=== PATIENT | female | born 1985 | race Caucasian/White ===

== ENCOUNTER 2021-03-29 14:46 | Outpatient (CLI) | payer OTHER, SELFPAY ==
--- NOTE | ~2021-03-29 | XR_ITS ---
XR lumbar spine 2-3V DATE: 03/29/2021 15:55 INDICATION: Back pain for 3 years TECHNIQUE: AP, lateral, coned lateral lumbosacral views COMPARISON: 07/16/2019 lumbar spine FINDINGS: Normal alignment of the lumbar spine. No fracture or bone destruction or spondylolisthesis. Lumbar and lumbosacral interspaces are relatively preserved. Is minimal degenerative spurring. The s acroiliac joints are intact. IMPRESSION: Minimal degenerative change Reviewed, dictated and finalized at location B. IMPRESSION: Minimal degenerative change
--- NOTE | ~2021-03-29 | XR_ITS ---
XR thoracic spine 2V DATE: 03/29/2021 15:54 INDICATION: Back pain for 3 years TECHNIQUE: AP, lateral, swimmer views COMPARISON: None FINDINGS: There is spurring of the thoracic spine, greater in the mid and lower thoracic region. The thoracic pedicles are intact. No fracture or dislocation or bone destruction or paraspinal soft tissu e thickening. IMPRESSION: Degenerative spurring Reviewed, dictated and finalized at location B. IMPRESSION: Degenerative spurring
--- NOTE | 2021-03-29 15:12 | ECG_ITS ---
Measurements Intervals [place] Rate: 68 P: 48 MN: 141 QRS: 39 QRSD: 111 T: 17 QT: 416 QTc: 444 Interpretive Statements SINUS RHYTHM WITH SINUS ARRHYTHMIA INTRAVENTRICULAR CONDUCTION DELAY BORDERLINE ECG Electronically Signed On 03-29-2021 15:31:15 CDT by Eben Lewis D.O.
[2021-03-29 15:20] LABS: Hematocrit 34.8 % (37.0-47.0); Hemoglobin 10.8 g/dL (12.0-15.0); Mean Corpuscular Hemoglobin 24.3 pg (26-34); Mean Corpuscular Volume 78.4 fl (80-100); Mean Platelet Volume 11.7 fl (7.4-10.4); Platelet Count Result 316 k/mm3 (150-375); Red Blood Count 4.44 M/mm3 (4.2-5.4); White Blood Count 9.3 K/mm3 (4.5-10.0)
[2021-03-29 17:15] LABS: Alanine Aminotransferase 17 U/L (4-35); Albumin Level 4.5 g/dL (3.5-5.1); Alkaline Phosphatase 52 U/L (38-126); Anion Gap 8 mmol/L (8-16); Aspartate Amino Transferase 20 U/L (14-36); Bilirubin,Total 0.6 mg/dL (0.2-1.3); Blood Urea Nitrogen 8 mg/dL (7-17); Calcium 9.6 mg/dL (8.4-10.2); Carbon Dioxide 25 mmol/L (22-30); Chloride 106 mmol/L (98-107); Cholesterol 220 mg/dL (0-200); Estimated Glomerular Filt Rate > 60; Glucose 85 mg/dL (65-110); HDL Direct 50 mg/dL; Potassium 4.2 mmol/L (3.4-5.0); Sodium 139 mmol/L (137-145); Triglycerides 160 mg/dL (<150)
[2021-03-29 17:39] LABS: LDL Cholesterol Direct 118 mg/dL
[2021-03-29 19:01] LABS: Vitamin D 25 Hydroxy 31.1 ng/mL
== END 2021-03-29 14:47 | disposition home or self-care (01) ==
PROVIDERS: PCP Family Medicine; Visit Provider Nurse Practitioner Family
DX: E55.9 Vitamin D deficiency, unspecified (principal); E53.8 Deficiency of other specified B group vitamins; Z13.29 Encounter for screening for other suspected endocrine disorder; Z13.220 Encounter for screening for lipoid disorders; Z13.1 Encounter for screening for diabetes mellitus; I10 Essential (primary) hypertension; M54.5 Low back pain; G89.29 Other chronic pain; R07.9 Chest pain, unspecified; I45.9 Conduction disorder, unspecified
CPT/HCPCS: 36415; 72070; 72100; 80053; 80061; 82306; 82607; 84443; 85027; 93005

== ENCOUNTER 2021-04-23 11:12 | Outpatient (CLI) | payer OTHER, SELFPAY ==
[2021-04-23 12:05] LABS: Basophils Absolute Auto 0.1 K/mm3 (0.0-0.1); Basophils Percent Auto 0.7 % (0.2-1.2); Eosinophils Absolute Auto 0.1 K/mm3 (0-0.3); Eosinophils Percent Auto 1.6 % (0-4.4); Hematocrit 35.2 % (37.0-47.0); Hemoglobin 10.5 g/dL (12.0-15.0); Immature Granulocyte Absolute 0.02 K/mm3 (0.00-0.031); Immature Granulocyte Percent A 0.3 % (0-0.5); Lymphocytes Absolute Auto 1.72 K/mm3 (0.9-3.2); Lymphocytes Percent Auto 22.4 % (18.3-44.2); Mean Corpuscular HGB Conc 29.8 g/dl (32-36); Mean Corpuscular Volume 80.4 fl (80-100); Mean Platelet Volume 12.1 fl (7.4-10.4); Monocytes Absolute Auto 0.6 K/mm3 (0.1-0.6); Monocytes Percent Auto 7.9 % (2.6-8.5); Neutrophils Absolute Auto 5.2 K/mm3 (1.3-6.7); Neutrophils Percent Auto 67.1 % (45.5-73.1); Platelet Count Result 255 k/mm3 (150-375); Red Blood Count 4.38 M/mm3 (4.2-5.4); Red Cell Distribution Width 14.9 % (11.5-14.5); White Blood Count 7.7 K/mm3 (4.5-10.0)
[2021-04-23 12:29] LABS: CRP < 0.5 mg/dL (<1.0)
[2021-04-23 12:58] LABS: Erythrocyte Sedimentation Rate 16 mm/hr (0-20)
[2021-04-23 13:11] LABS: Ovalocytes 1+ (NORMAL); Platelet Estimate Adequate (Adequate)
== END 2021-04-23 11:13 | disposition home or self-care (01) ==
PROVIDERS: PCP Family Medicine; Visit Provider Nurse Practitioner Family
DX: M25.50 Pain in unspecified joint (principal); D64.9 Anemia, unspecified
CPT/HCPCS: 36415; 85025; 85652; 86038; 86140

== ENCOUNTER 2021-04-27 09:52 | Outpatient (CLI) | payer OTHER, SELFPAY ==
--- NOTE | 2021-04-27 09:56 | EST_ITS ---
Patient Info Name: Rama Nair Age: 35 years : 1985 Gender: Female Ht: 61 in Wt: 213 lbs BSA: 2.09 m2 Exam Date: 04/27/2021 10:11 AM Exam Location: [facility] Patient Status: Outpatient Admit Date: 04/27/2021 Staff Ordering Physician: Eliezer Pantoja NP Attending Provider: Eliezer Pantoja NP Exercise Technologist: Gayatri Jamil RDCS Exercise Physician: Eben Lewis DO Exam Type: CA stress test treadmill Study Info Indications R07.9 - Chest pain, unspecified A treadmill exercise stress test was performed. Summary 1. 1. Negative Tobi exercise stress test for ischemic ST changes by ECG criteria. 2. 2. Good functional capacity, achieving 10 METs of workload. 3. 3. Hypertensive response to exercise. 4. 4. Appropriate HR response to exercise. 5. 5. Appropriate HR recovery at 1 minute post exercise. 6. 6. No imaging with stress testing. 7. 7. Patient informed of the above results. Protocol: Tobi Stress ECG Details Stage: REST Duration (min): 5 min : 25 sec Speed (mph): 0.0 Grade (%): 0 HR (bpm): 70 SBP (mmHg): 139 DBP (mmHg): 94 METS: --- Stage: REST Duration (min): 10 min : 21 sec Speed (mph): 0.0 Grade (%): 0 HR (bpm): 86 SBP (mmHg): 139 DBP (mmHg): 94 METS: --- Stage: STAGE 1 Duration (min): 1 min : 0 sec Speed (mph): 1.7 Grade (%): 10 HR (bpm): 109 SBP (mmHg): 139 DBP (mmHg): 94 METS: --- Stage: STAGE 1 Duration (min): 2 min : 0 sec Speed (mph): 1.7 Grade (%): 10 HR (bpm): 129 SBP (mmHg): 139 DBP (mmHg): 94 METS: --- Stage: STAGE 1 Duration (min): 3 min : 0 sec Speed (mph): 1.7 Grade (%): 10 HR (bpm): 132 SBP (mmHg): 189 DBP (mmHg): 90 METS: --- Stage: STAGE 2 Duration (min): 1 min : 0 sec Speed (mph): 2.5 Grade (%): 12 HR (bpm): 136 SBP (mmHg): 189 DBP (mmHg): 90 METS: --- Stage: STAGE 2 Duration (min): 2 min : 0 sec Speed (mph): 2.5 Grade (%): 12 HR (bpm): 144 SBP (mmHg): 202 DBP (mmHg): 91 METS: --- Stage: STAGE 2 Duration (min): 3 min : 0 sec Speed (mph): 2.5 Grade (%): 12 HR (bpm): 147 SBP (mmHg): 202 DBP (mmHg): 91 METS: --- Stage: STAGE 3 Duration (min): 1 min : 0 sec Speed (mph): 3.4 Grade (%): 14 HR (bpm): 157 SBP (mmHg): 213 DBP (mmHg): 108 METS: --- Stage: STAGE 3 Duration (min): 2 min : 0 sec Speed (mph): 3.4 Grade (%): 14 HR (bpm): 162 SBP (mmHg): 213 DBP (mmHg): 108 METS: --- Stage: STAGE 3 Duration (min): 2 min : 0 sec Speed (mph): 3.4 Grade (%): 14 HR (bpm): 162 SBP (mmHg): 213 DBP (mmHg): 108 METS: --- Stage: RECOVERY Duration (min): 0 min : 59 sec Speed (mph): 0.0 Grade (%): 0 HR (bpm): 134 SBP (mmHg): 215 DBP (mmHg): 102 METS: --- Stage: RECOVE
== END 2021-04-27 09:53 | disposition home or self-care (01) ==
PROVIDERS: PCP Family Medicine; Visit Provider Nurse Practitioner Family
DX: R07.9 Chest pain, unspecified (principal); I10 Essential (primary) hypertension
CPT/HCPCS: 93017

== ENCOUNTER 2021-09-04 16:40 | Outpatient (CLI) | payer BC, SELFPAY ==
--- NOTE | ~2021-09-04 | MR_ITS ---
EXAMINATION: MR lumbar spine wo/w con DATE: 09/04/2021 17:55 INDICATION: Low back pain. TECHNIQUE: Magnetic resonance imaging (MRI) of the lumbar spine was performed without and with 20 mL MultiHance intravenous contrast. Sequences included sagittal T2-weighted FSE, sagittal T2-weighted FS FSE, and sagittal and axial T1-weighted FSE. Postcontrast sequences included axial T2-weighted FSE a nd axial and sagittal T1-weighted FS FSE. COMPARISON: Lumbar spine radiograph 03/29/2021 FINDINGS: Bone alignment is normal. There is mild chronic anterior wedging of T12 vertebral body. Int ervertebral disc heights are normal. The distal spinal cord signal intensity is normal. The conus med ullaris is at L1-L2. There is an 8 mm cyst in right kidney. The following disc levels are specificall y discussed: L1-L2: The disc does not extend beyond the endplate margin. There is mild bilateral facet joint osteo arthritis. There is no neural foraminal stenosis. There is no central canal stenosis. L2-L3: The disc does not extend beyond the endplate margin. There is mild bilateral facet joint osteo arthritis. There is no neural foraminal stenosis. There is no central canal stenosis. L3-L4: The disc does not extend beyond the endplate margin. There is mild bilateral facet joint osteo arthritis. There is no neural foraminal stenosis. There is no central canal stenosis. L4-L5: The disc does not extend beyond the endplate margin. There is moderate bilateral facet joint o steoarthritis. There is no neural foraminal stenosis. There is no central canal stenosis. L5-S1: There is a central protrusion with annular fissure. There is moderate bilateral facet joint os teoarthritis. There is no neural foraminal stenosis. There is mild central canal stenosis. IMPRESSION: 1. Mild lumbar spondylosis. Reviewed, dictated and finalized at location B. 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 Mild lumbar spondylosis.
[2021-09-04 17:18] LABS: Estimated Glomerular Filt Rate > 60
== END 2021-09-04 16:41 | disposition home or self-care (01) ==
PROVIDERS: PCP Family Medicine; Visit Provider Psychiatry & Neurology Neurology
DX: M51.16 Intervertebral disc disorders with radiculopathy, lumbar region (principal); M47.896 Other spondylosis, lumbar region
CPT/HCPCS: 72158; A9577

== ENCOUNTER 2021-11-22 08:07 | Outpatient (CLI) | payer BC, SELFPAY ==
--- NOTE | ~2021-11-22 | MR_ITS ---
EXAMINATION: MR brain/brain stem wo/w con EXAM DATE: 11/22/2021 09:33 INDICATION: G43.909 - Migraine, unspecified, not intractable, without... TECHNIQUE: Magnetic resonance imaging (MRI) of the brain/brain stem obtained without contrast. Sagit adrián T1, axial diffusion, gradient echo (T2*), T1, T2, FLAIR sequences obtained. Patient was then inj ected with 20 cc intravenous Multihance contrast. Axial and coronal postcontrast T1 weighted sequence s obtained. There is no prior study for comparison. FINDINGS: There are no areas of restricted diffusion to suggest acute infarction. There is no acute hemorrhage seen on the T2*, a hemosiderin sensitive sequence. No intraparenchymal brain mass. The ve ntricles are normal in size. There are no extra-axial collections. Flow voids are seen in the cereb ral arteries on the T2-weighted sequences consistent with their expected patency. The orbits are unr emarkable. Soft tissue is unremarkable. There are no areas of abnormal enhancement on the postcont rast images. IMPRESSION: Unremarkable brain MRI examination. Reviewed, dictated and finalized at location B.
[2021-11-22 08:48] LABS: Estimated Glomerular Filt Rate > 60
== END 2021-11-22 08:08 | disposition home or self-care (01) ==
LOC: ANHIMG 08:12
PROVIDERS: PCP Family Medicine; Visit Provider Psychiatry & Neurology Neurology
DX: G43.909 Migraine, unspecified, not intractable, without status migrainosus (principal); R20.2 Paresthesia of skin
CPT/HCPCS: 70553; A9577

== ENCOUNTER 2022-05-31 10:54 | Outpatient (CLI) | payer BC, SELFPAY ==
[2022-05-31 11:17] LABS: Basophils Absolute Auto 0.1 K/mm3 (0.0-0.1); Eosinophils Absolute Auto 0.1 K/mm3 (0-0.3); Eosinophils Percent Auto 1.9 % (0-4.4); Hematocrit 34.1 % (37.0-47.0); Hemoglobin 10.4 g/dL (12.0-15.0); Immature Granulocyte Absolute 0.03 K/mm3 (0.00-0.031); Immature Granulocyte Percent A 0.4 % (0-0.5); Lymphocytes Absolute Auto 2.25 K/mm3 (0.9-3.2); Lymphocytes Percent Auto 31.1 % (18.3-44.2); Mean Corpuscular HGB Conc 30.5 g/dl (32-36); Mean Corpuscular Hemoglobin 22.8 pg (26-34); Mean Corpuscular Volume 74.6 fl (80-100); Mean Platelet Volume 10.7 fl (7.4-10.4); Monocytes Absolute Auto 0.6 K/mm3 (0.1-0.6); Neutrophils Absolute Auto 4.2 K/mm3 (1.3-6.7); Neutrophils Percent Auto 57.6 % (45.5-73.1); Platelet Count Result 278 k/mm3 (150-375); Red Blood Count 4.57 M/mm3 (4.2-5.4); Red Cell Distribution Width 14.9 % (11.5-14.5); White Blood Count 7.2 K/mm3 (4.5-10.0)
[2022-05-31 11:28] LABS: Alanine Aminotransferase 22 U/L (6-35); Albumin Level 4.7 g/dL (3.5-5.1); Alkaline Phosphatase 63 U/L (38-126); Anion Gap 10 mmol/L (8-16); Aspartate Amino Transferase 23 U/L (14-36); Bilirubin,Total 0.5 mg/dL (0.2-1.3); Blood Urea Nitrogen 8 mg/dL (7-17); Calcium 8.8 mg/dL (8.4-10.2); Carbon Dioxide 26 mmol/L (22-30); Chloride 103 mmol/L (98-107); Cholesterol 250 mg/dL (0-200); Estimated Glomerular Filt Rate > 60; Glucose 89 mg/dL (65-110); HDL Direct 49 mg/dL; Potassium 4.1 mmol/L (3.4-5.0); Sodium 139 mmol/L (137-145); Triglycerides 169 mg/dL (<150)
[2022-05-31 11:39] LABS: LDL Cholesterol Direct 155 mg/dL
[2022-05-31 12:07] LABS: Anisocytosis 1+ (NORMAL); Microcytosis 2+ (NORMAL); Platelet Estimate Adequate (Adequate); Schistocytes None Seen (NORMAL)
[2022-05-31 12:20] LABS: Vitamin D 25 Hydroxy 24.3 ng/mL
== END 2022-05-31 10:55 | disposition home or self-care (01) ==
LOC: ANHLAB 10:56
PROVIDERS: PCP Family Medicine; Visit Provider Nurse Practitioner Family
DX: O24.419 Gestational diabetes mellitus in pregnancy, unspecified control (principal); I10 Essential (primary) hypertension; D64.9 Anemia, unspecified; Z13.29 Encounter for screening for other suspected endocrine disorder; E55.9 Vitamin D deficiency, unspecified; E53.8 Deficiency of other specified B group vitamins; Z13.220 Encounter for screening for lipoid disorders
CPT/HCPCS: 36415; 80053; 80061; 82306; 82607; 84443; 85025

== ENCOUNTER 2022-09-10 19:47 | Emergency (ER) | payer BC, SELFPAY ==
--- NOTE | 2022-09-10 19:48 | ED.URI ---
HPI - URI/Sore Throat General Chief Complaint: Upper Respiratory Infection Stated Complaint: sorethroat Time Seen by Provider: 09/10/22 19:48 Source: patient Mode of arrival: ambulatory Limitations: no limitations History of Present Illness HPI Narrative: Armida is a 36-year-old female patient presenting to the clinic today with complaints of a sore throat x6 days. She reports she is having more pain with swallowing and ear pain today. She denies any known fever or chills. Does report some nasal drainage going in the back of her throat and she is coughing up some clear phlegm. History of tonsillectomy MD elicited complaint: cough, sore throat and nasal congestion Related Data Allergies Allergy/AdvReac Type Severity Reaction Status Date / Time No Known Allergies Allergy Unknown Verified 09/10/22 19:49 Review of Systems Review of Systems: Pertinent positives per HPI. Patient denies any fever, chills, rash, headache, visual changes, dizziness, shortness of breath, chest pain, palpitations, nausea, vomiting, diarrhea, constipation, abdominal pain, or any urinary issues. [facility] Past Medical History Medical History BMI 40.0-44.9, adult COVID-19 Paresthesia Family History Family History Father Hypertension Mother No problems noted. 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 Gender identity (if verbalized by the patient): Female Comments At the time of my signature, I reviewed and agree with the nursing past medical, surgical, social, and family history. There is no relevant family history pertinent to the patient complaint. Exam Narrative: General: Well-developed, morbidly obese, in no apparent distress Head: Normocephalic, atraumatic Eyes: Pupils equally round and reactive to light bilaterally, EOM intact, sclera and conjunctive clear, no discharge, lids normal Ears: TMs intact, congested, mild bulging, ear canals clear, no drainage, grossly hearing normal. Nose: Nares patent, clear nasal discharge, moderate inflammation, no sinus tenderness. Mouth: Oral pharynx without lesions or masses, good dentition, MMM. Postnasal drip, oropharynx red Neck: Supple, trachea midline, no enlargement of anterior or posterior cervical nodes, no thyroid masses or goiter palpable. Cardio: Regular rate and rhythm, s1 and s2 normal, no murmur appreciated. Resp: Clear to auscultation bilaterally, no rhonchi, rales, wheezing or rubs Course Course Emergency Course: Portions of this record may have been created with voice recognition software. Level of Care: Express Care Visit Vital Signs Vital signs: Vital signs reviewed MDM - URI/Sore Throat MDM Narrative Medical decision making narrative: At the time of visit patient is resting comfortably on exam table. Strep screen was obtained was negative in the clinic today. I suspect patient has URI/pharyngitis/eustachian tube dysfunction. Prescription for prednisone was sent to the pharmacy. Supportive measures were discussed with the patient she voiced understanding discharge instructions and agrees to treatment plan. Will send strep for culture and if this comes back positive we will place her on antibiotics at that time. Differential Diagnosis Differential diagnosis: Likely upper respiratory infection, otitis media, sinusitis, viral infection, bronchitis, influenza, pharyngitis and other (COVID) Discharge
[2022-09-10 19:57] VITALS: BP 148/87; PULSE 92; RESP 16; TEMP 36.2; O2SAT 100
== END 2022-09-10 20:07 | disposition home or self-care (01) ==
PROVIDERS: Emergency Provider Nurse Practitioner Family; PCP Family Medicine
DX: J02.9 Acute pharyngitis, unspecified (principal); J06.9 Acute upper respiratory infection, unspecified; H69.93 Unspecified Eustachian tube disorder, bilateral; Z87.891 Personal history of nicotine dependence; Z86.16 Personal history of COVID-19
CPT/HCPCS: 87081; 87880; 99213; G0463

== ENCOUNTER 2022-11-15 09:52 | Outpatient (CLI) | payer OTHER, SELFPAY ==
--- NOTE | ~2022-11-15 | US_ITS ---
EXAMINATION: US pelvic complete DATE: 11/15/2022 10:16 INDICATION: Abnormal uterine bleeding, pelvic pain TECHNIQUE: Multiple transabdominal and endovaginal sonographic images of the pelvis were obtained. COMPARISON: 11/15/2009 FINDINGS: The uterus measures 12.1 x 4.7 x 7.3 cm. There is a 2.4 x 1.3 x 2.0 cm hyperechoic area of the myometrium abutting the endometrial complex, likely an intramural fibroid. The endometrial comple x measures 10 mm. The right ovary measures 3.9 x 2.8 x 3.6 cm. The left ovary measures 2.8 x 1.7 x 2. 6 cm. There is normal vascular flow in the ovaries. There is no free fluid in the pelvis. IMPRESSION: 1. No definite sonographic correlate for the patient's symptoms. There is a probable uterine fibroid abutting the endometrium. If further evaluation is desired, MRI of the pelvis without and with contra st would be recommended Reviewed, dictated and finalized at location B. IMPRESSION: 1. No definite sonographic correlate for the patient's symptoms. There is a pro bable uterine fibroid abutting the endometrium. If further evaluation is desire d, MRI of the pelvis without and with contrast would be recommended
== END 2022-11-15 09:53 ==
LOC: MICIMG 09:53
PROVIDERS: PCP Family Medicine; Visit Provider Advanced Practice Midwife
DX: N93.8 Other specified abnormal uterine and vaginal bleeding (principal); R10.2 Pelvic and perineal pain
CPT/HCPCS: 76856

== ENCOUNTER 2023-01-06 01:18 | Day surgery (SDC) | payer OTHER, SELFPAY ==
[2022-12-30 08:43] VITALS: BMI 41.6
--- NOTE | 2022-12-30 08:50 | PC.NURSE ---
Report to the Outpatient Waiting Room, entrance under the green pavilion located off [facility], at time 0630 on date 01/06/23. Planned Procedure Time: 0830. Time changes happen often and if your time is changed the preop area will call you the afternoon before. - You and your visitor will be asked to self-screen and do not enter if you have any COVID symptoms. - A mask is optional within the hospital at this time. Patients may have clear liquids (water, carbonated beverages, clear teas, apple juice) until 3 hours prior to surgery with a maximum of 20 ounces. - No food from midnight until time of surgery Take the following medications with a SIP of water the morning of surgery: LABETALOL DO NOT STOP ANY OF YOUR OTHER PRESCRIPTION MEDICATIONS PRIOR TO SURGERY EXCEPT THE FOLLOWING Medications to discontinue per physician: VITAMINS/SUPPLEMENTS Date to take last dose: 01/02/23 Please no make-up, nail niuean, hairspray, perfume, deodorant, or body powder the day of surgery. No jewelry (including any body piercings) or valuables the day of surgery, leave them at home. Please take a shower or bath the night before, or the morning of, surgery with an antibacterial soap. Wear comfortable, loose fitting clothing. - Jewelry must be removed prior to entering the operating room. Rings and piercings that are not removed may be cut off. - The hospital will not accept responsibility for valuables. - Please leave all valuables, including medications, at home the day of surgery. If you are going home after surgery, a licensed medical driver must drive you home. - NO public transportation without another adult if you receive anesthesia. - We recommend that an adult stay with you for 24 hours following discharge. - We also recommend that you do not drive, make important decision, drink alcoholic beverages, or take any drugs that were not prescribed by your health care provider for at least 24 hours after your discharge time. Follow any additional instructions given to you from your surgeon. If you or anyone in your household have experienced Covid symptoms in the past week, please notify your surgeon or the nurse liaison at the phone number below for possible testing. Telephone instructions given to PT - ESME HUYNH and asked if any additional questions and then verbalized understanding. Patient advised to call surgeon office or pre surgery nurse liaison [phone] if any additional questions.
[2023-01-06] VITALS (9 sets, daily range): BP systolic 133–152; BP diastolic 77–96; PULSE 59–82; RESP 14–20; TEMP 36.7; O2SAT 97–99
[2023-01-06] MEDS: LACTATED RINGERS 1,000 ML 30 ML IV CONT ×2 (07:00→09:48)
[2023-01-06] MEDS: ACETAMINOPHEN 500 MG TABLET 1000 MG PO (07:01)
--- NOTE | 2023-01-06 07:02 | P.PNAN_ITS ---
Anes - Initial Pre Proc Eval Procedure: Operation Date: 01/06/23 08:30 Proposed Procedures p Hysteroscopy Dilation and Curettage With Endocervical Curettage - Kait Oneal MD Date/Time: 01/06/23 07:02 Surgeon: Kait Oneal MD Pre Op Diagnosis: Menorrhagia with Anemia Patient Data Age: 37 Gender: F Height: 1.55 m Weight: 100 kg Allergies Allergy/AdvReac Type Severity Reaction Status Date / Time No Known Allergies Allergy Unknown Verified 01/06/23 06:55 Home Medications Medication Instructions Recorded Confirmed Type labetalol 200 mg tablet 200 mg PO Q12H #60 tabs 10/18/22 01/06/23 Rx ferrous sulfate 325 mg (65 mg 325 mg PO BID 12/30/22 01/06/23 History iron) tablet (Iron (ferrous sulfate)) B12 1 tablet PO DAILY 01/06/23 01/06/23 History Patient hx anesthesia problems: post op nausea/vomiting Family hx anesthesia problems: none Results Review: All pre-operative results and documents have been reviewed as part of the pre- operative evaluation. [facility] Past Medical History Medical History BMI 40.0-44.9, adult COVID-19 Paresthesia Family History Family History Father Hypertension Mother No problems noted. 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 Gender identity (if verbalized by the patient): Female Spiritual care concerns: No Anes - Eval Final PreProcedure Day of Procedure 01/06/23 07:02 Patient weight: morbidly obese Heart: regular rate and rhythm Lungs: clear to auscultation Airway: Mallampati scale class II Neurological: alert and oriented Last oral intake: >/= 8 hours ASA classification: III Emergent: no Anesthetic plan: proceed Anesthesia type and monitoring: general GIVS and standard monitoring Results Review: All pre-operative results and documents have been reviewed as part of the pre- operative evaluation. Informed Consent: The patient's anesthetic plan and its attendant risks and benefits were discussed with the patient/family/POA. Questions were solicited and answers provided to the satisfaction of the patient/family/POA.
[2023-01-06 07:22] LABS: Hemoglobin 9.1 g/dL (12.0-15.0)
--- NOTE | 2023-01-06 07:28 | WPDHPUPDATE1 ---
History and Physical Update Update Date/Time: 01/06/23 07:28 History and Physical has been reviewed, including an updated exam of the patient. There are NO changes in the patient's condition. Risks, benefits, and alternatives have been discussed and questions answered. Patient agrees to proceed with procedure.
--- NOTE | 2023-01-06 07:28 | PM.IMHP ---
H&P: HPI History of Present Illness Date/Time: 01/06/23 07:28 Chief Complaint: menorrhagia and anemia Narrative: The patient is a 36-year-old 5 para 4 aborta 1 here for menorrhagia with anemia. The patient presents for hysteroscopy with D& C. The patient ultrasound shows an intramural fibroid and possibly a submucosal fibroid. Risks of the procedure including infection, bleeding, perforation, and fluid imbalance were reviewed. Possible pathology was discussed. Patient voices understanding and agrees to proceed. Review of Systems Review of Systems: not repeated day of surgery; patient states no changes in status [facility] Past Medical History Medical History (Updated 01/06/23 @ 07:35 by Kait Oneal MD) Anxiety BMI 40.0-44.9, adult Fibromyalgia Hypothyroid Interstitial cystitis Paresthesia depression Surgical History Surgical History (Updated 01/06/23 @ 07:33 by Kait Oneal MD) History of bilateral tubal ligation 2018 with last section History of x4 History of surgery on wrist bilateral History of tonsillectomy Family History Family History Father Hypertension Mother No problems noted. 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 Gender identity (if verbalized by the patient): Female Spiritual care concerns: No Meds Home Medications and Allergies Home Medications Medication Instructions Recorded Confirmed Type labetalol 200 mg tablet 200 mg PO Q12H #60 tabs 10/18/22 01/06/23 Rx ferrous sulfate 325 mg (65 mg 325 mg PO BID 12/30/22 01/06/23 History iron) tablet (Iron (ferrous sulfate)) B12 1 tablet PO DAILY 01/06/23 01/06/23 History Allergies Allergy/AdvReac Type Severity Reaction Status Date / Time No Known Allergies Allergy Unknown Verified 01/06/23 06:55 Vital Signs Vital Signs - 24 hr 01/06/23 07:19 Temperature 98.1 F Pulse Rate 72 Respiratory Rate 16 Blood Pressure 149/89 H Pulse Oximetry 99 Oxygen Delivery Room Air Exam Const: General: healthy appearing, alert and obese ( BMI of 43) Orientation/consciousness: patient oriented x3 Resp: Effort & Inspection: normal respiratory effort Auscultation: clear to auscultation bilaterally Cardio: Rate: regular rate Rhythm: regular rhythm GI: GI Palp: Yes Soft to palpation, No Tenderness to palpation present (GI) and No Palpable mass present : External Female Exam: normal external appearance Speculum Exam - Vagina: normal appearance of the vagina and normal vaginal discharge Speculum Exam - Cervix: normal appearance of the cervix ( very posterior stenotic) Bimanual exam- vagina & uterus: consistency normal and enlarged ( 12 week size) Bimanual Exam- Adnexa, other: normal adnexae and No adnexal tenderness Neuro: General: patient oriented x3 H&P: Results Labs Labs: Short CBC 01/06/23 Range/Units 07:06 Hgb 9.1 L (12.0-15.0) g/dL Hct 31.0 L (37.0-47.0) % Assessment and Plan Assessment and plan (1) Menorrhagia: Code(s): N92.0 - Excessive and frequent menstruation with regular cycle Status: Acute Assessment and Plan: plan to proceed with D&C hysteroscopy (2) Anemia: Code(s): D64.9 - Anemia, unspecified Status: Acute Assessment and Plan: continue iron
[2023-01-06] MEDS: LIDOCAINE HCL 1% LOCAL INJ 20 ML VIAL 10 ML INFILTRATE (08:56)
[2023-01-06] MEDS: KETOROLAC 15 MG/ML VIAL (*BKC) IV PUSH (09:03)
--- NOTE | 2023-01-06 09:07 | P.OP_ITS ---
Procedure Note - Detailed Date of Procedure 01/06/23 Pre-op Diagnosis Menorrhagia with Anemia Post-op Diagnosis Same Procedure Performed D&C hysteroscopy with resection of endometrial polyps Surgeon Kait Oneal MD Anesthesia MAC and Local Findings uterus sounds to 11cm; large polyp noted at the 3 o'clock position and the 7 o'clock position; endometrium otherwise appears normal Description of Procedure The patient is taken to the operating room and placed under anesthesia in the dorsal lithotomy position. She was prepped and draped in the usual sterile fashion. [place] speculum was placed in the vagina and cervix was grasped on the anterior lip with a tenaculum. The cervix is injected in each quadrant with 1% lidocaine. Endocervical curettings are taken. Uterus is sounded to 11cm. The large Aveeta hysteroscope was placed with the above-stated findings. The resection device is placed through the hysteroscope and under direct visualization the polyps are removed. The hysteroscope was then removed and the sharp curette used to curette the endometrium until a good uterine cry was noted in all areas. All instruments were then removed. Sponge, needle, and instrument counts are correct per the OR staff. Estimated Blood Loss 5 Drains No Packing No Pathology Yes ( Endometrial curettings and shavings; endocervical curettings) Complications No immediate complications Condition Stable Disposition PACU
[2023-01-06] MEDS: oxyCODONE HCL (*CRX) 5 MG TAB IR PO (09:27)
[2023-01-06] MEDS: ONDANSETRON INJ 4 MG/2 ML VIAL IV PUSH (09:44)
[2023-01-06] MEDS: fentaNYL CITRATE INJ (*CRX) 100 MCG/2 ML VIAL 25 MCG IV PUSH ×3 (09:45→10:13)
[2023-01-06] MEDS: diphenhydrAMINE HCl INJ 50 MG/ML VIAL 12.5 MG IV PUSH (10:45)
== END 2023-01-06 12:33 | disposition home or self-care (01) ==
PROVIDERS: Anesthesiology; PCP Family Medicine; Visit Provider Obstetrics & Gynecology Gynecology
PROC: 0U5B8ZZ Destruction of Endometrium, Via Natural or Artificial Opening Endoscopic (ICD-10-PCS; CPT 58563; principal; 2023-01-06 08:30)
DX: N92.0 Excessive and frequent menstruation with regular cycle (principal); D64.9 Anemia, unspecified; N84.0 Polyp of corpus uteri; E66.01 Morbid (severe) obesity due to excess calories; Z68.41 Body mass index [BMI] 40.0-44.9, adult
CPT/HCPCS: 58558; 36415; 85014; 85018; 88305; A9270; J1200; J1885; J2250; J2405; J2704; J3010; J7120

== ENCOUNTER 2023-04-07 19:57 | Emergency (ER) | payer OTHER, SELFPAY ==
--- NOTE | ~2023-04-07 | XR_ITS ---
EXAM: XR forearm LT 2V DATE: 04/07/2023 20:11 HISTORY: hit arm on furniture while falling, pain on distal forearm . COMPARISON: None available. FINDINGS: Normal mineralization. No fracture or dislocation. No lytic or blastic lesion. Joint space s are maintained. No erosion or periosteal change. Soft tissues within normal limits. IMPRESSION: No acute osseous finding in the left forearm. If clinical symptoms or mechanism of injury suggest wrist or elbow injury, consider dedicated radiographs of those specific joints. Reviewed, dictated and finalized at location K. IMPRESSION: No acute osseous finding in the left forearm. If clinical symptoms or mechanism of injury suggest wrist or elbow injury, consider dedicated radiog raphs of those specific joints.
--- NOTE | 2023-04-07 20:01 | ED.UPPEXIN ---
HPI - Extremity Injury (Upper) General Chief Complaint: Extremity Injury, Upper Stated Complaint: lt arm injury Time Seen by Provider: 04/07/23 20:09 Source: patient and RN notes reviewed Mode of arrival: ambulatory Limitations: no limitations History of Present Illness HPI narrative: 37-year-old female presents concern for left forearm pain, bruising. Reports 1 week ago she slammed her forearm on a railing. She reports she had a large swollen bruised area. Reports she used ice, has been taking ibuprofen. She reports the forearm continues to be tender and she is now experiencing tingling in the 1st 2nd 3rd digits. complaint: injury to: left and forearm Related Data Allergies Allergy/AdvReac Type Severity Reaction Status Date / Time No Known Allergies Allergy Unknown Verified 04/07/23 20:08 Review of Systems Review of Systems: CONSTITUTIONAL: Denies malaise, chills, sweats, or fever. SKIN: Denies rash or itching, open skin, laceration, abrasion, redness, warmth MUSCULOSKELETAL: Reports left arm pain, bruising, tingling in the 1st 3 digits of her left NEUROLOGIC: Denies numbness, weakness All systems reviewed & are unremarkable except as noted in HPI and below PMFSH Past Medical History Medical History (Updated 04/07/23 @ 20:27 by Roslyn Gallardo NP) Anxiety BMI 40.0-44.9, adult Fibromyalgia Hypothyroid Interstitial cystitis Paresthesia depression Surgical History Surgical History (Updated 01/06/23 @ 07:33 by Kait Oneal MD) History of bilateral tubal ligation 2018 with last section History of x4 History of surgery on wrist bilateral History of tonsillectomy Family History Family History Father Hypertension Mother No problems noted. 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 Gender identity (if verbalized by the patient): Female Spiritual care concerns: No Comments At time of signature, agree with nursing past medical, surgical, social and family history. There is no relevant family history pertinent to the presenting complaint Exam Narrative: GENERAL: Well-appearing, well-nourished, and in no acute distress. HEAD: Normocephalic, atraumatic. EYES: PERRLA, conjunctivae clear NECK: Supple. CHEST: Speaks in full sentences. No respiratory distress. HEART: Regular rate and rhythm. Normal and equal peripheral pulses. EXTREMITIES: left forearm, wrist, hand, digits have grossly normal strength, normal range of motion. No edema. Healing ecchymosis noted to the dorsal aspect of the forearm. Normal sensation with sensitivity to light touch and pain. Bilateral lower forearm tenderness. No open wounds, no skin tenting, no devitalized tissue or atrophy, no trophic changes, no obvious deformity, alignment normal, nearby joints and structures intact. Distal pulses palpable and equal bilaterally, skin warm, dry, pink. Capillary refill less than 3 seconds. SKIN: Warm, dry, no rash. NEURO: Alert and oriented x3. PSYCH: Normal mood and affect Course Course Emergency Course: Patient is aware of diagnosis, understands and agrees to treatment plan. Anticipatory guidance given. Patient agrees to follow-up as directed and is aware of reasons to seek care at the emergency department. Portions of this record may have been created with voice recog
[2023-04-07 20:05] VITALS: BP 152/91; PULSE 77; RESP 18; TEMP 36.7; O2SAT 100
== END 2023-04-07 20:32 | disposition home or self-care (01) ==
PROVIDERS: Emergency Provider Nurse Practitioner; PCP Family Medicine
DX: S59.912A Unspecified injury of left forearm, initial encounter (principal); W22.8XXA Striking against or struck by other objects, initial encounter; M79.7 Fibromyalgia; E03.9 Hypothyroidism, unspecified
CPT/HCPCS: 73090; 99213; G0463

== ENCOUNTER 2024-01-09 10:28 | Outpatient (CLI) | payer OTHER, SELFPAY ==
--- NOTE | ~2024-01-09 | XR_ITS ---
Clinical Indication: Cough PA and lateral views of the chest: Comparison: 11/12/2023 Findings: The lungs are clear, without evidence of focal consolidation or pleural effusion. Cardiome diastinal silhouette is within normal limits. Bones and soft tissues are unremarkable. Impression: Normal chest. Reviewed, dictated and finalized at location . Impression: Normal chest.
== END 2024-01-09 10:29 | disposition home or self-care (01) ==
PROVIDERS: PCP Family Medicine; Visit Provider Physician Assistant
DX: R05.9 Cough, unspecified (principal)
CPT/HCPCS: 71046

== ENCOUNTER 2024-01-27 15:31 | Outpatient (CLI) | payer OTHER, SELFPAY ==
--- NOTE | ~2024-01-27 | MR_ITS ---
MRI of the lumbar spine Clinical History: Chronic pain Technique: Axial T2-weighted images, and sagittal T1-weighted, T2-weighted, and and T2 fat-sat images were acquired. COMPARISON: 09/04/2021 Findings: There is no fracture or subluxation of the lumbar spine. Vertebral bodies maintain normal h eight and alignment. No bone marrow signal reality seen. At L1-L2, L2-L3, L3-L4, L4-L5, there is no disc bulge or herniation. There are moderate facet joint d egenerative changes at these levels. No spinal canal stenosis or neural foraminal narrowing at these levels. At L5-S1, there is mild disc desiccation with minimal disc bulge. There is moderate facet arthropathy . No central canal stenosis or neural foraminal narrowing. Paravertebral soft tissues are unremarkable. Impression: Degenerative spondylosis overall, as detailed above. Reviewed, dictated and finalized at [facility]. Impression: Degenerative spondylosis overall, as detailed above.
== END 2024-01-27 15:32 ==
PROVIDERS: PCP Physician Assistant; Visit Provider Physician Assistant
DX: M47.896 Other spondylosis, lumbar region (principal); R93.7 Abnormal findings on diagnostic imaging of other parts of musculoskeletal system; G89.29 Other chronic pain
CPT/HCPCS: 72148

== ENCOUNTER 2024-03-04 08:02 | Outpatient (CLI) | payer OTHER, SELFPAY ==
--- NOTE | ~2024-03-04 | US_ITS ---
EXAMINATION: US thyroid DATE: 03/04/2024 08:45 INDICATION: Enlarged thyroid TECHNIQUE: Multiple ultrasound images of the thyroid were obtained. COMPARISON: 11/28/2017 and 05/06/2014 FINDINGS: The right thyroid lobe measures 6.7 x 3.2 x 3.2 cm. The left thyroid lobe measures 4.9 x 1.9 x 2.1 c m. No significant interval change in a solid 3.8 cm isoechoic mass in the right thyroid lobe which i s wider than tall with smooth margins and without echogenic foci (TI-RADS 3, mildly suspicious , FNA if >=2.5 cm, annual followup is >=1.5 cm). Also in the right thyroid lobe is an 8 mm peripherally ech ogenic and shadowing nodule (TI-RADS 4, moderately suspicious , FNA if >=1.5 cm, annual followup is > =1 cm). There is also a 1.3 cm solid hypoechoic TI RADS 4 nodule at the junction of the right thyroid lobe and isthmus which is wider than tall with smooth to ill-defined margins and without echogenic f oci. 4 mm wider than tall solid hyperechoic TI RADS 3 nodule with ill-defined margins in the left thy roid lobe. IMPRESSION: 1. Multinodular goiter with no significant change since 2013 in a 3.8 cm TI RADS 3 right thyroid mass which given the interval stability is likely benign. Per prior report this nodule may have previousl y been biopsied and would correlate with pathology from the reported biopsy. Would also recommend raul ual follow-up for both this and the smaller 1.3 cm TI RADS 4 nodule. Reviewed, dictated and finalized at location A. IMPRESSION: 1. Multinodular goiter with no significant change since 2013 in a 3.8 cm TI RAD S 3 right thyroid mass which given the interval stability is likely benign. Per prior report this nodule may have previously been biopsied and would correlate with pathology from the reported biopsy. Would also recommend annual follow-up for both this and the smaller 1.3 cm TI RADS 4 nodule.
== END 2024-03-04 08:03 ==
LOC: MICIMG 08:02
PROVIDERS: PCP Family Medicine; Visit Provider Advanced Practice Midwife
DX: E07.9 Disorder of thyroid, unspecified (principal); E04.2 Nontoxic multinodular goiter
CPT/HCPCS: 76536

== ENCOUNTER 2024-03-12 11:55 | Outpatient (CLI) | payer OTHER, SELFPAY ==
--- NOTE | ~2024-03-12 | MMUS_ITS ---
EXAMINATION: MM diagnostic reggie BI w neetu, US breast BI complete HISTORY: Breast pain and palpable lumps TECHNIQUE: Additional 3-D tomosynthesis images of the breasts were performed and synthetic 2-D images were generated. CAD analysis was submitted and interpreted. High resolution bilateral complete breas t ultrasound was performed. COMPARISON: No prior studies for comparison. BREAST PARENCHYMAL COMPOSITION: Not dense: There are scattered areas of fibroglandular density. FINDINGS: MAMMOGRAPHIC FINDINGS: There are no suspicious masses, calcifications or architectural distortion in either breast to sugges t malignancy. ULTRASOUND: Complete bilateral US of all 4 quadrants of the breasts and retroareolar region was reviewed. Right breast: At 12:00, 6 cm from the nipple, there is a slightly irregular hypoechoic 11 mm mass wit h parallel orientation, no significant posterior features and no internal vascularity. There is heter ogeneous internal echotexture. Left breast: Normal heterogeneous echotexture without focal solid or cystic mass. IMPRESSION: 1. Slightly irregular shaped 11 mm right breast mass at 12:00, 6 cm from the nipple. No evidence for malignancy in the left breast. 2. Ultrasound-guided right breast biopsy recommended. BI-RADS category 4, suspicious findings. Reviewed, dictated and finalized at location B. IMPRESSION: 1. Slightly irregular shaped 11 mm right breast mass at 12:00, 6 cm from the ni pple. No evidence for malignancy in the left breast. 2. Ultrasound-guided right breast biopsy recommended. BI-RADS category 4, suspicious findings.
== END 2024-03-12 11:56 ==
PROVIDERS: PCP Family Medicine; Visit Provider Advanced Practice Midwife
DX: N64.4 Mastodynia (principal); R92.8 Other abnormal and inconclusive findings on diagnostic imaging of breast
CPT/HCPCS: 76641; 77062; 77066; G0279

== ENCOUNTER 2024-03-17 13:33 | Outpatient (CLI) | payer OTHER, SELFPAY ==
--- NOTE | ~2024-03-17 | US_ITS ---
EXAMINATION: US FNA w image guidance DATE: 03/17/2024 13:19 INDICATION: Thyroid disorder with 3.8 cm TI RADS 3 right thyroid nodule TECHNIQUE: A time-out was performed to verify the patient's name, date of , and procedure to be performed . The procedure and its benefits and risks were discussed with the patient. Risks specifically discus sed included bleeding and infection. The patient understood the risks and agreed to proceed. The neck was prepped and draped in the usual sterile manner. 3 mL 1% lidocaine was used for local anesthesia . 6 passes were made with a 25G needle into the lesion. Appropriate needle location was documented with continuous sonographic guidance. A sterile bandage was applied. There were no immediate compli cations. FINDINGS: Grayscale ultrasound images demonstrate biopsy needles advanced into the previously noted 3.8 cm BI-R ADS 3 nodule in the right thyroid lobe. IMPRESSION: 1. Successful ultrasound-guided fine needle aspiration of the 3.8 cm TI RADS 3 right thyroid nodule. Reviewed, dictated and finalized at location A.
[2024-03-17 13:55] LABS: Hematocrit 37.1 % (37.0-47.0); Mean Corpuscular HGB Conc 29.6 g/dl (32-36); Mean Corpuscular Hemoglobin 22.6 pg (26-34); Mean Corpuscular Volume 76.3 fl (80-100); Mean Platelet Volume 12.4 fl (7.4-10.4); Platelet Count Result 275 k/mm3 (150-375); Red Blood Count 4.86 M/mm3 (4.2-5.4); Red Cell Distribution Width 16.3 % (11.5-14.5); White Blood Count 8.4 K/mm3 (4.5-10.0)
[2024-03-17 14:17] LABS: Rheumatoid Factor < 12.0 IU/ML (<12)
[2024-03-17 14:52] LABS: Vitamin D 25 Hydroxy 28.8 ng/mL
[2024-03-18 13:23] LABS: ANA Cascade Screen NEGATIVE (NEGATIVE)
== END 2024-03-17 13:34 | disposition home or self-care (01) ==
PROVIDERS: Obstetrics & Gynecology Gynecology; PCP Family Medicine; Referring Provider Advanced Practice Midwife; Visit Provider Nurse Practitioner Adult Health
DX: E07.9 Disorder of thyroid, unspecified (principal); M25.50 Pain in unspecified joint; N92.0 Excessive and frequent menstruation with regular cycle; E55.9 Vitamin D deficiency, unspecified
CPT/HCPCS: 10005; 36415; 82306; 84443; 85027; 86038; 86225; 86235; 86364; 86430; 88172; 88173; 88305

== ENCOUNTER 2024-04-15 08:24 | Outpatient (CLI) | payer OTHER, SELFPAY ==
--- NOTE | ~2024-04-15 | MR_ITS ---
MR breast BI wo/w con 04/15/2024 11:22 CDT INDICATION: Right breast mass seen on prior examination. Nipple discharge. TECHNIQUE: MRI of the breasts perform using standard protocol pre-and post IV contrast with the follo wing sequences: Axial T2 STIR, axial T1, axial vibrant T1 with fat suppression precontrast and multip hasic postcontrast. 19 cc MultiHance administered intravenously. COMPARISON: Diagnostic mammogram and bilateral breast ultrasound dated 03/12/2020 FINDINGS: Precontrast sequences and demonstrates a mass measuring up to 9 mm in the upper central asp ect of the right breast, middle third which is characterized as hypointense on T1, hyperintense on T2 without abnormal enhancement. This corresponds to the mass identified on recent ultrasound examinati on and is likely benign given the lack of enhancement. There is moderate background parenchymal enhan cement. No enhancing lesions following contrast administration. No areas of enhancement meeting thr eshold criteria on CAD analysis. No evidence of signal abnormalities in the axillary or internal reggie nury node distributions. LEFT BREAST: No signal abnormalities on precontrast sequences. There is moderate background parenchy mal enhancement. No enhancing lesions following contrast administration. No areas of enhancement m eeting threshold criteria on CAD analysis. No evidence of signal abnormalities in the axillary or i nternal mammary node distributions.] IMPRESSION: 1: Right breast: Probable benign 9 mm right breast mass in the upper central aspect of the right andrea ast without appreciable enhancement. This likely corresponds to the sonographic abnormality on prior ultrasound. Six-month follow-up diagnostic right mammogram and ultrasound recommended. BI-RADS Catego ry 3.. 2: Left breast: Negative. No evidence of malignancy. BI-RADS category 1. Recommend annual mammogr aphy follow-up. Reviewed, dictated and finalized at location B. IMPRESSION: 1: Right breast: Probable benign 9 mm right breast mass in the upper central a spect of the right breast without appreciable enhancement. This likely correspo nds to the sonographic abnormality on prior ultrasound. Six-month follow-up adelfo gnostic right mammogram and ultrasound recommended. BI-RADS Category 3.. 2: Left breast: Negative. No evidence of malignancy. BI-RADS category 1. Re commend annual mammography follow-up.
== END 2024-04-15 08:25 | disposition home or self-care (01) ==
PROVIDERS: PCP Family Medicine; Visit Provider Surgery
DX: N64.52 Nipple discharge (principal); N63.10 Unspecified lump in the right breast, unspecified quadrant
CPT/HCPCS: 77049; A9577; C8908

== ENCOUNTER 2024-08-02 10:18 | Outpatient (CLI) | payer OTHER, SELFPAY ==
--- NOTE | ~2024-08-02 | MMUS_ITS ---
EXAMINATION: MM diagnostic reggie RT w neetu, US breast RT limited HISTORY: Follow-up right breast mass seen on prior examinations. TECHNIQUE: Additional 3-D tomosynthesis images of the right breast were performed and synthetic 2-D i mages were generated. CAD analysis was submitted and interpreted. High resolution Limited right breas t ultrasound was performed. COMPARISON: Comparison to multiple prior studies sequentially, with oldest reviewed study dated 03/12. BREAST PARENCHYMAL COMPOSITION: Not dense: There are scattered areas of fibroglandular density. FINDINGS: MAMMOGRAPHIC FINDINGS: There is a stable focal asymmetry in the upper central aspect of the right breast, middle third. Ther e are no suspicious calcifications. ULTRASOUND: Limited right breast ultrasound: There is a stable oval circumscribed parallel oriented hypoechoic 1 cm mass at 12:00, 8 cm from the nipple, without significant change compared with 03/12/2024. No human resources intern al vascularity. There is mixed posterior attenuation. IMPRESSION: 1. Stable likely benign 1 cm right breast mass at 12:00, 8 cm from the nipple. 2. Recommend 6 month follow-up diagnostic bilateral mammogram and Limited right breast ultrasound BI-RADS category 3, probably benign findings. Reviewed, dictated and finalized at location B. CUTTER IMPRESSION: 1. Stable likely benign 1 cm right breast mass at 12:00, 8 cm from the nipple. 2. Recommend 6 month follow-up diagnostic bilateral mammogram and Limited right breast ultrasound BI-RADS category 3, probably benign findings.
== END 2024-08-02 10:19 | disposition home or self-care (01) ==
LOC: MICIMG 10:19
PROVIDERS: PCP Family Medicine; Visit Provider Surgery
DX: N63.10 Unspecified lump in the right breast, unspecified quadrant (principal); N63.11 Unspecified lump in the right breast, upper outer quadrant
CPT/HCPCS: 76642; 77061; 77065; G0279

== ENCOUNTER 2024-08-02 13:08 | Outpatient (CLI) | payer OTHER, SELFPAY ==
--- NOTE | ~2024-08-02 | US_ITS ---
EXAMINATION: US carotid duplex BI DATE: 08/02/2024 13:41 INDICATION: Syncope. Subjective visual disturbance, vertigo and disturbance of skin sensation. TECHNIQUE: Grayscale, color Doppler, and pulsed Doppler images of the cervical carotid arteries were obtained. The degree of vessel stenosis is placed in one of the following categories: normal, <50%, 5 0-69%, >=70% but less than near-occlusion, near-occlusion, or total occlusion. Note that percent sten osis relative to normal distal artery lumen diameter is indirectly measured from velocity measurement s as described by Leonard, et al. Radiology 2003; 229:340-346. COMPARISON: None. FINDINGS: RIGHT: The right common carotid artery (CCA) peak systolic velocity (PSV) is 86 cm/s. The right internal car otid artery (ICA) PSV is 66 cm/s. The right ICA end-diastolic velocity (EDV) is 23 cm/s. The right IC A/CCA PSV ratio is 0.8. Grayscale and color Doppler images yield an estimate of <50% diameter reducti on from plaque in the ICA. The external carotid artery (ECA) PSV is 84 cm/s. There is antegrade flow in the right vertebral artery. LEFT: The left CCA PSV is 77 cm/s. The left ICA PSV is 69 cm/s. The left ICA EDV is 28 cm/s. The left ICA/C CA PSV ratio is 0.9. Grayscale and color Doppler images yield an estimate of <50% diameter reduction from plaque in the ICA. The ECA PSV is 88 cm/s. There is antegrade flow in the left vertebral artery. IMPRESSION: 1. <50% stenosis in the right internal carotid artery. 2. <50% stenosis in the left internal carotid artery. Reviewed, dictated and finalized at location A. PAINTER
== END 2024-08-02 13:09 | disposition home or self-care (01) ==
PROVIDERS: PCP Family Medicine; Visit Provider Internal Medicine Cardiovascular Disease
DX: I65.23 Occlusion and stenosis of bilateral carotid arteries (principal); E66.9 Obesity, unspecified; E04.1 Nontoxic single thyroid nodule; G62.9 Polyneuropathy, unspecified; Z82.49 Family history of ischemic heart disease and other diseases of the circulatory system
CPT/HCPCS: 93880

== ENCOUNTER 2024-08-03 10:28 | Outpatient (CLI) | payer OTHER, SELFPAY ==
--- NOTE | ~2024-08-03 | US_ITS ---
EXAMINATION: US retroperitoneal duplex ltd DATE: 08/03/2024 14:57 PROFESSOR OF ARCHITECTURE INDICATION: Neuropathy. Hypertension. TECHNIQUE: Sonographic imaging of the kidneys was performed with a 3.5 MHz transducer. Retroperitone al duplex sonogram of the renal arteries also obtained. FINDINGS: No focal flow abnormalities are seen in the renal arteries on color Doppler. The peak syst olic velocities at the origin of the right and left renal arteries and aorta are 119 cm per second, 9 7 cm per second, and 88 cm per second, respectively. The velocities and renal to aortic ratios are wi thin normal limits. IMPRESSION: 1. No Doppler evidence of renal artery stenosis. Reviewed, dictated and finalized at location B. ESSOR OF ARCHITECTURE
== END 2024-08-03 10:29 | disposition home or self-care (01) ==
PROVIDERS: PCP Family Medicine; Visit Provider Internal Medicine Cardiovascular Disease
DX: G62.9 Polyneuropathy, unspecified (principal); E66.9 Obesity, unspecified; R06.02 Shortness of breath; E04.1 Nontoxic single thyroid nodule; Z82.49 Family history of ischemic heart disease and other diseases of the circulatory system; M54.9 Dorsalgia, unspecified; R55 Syncope and collapse; O24.419 Gestational diabetes mellitus in pregnancy, unspecified control; Z3A.00 Weeks of gestation of pregnancy not specified
CPT/HCPCS: 93976

== ENCOUNTER 2024-08-04 14:02 | Outpatient (CLI) | payer OTHER, SELFPAY ==
--- NOTE | 2024-08-04 | ECHO_ITS ---
Patient Info Name: Rama Nair Age: 38 years : 1985 Gender: Female Ht: 64 in Wt: 204 lbs BSA: 2.08 m2 HR: 88 bpm BP: 154 / 95 mmHg Technical Quality: Good Exam Date: 08/04/2024 2:23 PM Exam Location: Echo Lab Patient Status: Outpatient Admit Date: 08/04/2024 Staff Ordering Physician: Christianne Verma MD Household Appliance Repairer: Mariusz De Jesus RDCS Attending Provider: Christianne Verma MD Referring Physician: Bayron HARRISON; Exam Type: CA echo doppler color flow Study Info Indications - sob - neuropathy Complete two-dimensional, color flow and Doppler transthoracic echocardiogram is performed. Summary 1. Complete two-dimensional, color flow and Doppler transthoracic echocardiogram is performed. 2. Left ventricular chamber dimension is normal. 3. Left ventricular wall thickness is mildly increased. 4. Left ventricular systolic function is normal with an ejection fraction by Biplane Method of Discs of 62 %. 5. The left ventricular diastolic function is normal. 6. Dilated inferior vena cava with <50% collapse upon inspiration consistent with elevated right atrial pressure, 10 mmHg. 7. There is no mitral valve regurgitation. 8. PASP cannot be calculated because of insufficient TR jet 9. . Left Ventricle Left ventricular chamber dimension is normal. Left ventricular wall thickness is mildly increased. Left ventricular systolic function is normal with an ejection fraction by Biplane Method of Discs of 62 %. The left ventricular diastolic function is normal. Right Ventricle Right ventricular chamber dimension is normal. Right ventricular systolic function is normal. Left Atria Left atrial chamber dimension is normal. Right Atria Right atrial chamber dimension is normal. Aortic Valve The aortic valve is trileaflet. There is no aortic valve stenosis with a peak velocity of 248 cm/s, mean gradient of 12 mmHg, and aortic valve area of 1.5 cm2. There is no aortic valve regurgitation. Mitral Valve Mitral valve is structurally and functionally normal to two-dimensional, color flow Doppler and Doppler interrogation. There is no mitral valve regurgitation. Tricuspid Valve There is no tricuspid valve regurgitation. PASP cannot be calculated because of insufficient TR jet . Pericardium/Pleural The pericardium appears normal. Inferior Vena Cava Dilated inferior vena cava with <50% collapse upon inspiration consistent with elevated right atrial pressure, 10 mmHg. Aorta The prox ascending aorta size is normal. The ascending aorta arch size is normal. Left Ventricular Outflow Tract Name Value Normal LVOT 2D LVOT Diameter 1.9 cm LVOT Doppler LVOT Peak Gradient 6 mmHg LVOT Mean Gradient 4 mmHg LVOT VTI 27 cm LVOT VTI/AV VTI Ratio 0.5 LVOT Stroke Volume 78 ml LVOT CO 6.0 l/min LVOT CI 2.9 l/min/m2 Pulmonic Valve Name Value Normal RVOT Doppler RVOT Peak Gradient 3 mmHg PV Doppler PV Peak Gradient 5 mmHg Mitral Valve Name Value Normal MV Doppler MV Decel Dauphin 808 cm/s2 MV PHT 41 ms MV Area (PHT) 5.4 cm2 4.0-5.0 MV Diastolic Function MV E Peak Velocity 114 cm/s MV A Peak Velocity 87 cm/s MV E/A 1.3 MV Decel Time 141 ms MV Annular TDI MV E/e' (Septal) 10.7 <=8.0 MV E/e' (Lateral) 9.5 <=8.0 MV E/e' (Average) 10.1 Tricuspid Valve Name Value Normal Estimated PAP/RSVP RA Pressure 10 mmHg <=5 Aorta Name Value Normal Ascending Aorta Ao Root Diameter (MM) 2.7 cm Ao Root Diam Index (MM) 1.3 cm/m2 Aortic Valve Name Value Normal AV Doppler AV Peak Velocity 248 cm/s AV Peak Gradient 19 mmHg AV Mean Gradient 12 mmHg AV VTI 51 cm AV Area (Cont Eq VTI) 1.5 cm2 >=3.0 AV Area (Cont Eq Joe) 1.5 cm2 AV Regurgitation 2D LVOT Area 2.9 cm2 Ventricles Name Value Normal LV Dimensions 2D/MM IVS Diastolic Thickness (2D) 1.1 cm 0.6-1.0 LVID Diastole (2D) 5.0 cm 3.8-5.2 LVIW Diastolic Thickness (2D) 1.3 cm 0.6-0.9 LVID Systole (2D) 3.1 cm 2.2-3.5 LVOT Diameter 1.9 cm LV Mass (2D Cubed) 235.57 g 67.00-162.00 LV Mass Index (2D Cubed) 113 g/m2 43-95 Relative Wall Thickness (2D) 0.50 LV Fractional Shortening/Ejection Fraction 2D/MM LV Fractional Shortening (2D) 39 % 27-45 LV EF (2D Teicholz) 69 % 54-74 LV Diastolic Volume (4C MOD) 117 ml LV EF (4C MOD) 53 % LV Diastolic Volume (2C MOD) 72 ml LV EF (2C MOD) 68 % LV Diastolic Volume (BP MOD) 97 ml 46-106 LV Diastolic Volume Index (BP MOD) 46 ml/m2 29-61 LV Systolic Volume (BP MOD) 36 ml 14-42 LV Systolic Volume Index (BP MOD) 17 ml/m2 8-24 LV EF (BP MOD) 62 % 54-74 LV Diastolic Length (4C) 8.2 cm LV Systolic Length (4C) 6.6 cm LV Stroke Volume (4C MOD) 62 ml Atria Name Value Normal LA Dimensions LA Dimension (MM) 4.0 cm 2.7-3.8 LA Volume (4C A-L) 74 ml LA Volume (BP A-L) 67 ml RA Dimensions RA Area (4C) 13.8 cm2 <=18.0 Report Signatures
== END 2024-08-04 14:03 | disposition home or self-care (01) ==
LOC: ANHCARD 14:03
PROVIDERS: PCP Family Medicine; Visit Provider Internal Medicine Cardiovascular Disease
DX: G62.9 Polyneuropathy, unspecified (principal); E66.9 Obesity, unspecified; R06.02 Shortness of breath; E04.1 Nontoxic single thyroid nodule; Z82.49 Family history of ischemic heart disease and other diseases of the circulatory system; M54.9 Dorsalgia, unspecified; R55 Syncope and collapse
CPT/HCPCS: 93306

== ENCOUNTER 2024-09-06 13:19 | Outpatient (CLI) | payer OTHER, SELFPAY ==
--- NOTE | ~2024-09-06 | US_ITS ---
EXAMINATION: US thyroid DATE: 09/06/2024 13:48 INDICATION: Nontoxic multinodular goiter. TECHNIQUE: Multiple ultrasound images of the thyroid were obtained. COMPARISON: Ultrasound 03/04/2024 FINDINGS: The right thyroid lobe is absent. The left thyroid lobe measures 4.4 x 1.6 x 1.8 cm. Left thyroid lo be demonstrates diffusely heterogeneous echogenicity. Vascularity is increased. No discrete nodule. IMPRESSION: 1. Heterogeneous, hypervascular left thyroid lobe, consistent with chronic lymphocytic (Jacinto) th yroiditis. 2. Right hemithyroidectomy. Reviewed, dictated and finalized at location A. SHAKER IMPRESSION: 1. Heterogeneous, hypervascular left thyroid lobe, consistent with chronic lymp hocytic (Jacinto) thyroiditis. 2. Right hemithyroidectomy.
[2024-09-06 15:29] LABS: Alanine Aminotransferase 12 U/L (6-35); Albumin Level 4.3 g/dL (3.5-5.1); Alkaline Phosphatase 53 U/L (38-126); Anion Gap 9 mmol/L (4-12); Aspartate Amino Transferase 16 U/L (14-36); Bilirubin,Total 0.5 mg/dL (0.2-1.3); Blood Urea Nitrogen 11 mg/dL (7-17); Calcium 8.8 mg/dL (8.4-10.2); Carbon Dioxide 25 mmol/L (22-30); Chloride 105 mmol/L (98-107); Estimated Glomerular Filt Rate > 60; Glucose 88 mg/dL (65-110); Potassium 4.2 mmol/L (3.4-5.0); Sodium 139 mmol/L (137-145)
[2024-09-06 15:40] LABS: Parathyroid Intact 31.7 pg/mL (14.5-75.2)
[2024-09-06 15:54] LABS: Free T4 Free Thyroxine 0.78 ng/dL (0.78-2.19)
[2024-09-07 11:24] LABS: Triiodothyronine T3 Free 2.6 pg/mL (2.3-4.2)
== END 2024-09-06 13:20 | disposition home or self-care (01) ==
LOC: ANHIMG 13:25
PROVIDERS: PCP Family Medicine; Visit Provider Internal Medicine Endocrinology, Diabetes & Metabolism
DX: E03.9 Hypothyroidism, unspecified (principal); E04.2 Nontoxic multinodular goiter; E34.9 Endocrine disorder, unspecified
CPT/HCPCS: 36415; 76536; 80053; 83970; 84439; 84443; 84481

== ENCOUNTER 2024-09-29 01:41 | Day surgery (SDC) | payer OTHER, SELFPAY ==
--- NOTE | 2024-09-17 17:02 | PC.NURSE ---
Report to the Outpatient Waiting Room, entrance under the green pavilion located off [facility], at time 0830 on date 09/29/24. Planned Procedure Time: 1030.? Time changes happen often and if your time is changed the preop area will call you the afternoon before. - You and your visitor will be asked to self-screen and do not enter if you have any COVID symptoms. Please call surgeon if you need to reschedule. - A mask is optional within the hospital at this time. Patients may have clear liquids (water, carbonated beverages, clear teas, apple juice) until 3 hours prior to surgery with a maximum of 20 ounces. 0730 - No food from midnight until time of surgery and no smoking. This includes no chewing gum, candy or mints. - Infants may have breast milk until 4 hours before surgery, formula 6 hours prior to surgery. - Children will be allowed to drink immediately following surgery.? If applicable, please bring a bottle or sippy cup to assist with drinking. Juice, water, soda, and popsicles are readily available.? For infants on formula, please bring formula the day of surgery.? Pacifiers are allowed. Take only the following medications with a SIP of water on the morning of surgery: unithroid DO NOT STOP ANY OF YOUR OTHER PRESCRIPTION MEDICATIONS PRIOR TO SURGERY EXCEPT THE FOLLOWING Medications to discontinue per physician omeprazole, lisinopril, cyclobenzaprine Patient to ask Dr. Khan's office regarding when to stop meloxicam and prednisone prior to procedure. Patient to stop Zepbound 10 days prior to procedure, Patient to stop all vitamins and supplements (Vitamin b12, iron supplement) on 09/26/24 Please no make-up, nail luxembourgish, hairspray, perfume, deodorant, or body powder the day of surgery.? No jewelry (including any body piercings) or valuables the day of surgery, leave them at home.? Please take a shower or bath the night before, or the morning of, surgery with an antibacterial soap.? Wear comfortable, loose fitting clothing.? Children are encouraged to wear pajamas. - Jewelry must be removed prior to entering the operating room.? Rings and piercings that are not removed may be cut off. - The hospital will not accept responsibility for valuables.? - Please leave all valuables, including medications, at home the day of surgery. If you are going home after surgery, a licensed road oiling truck driver must drive you home.? - NO public transportation without another adult if you receive anesthesia. - We recommend that an adult stay with you for 24 hours following discharge. - We also recommend that you do not drive, make important decision, drink alcoholic beverages, or take any drugs that were not prescribed by your health care provider for at least 24 hours after your discharge time. For Pediatric surgeries, we recommend two adults accompany the child home. Follow any additional instructions given to you from your surgeon. Telephone instructions given to Patient- Rama Nair and asked if any additional questions and then verbalized understanding. Patient advised to call surgeon office or pre surgery nurse liaison [phone] if any additional questions.
[2024-09-17 17:12] VITALS: BMI 38.2
[2024-09-29] VITALS (10 sets, daily range): BP systolic 109–135; BP diastolic 56–93; PULSE 76–102; RESP 14–20; TEMP 36.4; O2SAT 92–100; BMI 38.6
--- OUTSIDE RECORDS SUMMARY | 2024-09-29 01:46 | XMS_ITS | Clinical Summary ---
Author Organization [facility] Address [address] [place] [address] Care Team Providers Care Barrel Header Name Role Phone Delio Joy MD Primary Care Provider [phone] Source Comments [facility] Affiliates and Associated Physician Practices is amultiple site organization consisting of ambulatory clinics and hospital sitesin [place] and [place]. This disclosure is being madepursuant to the Care Everywhere program and may not contain all information available regarding this patient. Last updated 18.[facility] Social History Tobacco Use Types Packs/Day Years Used Date Smoking Tobacco: Never Assessed Sex and Gender Information Value Date Recorded Sex Assigned at Not on file Gender Identity Not on file Sexual Orientation Not on file Plan of Treatment Health Maintenance Due Date Last Done Comments PAP SMEAR 1985 HIV SCREENING 12/28/2002 HEPATITIS C SCREENING 12/24/2005 DTAP/TDAP/TD VACCINES (1 - Tdap) 12/28/2006 HEPATITIS B VACCINE (1 of 3 - 19+ 3-dose series) 12/28/2006 COVID-19 VACCINE ( - 2023-2 5 season) 2024 INFLUENZA VACCINE (#1) 2024 DEPRESSION SCREENING 08/25/2024 ZOSTER VACCINE (1 of 2) 12/28/2037 HIB VACCINE Aged Out No longer eligi ble based on patient's age to complete this topic HPV VACCINE Aged Out No longer eligi ble based on patient's age to complete this topic MENINGOCOCCAL (Group B) VACCINE Aged Out No longer eligible based on patient's age to complete this topic MENINGOCOCCAL VACCINE Aged Out No elieser nando eligible based on patient's age to complete this topic PNEUMOCOCCAL VACCINE Aged Out No long er eligible based on patient's age to complete this topic Care Teams Barrel Header Relationship Specialty Start Date End Date Delio Joy MD [address] [place] [address] PCP - General 06/02/18
--- OUTSIDE RECORDS SUMMARY | 2024-09-29 01:46 | XMS_ITS | Clinical Summary ---
Author Organization [facility] Address [address] [place] [address] Care Team Providers Care Silver Solderer Name Role Phone Delio Joy MD Unavailable [phone] Delio Joy MD Primary Care Provider [phone] Allergies Active Allergy Reactions Criticality Noted Date Comments Ondansetron Anxiety Low 07/30/2024 IV only Medications cannabidiol, CBD, (EPIDIOLEX) 100 mg/mL solutionIndicat ions:pain Take 5 mg/kg by mouth as needed Only when in a lot of pain Active cyanocobalamin (Vitamin B-12) 1,000 mcg/mL injectionIndica tions:Preventio n of Vitamin B12 Deficiency Inject 1 mL (1,000 mcg total) under the skin every 30 (thirty) days Active labetaloL (NORMODYNE,HERNANDEZ DATE) 200 mg tablet Take 0.5 tablets (100 mg total) by mouth as needed (for elevatedBP/HR) Active cholecalciferol , vitamin D3, (VITAMIN D3 ORAL)Indication s:supplement Take 1 tablet by mouth livestock auctioneer before breakfast OTC Active cyclobenzaprine (FLEXERIL) 5 mg tablet Take 1 tablet (5 mg total) by mouth 2 (two) times a day as needed for muscle spasms 4 Active ferrous sulfate 325 mg (65 mg of elemental iron) tabletIndicatio ns:Iron Deficiency Anemia Take 1 tablet (325 mg total) by mouth 2 (two) times a day Active lisinopriL (PRINIVIL,ZESTR IL) 20 mg tabletIndicatio ns:hypertension Take 1 tablet (20 mg total) by mouth livestock auctioneer before breakfast 4 Active meloxicam (MOBIC) 7.5 mg tabletIndicatio ns:Osteoarthrit is Take 1 tablet (7.5 mg total) by mouth livestock auctioneer before breakfast 4 Active omeprazole (PriLOSEC) 40 mg capsuleIndicati ons:Treatment of Non-Bleeding Gastric Disorder Take 1 capsule (40 mg total) by mouth livestock auctioneer before breakfast 4 Active predniSONE (DELTASONE) 5 mg tabletIndicatio ns:autoimmune disease Take 1 tablet (5 mg) by mouth livestock auctioneer before breakfast 4 Active Zepbound 2.5 mg/0.5 mL pen injectorIndicat ions:Weight Loss Management for Obese Patient (BMI >= 30) Inject 0.5 mL (2.5 mg total) as directed once a week Friday 4 Active tranexamic acid (LYSTEDA) 650 mg tabletIndicatio ns:Heavy menstrual bleeding Take 1 tablet (650 mg total) by mouth daily as needed 4 Active Active Problems Problem Noted Date Diagnosed Date Thyroid nodule 07/29/2024 Overview (08/23/2024): Right hemithyroidectomy. SOB (shortness of breath) 04/27/2021 Paroxysmal supraventricular tachycardia 04/27/20 21 Assessment & Plan (04/27/2021 3:44 PM CDT): The patient has documented pulses up to 180 by pulse oximeter. She has a child who has WPW. Though I do not see WPW on her resting EKG the possibility of a concealed bypass tract must be entertained. We will obtain echocardiogram to assess the structural integrity of her heart. We will place a Zio XT continuous ECG monitor on today. Encounters Date Type Department Care Team Description 08/26/2024 9:00 AM METAL STAMPER Office Visit [facility] Department of Otolaryngology Head-Neck Division [facility] [address] [place] [address] Josh Montes De Oca MD Thyroid nodule (Primary Dx) 08/10/2024 1:45 PM METAL STAMPER - 08/10/2024 4:05 PM METAL STAMPER Surgery [facility] Operating [facility]) [address] [place] [id number] Josh Montes De Oca MD RIGHT HEMITHYROIDECTOMY 08/10/2024 12:08 PM METAL STAMPER Anesthesia Event [facility] ([facility]) [address] [place] [address] Sarita Oliveira MD Smith, Christine A., NP 08/10/2024 10:26 AM METAL STAMPER - 08/10/2024 4:54 PM METAL STAMPER Hospital Encounter [facility] ([facility]) [address] [place] [id number] Josh Montes De Oca MD Thyroid nodule Discharge Disposition: Discharge to home or self care 07/29/2024 3:00 PM METAL STAMPER Office Visit [facility] Department of Otolaryngology Head-Neck Division [address] [place] [address] [address] [place] [id number] Josh Montes De Oca MD Thyroid nodule (Primary Dx) 07/29/2024 2:00 PM METAL STAMPER - 07/29/2024 11:59 PM METAL STAMPER Hospital Encounter [facility] [place] [address] [facility] [address] [place] [address] Thyroid nodule Discharge Disposition: Discharge to home or self care 07/09/2024 6:22 PM METAL STAMPER - 07/09/2024 11:59 PM METAL STAMPER Hospital Encounter [facility] Radiology [facility] ([facility]) [address] [place] [phone] Discharge Disposition: Discharge to home or self care 07/09/2024 6:19 PM METAL STAMPER - 07/09/2024 11:59 PM METAL STAMPER Hospital Encounter [facility] ([facility]) [address] [place] [address] Discharge Disposition: Discharge to home or self care 07/09/2024 Orders Only [facility] Department of Otolaryngology Head-Neck Division [address] [place] [address] Floor [address] [place] [address] Josh Montes De Oca MD Thyroid nodule (Primary Dx) 07/09/2024 Telephone [facility] Department of Otolaryngology Head-Neck Division [address] [facility] Floor [address] [place] [address] Enedina Golden RN 07/08/2024 Telephone [facility] - [facility] ENT [address] [facility] 11th [place] [address] [place] [address] Graciela Gonzalez MS from Last 3 Months Surgical History Surgery Date Site/Laterality Comments TONSILLECTOMY 08/25/2008 - 08/24/2009 Tonsillectomy SECTION 4 WRIST SURGERY 08/25/2011 - 08/24/2012 Bilateral Tendonitis CYST REMOVAL 08/25/2008 - 08/24/2009 Right foot-big toe OTHER SURGICAL HISTORY 08/25/2023 - 08/24/2024 AIR PUMPER-fibroid scope Medical History Medical History Date Comments Hx Other Medical chronic interst itial cystitis Depression Depression Hx Other Medical gestational adelfo betes Heart murmur Chest pain Hypertension Pre-Eclampsia du ring all 4 pregnancies and after last BP did not come down has stayed elevated Diabetes mellitus (HCC) Gestatio nal Shortness of breath Paroxysmal supraventricular tachycardia (HCC) 04/27/2021 Thyroid nodule 07/29/2024 PONV (postoperative nausea a nd vomiting) Reports IV zofran in past ca uses panic attacks, did well with other IV anti-emetic, able to tolerate PO Zofran Family History Medical History Relation Name Comments No Known Problems Brother Supraventricular tachycardia Daughter No Known Problems Father No Known Problems Father's Brother No Known Problems Father's Sister Electrical Mother No Known Problems Mother's Brother No Known Problems Mother's Sister Marley Parkinson White syndrome Other Daughter Heart murmur Sister Anesthesia problems Neg Hx Relation Name Status Comments Brother Daughter Alive Father Father's Brother Father's Sister Mother Mother's Brother Mother's Sister Other Daughter Alive Sister Social History Tobacco Use Types Packs/Day Years Used Date Smoking Tobacco: Never Smokeless Tobacco: Never AUDIT-C Answer Date Recorded Q1: How often do you have a drink containing alcohol? Never 08/10/2024 Q2: How many drinks containi ng alcohol do you have on a typical day when you are drinking? Patient does not drink Q3: How often do you have si x or more drinks on one occasion? Never 08/10/2024 Personal Safety Answer Date Recorded Have you ever been in or are you currently in a harmful physical or emotional relationship or is someone making you feel afraid or unsafe? Denies 08/10/2024 Comments No Sex and Gender Information Value Date Recorded Sex Assigned at Not on file Legal Sex Female 3:27 AM METAL STAMPER Gender Identity Not on file Sexual Orientation Not on file Obstetrics History Last Filed Vital Signs Vital Sign Reading Time Taken Comments Blood Pressure 146/91 08/10/2024 4:30 PM METAL STAMPER Pulse 72 08/10/2024 4:30 PM METAL STAMPER Temperature 36.2 ??C (97.2 ??F) 08/10/2024 11:[address] Respiratory Rate 18 08/10/2024 4:30 PM METAL STAMPER Oxygen Saturation 99% 08/10/2024 4:30 PM METAL STAMPER Inhaled Oxygen Concentration - - Weight 92.7 kg (204 lb 6.4 oz) 08/26/2024 9:03 A M METAL STAMPER Height 154.9 cm (5' 1 ) 08/10/2024 11:48 AM METAL STAMPER Body Mass Index 38.62 08/10/2024 11:48 AM METAL STAMPER Plan of Treatment Health Maintenance Due Date Last Done Comments Cervical Cancer Screening 1985 Hepatitis C Screening 1985 DTaP/Tdap/Td Vaccine (1 - Tdap) 12/28/1998 Varicella Vaccines (1 of 2 - 13+ 2-dose series) 12/28/2000 Hepatitis B Screening 12/28/2005 Regular Well Visit/Exam 18-64 12/28/2005 Depression Screening 01/01/2020 12/31/2018 Covid-19 Vaccine (2 - 2023-2 5 season) 2024 05/28/2021 Influenza Vaccine (#1) 2024 HPV Vaccines Aged Out No longer eligi ble based on patient's age to complete this topic Pneumococcal vaccine <65 Aged Out No longer eligible based on patient's age to complete this topic Procedures Procedure Name Priority Date/Time Associated Diagnosis Comments SURGICAL PATHOLOGY Routine 08/10/2024 1: 06 PM METAL STAMPER Thyroid nodule WV AN PROCEDURE PLACEHOLDER Routine 08/10/2024 12:33 PM METAL STAMPER WV AN ELECTIVE ENDOTRACHEAL AIRWAY Routine 08/10/2024 12:33 PM METAL STAMPER LOBECTOMY - THYROID 08/10/2024 1 2:12 PM METAL STAMPER Thyroid nodule Special Needs NIMS POCT HCG, URINE Routine 08/10/2024 11:[address] SOFT TISSUE NECK W CONTRAST Schedule Routine, Read Routine (OP Routine) 07/29/2024 2:27 PM METAL STAMPER Thyroid nodule POCT CREATININE - DEVICE Routine 07/29/2024 2:10 PM METAL STAMPER US OUTSIDE CONSULT Routine 07/09/2024 6: 22 PM METAL STAMPER US OUTSIDE CONSULT Routine 07/09/2024 6: 20 PM METAL STAMPER from Last 3 Months Results * Surgical pathology (08/10/2024 1:06 PM METAL STAMPER) Tissue (Parathyroid Gland) 08/10/2024 1:06 PM METAL STAMPER Tissue (Thyroid) 08/10/2024 1:19 PM METAL STAMPER Narrative [facility]OLOGY [facility] - 08/16/2024 10:46 AM METAL STAMPER EPIC results best viewed via link to PDF [facility] [place] [address] Note to Patients: This report may contain a detailed description of human tissue sent by a health care provider to the laboratory for pathologic evaluation. The content of this report is essential for diagnosis and may provide important critical findings. This information may be unfamiliar to patients to review without a medical professional present. It is advised that the patient review this report in the presence of a health care provider who can answer questions and explain the details. SURGICAL PATHOLOGY REPORT FINAL Patient Name: ?? HUYNHESME Cowart Gender: ??F : ??1985 (Age: 38) Address: ??[address] [place] [address] ??[id number] [facility] #: ??[id number] Taken:08/10/2024 Received:08/10/2024 Reported: 08/16/2024 Patient Type: [facility] SDS ?? Service: Surgery Location: Physician(s): ??Josh Montes De Oca M.D. Delio Charlene Stevens M.D. Diagnosis: A. Parathyroid, candidate , excision (AFR1): ? - Thyroid tissue with diffuse chronic inflammation ? - No parathyroid tissue identified ?? B. Thyroid, right, hemithyroidectomy: ? - Jacinto's thyroiditis ? - Macro- and microfollicular colloid nodules with degenerative changes consistent with multinodular goiter ? - Incidental papillary thyroid microcarcinoma, 8 mm, no extrathyroidal extension and no lymphovascular invasion ? [facility]/08/15/2024 14:26 By this signature, I attest that the above diagnosis is based upon my personal examination of the slides(and/or other material indicated in the diagnosis). Naya White MD Report Electronically Reviewed and Signed Out By ??Naya White MD 08/16/2024 10:46:23 Intraoperative Consultation: Frozen Section Diagnosis AFR1: Parathyroid candidate - Thyroid tissue - Parathyroid not identified By Luis Carlos Serrano M.D., Dameon Serrano M.D., Chilango Morales MS, PA ([facility])CM Gross Consultation Received fresh is a piece of tissue weighing 0.02 g and measuring 0.6 x 0.5 x 0.4 cm. Entirely frozen as AFR1. I personally examined the relevant preparation(s) or a microscopic image of the relevant preparation(s) for the specimen(s) while the surgical procedure was still underway and rendered or confirmed the diagnosis(es) Report Electronically reviewed and Signed out by Luis Carlos Serrano M.D. (A) Microscopic Description and Comment: Microscopic examination substantiates the above cited diagnosis. El Harith Elsiddig, M.D. History: 38-year-old female with right thyroid nodule on imaging. ??No previous biopsy. ??Operative procedure: ??Diagnostic hemithyroidectomy Specimen(s) Received: A: Parathyroid candidate B: Right thyroid, stitch kellogg superior pole Gross Description: Received in two formalin jars labeled with the patient's identifiers. A. ??Labeled parathyroid candidate is a specimen received with a cassette labeled AFR1 for frozen section. ??The specimen is submitted entirely as received. ??Jar 0. B. ??Labeled right thyroid, stitch kellogg superior is a 26.9 g, ??5.1 x 4.1 x 2.8 cm right hemithyroidectomy specimen with a stitch designating the superior pole. ??The central aspect of the posterior thyroid is notable for a slightly protruding 2.8 x 2.1 cm nodule. ??There are no surface disruptions on the external surface. ??Specimen is entirely inked blue. ??Sectioning of the thyroid from superior to inferior reveals a 4.1 x 2.8 x 1.4 cm encapsulated, well-circumscribed nodule. The nodule also is notable for a pale white, stellate like area of interest that measures approximately 0.9 x 0.5 x 0.4 cm located in the mid lobe portion of the nodule (B5, B6, B9). ??Additionally the superior and mid lobe is notable for a a chalky white well-circumscribed area of interest that is just adjacent to the aforementioned nodule and measures approximately 0.9 x 0.6 x 0.3 cm (B7, B8). The specimen is entirely submitted. B1 Superior tip, radial sections B2 Inferior tip, radial sections B3-B7 Thyroid, superior ??(B4-B5 bisected; B6-B7 bisected) B8-B11 Thyroid, mid ??(B8-B9 bisected; B10-B11 bisected) B12-B19 (Thyroid, inferior (B12-B13 bisected; B14-B15 bisected; B16-B17 bisected) Jar 0. ?? [facility]/08/11/2024 17:39 Gross Resident:Armani Jones M.D. By this signature, I attest that the above diagnosis is based upon my personal examination of the slides(and/or other material). Addenda/Procedures The performance characteristics of some immunohistochemical stains, fluorescence in-situ hybridization tests and immunophenotyping by flow cytometry cited in this report (if any) were determined by the Surgical Pathology and Flow Cytometry Departments at [facility] as part of an ongoing quality control systems manager program and in compliance with federally mandated regulations drawn from the Clinical Laboratory Improvement Act of 1988 (CLIA '88). ??Some of these tests rely on the use of analyte specific reagents and are subject to specific labeling requirements by the US Food and Drug Administration. ??Such diagnostic tests may only be performed in a facility that is certified by the Department of Health and Human Services as a high complexity laboratory under CLIA '88. ??The FDA has determined that such clearance or approval is not necessary. ??This test is used for clinical purposes. ??It should not be regarded as investigational or for research. ??Nevertheless, federal rules concerning the medical use of analyte specific reagents require that the following disclaimer be attached to the report: This test was developed and its performance characteristics determined by the Surgical Pathology and Flow Cytometry Departments of [facility]. ??It has not been cleared or approved by the U. S. Food and Drug Administration. IMAGES AND SCANNED DOCUMENTS, IF INCLUDED, ONLY VIEWABLE IN PDF VERSION OF REPORT Josh Montes De Oca MD LAB PATHOLOGY ORDERABLES Final Result PATHOLOGY [facility] 3rd Floor [place], [place] [phone] * WV AN ELECTIVE ENDOTRACHEAL AIRWAY, W[place] AN PROCEDURE PLACEHOLDER (08/10/2024 12:33 PM METAL STAMPER) Narrative Lee Ann Wong CRNA - 08/10/2024 12:33 PM METAL STAMPER Lee Ann Wong CRNA ? 08/10/2024 12:33 PM Airway Patient location: OR Urgency: elective Indications for airway management: anesthesia Difficult airway: no Staff: Placed by: Other staff: Blanca Walter Emergent airway documentation: Risks and benefits discussed: yes Consent obtained: yes Consent given by: patient Airway prep: Preoxygenated: yes Patient position: sniffing Mask difficulty assessment: 1 - vent by mask Spontaneous ventilation during airway: absent Sedation level during airway: GA Final airway details: Final airway type: endotracheal airway Tube type: NIM tube ETT size: 7.0 mm Technique used for successful ETT placement: video laryngoscopy Insertion site: oral Blade type: Jhon Video blade type: Mohan Blade size: 3 Cormack-Lehane (video): grade I - full view of glottis ETT to lips: 23 cm Placement verified by: auscultation and CO2 detection Airway secured with: silk tape Number of attempts: 1 us Sarita Oliveira MD ANESTHESIA ORDERABLES Fin al Result * POCT hCG, urine (08/10/2024 11:42 AM METAL STAMPER) HCG, ur, POC Negative Negative Lot Number [id number] QC Backgroud Clear Acceptable QC Control Line Acceptable Urine 08/10/2024 11:4 2 AM METAL STAMPER us Yue Stanley NP POINT OF CARE TEST ORDERAB LES Final Result * CT Neck Soft Tissue W Contrast (07/29/2024 2:27 PM METAL STAMPER) Anatomical Region Laterality Modality Head and Neck N/A Computed Tomogra phy 07/29/2024 2:38 PM METAL STAMPER Impressions 07/29/2024 4:17 PM METAL STAMPER Large heterogeneous right thyroid lobe with a heterogeneously hypoechoic nodule measuring up to 2.2 cm in maximum diameter which was reportedly previously biopsied. ??No lymphadenopathy. Dictated by: Jd Oneal D.O. The radiology attending physician has personally reviewed this study, and had reviewed and/or edited this written report and agrees with it. Electronically signed by: Christiano Del Real M.D. Narrative 07/29/2024 4:17 PM METAL STAMPER EXAMINATION: CT of the neck with contrast HISTORY: 38 years-old Female with Thyroid nodule thyroid nodule. TECHNIQUE: CT of the neck was performed according to the standard protocol with intravenous contrast. Contrast information: 92 mL Optiray-350 COMPARISON: Outside thyroid ultrasound 03/17/2024. FINDINGS: A large heterogeneous right thyroid lobe with a heterogeneously hypoechoic nodule measuring up to 2.2 cm in maximum diameter. Additional hypodense nodules scattered throughout the right thyroid lobe. Scattered subcentimeter lymph nodes are seen in the neck. None are pathologically enlarged or abnormally enhancing. The muscles of the neck are normal. Vessels of the neck demonstrate normal course and caliber. Fascial planes are preserved and the deep spaces of the neck are normal. The visualized airway is widely patent. The base of the skull and the temporal bones are normal. Limited views of the brain including the cerebellum and brainstem are normal. The limited view of the [place] of [place] is unremarkable. The visualized portions of the orbits are normal. The spinal canal is normal in caliber. Intervertebral disk heights are normal. Neural foramina are normal. Limited examination of the superior thorax shows no pulmonary infiltrate, suspicious nodules, or pleural effusions. Procedure Note Christiano Del Real MD PhD - 07/29/2024 EXAMINATION: CT of the neck with contrast HISTORY: 38 years-old Female with Thyroid nodule thyroid nodule. TECHNIQUE: CT of the neck was performed according to the standard protocol with intravenous contrast. Contrast information: 92 mL Optiray-350 COMPARISON: Outside thyroid ultrasound 03/17/2024. FINDINGS: A large heterogeneous right thyroid lobe with a heterogeneously hypoechoic nodule measuring up to 2.2 cm in maximum diameter. Additional hypodense nodules scattered throughout the right thyroid lobe. Scattered subcentimeter lymph nodes are seen in the neck. None are pathologically enlarged or abnormally enhancing. The muscles of the neck are normal. Vessels of the neck demonstrate normal course and caliber. Fascial planes are preserved and the deep spaces of the neck are normal. The visualized airway is widely patent. The base of the skull and the temporal bones are normal. Limited views of the brain including the cerebellum and brainstem are normal. The limited view of the [place] of [place] is unremarkable. The visualized portions of the orbits are normal. The spinal canal is normal in caliber. Intervertebral disk heights are normal. Neural foramina are normal. Limited examination of the superior thorax shows no pulmonary infiltrate, suspicious nodules, or pleural effusions. IMPRESSION: Large heterogeneous right thyroid lobe with a heterogeneously hypoechoic nodule measuring up to 2.2 cm in maximum diameter which was reportedly previously biopsied. No lymphadenopathy. Dictated by: Jd Oneal D.O. The radiology attending physician has personally reviewed this study, and had reviewed and/or edited this written report and agrees with it. Electronically signed by: Christiano Del Real M.D. us Josh Montes De Oca MD IMG CT PROCEDURES Final Result * POCT creatinine (07/29/2024 2:10 PM METAL STAMPER) Creatinine POC 0.7 0.6 - 1.1 mg/dL Blood 07/29/2024 2:10 PM METAL STAMPER 07/29/2024 2:10 PM METAL STAMPER us Josh Montes De Oca MD LAB POCT ORDERABLES - DEVICE F inal Result [facility] [place] [address] * US Outside Consult (07/09/2024 6:22 PM METAL STAMPER) Anatomical Region Laterality Modality Ultrasound 07/10/2024 9:21 AM METAL STAMPER Impressions 07/10/2024 9:28 AM METAL STAMPER This ultrasound study was initially nominated as a consult on outside images via Image Sharing Service. However, a consult was not performed because the images provided are intraprocedural of a thyroid nodule fine-needle aspiration. Accordingly, there will be no separate report of this study generated by a [facility] Radiologist. Dictated by: Jimmy Montenegro MD The radiology attending physician has personally reviewed this study, and had reviewed and/or edited this written report and agrees with it. Electronically signed by: Hair Gorman M.D. Narrative 07/10/2024 9:28 AM METAL STAMPER EXAMINATION: ??CHANGE CONSULT ON OUTSIDE IMAGES TO REFERENCE IMAGES Procedure Note Hair Gorman MD - 07/10/2024 EXAMINATION: CHANGE CONSULT ON OUTSIDE IMAGES TO REFERENCE IMAGES IMPRESSION: This ultrasound study was initially nominated as a consult on outside images via Image Sharing Service. However, a consult was not performed because the images provided are intraprocedural of a thyroid nodule fine-needle aspiration. Accordingly, there will be no separate report of this study generated by a [facility] Radiologist. Dictated by: Jimmy Montenegro MD The radiology attending physician has personally reviewed this study, and had reviewed and/or edited this written report and agrees with it. Electronically signed by: Hair Gorman M.D. us Josh Montes De Oca MD [facility] US PROCEDURES Final Result * US Outside Consult (07/09/2024 6:20 PM METAL STAMPER) Anatomical Region Laterality Modality Ultrasound 07/10/2024 9:21 AM METAL STAMPER Impressions 07/10/2024 9:29 AM METAL STAMPER This thyroid ultrasound study was initially nominated as a consult on outside images via Image Sharing Service. A consult was not performed because the right thyroid nodule has already been biopsied. ??Accordingly, there will be no separate report of this study generated by a [facility] Radiologist. Dictated by: Jimmy Montenegro MD The radiology attending physician has personally reviewed this study, and had reviewed and/or edited this written report and agrees with it. Electronically signed by: Hair Gorman M.D. Narrative 07/10/2024 9:29 AM METAL STAMPER EXAMINATION: ??CHANGE CONSULT ON OUTSIDE IMAGES TO REFERENCE IMAGES Procedure Note Hair Gorman MD - 07/10/2024 EXAMINATION: CHANGE CONSULT ON OUTSIDE IMAGES TO REFERENCE IMAGES IMPRESSION: This thyroid ultrasound study was initially nominated as a consult on outside images via Image Sharing Service. A consult was not performed because the right thyroid nodule has already been biopsied. Accordingly, there will be no separate report of this study generated by a [facility] Radiologist. Dictated by: Jimmy Montenegro MD The radiology attending physician has personally reviewed this study, and had reviewed and/or edited this written report and agrees with it. Electronically signed by: Hair Gorman M.D. us Josh Montes De Oca MD [facility] US PROCEDURES Final Result from Last 3 Months Insurance [facility] [place] [address] [facility] Care Teams Silver Solderer Relationship Specialty Start Date End Date Delio Joy MD PCP - General Family Medicine 04/27/21 Delio Joy MD 06/06/17
--- OUTSIDE RECORDS SUMMARY | 2024-09-29 01:46 | XMS_ITS | Referral Summary ---
Author Organization [facility] Address [address] [place] [address] Care Team Providers Care Sales Development Representative Name Role Phone Delio Joy MD Primary Care Provider [phone] Source Comments [facility],non-audrain medical center Affiliates and Associated Physician Practices is amultiple site organization consisting of ambulatory clinics and hospital sitesin [place], [place], [place] and [place]. This disclosure is being madepursuant to the Care Everywhere program and may not contain all information available regarding this patient. Last updated 18.[facility] Social History Tobacco Use Types Packs/Day Years Used Date Smoking Tobacco: Never Assessed Sex and Gender Information Value Date Recorded Sex Assigned at Not on file Gender Identity Not on file Sexual Orientation Not on file Plan of Treatment Not on file Care Teams Sales Development Representative Relationship Specialty Start Date End Date Delio Joy MD [address] [place] [address] PCP - General 06/02/18
--- OUTSIDE RECORDS SUMMARY | 2024-09-29 01:46 | XMS_ITS | Referral Summary ---
Author Organization [facility] Address [address] [place] [phone] Care Team Providers Care Mounted Police Officer Name Role Phone Delio Joy MD Unavailable [phone] Delio Joy MD Primary Care Provider [phone] Encounters Date Type Department Care Team Description 08/26/2024 9:00 AM TRAVELING PHLEBOTOMIST Office Visit [facility] Department of Otolaryngology Head-Neck Division [address] Floor [address] [place] [address] Josh Montes De Oca MD Thyroid nodule (Primary Dx) 08/10/2024 1:45 PM TRAVELING PHLEBOTOMIST - 08/10/2024 4:05 PM TRAVELING PHLEBOTOMIST Surgery [facility] Operating Room [facility] [address] [place] [address] Josh Montes De Oca MD RIGHT HEMITHYROIDECTOMY 08/10/2024 12:08 PM TRAVELING PHLEBOTOMIST Anesthesia Event [facility] Operating Room [facility] [address] [place] [address] Sarita Oliveira MD Smith, Christine A., NP 08/10/2024 10:26 AM TRAVELING PHLEBOTOMIST - 08/10/2024 4:54 PM TRAVELING PHLEBOTOMIST Hospital Encounter [facility] Operating Room [facility] [address] [place] [address] Josh Montes De Oca MD Thyroid nodule Discharge Disposition: Discharge to home or self care 07/29/2024 3:00 PM TRAVELING PHLEBOTOMIST Office Visit [facility] Department of Otolaryngology Head-Neck Division [address] [place] [address] Josh Montes De Oca MD Thyroid nodule (Primary Dx) 07/29/2024 2:00 PM TRAVELING PHLEBOTOMIST - 07/29/2024 11:59 PM TRAVELING PHLEBOTOMIST Hospital Encounter [facility] [place] [address] [place] [address] Thyroid nodule Discharge Disposition: Discharge to home or self care 07/09/2024 6:22 PM TRAVELING PHLEBOTOMIST - 07/09/2024 11:59 PM TRAVELING PHLEBOTOMIST Hospital Encounter [facility] Radiology [facility] ([facility]) [address] [place] [address] Discharge Disposition: Discharge to home or self care 07/09/2024 6:19 PM TRAVELING PHLEBOTOMIST - 07/09/2024 11:59 PM TRAVELING PHLEBOTOMIST Hospital Encounter [facility] Rad[facility] ([facility]) [address] [place] [address] Discharge Disposition: Discharge to home or self care 07/09/2024 Orders Only [facility] Department of Otolaryngology Head-Neck Division [address] [place] [phone] Josh Montes De Oca MD Thyroid nodule (Primary Dx) 07/09/2024 Telephone [facility] Department of Otolaryngology Head-Neck Division [address] [place] [phone] Enedina Golden RN 07/08/2024 Telephone [facility] Advanced [facility] ([facility]) - [facility] ENT [address] [place] [address] Advanced Medicine 11th [place] [address] [place] [address] Graciela Gonzalez MS from Last 3 Months Allergies Active Allergy Reactions Criticality Noted Date [...] ORAL)Indication s:supplement Take 1 tablet by mouth ict support engineer before breakfast OTC Active cyclobenzaprine (FLEXERIL) 5 [...] 1 tablet (20 mg total) by mouth ict support engineer before breakfast 4 Active meloxicam (MOBIC) 7.5 mg tabletIndicatio ns:Osteoarthrit is Take 1 tablet (7.5 mg total) by mouth ict support engineer before breakfast 4 Active omeprazole (PriLOSEC) 40 mg capsuleIndicati ons:Treatment of Non-Bleeding Gastric Disorder Take 1 capsule (40 mg total) by mouth ict support engineer before breakfast 4 Active predniSONE (DELTASONE) 5 mg tabletIndicatio ns:autoimmune disease Take 1 tablet (5 mg) by mouth ict support engineer before breakfast 4 Active Zepbound 2.5 mg/0.5 [...] Zio XT continuous ECG monitor on today. Social History Tobacco Use Types Packs/Day Years [...] on file Legal Sex Female 3:27 AM TRAVELING PHLEBOTOMIST Gender Identity Not on file Sexual Orientation Not on file Last Filed Vital Signs Vital Sign Reading Time Taken Comments Blood Pressure 146/91 08/10/2024 4:30 PM TRAVELING PHLEBOTOMIST Pulse 72 08/10/2024 4:30 PM TRAVELING PHLEBOTOMIST Temperature 36.2 ??C (97.2 ??F) 08/10/2024 11:[address] Respiratory Rate 18 08/10/2024 4:30 PM TRAVELING PHLEBOTOMIST Oxygen Saturation 99% 08/10/2024 4:30 PM TRAVELING PHLEBOTOMIST Inhaled Oxygen Concentration - - Weight 92.7 kg (204 lb 6.4 oz) 08/26/2024 9:03 A M TRAVELING PHLEBOTOMIST Height 154.9 cm (5' 1 ) 08/10/2024 11:48 AM TRAVELING PHLEBOTOMIST Body Mass Index 38.62 08/10/2024 11:48 AM TRAVELING PHLEBOTOMIST Plan of Treatment Not on file Procedures Procedure Name Priority Date/Time Associated Diagnosis Comments SURGICAL PATHOLOGY Routine 08/10/2024 1: 06 PM TRAVELING PHLEBOTOMIST Thyroid nodule NM AN PROCEDURE PLACEHOLDER Routine 08/10/2024 12:33 PM TRAVELING PHLEBOTOMIST NM AN ELECTIVE ENDOTRACHEAL AIRWAY Routine 08/10/2024 12:33 PM TRAVELING PHLEBOTOMIST LOBECTOMY - THYROID 08/10/2024 1 2:12 PM TRAVELING PHLEBOTOMIST Thyroid nodule Special Needs NIMS POCT HCG, URINE Routine 08/10/2024 11:[address] SOFT TISSUE NECK W CONTRAST Schedule Routine, Read Routine (OP Routine) 07/29/2024 2:27 PM TRAVELING PHLEBOTOMIST Thyroid nodule POCT CREATININE - DEVICE Routine 07/29/2024 2:10 PM TRAVELING PHLEBOTOMIST US OUTSIDE CONSULT Routine 07/09/2024 6: 22 PM TRAVELING PHLEBOTOMIST US OUTSIDE CONSULT Routine 07/09/2024 6: 20 PM TRAVELING PHLEBOTOMIST from Last 3 Months Results * Surgical pathology (08/10/2024 1:06 PM TRAVELING PHLEBOTOMIST) Tissue (Parathyroid Gland) 08/10/2024 1:06 PM TRAVELING PHLEBOTOMIST Tissue (Thyroid) 08/10/2024 1:19 PM TRAVELING PHLEBOTOMIST Narrative PATHOLOGY [facility] - 08/16/2024 10:46 AM TRAVELING PHLEBOTOMIST [facility] results best viewed via link to PDF [facility] [place] [address] Note to Patients: This report may contain [...] SURGICAL PATHOLOGY REPORT FINAL Patient Name: ?? ESME HUYNH Gender: ??F : ??1985 (Age: 38) Address: ??[address] [place] [id number] Hospital #: ??[id number] Taken:08/10/2024 Received:08/10/2024 Reported: 08/16/2024 Patient Type: [facility] [...] extrathyroidal extension and no lymphovascular invasion ? [facility]/08/15/2024 14:26 By this signature, I attest that [...] Carlos Serrano M.D., Dameon Serrano M.D., Chilango Morales, MS, PA ([facility]) Gross Consultation Received fresh is a piece [...] Microscopic examination substantiates the above cited diagnosis. Armani Jones M.D. History: 38-year-old female with right thyroid [...] B14-B15 bisected; B16-B17 bisected) Jar 0. ?? [facility]/08/11/2024 17:39 Gross Resident:Armani Jones M.D. By this signature, I attest that the above diagnosis is based upon my personal examination of the slides(and/or other material). Addenda/Procedures The performance characteristics of some immunohistochemical stains, fluorescence in-situ hybridization tests and immunophenotyping by flow cytometry cited in this report (if any) were determined by the Surgical Pathology and Flow Cytometry Departments at [facility] as part of an ongoing ethanol quality leader program and in compliance with federally mandated [...] Surgical Pathology and Flow Cytometry Departments of [facility]. ??It has not been cleared or approved by the U. S. Food and Drug Administration. IMAGES AND SCANNED DOCUMENTS, IF INCLUDED, ONLY VIEWABLE IN PDF VERSION OF REPORT Josh Montes De Oca MD LAB PATHOLOGY ORDERABLES Final Result PATHOLOGY [facility] 3rd Floor [place], [place] [phone] * NM AN ELECTIVE ENDOTRACHEAL AIRWAY, NM AN PROCEDURE PLACEHOLDER (08/10/2024 12:33 PM TRAVELING PHLEBOTOMIST) Narrative Lee Ann Wong CRNA - 08/10/2024 12:33 PM TRAVELING PHLEBOTOMIST Lee Ann Wong CRNA ? 08/10/2024 12:33 [...] * POCT hCG, urine (08/10/2024 11:42 AM TRAVELING PHLEBOTOMIST) HCG, ur, POC Negative Negative Lot Number [id number] QC Backgroud Clear Acceptable QC Control Line Acceptable Urine 08/10/2024 11:4 2 AM TRAVELING PHLEBOTOMIST us Yue Stanley NP POINT OF CARE TEST ORDERAB LES Final Result * CT Neck Soft Tissue W Contrast (07/29/2024 2:27 PM TRAVELING PHLEBOTOMIST) Anatomical Region Laterality Modality Head and Neck N/A Computed Tomogra phy 07/29/2024 2:38 PM TRAVELING PHLEBOTOMIST Impressions 07/29/2024 4:17 PM TRAVELING PHLEBOTOMIST Large heterogeneous right thyroid lobe with a heterogeneously hypoechoic nodule measuring up to 2.2 cm in maximum diameter which was reportedly previously biopsied. ??No lymphadenopathy. Dictated by: Jd Oneal D.O. The radiology attending physician has personally reviewed this study, and had reviewed and/or edited this written report and agrees with it. Electronically signed by: Christiano Del Real M.D. Narrative 07/29/2024 4:17 PM TRAVELING PHLEBOTOMIST EXAMINATION: CT of the neck with contrast [...] are normal. The limited view of the [place] is unremarkable. The visualized portions [...] are normal. The limited view of the [place] is unremarkable. The visualized portions [...] Result * POCT creatinine (07/29/2024 2:10 PM TRAVELING PHLEBOTOMIST) Creatinine POC 0.7 0.6 - 1.1 mg/dL Blood 07/29/2024 2:10 PM TRAVELING PHLEBOTOMIST 07/29/2024 2:10 PM TRAVELING PHLEBOTOMIST us Josh Montes De Oca MD LAB POCT ORDERABLES - DEVICE F inal Result [facility] [address] [place] [address] * US Outside Consult (07/09/2024 6:22 PM TRAVELING PHLEBOTOMIST) Anatomical Region Laterality Modality Ultrasound 07/10/2024 9:21 AM TRAVELING PHLEBOTOMIST Impressions 07/10/2024 9:28 AM TRAVELING PHLEBOTOMIST This ultrasound study was initially nominated as a consult on outside images via Image Sharing Service. However, a consult was not performed because the images provided are intraprocedural of a thyroid nodule fine-needle aspiration. Accordingly, there will be no separate report of this study generated by a [facility] Radiologist. Dictated by: Jimmy Montenegro MD The radiology attending physician has personally reviewed this study, and had reviewed and/or edited this written report and agrees with it. Electronically signed by: Hair Gorman M.D. Narrative 07/10/2024 9:28 AM TRAVELING PHLEBOTOMIST EXAMINATION: ??CHANGE CONSULT ON OUTSIDE IMAGES TO [...] report of this study generated by a [facility] Radiologist. Dictated by: Jimmy Montenegro MD The radiology attending physician has personally reviewed this study, and had reviewed and/or edited this written report and agrees with it. Electronically signed by: Hair Gorman M.D. us Josh Montes De Oca MD IMG US PROCEDURES Final Result * US Outside Consult (07/09/2024 6:20 PM TRAVELING PHLEBOTOMIST) Anatomical Region Laterality Modality Ultrasound 07/10/2024 9:21 AM TRAVELING PHLEBOTOMIST Impressions 07/10/2024 9:29 AM TRAVELING PHLEBOTOMIST This thyroid ultrasound study was initially nominated as a consult on outside images via Image Sharing Service. A consult was not performed because the right thyroid nodule has already been biopsied. ??Accordingly, there will be no separate report of this study generated by a [facility] Radiologist. Dictated by: Jimmy Montenegro MD The radiology attending physician has personally reviewed this study, and had reviewed and/or edited this written report and agrees with it. Electronically signed by: Hair Gorman M.D. Narrative 07/10/2024 9:29 AM TRAVELING PHLEBOTOMIST EXAMINATION: ??CHANGE CONSULT ON OUTSIDE IMAGES TO [...] report of this study generated by a [facility] Radiologist. Dictated by: Jimmy Montenegro MD The radiology attending physician has personally reviewed this study, and had reviewed and/or edited this written report and agrees with it. Electronically signed by: Hair Gorman M.D. us Josh Montes De Oca MD IM US PROCEDURES Final Result from Last 3 Months Insurance [facility] [employer] OPEN ACCESS [facility] Care Teams Mounted Police Officer Relationship Specialty Start Date End Date Delio Joy MD PCP - General Family Medicine 04/27/21 Delio Joy MD 06/06/17
--- OUTSIDE RECORDS SUMMARY | 2024-09-29 01:46 | XMS_ITS | Continuity of Care Document ---
Author Organization [facility] Address [address] [place] [address] Phone Care Team Providers Care Stockroom Clerk Name Role Phone Unavailable Unavailable Unavailable Advance Directives Directive Yes / No Effective Date File Name No Information Encounters Encounter Description Practice Location Reason(s) For Visit Diagnoses Date Provider Providers Copied on Encounter [facility], [address], [place], [place], [id number], [place] tel:[phone] [facility] No Information 201 6 No Information Referring Provider: BEVERLY Bowie, [address], [place], [address]. tel:[phone] Family History Family Member Type Diagnosis Age At Onset No Information Payers Payer name Insurance type Covered republican ID Authoriza tion(s) No Information Social History Type Description Quantity Date Captured Comments Sex Female Smoking Status No Information Chief Complaint And Reason For Visit No Information History Of Present Illness Encounter Date Complaint History Of Prese nt Illness No Information Instructions Date Instruction Additional Infor mation No Information Assessments Type Assessment Date No Information
--- OUTSIDE RECORDS SUMMARY | 2024-09-29 01:46 | XMS_ITS | Patient Health Summary ---
Author Organization [facility] Address [address] [place] [address] Care Team Providers Care Gathering Machine Setter Name Role Phone Delio Joy MD Primary Care Provider Note from [facility],non-owned Affiliates and Associated Physician Practices is amultiple site organization consisting of ambulatory clinics and hospital sitesin [place], [place], [place] and [place]. This disclosure is being madepursuant to the Care Everywhere program and may not contain all information available regarding this patient. Last updated 18.[facility] Strobe Social History Tobacco Use Types Packs/Day Years Used Date Smoking Tobacco: Never Assessed Sex and Gender Information Value Date Recorded Sex Assigned at Not on file Gender Identity Not on file Sexual Orientation Not on file Procedures * LAB RESULTS ORDER(Performed 06/21/2011) * IMAGING/RADIOLOGY/XRAY RESULTS ORDER(Performed 06/21/2011) * ECHO CONSULT - (Performed 06/18/2011) Performed for Other known or suspected abnormality, not elsewhere classified, affecting management of mother, antepartum condition or complication (HCC) Results * LAB RESULTS ORDER (06/21/2011 4:44 PM CDT) Narrative Transcriptions Document, Scanned - 06/21/2011 4:44 PM CDT Scanned Document LAB - THERAPEUTIC DR GILES MONITORING ORDERABLES * IMAGING/RADIOLOGY/XRAY RESULTS ORDER (06/21/2011 4:44 PM CDT) Anatomical Region Laterality Modality Other Narrative Transcriptions Document, Scanned - 06/21/2011 4:44 PM CDT Scanned Document IMAGING * ECHO CONSULT - (06/18/2011 9:14 AM CDT) 06/18/2011 9:14 AM CDT Narrative [facility] - 06/18/2011 12:11 PM CDT , Echocardiogram 2D, Doppler, and Color Doppler Name: ESME FREEMAN MR #: [id number] Study date: 06/18/2011 Age: 25 years : 1985 Gender: Female Ht: / Wt: / BSA: HR: BP: / age: 23 weeks DAK[place]: 10/11/2011 Maternal age: 23 years REFERRING PHYSICIAN: ??KAIT ONEAL MD WALLET ASSEMBLER: ??Radha Curiel MD PEDIATRIC ECHO GROUNDS FOREMAN: ??Wilfredo Hernandez RDCS Procedure: The procedure was performed in the echo lab. type: single fetus. rhythm: The rhythm was 1:1 AV conduction 0 msec. morphology: There was normal heart anatomy and hemodynamics. There was normal heart size and situs. There was normal flow velocity across the outflow tract. Anatomic relationships: There was a normal atrio-ventricular connection. There was a normal ventriculo-arterial connection. Normally related great vessels. Systemic veins: There was normal systemic venous return. IVC: The inferior vena cava was normal in size and course. IVC Doppler: The flow pattern was normal. Ductus venosus: Flow in the ductus venosus was normal. Pulmonary veins: There was normal pulmonary venous return. Right atrium: Size was normal. Left atrium: Size was normal. Atrial septum: The foramen ovale was non-restrictive and flow direction was right to left. Tricuspid valve: The valve structure was normal. Doppler: The transtricuspid velocity was within the normal range. There was no evidence for tricuspid stenosis. There was no regurgitation. Mitral valve: Valve structure was normal. Doppler: The transmitral velocity was within the normal range. There was no evidence for stenosis. There was no regurgitation. Right ventricle: The cavity size was normal. Wall thickness was normal. Systolic function was normal. Left ventricle: Wall thickness was normal. Ventricular septum: Thickness was normal. Septal contour was normal. The septum was intact. Pulmonic valve: Leaflets exhibited normal thickness and normal cuspal separation. Doppler: The transpulmonic velocity was within the normal range. There was no regurgitation. Aortic valve: Leaflets exhibited normal thickness and normal cuspal separation. Doppler: Transaortic velocity was within the normal range. There was no stenosis. There was no regurgitation. Aorta: A normal aortic arch was appreciated. Systemic arteries: The umbilical artery flow pattern was normal. Extracardiac shunting: Ductus arteriosus: A normal ductus arteriosus was appreciated. Impressions: - ??Diagnoses: Technically difficult study due to limited acoustic properties. The echocardiogram is within normal limits, however small atrial and ventricular septal defects, and persistent ductus arteriosus cannot be excluded as findings. Prepared and signed by Radha Curiel MD Signed 06/18/2011 12:12:38 DOPPLER MEASUREMENTS General ?? (Reference) Umbilical art pulsatility index ?? 0 Umbilical artery pulsatility index sys Systemic veins ?? (Reference) Ductus venosus pulsatility index Tricuspid valve ?? (Reference) Valve peak velocity E-wave m/sec ?m/sec Valve peak velocity A-wave m/sec ?m/sec Mitral valve ?? (Reference) Valve peak velocity E-wave m/sec ?m/sec Valve peak velocity A-wave m/sec ?m/sec Pulmonic valve ?? (Reference) Valve peak velocity m/sec ?m/sec Aortic valve ?? (Reference) Valve peak velocity m/sec ?m/sec Pulmonary artery ?? (Reference) RPA pulsatility index room air LPA pulsatility index room air Aorta ?? (Reference) Isthmus pulsatility index Ductus arteriosus ?? (Reference) Pulsatility index ?? 0 Legend: Predicted normals (shown in italics) are given as mean ?? 2 SD Asterisk (*) kellogg values outside the specified normal range. System measurement tables PW Fetus=A AV Vmax: 80 cm/s AV maxP.6 mmHg MV A Joe: 63.6 cm/s MV E Joe: 40.4 cm/s MV E/A Ratio: 0.6 TV A Joe: 51.2 cm/s TV E Joe: 27.9 cm/s TV E/A Ratio: 0.5 HR: 156.8 BPM Procedure Note 06/18/2011 , Echocardiogram 2D, Doppler, and Color Doppler Name: ESME FREEMAN MR #: [id number] Study date: 06/18/2011 Age: 25 years : 1985 Gender: Female Ht: / Wt: / BSA: HR: BP: / age: 23 weeks D[place]: 10/11/2011 Maternal age: 25 years REFERRING PHYSICIAN: KAIT ONEAL MD WALLET ASSEMBLER: Radha Curiel MD PEDIATRIC ECHO GROUNDS FOREMAN: Wilfredo Hernandez RDCS Procedure: The procedure was performed in the echo lab. type: single fetus. rhythm: The rhythm was 1:1 AV conduction 0 msec. morphology: There was normal heart anatomy and hemodynamics. There was normal heart size and situs. There was normal flow velocity across the outflow tract. Anatomic relationships: There was a normal atrio-ventricular connection. There was a normal ventriculo-arterial connection. Normally related great vessels. Systemic veins: There was normal systemic venous return. IVC: The inferior vena cava was normal in size and course. IVC Doppler: The flow pattern was normal. Ductus venosus: Flow in the ductus venosus was normal. Pulmonary veins: There was normal pulmonary venous return. Right atrium: Size was normal. Left atrium: Size was normal. Atrial septum: The foramen ovale was non-restrictive and flow direction was right to left. Tricuspid valve: The valve structure was normal. Doppler: The transtricuspid velocity was within the normal range. There was no evidence for tricuspid stenosis. There was no regurgitation. Mitral valve: Valve structure was normal. Doppler: The transmitral velocity was within the normal range. There was no evidence for stenosis. There was no regurgitation. Right ventricle: The cavity size was normal. Wall thickness was normal. Systolic function was normal. Left ventricle: Wall thickness was normal. Ventricular septum: Thickness was normal. Septal contour was normal. The septum was intact. Pulmonic valve: Leaflets exhibited normal thickness and normal cuspal separation. Doppler: The transpulmonic velocity was within the normal range. There was no regurgitation. Aortic valve: Leaflets exhibited normal thickness and normal cuspal separation. Doppler: Transaortic velocity was within the normal range. There was no stenosis. There was no regurgitation. Aorta: A normal aortic arch was appreciated. Systemic arteries: The umbilical artery flow pattern was normal. Extracardiac shunting: Ductus arteriosus: A normal ductus arteriosus was appreciated. Impressions: - Diagnoses: Technically difficult study due to limited acoustic properties. The echocardiogram is within normal limits, however small atrial and ventricular septal defects, and persistent ductus arteriosus cannot be excluded as findings. Prepared and signed by Radha Curiel MD Signed 06/18/2011 12:12:38 DOPPLER MEASUREMENTS General (Reference) Umbilical art pulsatility index 0 Umbilical artery pulsatility index sys Systemic veins (Reference) Ductus venosus pulsatility index Tricuspid valve (Reference) Valve peak velocity E-wave m/sec m/sec Valve peak velocity A-wave m/sec m/sec Mitral valve (Reference) Valve peak velocity E-wave m/sec m/sec Valve peak velocity A-wave m/sec m/sec Pulmonic valve (Reference) Valve peak velocity m/sec m/sec Aortic valve (Reference) Valve peak velocity m/sec m/sec Pulmonary artery (Reference) RPA pulsatility index room air LPA pulsatility index room air Aorta (Reference) Isthmus pulsatility index Ductus arteriosus (Reference) Pulsatility index 0 Legend: Predicted normals (shown in italics) are given as mean ?? 2 SD Asterisk (*) kellogg values outside the specified normal range. System measurement tables PW Fetus=A AV Vmax: 80 cm/s AV maxP.6 mmHg MV A Joe: 63.6 cm/s MV E Joe: 40.4 cm/s MV E/A Ratio: 0.6 TV A Joe: 51.2 cm/s TV E Joe: 27.9 cm/s TV E/A Ratio: 0.5 HR: 156.8 BPM Kait Oneal MD ECHO ORDERABLES [facility] [address] [place] [address] Care Teams Gathering Machine Setter Relationship Specialty Start Date End Date Delio Joy MD [address] [place] [address] [facility] - General 06/02/18
--- OUTSIDE RECORDS SUMMARY | 2024-09-29 01:46 | XMS_ITS | Clinical Summary ---
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 Name Role Phone Unavailable Primary Care Provider Unavailabl e Social History Tobacco Use Types Packs/Day Years Used Date Smoking Tobacco: Never Assessed Comments Unknown Sex and Gender Information Value Date Recorded Sex Assigned at Not on file Legal Sex Female 4:28 PM CDT Gender Identity Not on file Sexual Orientation Not on file Plan of Treatment Health Maintenance Due Date Last Done Comments Cervical Cancer Screening Pa p Smear (Age 30 to 64) Every 3 Years 1985 Annual Physical 12/28/1990 Hepatitis C 12/28/2005 DTaP, Tdap and Td Vaccines ( 1 - Tdap) 12/28/2006 Hepatitis B Vaccines (1 of 3 - 19+ 3-dose series) 12/28/2006 Cervical Cancer Screening Pa p with HPV Testing (Age 30 to 64) Every 5 Years 12/28/2017 Cervical Cancer Screening with HPV 12/28/2017 COVID-19 Vaccine (2023-2 5 season) 2024 Influenza Adult (#1) 2024 HPV Vaccines Aged Out No longer eligi ble based on patient's age to complete this topic Meningococcal B Vaccine Aged Out No l onger eligible based on patient's age to complete this topic Meningococcal Vaccine Aged Out No elieser nando eligible based on patient's age to complete this topic Pneumococcal Vaccine: Pediat rics (0 to 5 Years) and At-Risk Patients (6 to 64 Years) Aged Out No longer eligible b ased on patient's age to complete this topic RSV Immunizations Under 20 Months Aged Out No longer eligible based on patient's age to complete this topic
[2024-09-29] MEDS: ACETAMINOPHEN 500 MG TABLET 1000 MG PO (09:15)
[2024-09-29 09:36] LABS: BEDSIDEPREGUCG Negative (Negative)
--- NOTE | 2024-09-29 10:28 | WPDHPUPDATE1 ---
History and Physical Update Update Date/Time: 09/29/24 10:28 - Ultrasound-guided excisional biopsy of right breast mass, possible adjacent tissue transfer History and Physical has been reviewed, including an updated exam of the patient. There are NO changes in the patient's condition. Risks, benefits, and alternatives have been discussed and questions answered. Patient agrees to proceed with procedure.
--- NOTE | 2024-09-29 10:32 | P.PNAN_ITS ---
Anes - Initial Pre Proc Eval Procedure: Operation Date: 09/29/24 10:30 Proposed Procedures p Ultrasound Guided Excisional Biopsy Right Breast, Possible Adjacent Tissue Transfer - Lyla Khan MD Date/Time: 09/29/24 10:32 Surgeon: Lyla Khan MD Pre Op Diagnosis: unspecified lump right breast Patient Data Age: 38 Gender: F Height: 1.55 m Weight: 92.7 kg Last Vital Signs Temp 36.4 C L 09/29/24 08:35 Pulse 89 09/29/24 08:35 Resp 14 09/29/24 08:35 BP 135/93 H 09/29/24 08:35 Pulse Ox 100 09/29/24 08:35 O2 Del Method Room Air 09/29/24 08:35 Allergies Allergy/AdvReac Type Severity Reaction Status Date / Time ondansetron (From Zofran) AdvReac Intermediate Panic Verified 09/29/24 09:34 attack Home Medications ?Medication ?Instructions ?Recorded ?Confirmed ?Type tranexamic acid 650 mg tablet 650 mg PO DAILY PRN Menstrul cycle 03/10/24 09/29/24 History omeprazole 40 mg capsule,delayed 40 mg PO DAILY laryngopharyngeal 05/03/24 09/29/24 Rx release reflux #30 caps lisinopril 20 mg tablet 20 mg PO DAILY #30 tabs 08/23/24 09/29/24 Rx cyclobenzaprine 5 mg tablet 5 mg PO TID PRN muscle spasm 09/07/24 09/29/24 History prednisolone 5 mg tablet 5 mg PO DAILY 09/07/24 09/29/24 History cyanocobalamin (vitamin B-12) 1,000 mcg IM WEEKLY 09/17/24 09/29/24 History 1,000 mcg/mL injection solution ferrous sulfate 325 mg (65 mg 325 mg PO DAILY 09/17/24 09/29/24 History iron) tablet (iron) levothyroxine 50 mcg tablet 50 mcg PO DAILY 09/17/24 09/29/24 History (Unithroid) meloxicam 7.5 mg tablet 7.5 mg PO DAILY PRN joint pain 09/17/24 09/29/24 History metoprolol succinate 25 mg 25 mg PO HS 09/17/24 09/29/24 History tablet,extended release 24 hr Laboratory Tests 09/29/24 08:50 POC Urine HCG, Qual Negative (Negative) HCG: negative Patient hx anesthesia problems: post op nausea/vomiting Family hx anesthesia problems: none Results Review: All pre-operative results and documents have been reviewed as part of the pre- operative evaluation. [facility] Past Medical History Medical History Thyroid nodule Breast mass in female Tachycardia Weight loss Thyroid mass depression Fibromyalgia Interstitial cystitis Anxiety Hypothyroid Paresthesia Surgical History Surgical History History of surgery on wrist bilateral History of tonsillectomy History of bilateral tubal ligation 2018 with last section History of x4 Family History Family History Father Hypertension Alcoholism Asthma Mother Hypertension Sibling Thyroid activity decreased Asthma Grandparent Cancer Heart disease Grandparent Diabetes mellitus Cancer Other Family history of coronary artery disease Social History Social History Years smoked: 6 Smoking status: Former smoker Tobacco type: cigarettes Second hand tobacco smoke exposure: No Alcohol intake: current Alcohol use details: VERY RARE Substance use: never Substance use type: does not use Other substance usage details: CBD oil for joint pain Do You Feel Safe in your Home?: Yes Lack of Transportation: No Lack of Food: Never True Current Housing: I Have Housing Concerned About Future Housing: No Difficulty Paying Gas/Electric Bills: No Difficulty Paying for Meds: No Currently Unemployed: No Education: Trade/Vocational Certificate Difficulty w/ Childcare or Family Care: No Living arrangements: with family Occupation/Education: occupation 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 Gender identity (if verbalized by the patient): Female Spiritual care concerns: No Anes - Eval Final PreProcedure Day of Procedure 09/29/24 10:32 Patient weight: obese Heart: regular rate and rhythm Lungs: normal air movement Airway: Mallampati scale class II Neurological: alert and oriented Last oral intake: >/= 8 hours ASA classification: III Emergent: no Anesthetic plan: proceed Anesthesia type and monitoring: general and standard monitoring Results Review: All pre-operative results and documents have been reviewed as part of the pre- operative evaluation. Informed Consent: The patient's anesthetic plan and its attendant risks and benefits were discussed with the patient/family/POA. Questions were solicited and answers provided to the satisfaction of the patient/family/POA.
[2024-09-29] MEDS: SCOPOLAMINE 1 MG PATCH 1 PATCH TRANSDERM (10:38)
[2024-09-29] MEDS: ceFAZolin 2 GM/D5W 50 ML 2 GM/50 ML BAG IVPB (10:53)
[2024-09-29] MEDS: BUPIVACAINE/EPINEPHRINE 0.5% 30 ML VIAL 20 ML INFILTRATE (11:18)
[2024-09-29] MEDS: LIDOCAINE 1% LOCAL INJ 20 ML VIAL INFILTRATE (11:19)
--- NOTE | 2024-09-29 11:34 | SUR.OPER ---
Right Breast Biopsy sent with JULIET Yi and received in pathology by Nidia
--- NOTE | 2024-09-29 11:38 | W.PM.PROC2 ---
Procedure Note - Detailed Date of Procedure 09/29/24 Pre-op Diagnosis Right breast mass at 12 o'clock position 8cm from nipple Post-op Diagnosis Same Procedure Performed Ultrasound-guided excisional biopsy of right breast mass Surgeon Lyla Khan MD Anesthesia General Description of Procedure patient was identified in the preoperative holding area brought to the OR operating room suite. She was laid supine in the OR table sequential compression devices were applied. Anesthesia was induced without difficulty. The right breast was prepped and draped in a sterile fashion. The ultrasound was used to identify the mass at 12 o'clock position 8 cm from the nipple and a small curvilinear incision was made overlying this mass. Dissection was carried down through the subcutaneous tissue into the breast tissue using cautery and the mass was identified with palpation. This was completely excised and sent to pathology as a fresh specimen. The cavity was irrigated with saline hemostasis was assured. The deep dermal layer was closed with 3-0 Vicryl followed by 4-0 Monocryl in a subcuticular fashion for the skin. Monocryl was applied followed by sterile dressing and a surgical bra. Patient was awoken from anesthesia taken to the recovery area in a stable condition. All needles, instruments, sponge counts were correct as reported by the operating room staff. Patient tolerated procedure well with no immediate complications. Estimated Blood Loss 5 Pathology Yes Complications No immediate complications Condition Stable Disposition PACU [facility] Billing Surgery - Charge Forward: Surgery Billing (CPT 53259)
[2024-09-29] MEDS: LACTATED RINGERS 1,000 ML 30 ML IV CONT (11:48)
[2024-09-29] MEDS: fentaNYL CITRATE INJ (*CRX) 100 MCG/2 ML VIAL 25 MCG IV PUSH ×3 (12:33→13:25)
[2024-09-29] MEDS: oxyCODONE HCL (*CRX) 5 MG TAB IR PO (13:56)
== END 2024-09-29 14:37 | disposition home or self-care (01) ==
PROVIDERS: PCP Family Medicine; Visit Provider Surgery
PROC: (CPT 19120; principal; 2024-09-29 10:30)
DX: D24.1 Benign neoplasm of right breast (principal); Z87.891 Personal history of nicotine dependence; E66.9 Obesity, unspecified; Z68.38 Body mass index [BMI] 38.0-38.9, adult
CPT/HCPCS: 19120; 88307; A9270; J0690; J1100; J2003; J2250; J2405; J2704; J3010; J7120; Q9968

== ENCOUNTER 2024-10-21 08:25 | Outpatient (CLI) | payer OTHER, SELFPAY | END 2024-10-21 08:26 | disposition home or self-care (01) | PROVIDERS: PCP Family Medicine | DX: M19.042 Primary osteoarthritis, left hand (principal); M19.041 Primary osteoarthritis, right hand | CPT/HCPCS: 73130 ==

== ENCOUNTER 2024-12-13 15:49 | Outpatient (CLI) | payer OTHER, SELFPAY ==
[2024-12-13 16:16] LABS: Basophils Absolute Auto 0.1 K/mm3 (0.0-0.1); Basophils Percent Auto 0.8 % (0.2-1.2); Eosinophils Absolute Auto 0.3 K/mm3 (0-0.3); Eosinophils Percent Auto 2.2 % (0-4.4); Hematocrit 34.9 % (37.0-47.0); Hemoglobin 10.2 g/dL (12.0-15.0); Immature Granulocyte Absolute 0.06 K/mm3 (0.00-0.031); Immature Granulocyte Percent A 0.5 % (0-0.5); Lymphocytes Absolute Auto 3.98 K/mm3 (0.9-3.2); Lymphocytes Percent Auto 31.7 % (18.3-44.2); Mean Corpuscular HGB Conc 29.2 g/dl (32-36); Mean Corpuscular Hemoglobin 22.9 pg (26-34); Mean Corpuscular Volume 78.4 fl (80-100); Mean Platelet Volume 11.2 fl (7.4-10.4); Neutrophils Absolute Auto 7.1 K/mm3 (1.3-6.7); Neutrophils Percent Auto 56.8 % (45.5-73.1); Platelet Count Result 396 k/mm3 (150-375); Red Blood Count 4.45 M/mm3 (4.2-5.4); Red Cell Distribution Width 15.4 % (11.5-14.5); White Blood Count 12.5 K/mm3 (4.5-10.0)
[2024-12-13 16:27] LABS: Alanine Aminotransferase 16 U/L (6-35); Albumin Level 4.5 g/dL (3.5-5.1); Alkaline Phosphatase 44 U/L (38-126); Anion Gap 10 mmol/L (4-12); Aspartate Amino Transferase 17 U/L (14-36); Bilirubin,Total 0.2 mg/dL (0.2-1.3); Blood Urea Nitrogen 13 mg/dL (7-17); Calcium 8.8 mg/dL (8.4-10.2); Carbon Dioxide 27 mmol/L (22-30); Chloride 104 mmol/L (98-107); Estimated Glomerular Filt Rate > 60; Glucose 87 mg/dL (65-110); Potassium 3.9 mmol/L (3.4-5.0); Sodium 141 mmol/L (137-145)
[2024-12-13 16:42] LABS: Anisocytosis 1+; Hypochromasia 2+; Ovalocytes 1+; Platelet Estimate Adequate (Adequate); Schistocytes None Seen
[2024-12-13 16:44] LABS: Iron 27 ug/dL (37-170)
[2024-12-13 16:53] LABS: Percent Iron Saturation 6 % (20-50)
[2024-12-13 17:19] LABS: Ferritin 4.48 ng/mL (6.24-137)
--- OUTSIDE RECORDS SUMMARY | 2024-12-13 17:38 | XMS_ITS | Clinical Summary ---
Author Organization [facility] Address Pending sale to [facility] [place] [address] Care Team Providers Care Job Press Feeder Name Role Phone Unavailable Primary Care Provider [...] 12/28/2017 COVID-19 Vaccine (2023-2 5 season) 2024 HPV Vaccines Aged Out No longer eligi ble based on patient's age to complete this topic Meningococcal B Vaccine Aged Out No l onger eligible based on patient's age to complete this topic Meningococcal Vaccine Aged Out No elieser nando eligible based on patient's age to complete this topic Pneumococcal Vaccine: Pediat rics (0 to 5 Years) and At-Risk Patients (6 to 49 Years) Aged Out No longer eligible b ased on patient's age to complete this topic RSV Immunizations Under 20 Months Aged Out No longer eligible based on patient's age to complete this topic
--- OUTSIDE RECORDS SUMMARY | 2024-12-13 17:38 | XMS_ITS | Referral Summary ---
Author Organization [facility] Address [address] [place] [address] Care Team Providers Care Geometrician Name Role Phone Delio Joy MD Unavailable [phone] Delio Joy MD Primary Care Provider [phone] Allergies Active Allergy Reactions Criticality Noted Date [...] ORAL)Indication s:supplement Take 1 tablet by mouth assistant professor in family studies before breakfast OTC Active cyclobenzaprine (FLEXERIL) 5 [...] 1 tablet (20 mg total) by mouth assistant professor in family studies before breakfast 4 Active meloxicam (MOBIC) 7.5 mg tabletIndicatio ns:Osteoarthrit is Take 1 tablet (7.5 mg total) by mouth assistant professor in family studies before breakfast 4 Active omeprazole (PriLOSEC) 40 mg capsuleIndicati ons:Treatment of Non-Bleeding Gastric Disorder Take 1 capsule (40 mg total) by mouth assistant professor in family studies before breakfast 4 Active predniSONE (DELTASONE) 5 mg tabletIndicatio ns:autoimmune disease Take 1 tablet (5 mg) by mouth assistant professor in family studies before breakfast 4 Active Zepbound 2.5 mg/0.5 [...] of her heart. We will place a Amminexo XT continuous ECG monitor on today. Social History Tobacco Use Types Packs/Day Years Used Date Smoking Tobacco: Never Smokeless Tobacco: Never AUDIT-C Answer Date Recorded Q1: How often do you have a drink containing alcohol? Never 08/10/2024 Q2: How many drinks containi ng alcohol do you have on a typical day when you are drinking? 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 Gender Identity Not on file Sexual Orientation Not on file Last Filed Vital Signs Vital Sign Reading Time Taken Comments Blood Pressure 146/91 08/10/2024 4:30 PM PIANO PROFESSOR Pulse 72 08/10/2024 4:30 PM PIANO PROFESSOR Temperature 36.2 C (97.2 F) 08/10/2024 11:40 AM PIANO PROFESSOR Respiratory Rate 18 08/10/2024 4:30 PM PIANO PROFESSOR Oxygen Saturation 99% 08/10/2024 4:30 PM PIANO PROFESSOR Inhaled Oxygen Concentration - - Weight 92.7 kg (204 lb 6.4 oz) 08/26/2024 9:03 A M PIANO PROFESSOR Height 154.9 cm (5' 1 ) 08/10/2024 11:48 AM PIANO PROFESSOR Body Mass Index 38.62 08/10/2024 11:48 AM PIANO PROFESSOR Plan of Treatment Not on [place] [address] [facility] Care Teams Geometrician Relationship Specialty Start Date End Date Delio Joy MD PCP - General Family Medicine 04/27/21 Delio Joy MD 06/06/17
--- OUTSIDE RECORDS SUMMARY | 2024-12-13 17:38 | XMS_ITS | Patient Health Record ---
Author Organization [facility] Address [address] [address] Care Team Providers Care Softball Winder Name Role Phone Maki Enriquez Primary Care Provider Migration, Provider Unavailable Unavailable Allergies No Known Allergies Results Component Value Reference Range Notes COMPREHENSIVE METABOLIC PANE L Reviewed date:07/11/2024 03:15:19 PM Interpretation: Performing Lab:[facility], [address] [place], [address] Gen Huff MD Notes/Report: FASTING:YES FASTING: YES VITAMIN D, 25-HYDROXY, LC/MS /MS Reviewed date:07/11/2024 03:31:23 PM Interpretation: Performing Lab:[facility], [address] [place], [address] Gen Huff MD Notes/Report: FASTING:YES FASTING: YES ACTH, PLASMA Reviewed date:07/14/2024 08:55:50 PM Interpretation: Performing Lab:[facility]José Miguel [facility], [address] [facility] , [place], [address] Rodney Flores M.D.,PhD Notes/Report: FASTING:YES FASTING: YES T3, FREE Reviewed date:07/11/2024 03:12:52 PM Interpretation: Performing Lab:[facility], [address], [place], [address] Gen Huff MD Notes/Report: FASTING:YES FASTING: YES DHEA SULFATE Reviewed date:07/11/2024 03:15:26 PM Interpretation: Performing Lab:[facility], [address], [place], [address] Gen Huff MD Notes/Report: FASTING:YES FASTING: YES ESTRADIOL Reviewed date:07/11/2024 03:20:18 PM Interpretation: Performing Lab:[facility], [address], [place], [address] Gen Huff MD Notes/Report: FASTING:YES FASTING: YES FSH Reviewed date:07/11/2024 03:13:26 PM Interpretation: Performing Lab:[facility], [address], [place], [address] Gen Huff MD Notes/Report: FASTING:YES FASTING: YES HEMOGLOBIN A1c Reviewed date:07/11/2024 03:31:16 PM Interpretation: Performing Lab[facility], [address], [place], [address] Gen Huff Notes/Report: FASTING:YES FASTING: YES INSULIN Reviewed date:07/11/2024 03:19:59 PM Interpretation: Performing Lab:[facility], [address], [place], [address] Gen Huff MD Notes/Report: FASTING:YES FASTING: YES LH Reviewed date:07/11/2024 03:15:05 PM Interpretation: Performing Lab:[facility], [address], [place], [address] Gen Huff MD Notes/Report: FASTING:YES FASTING: YES MAGNESIUM Reviewed date:07/11/2024 03:13:12 PM Interpretation: Performing Lab:[facility], [address], [place], [address] Gen Huff MD Notes/Report: FASTING:YES FASTING: YES CBC (INCLUDES DIFF/PLT) Reviewed date:07/13/2024 06:24:54 AM Interpretation: Performing Lab:[facility], [address], [place], [address] Gen Huff MD Notes/Report: FASTING:YES FASTING: YES VITAMIN B12/FOLATE, SERUM PA BRADLEY Reviewed date:07/11/2024 03:20:25 PM Interpretation: Performing Lab:[facility], [address], [place], [address] Gen Huff MD Notes/Report: FASTING:YES FASTING: YES PROGESTERONE Reviewed date:07/11/2024 03:20:05 PM Interpretation: Performing Lab:[facility], [address], [place], [address] Gen Huff MD Notes/Report: FASTING:YES FASTING: YES IRON AND TOTAL IRON BINDING CAPACITY Reviewed date:07/11/2024 03:13:54 PM Interpretation: Performing Lab:[facility], [address], [place], [address] Gen Huff MD Notes/Report: FASTING:YES FASTING: YES T4, FREE Reviewed date:07/11/2024 03:13:19 PM Interpretation: Performing Lab:[facility], [address], [place], [address] Gen Huff MD Notes/Report: FASTING:YES FASTING: YES TSH Reviewed date:07/11/2024 03:20:11 PM Interpretation: Performing Lab:[facility], [address], [place], [address] Gen Huff MD Notes/Report: FASTING:YES FASTING: YES TESTOSTERONE, FREE (DIALYSIS ) AND TOTAL,MS Reviewed date:07/15/2024 09:23:56 PM Interpretation: Performing Lab:[facility], [address] [address], [address], [place], [address] Chandler Plaza MD,PhD Notes/Report: FASTING:YES FASTING: YES TESTOSTERONE, TOTAL, MS 12 2-45 ng/dL For additional information, please refer to https://education.[employer].com/faq/VUO964 (This link is being provided for informational/educational purposes only.) (Note) This test was developed and its analytical performance characteristics have been determined by [facility]. It has not been cleared or approved by the FDA. This assay has been validated pursuant to the CLIA regulations and is used for clinical purposes. TESTOSTERONE, FREE 0.9 0.1-6.4 pg/mL (Note) This test was developed and its analytical performance characteristics have been determined by [facility]. It has not been cleared or approved by the FDA. This assay has been validated pursuant to the CLIA regulations and is used for clinical purposes. [facility] [address] [address],[address] [facility] [id number] Chandler Plaza MD, PhD Reason For Referral Reason 4 cm right dominant thyroid nodule/ biopsy this summer benign- however patient with compressive symptoms, short of breath if laying on right side Referral Organization [email or web address] Referring Provider First Name Maki Referring Provider Last Name [place] Referring Provider Speciality Internal edicine Referred Provider Specialty Surgical Onc ology Referral Priority Urgent Reason holosystolic murmur, new in onset, lower ext edema, increased shortness of breath, ACUTE referral thank you Referral Organization [email or web address] Referring Provider First Name Maki Referring Provider Last Name [place] Referring Provider Speciality Internal edicine Referred Provider Specialty Cardiovascul ar Disease Referral Priority Urgent Medications Medication SIG (Take, Route, Frequency, Duration) Notes Start Date End Date Status Unithroid 50 MCG 1 tablet in the morn ing on an empty stomach Orally Once a day for 30 days 09/10/2024 Active Meloxicam 7.5 MG 1 tab(s) orally once a day Active Lisinopril 20 MG 1 tab(s) orally once a day Active Tranexamic Acid 650 MG 2 tab(s) orally 3 times a day Active Omeprazole 40 MG 1 cap(s) orally once a day Active Cyanocobalamin 1000 MCG/ML 1 mL Injection weekly for 90 days please insulin syringes forsubcutaneouslyinjecti on, will need 13 thank you 09/03/2024 Active Zepbound 2.5 MG/0.5ML as directed subcutaneously once a week Not-Taking Ergocalciferol 1.25 MG (30814 UT) 1 capsule Orally weekly for 84 days 09/03/2024 Active Problems Problem Type SNOMED Code ICD Code Onset Dates Problem Status W/U Status Risk Notes Problem Vitamin D deficiency (55452916) Vitamin D deficiency, unspecified (E55.9) Active confirmed Problem Hypothyroidism (33004469) Hypothyroidism, unspecified (E03.9) Active confirmed Problem Non-toxic single thyroid nodule (002920282) Nontoxic single thyroid nodule (E04.1) Active confirmed Problem Non-toxic multinodular goiter (05892315) Nontoxic multinodular goiter (E04.2) Active confirmed Problem Autoimmune thyroiditis (50453431) Autoimmune thyroiditis (E06.3) Active confirmed Problem Irregular menstruation (43531037) Irregular menstruation, unspecified (N92.6) Active confirmed Vital Signs Heart Rate 72 /min 09/03/2024 Blood pressure diastolic 82 mm Hg 09/03/2024 Height 61 in 09/03/2024 Blood pressure systolic 132 mm Hg 09/03/2024 Weight 202 lbs 09/03/2024 BMI 38.16 kg/m2 09/03/2024 Encounters Encounter Location Date Provider Diagnosis [address] [address] 07/10/2024 Provider Migration [facility] [address] [place] [address] 07/08/2024 Maki Enriquez Nontoxic single thyroid nodule E04.1 ; Other fatigue R53.83 ; Vitamin D deficiency, unspecified E55.9 ; Irregular menstruation, unspecified N92.6 ; Vitamin B12 deficiency anemia, unspecified D51.9 and Cardiac murmur, unspecified R01.1 [facility] [address] [place] [address] 07/07/2024 Maki Enriquez [facility] [address] [place] [address] 07/14/2024 Maki Enriquez [facility] [address] [place] [address] 09/03/2024 Maki Enriquez [facility] [address] [place] [address] 09/10/2024 Maki Enriquez Hypothyroidism, unspecified E03.9 [facility], [facility] - [facility] [address] [place] [address] 09/03/2024 Maki Enriquez Vitamin D deficiency , unspecified E55.9 ; Vitamin B12 deficiency anemia, unspecified D51.9 ; Autoimmune thyroiditis E06.3 and Nontoxic multinodular goiter E04.2 Assessments Encounter Date Diagnosis (ICD Code) Assessment Notes Treatment Notes Treatment Clinical Notes Section Notes 07/08/2024 Other fatigue (ICD-10 - R53.83) 07/08/2024 Nontoxic single thyroid nodule (ICD-10 - E04.1) 09/10/2024 Hypothyroidism, unspecified (ICD-10 - E03.9) 09/03/2024 Vitamin D deficiency, unspecified (ICD-10 - E55.9) 09/03/2024 Vitamin B12 deficiency anemia, unspecified (ICD-10 - D51.9) 07/08/2024 Vitamin D deficiency, unspecified (ICD-10 - E55.9) 09/03/2024 Autoimmune thyroiditis (ICD-10 - E06.3) 07/08/2024 Irregular menstruation, unspecified (ICD-10 - N92.6) 09/03/2024 Nontoxic multinodular goiter (ICD-10 - E04.2) 07/08/2024 Vitamin B12 deficiency anemia, unspecified (ICD-10 - D51.9) 07/08/2024 Cardiac murmur, unspecified (ICD-10 - R01.1) 07/08/2024 Other Assessment and Plan: 1. 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 Anemia and vitamin D deficiency- Patient reports fatigue and brain fog- History of heavy menstrual bleeding and fibroidsPlan: - Check complete blood count, iron studies, and vitamin D levels - Consider iron supplementation and vitamin D supplementation based on lab results 3. Hormonal imbalance- Patient has a history of gestational diabetes and heavy menstrual bleeding- Tubes are tied, not currently on estrogenPlan: - Check hormone levels, including progesterone - Consider progesterone therapy based on lab results 4. Sleep disturbances- Patient reports difficulty falling asleep and frequent awakenings- Possible relation to thyroid nodule and hormonal imbalancesPlan: - Address thyroid nodule and hormonal imbalances as part of the overall treatment plan - Consider referral to a sleep specialist if sleep issues persist after addressing other concerns 5. Cardiac concerns- Patient reports shortness of breath and history of blood pressure issues- Previous evaluation by a wardrobe stylist with no significant findingsPlan: - Refer to Dr. Verma for a cardiology evaluation and management of blood pressure issues 6. Follow-up- Schedule follow-up appointment in 2 to 4 weeks to review lab results and discuss the overall treatment plan- Ensure patient provides documentation and ultrasound imaging for surgical oncology referral Spent 45 minutes preparing to see the patient (ex review of tests/chart), obtaining and / or reviewing separately obtained history, performing a medically appropriate examination and/or evaluation, counseling and educating the patient/family/caregiver, ordering medications, tests, or procedures, referring and communicating with other health critical care unit manager, documenting clinical information in the electronic or other health record, independently interpreting results and communicating results to the patient/family/caregiver and care coordinating patient plan. Patient alert and oriented x 4 and aware of discussion noted above and in agreeance to plan in management of thyroid nodule, fatigue, irregular cycles, weight gain and cardiac murmur. 09/03/2024 Other Assessment and Plan: Papillary Microcarcinoma (Right Thyroid Lobe) Schedule thyroid ultrasound in the spring to compare with the left lobe Reevaluate the need for ablation based on ultrasound findings or any evidence of change Nodules on the Left Thyroid Lobe Obtain thyroid ultrasound next week to assess the left lobe Discuss further management based on ultrasound results Vitamin D Deficiency Continue current daily vitamin D supplementation and introduce a once-weekly dose Recheck vitamin D levels in a few months Vitamin B12 Deficiency Prescribe weekly vitamin B12 injections Recommend the use of methylated B12 if available Monitor for improvements in energy levels and neuropathy symptoms Iron Deficiency Continue current iron supplementation regimen Monitor iron levels and consult with cylinder filler regarding heavy menstrual bleeding and potential hysterectomy Heavy Menstrual Bleeding and Tranexamic Acid Use Continue tranexamic acid as prescribed during menstrual periods Follow up with cylinder filler about the possibility of a hysterectomy for heavy bleeding management Thyroid Function Post-Surgery Order comprehensive thyroid labs including TSH, free T4, free T3, CMP, and PTH intact Monitor thyroid function and adjust medication as necessary Medullary Thyroid Cancer Risk Order serum calcitonin test to assess for medullary thyroid cancer risk Discuss further management based on test results Weight Management Encourage adherence to a healthy diet and regular exercise for weight maintenance or loss Advise against the use of Zepbound due to thyroid concerns and potential medullary thyroid cancer risk Follow-up:Schedule follow-up appointments as needed to review test results and assess the response to interventionsEncourage patient to report any new or worsening symptoms promptly Spent 25 minutes preparing to see the patient (ex review of tests/chart), obtaining and / or reviewing separately obtained history, performing a medically appropriate examination and/or evaluation, counseling and educating the patient/family/caregiver, ordering medications, tests, or procedures, referring and communicating with other health critical care unit manager, documenting clinical information in the electronic or other health record, independently interpreting results and communicating results to the patient/family/caregiver and care coordinating patient plan. Patient alert and oriented x 4 and aware of discussion noted above and in agreeance to plan in management of papillary thyroid microcarcinoma/ has left thyroid nodules, vitamin D/B12 def and fatigue along with COLEMAN. Due to the nature of telemedicine, the ability to do physical assessment was limited to what can be accomplished by patient directed telehealth visit based on instruction. Those limits are understood by the patient and myself. Impression is based on history, available information, and physical findings accomplished with telehealth visit. Chronic disease/problem list/ medication list reviewed and updated where indicated. Discussed diagnosis, plan including risks, benefits, and options of treatment. Advised to call for new, worsening, or persistent symptoms. Level of patient risk was of moderate complexity due to the documented nature of presentation, the information assessment required and the nature of the development of an evaluation and treatment plan as documented. PMH, FHx, SHx, Surgical Hx, Quality management review carried out and addressed as documented today as part of this visit. Medication list was reviewed and adjusted as indicated. Medication requiring a refill was addressed. Risk and benefits of any new medications were discussed and all questions were answered. Plan Of Treatment Pending Test Test Name Order Date Ultrasound thyroid 09/03/2024 Insurance Providers Payer Name Payer Address Payer Phone Subscriber Number Group Number Insured Name Patient Relationship to Insured Coverage Start Date Coverage End Date [facility] [address] [place] [phone] [id number] Rama Nair Self - patient is the insured Medical (General) History Medical History History ICD Code hypertension nodules Surgical History Surgery Date(Month/Year) tonsils removed 2007 cyst removal on foot 2013 two wrist surgeries 2007 2011 2015 2017
--- OUTSIDE RECORDS SUMMARY | 2024-12-13 17:38 | XMS_ITS | Clinical Summary ---
Author Organization [facility] Address [address] [place] [address] Care Team Providers Care Dog Daycare Provider Name Role Phone Delio Joy MD Unavailable [phone] Delio Joy MD Primary Care Provider [phone] Allergies Active Allergy Reactions Criticality Noted Date [...] ORAL)Indication s:supplement Take 1 tablet by mouth early childhood coordinator before breakfast OTC Active cyclobenzaprine (FLEXERIL) 5 [...] 1 tablet (20 mg total) by mouth early childhood coordinator before breakfast 4 Active meloxicam (MOBIC) 7.5 mg tabletIndicatio ns:Osteoarthrit is Take 1 tablet (7.5 mg total) by mouth early childhood coordinator before breakfast 4 Active omeprazole (PriLOSEC) 40 mg capsuleIndicati ons:Treatment of Non-Bleeding Gastric Disorder Take 1 capsule (40 mg total) by mouth early childhood coordinator before breakfast 4 Active predniSONE (DELTASONE) 5 mg tabletIndicatio ns:autoimmune disease Take 1 tablet (5 mg) by mouth early childhood coordinator before breakfast 4 Active Zepbound 2.5 mg/0.5 [...] of her heart. We will place a [facility] continuous ECG monitor on today. Surgical History Surgery Date Site/Laterality Comments TONSILLECTOMY 08/25/2008 - 08/24/2009 Tonsillectomy SECTION 4 WRIST SURGERY 08/25/2011 - 08/24/2012 Bilateral Tendonitis CYST REMOVAL 08/25/2008 - 08/24/2009 Right foot-big toe OTHER SURGICAL HISTORY 08/25/2023 - 08/24/2024 RN TRAUMA-fibroid scope Medical History Medical History Date Comments Hx Other Medical chronic interst itial cystitis Depression Depression Hx Other Medical gestational adelfo betes Heart murmur Chest pain Hypertension Pre-Eclampsia du ring all 4 pregnancies and after last BP did not come down has stayed elevated Diabetes mellitus (HCC) Gestatio nal Shortness of breath Paroxysmal supraventricular tachycardia 04/27/20 21 Thyroid nodule 07/29/2024 PONV (postoperative nausea a [...] on file Legal Sex 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 Gender Identity Not on file Sexual Orientation Not on file Obstetrics History Last Filed Vital Signs Vital Sign Reading Time Taken Comments Blood Pressure 146/91 08/10/2024 4:30 PM CRYSTAL FINISHER Pulse 72 08/10/2024 4:30 PM CRYSTAL FINISHER Temperature 36.2 C (97.2 F) 08/10/2024 11:40 AM CRYSTAL FINISHER Respiratory Rate 18 08/10/2024 4:30 PM CRYSTAL FINISHER Oxygen Saturation 99% 08/10/2024 4:30 PM CRYSTAL FINISHER Inhaled Oxygen Concentration - - Weight 92.7 kg (204 lb 6.4 oz) 08/26/2024 9:03 A M CRYSTAL FINISHER Height 154.9 cm (5' 1 ) 08/10/2024 11:48 AM CRYSTAL FINISHER Body Mass Index 38.62 08/10/2024 11:48 AM CRYSTAL FINISHER Plan of Treatment Health Maintenance Due Date Last Done Comments Cervical Cancer Screening 1987 Hepatitis C Screening 1987 DTaP/Tdap/Td Vaccine (1 - Tdap) 12/28/1998 Varicella Vaccines (1 of 2 - 13+ 2-dose series) 12/28/2000 Hepatitis B Screening 12/28/2005 Regular Well Visit/Exam 18-64 12/28/2005 Depression Screening 01/01/2020 12/31/2018 Covid-19 Vaccine (2 - 2023-2 5 season) 2024 05/28/2021 Influenza Vaccine (Season Ended) 2025 HPV Vaccines Aged Out No longer eligi ble based on patient's age to complete this topic Pneumococcal vaccine <65 Aged Out No longer eligible based on patient's age to complete this topic Insurance [facility] ACCESS [facility] Address: [facility] [address] [place] [address] [facility] Care Teams Dog Daycare Provider Relationship Specialty Start Date End Date Delio Joy MD PCP - General Family Medicine 04/27/21 Delio Joy MD 06/06/17
--- OUTSIDE RECORDS SUMMARY | 2024-12-13 17:39 | XMS_ITS | Clinical Summary ---
Author Organization [employer] [address] Address [address] [place] [address] Phone Care Team Providers Care Bacon Skinner Name Role Phone Delio Joy MD Primary Care Provider Allergies No known active allergies Medications labetalol (NORMODYNE) 200 mg Oral tablet Take 1 Tab by mouth 2 times daily. Active metoclopramide (REGLAN) 10 mg Oral tablet Take 1 Tab by mouth 1 time daily as needed. As needed for nausea. Active ACETAMINOPHEN WITH CODEINE (TYLENOL-CODEINE #3 ORAL) Take 2 Tabs by mouth every 4 hours as needed. As needed for headaches. Active Levothyroxine 75 mcg Oral Cap Take 1 Cap by mouth daily. Active VIT/FE FUMARATE/FA (LETHA ORAL) Take 1 Tab by mouth daily. Active ferrous sulfate (FEOSOL) 325 mg (65 mg iron) Oral tablet Take 1 Tab by mouth 2 times daily. Active ergocalciferol (VITAMIN D) 50,000 unit Oral capsule Take 1 Cap by mouth twice weekly. Active labetalol (NORMODYNE) 300 mg Oral tablet Take 1 Tab by mouth daily at bedtime. Active Family History Medical History Relation Name Comments Healthy Brother Healthy Father Heart Disease Maternal Grandfather Heart Disease Maternal Grandmother Preeclampsia Mother Diabetes Paternal Grandfather Heart Disease Paternal Grandmother Thyroid Disease Sister Other Son asthma Relation Name Status Comments Brother Father Maternal Grandfather Maternal Grandmother Mother Paternal Grandfather Paternal Grandmother Sister Son Social History Tobacco Use Types Packs/Day Years Used Date Smoking Tobacco: Never Smokeless Tobacco: Never Alcohol Use Standard Drinks/Week Comments No 0 (1 standard drink = 0.6 oz pur e alcohol) Comments Yes Sex and Gender Information Value Date Recorded Sex Assigned at Not on file Legal Sex 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:47 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 Gender Identity Not on file Sexual Orientation Not on file Occupation Industry Job Start Date Job End Date Not on file Not on file Not on file Not on file Plan of Treatment Upcoming Encounters Date Type Department Care Team (Late st Contact Info) Description 01/18/2025 3:00 PM CDT Office Visit [facility] - [place] [address] [facility] [address] [place] [address] Jimmie Mooney MD [address] [facility] [address] [place] [address] Health Maintenance Due Date Last Done Comments DTAP/TDAP/TD VACCINES (1 - Tdap) 12/28/2006 HEPATITIS B VACCINES (1 of 3 - 19+ 3-dose series) 12/28/2006 HPV/Cotest (21-29) 12/28/2008 CERVICAL CANCER SCREENING 12/28/2017 HPV/Cotest (30-65) 12/28/2017 PAP SMEAR 12/28/2017 INFLUENZA VACCINE (#1) 2024 RSV VACCINE (60+ or ) (1 - 1-dose 75+ series) 12/28/2062 HPV VACCINES Aged Out No longer eligi ble based on patient's age to complete this topic Insurance [facility] OPEN ACCESS HMO Care Teams Bacon Skinner Relationship Specialty Start Date End Date Delio Joy MD [address] [place] [address] PCP - General Family Practice 03/28/11
--- OUTSIDE RECORDS SUMMARY | 2024-12-13 17:39 | XMS_ITS | Clinical Summary ---
Author Organization [facility] Address [address] [place] [address] Care Team Providers Care Circus Train Supervisor Name Role Phone Delio Joy MD Primary Care Provider [phone] Source Comments [facility],non-owned Affiliates and Associated Physician Practices is amultiple site organization consisting of ambulatory clinics and hospital sitesin [place], [place], [place] and [place]. This disclosure is being madepursuant to the Care Everywhere program and may not contain all information available regarding this patient. 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 Gender Identity Not on file Sexual Orientation Not on file Plan of Treatment Health Maintenance Due Date Last Done Comments PAP SMEAR 1985 HIV SCREENING 12/28/2002 HEPATITIS C SCREENING 12/24/2005 DTAP/TDAP/TD VACCINES (1 - Tdap) 12/28/2006 HEPATITIS B VACCINE (1 of 3 - 19+ 3-dose series) 12/28/2006 COVID-19 VACCINE ( - 2023-2 5 season) 2024 DEPRESSION SCREENING 08/25/2024 INFLUENZA VACCINE (Season Ended) 2025 ZOSTER VACCINE (1 of 2) 12/28/2037 HIB VACCINE Aged Out No longer eligi ble based on patient's age to complete this topic HPV VACCINE Aged Out No longer eligi ble based on patient's age to complete this topic MENINGOCOCCAL (Group B) VACC INE SHARED DECISION-MAKING Aged Out No longer eligibl e based on patient's age to complete this topic MENINGOCOCCAL GROUPS A/C/Y/W VACCINE Aged Out No longer eligible b ased on patient's age to complete this topic PNEUMOCOCCAL VACCINE Aged Out No long er eligible based on patient's age to complete this topic Insurance [facility] SELF PAY NO INSURANCE Member Subscriber Plan / Payer (Ef fective for All Dates) Name:Esme Huynh Member ID:Not on file Relation to Subscriber:Not on file Name:ESME HUYNH Subscriber ID:Not on file (Home) Address: [address] [place] [address] Payer ID:Not on file Group ID:Not on file Type:Self Pay Address: [place], [place] [facility] * Guarantor: Esme Huynh Account Type Relation to Patient Date of Phone Billing Address Personal/Family Spouse Care Teams Circus Train Supervisor Relationship Specialty Start Date End Date Delio Joy MD [address] [place] [address] PCP - General 06/02/18
--- OUTSIDE RECORDS SUMMARY | 2024-12-13 17:39 | XMS_ITS ---
Author Organization [facility] Address [address] [place] [address] Care Team Providers Care Transit Planner Name Role Phone Maki Enriquez Primary Care Provider [phone] Encounters Encounter Location Date Provider Diagnosis [facility] [address] [place] [address] 09/03/2024 Maki Enriquez Plan Of Treatment No Information Progress Notes * Gretchen HUYNHB:1985 (38 yo F)Acc No.[id number]:09/03/2024 Patient: Rama CHRISTINE :1985 A ge:38 Y S ex:Female [address] [place] , [address] * true * Date: Generated for Beckie peng/Lorie/eTransmitting on: 0 12/13/2024 05:39 PM CDT
--- OUTSIDE RECORDS SUMMARY | 2024-12-13 17:39 | XMS_ITS ---
Author Organization [facility] Address [address] [place] [address] Care Team Providers Care Lining Scrubber Name Role Phone Maki Enriquez Primary Care Provider Medications Medication SIG (Take, Route, Fr equency, Duration) Notes Start Date End Date Status Unithroid 50 MCG 1 tablet in the morn ing on an empty stomach Orally Once a day for 30 days 09/10/2024 Active Problems Problem Type SNOMED Code ICD Code Onset Dates Problem Status W/U Status Risk Notes Problem Hypothyroidism (57986722) Hypothyroidism, unspecified (E03.9) Active confirmed Encounters Encounter Location Date Provider Diagnosis [facility] [address] [place] [address] 09/10/2024 Maki Enriquez Hypothyroidism, unspecified E03.9 Assessments Encounter Date Diagnosis (ICD Code) Assessment Notes Treatment Notes Treatment Clinical Notes Section Notes 09/10/2024 Hypothyroidism, unspecified (ICD-10 - E03.9) Plan Of Treatment Medication Medication Name Sig Start Date Stop Date Notes Unithroid 50 MCG 1 tablet in the morn ing on an empty stomach Orally Once a day for 30 days 09/10/2024 Progress Notes * Gretchen HUYNHB:1985 (38 yo F)Acc No.[id number]:09/10/2024 Patient: Rama CHRISTINE :1985 A ge:38 Y S ex:Female [address] [place] , [address] * Refills Start Unithroid Tablet, 50 MCG, Orally, 30 Tablet, 1 tablet in the morning on an empty stomach, Once a day, 30 days, Refills=3 Subjective: * Chief Complaints: * * Medical History: * Surgical History: * Hospitalization/Major Diagno stic Procedure: * Medications: Objective: * Vitals: * Physical Examination: Assessment: * Assessment: 1. H ypothyroidism, unspecified - E03.9 (Primary) Plan: * Treatment: * Procedure Codes: * true * Date: Generated for Beckie peng/Lorie/Nishi on: 0 12/13/2024 05:38 PM CDT
--- OUTSIDE RECORDS SUMMARY | 2024-12-13 17:39 | XMS_ITS ---
Author Organization [facility] Address [address] [address] Care Team Providers Care Barrel Cleaner Name Role Phone Maki Enriquez Primary Care Provider REASON FOR VISIT follow up TEXT SENT text please Medications Medication SIG (Take, Route, Frequency, Duration) Notes Start Date End Date Status Meloxicam 7.5 MG 1 tab(s) orally once a day Active Lisinopril 20 MG 1 tab(s) orally once a day Active Tranexamic Acid 650 MG 2 tab(s) orally 3 times a day Active Omeprazole 40 MG 1 cap(s) orally once a day Active Zepbound 2.5 MG/0.5ML as directed subcutaneously once a week Not-Taking Cyanocobalamin 1000 MCG/ML 1 mL Injection weekly for 90 days please insulin syringes forsubcutaneouslyinjecti on, will need 13 thank you 09/03/2024 Active Ergocalciferol 1.25 MG (78478 UT) 1 capsule Orally weekly for 84 days 09/03/2024 Active Problems Problem Type SNOMED Code ICD Code Onset Dates Problem Status W/U Status Risk Notes Problem Autoimmune thyroiditis (53900507) Autoimmune thyroiditis (E06.3) Active confirmed Problem Non-toxic multinodular goiter (59362154) Nontoxic multinodular goiter (E04.2) Active confirmed Vital Signs Blood pressure systolic 132 mm Hg 09/03/19 25 Blood pressure diastolic 82 mm Hg 025 Heart Rate 72 /min 09/03/2024 Height 61 in 09/03/2024 Weight 202 lbs 09/03/2024 BMI 38.16 kg/m2 09/03/2024 Encounters Encounter Location Date Provider Diagnosis [facility] - Maki Enriquez [address] [place] [address] 09/03/2024 Maki Enriquez Vitamin D deficiency , unspecified E55.9 ; Vitamin B12 deficiency anemia, unspecified D51.9 ; Autoimmune thyroiditis E06.3 and Nontoxic multinodular goiter E04.2 Assessments Encounter Date Diagnosis (ICD Code) Assessment Notes Treatment Notes Treatment Clinical Notes Section Notes 09/03/2024 Vitamin D deficiency, unspecified (ICD-10 - E55.9) 09/03/2024 Vitamin B12 deficiency anemia, unspecified (ICD-10 - D51.9) 09/03/2024 Autoimmune thyroiditis (ICD-10 - E06.3) 09/03/2024 Nontoxic multinodular goiter (ICD-10 - E04.2) 09/03/2024 Other Assessment and Plan: Papillary Microcarcinoma [...] regimen Monitor iron levels and consult with curriculum supervisor regarding heavy menstrual bleeding and potential hysterectomy Heavy Menstrual Bleeding and Tranexamic Acid Use Continue tranexamic acid as prescribed during menstrual periods Follow up with curriculum supervisor about the possibility of a hysterectomy for [...] procedures, referring and communicating with other health healthcare management, documenting clinical information in the electronic or [...] all questions were answered. Plan Of Treatment Medication Medication Name Sig Start Date Stop Date Notes Cyanocobalamin 1000 MCG/ML 1 mL Injectio n weekly for 90 days 09/03/2024 Ergocalciferol 1.25 MG (5000 0 UT) 1 capsule Orally weekly for 84 days 09/03/2024 Treatment Notes Assessment Notes Other Assessment and Plan: Papillary Microcarcinoma (Right [...] regimen Monitor iron levels and consult with curriculum supervisor regarding heavy menstrual bleeding and potential hysterectomy Heavy Menstrual Bleeding and Tranexamic Acid Use Continue tranexamic acid as prescribed during menstrual periods Follow up with curriculum supervisor about the possibility of a hysterectomy for [...] procedures, referring and communicating with other health healthcare management, documenting clinical information in the electronic or [...] were discussed and all questions were answered. Pending Test Test Name Order Date Ultrasound thyroid 09/03/2024 Next Appt Details Follow Up: 2 Months, Reason: labwork/u/sfollowup Progress Notes * Gretchen HUYNHB:1985 (38 yo F)Acc No.[id number]:09/03/2024 Progress Notes Patient: Rama CHRISTINE Provider: Bjorn Enriquez MD :1985 A ge:38 Y S ex:Female Date:09/03/2024 Address:[address] [place] [address] [id number] Subjective: * Chief Complaints: * 1 . follow up TEXT SENT text please. * HPI: I nterval Hx: 38 yo female calls in to initiate telehealth visit to discuss progress and management of multinodular goiter. Found to have vitamin D def / COLEMAN and B12 def.? Verbal consent provided by patient to proceed with this visit. This visit was performed in office via provider and patient located in primary care office with real time audio with video. Visit was switched to telehealth due to treacherous roads and icy conditions and allowing patient to get care in setting of poor weather conditions. Patient consulted with Dr. 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 Rama, who underwent a right hemithyroidectomy on August 10 for a thyroid nodule, was found to have papillary microcarcinoma. She reports severe postoperative nausea, prolonged recovery, and persistent fatigue. She also experiences heavy menstrual bleeding, neuropathy, and poor iron absorption despite supplementation. Current management includes monitoring thyroid nodules, addressing vitamin D and B12 deficiencies, and managing iron deficiency and heavy menstrual bleeding. Follow- up plans include thyroid ultrasound, lab tests, and potential gynecological consultation. Patient underwent right hemithyroidectomy on August 10 for a thyroid nodule. Pathology revealed papillary microcarcinoma. Patient reports severe postoperative nausea and prolonged recovery, sleeping for five days post-surgery. She has remaining nodules on the left thyroid lobe, which were not biopsied. Patient experiences fatigue and neuropathy, describing pins and needles sensation in her lower extremities. Patient reports heavy menstrual bleeding, sometimes leading to syncope. She passes an ultra tampon and overnight pad in 30 minutes during menses. She is currently taking tranexamic acid three times daily during her period to manage the bleeding. Patient notes poor iron absorption despite supplementation. She follows a vegetarian diet. Recent weight is 202 lbs, with some weight gain attributed to poor diet and inactivity following surgery. Medical History - Partial thyroidectomy (right lobe removed on August 10) - Papillary microcarcinoma - Vitamin D deficiency - Vitamin B12 deficiency - Iron deficiency anemia - Menorrhagia - Peripheral neuropathy Current and Past Medications and Supplements - Vitamin D (unspecified dose) - B12 (unspecified dose) - Iron supplement (unspecified dose) - Tranexamic acid (taken three times a day during menstrual period) Social History - Diet: Does not eat meat - Family structure: Has children - Substance use: No tobacco, alcohol, or recreational drug use mentioned Review of Systems - General: Fatigue (implied by energy levels affected by B12) - Gastrointestinal: Gets very sick from anesthesia - Neurological: Lower half feels like pins and needles (neuropathy) - Hematologic: Heavy menstrual bleeding, sometimes passing out during periods - Endocrine: Feels difference in energy with B12 supplementation. * ROS: D ERMATOLOGY: no r vj. n o c hange in color of moles. n o?lumps. n o d ry or sensitive skin. n o h sonja. n o o sabina skin. n o?acne. n o m oles-irregular. n o m oles-change/new. n o b oils. n o dandruff. n o e xcessive body odor. n o p soriasis. n o f ungal infections. n o n ail problems. n o r edness/inflammation. n o a thlete's foot. n o s kin cancer. n o e czema. E NDOCRINOLOGY: fatigue y es. n o e xcessive sweating. n o e xcessive thirst. n o e xcessive urination. n o w eight loss. n o s leep disturbance. n o c old intolerance. n o h eat intolerence. n o t hyroid disease. i ncreased loss of hair y es. n o h x of borderline diabetes. n o d iabetes. n o a bdormal body hair. n o r heumatism. n o c hanges in skin texture.? N EUROLOGY: headache y es, f requent/chronic. n o t ingling numbness. n o s eizures. n o i nsomnia. m lawrence loss y es. d izziness?yes. n o g ait abnormality. n o c hange in sensation anywhere on body. n o localized weakness or numbness. n o b lackouts or near blackouts. n o m igraine.?no t remors. f ainting spells y es. n o h ead injury. n o s troke.? O PTHALMOLOGY: no d iminished vision. n o e ye irritation. n o?drainage from eyes. n o b lurring of vision. n o s easonal eye sx. n o?dander related eye sx. n o l oss of vision. n o c ataracts. n o g lasses/contacts. n o g laucoma. n o d etached retina. n o m acular degeneration.?no e ye redness. R ESPIRATORY: shortness of breath y es. n o c hest pain. n o?wheezing. n o a sthma. n o b reathlessness when lying flat. n o p rolonged cough. n o f requent infections (bronchitis). n o e mphysema. n o c hest congestion. n o s leep apnea. A LLERGY: no r unny nose. s cratchy throat y es. n o i tchy eyes. n o e ar fullness. n o s inus congestion. s tuffy nose y es.?no w atery eyes. s easonal allergies y es, t akes antihistamines to relieve symtoms. n o h ay fever. n o a llergy. n o p olyps. s neezing y es. ? H EMATOLOGY/LYMPH: no s wollen glands. n o f atigue. n o l oss of appetite. e asy bruising yes. e asy bleeding y es. n o a nemia. ? U ROLOGY: no d ifficulty urinating. n o b lood in urine. n o u rinary urgency. n o f requent urination. n o u rinary incontinence. n o v oiding dysfunction. n o v ulvodynia. n o d ysparaunia. n o r ecurrent UTI. n o w eak flow. n o d ribbling after urination. n o f requent bladder infections. n o k idney stone. n o k idney disease. n o u rine hesitancy.?no p ainful urination. N UTRITION: greater than body requirmemts y es. L ess than body requirements y es. a ppropriate / adequate y es, y es. C ONSTITUTIONAL: no w eight gain. n o l oss of appetite. n o?fever. w eakness y es. n o w eight loss. n ight sweats y es. n ausea?yes. n o v isual changes. n o c hange in sleep patterns. h +p reviewed y es, R OS form reviewed with patient see scan for detail. n o c hange in activity capacity. E NT: no c old. n o c ough. n o c oughing blood.?no n ose bleed. n o h earing loss. n o c hange in voice. n o s ore throat. n o r inging in ears. n o s noring. n o e ar pain. n o r unny nose. n o w atery eyes. n o s inus infection. n o e ar infection. n o facial pain. n o h oarseness. n o g oiter. n o g um problems. n o?postnasal drip. n o f requent nosebleeds. C ARDIOLOGY: no c hest pain. n o p alpitations. n o l eg swelling. n o d izziness. n o s hortness of breath. n o v aricose veins.?no l eg cramps. n o c old hands or feet. n o h igh blood pressure. n o ankle swelling. n o c ardiac catheterization. n o h eart attacks. n o a ngina. n o m urmurs. n o l ow blood pressure. n o l eg pain that resolves w/rest. n o p urple fingers or lips. n o i rregular heart rate. n o c ongenital heart defects. n o d izziness when standing up quickly. n o a wakening at night short of breath. G ASTROENTEROLOGY: nausea y es. h eartburn y es. n o s tool incontinence. n o r eflux. a bdominal pain y es. n o i ndigestion. n o?hemorrhoids. n o h iatal hernia. n o u lcers. n o a nal fissures. n o hepatitis. n o g allstones. n o r ed blood after bowel movements. v omiting?yes. n o b loating/belching. d ifficulty swallowing y es. n o d iarrhea. n o c onstipation. n o c hange in bowel habits. n o b lood in stool. M USCULOSKELETAL: joint swelling y es. j oint pain y es. n o l eg cramps. n o j oint stiffness. n o a rthritis. b ack pain y es. n o?muscle aches. n o m orning stiffness. n o t endinitis. n samantha pain y es. no b ursitis. n o b one marrow biopsy. n o g out. a ctivity intolerance w eakness. n o f racture. P SYCHOLOGY: no h igh stress level. n o d epression. s leep disturbances y es. n o r jennifer sx worse with stress. n o s uicidal ideation. n o e ating disorder. n o m ental or physical abuse. n o a nxiety. n o h eadaches. d isease state y es. F EMALE REPRODUCTIVE: no h eavy periods. n o d ysparaunia. n o s exually active. n o p remenstrual syndrome. n o d ysmenorrhea. n o i nfertility. n o f requent yeast infections. n o v aginal itching. n o i ntermenstrual bleeding. n o p ost coital bleeding. n o p ostmenopausal bleeding. n o p elvic pain. n o m enstral cycle. n o v aginal discharge. n o v aginal dryness. n o o varian cysts. n o f ibroids. n o d ischarge from breast. n o abn. bleeding between cycles. n o p ostmenopausal symptoms. n o l oss of sexual interest. n o p ainful sexual intercourse. n o e ndometriosis. n o v aginal warts. n o a bnormal pap. n o i rregular periods. n o a bnormal vaginal discharge. n o h ot flashes. r ecent weight changes, falls, difficulty/pain with walking. * Medical History: * Medications: T aking Tranexamic Acid 650 MG Tablet 2 tab(s) orally 3 times a day , Taking Omeprazole 40 MG Capsule Delayed Release 1 cap(s) orally once a day , Taking Meloxicam 7.5 MG Tablet 1 tab(s) orally once a day , Taking Lisinopril 20 MG Tablet 1 tab(s) orally once a day , Not-Taking/PRN Zepbound(Tirzepatide-Weight Management) 2.5 MG/0.5ML Solution as directed subcutaneously once a week Objective: * Vitals: H R:72, BP:132/82, Ht: 61, Wt:202, BMI: 38.16. * P ast Orders: L ab:VITAMIN B12/FOLATE, SERUM PANEL (Order Date - 07/09/2024) (Collection Date & Time - 07/09/2024 08:14 AM) Value Reference Range FOLATE, SERUM 6.1 - ng/mL VITAMIN B12 [phone] - pg/mL L ab:TESTOSTERONE, FREE (DIALYSIS) AND TOTAL,MS (Order Date - 07/09/2024) (Collection Date & Time - 07/09/2024 08:14 AM) Value Reference Range TESTOSTERONE, TOTAL, MS 12 2-45 - ng/dL TESTOSTERONE, FREE 0.9 0.1-6.4 - pg/mL L ab:LH (Order Date - 07/09/2024) (Collection Date & Time - 07/09/2024 08:14 AM) Value Reference Range LH 4.5 - mIU/mL L ab:VITAMIN D, 25-HYDROXY, LC/MS/MS (Order Date - 07/09/2024) (Collection Date & Time - 07/09/2024 08:14 AM) Value Reference Range VITAMIN D, 25-OH, TOTAL 18 L 30-100 - ng/mL L ab:HEMOGLOBIN A1c (Order Date - 07/09/2024) (Collection Date & Time - 07/09/2024 08:14 AM) Value Reference Range HEMOGLOBIN A1c 5.5 <5.7 - % of total Hg b L ab:T4, FREE (Order - 07/09/2024) (Collection Date & Time - 07/09/2024 08:14 AM) Value Reference Range T4, FREE 0.9 0.8-1.8 - ng/dL L ab:ESTRADIOL (Order - 07/09/2024) (Collection Date & Time - 07/09/2024 08:14 AM) Value Reference Range ESTRADIOL 77 - pg/mL L ab:IRON AND TOTAL IRON BINDING CAPACITY (Order 07/09/2024) (Collection Date & Time - 07/09/2024 08:14 AM) Value Reference Range IRON, TOTAL 12 L 40-190 - mcg/dL IRON BINDING CAPACITY 424 250-450 - mcg/dL ( calc) % SATURATION 3 L 16-45 - % (calc) L ab:T3, FREE (Order 07/09/2024) (Collection Date & Time - 07/09/2024 08:14 AM) Value Reference Range T3, FREE 2.8 2.3-4.2 - pg/mL L ab:DHEA SULFATE (Order 07/09/2024) (Collection Date & Time - 07/09/2024 08:14 AM) Value Reference Range DHEA SULFATE 94 19-237 - mcg/dL L ab:INSULIN (Order 07/09/2024) (Collection Date & Time - 07/09/2024 08:14 AM) Value Reference Range INSULIN 14.1 - uIU/mL L ab:PROGESTERONE (Order 07/09/2024) (Collection Date & Time - 07/09/2024 08:14 AM) Value Reference Range PROGESTERONE 8.3 - ng/mL L ab:ACTH, PLASMA (Order Date 07/09/2024) (Collection Date & Time - 07/09/2024 08:14 AM) Value Reference Range ACTH, PLASMA 16 6-50 - pg/mL L ab:COMPREHENSIVE METABOLIC PANEL (Order Date 07/09/2024) (Collection Date & Time [...] > OR = 60 - mL/min/1 .73m2 L ab:FSH (Order Date - 07/09/2024) (Collection Date & Time - 07/09/2024 08:14 AM) Value Reference Range FSH 4.2 - mIU/mL L ab:TSH (Order Date - 07/09/2024) (Collection Date & Time - 07/09/2024 08:14 AM) Value Reference Range TSH 1.78 - mIU/L L ab:CBC (INCLUDES DIFF/PLT) (Order Date - 07/09/2024) (Collection Date & [...] NEUTROPHILS 67.3 - % ABSOLUTE NEUTROPHILS [phone] - cells/u L LYMPHOCYTES 22.2 - % ABSOLUTE LYMPHOCYTES [phone] - cells/uL MONOCYTES 8.1 - % ABSOLUTE MONOCYTES 640 200-950 - cells/uL EOSINOPHILS 1.5 - % ABSOLUTE EOSINOPHILS 119 15-500 - cells/uL BASOPHILS 0.9 - % ABSOLUTE BASOPHILS 71 0-200 - cells/uL MPV 12.6 H 7.5-12.5 - fL L ab:MAGNESIUM (Order Date - 07/09/2024) (Collection Date & Time - 07/09/2024 08:14 AM) Value Reference Range MAGNESIUM 2.1 1.5-2.5 - mg/dL * Examination: G eneral Examination: General n ormal, NAD, well nourished and hydrated, pleasant overweight female. Neck, thyroid : s upple. Assessment: * Assessment: 1. V itamin D deficiency, unspecified - E55.9 (Primary) 2 . V itamin B12 deficiency anemia, unspecified - D51.9 3 . A utoimmune thyroiditis - E06.3 ? 4 . N ontoxic multinodular goiter - E04.2 Plan: * Treatment: 2. V itamin B12 deficiency anemia, unspecified Start Cyanocobalamin Solution, 1000 MCG/ML, 1 mL, Injection, weekly please insulin syringes forsubcutaneouslyinjection, will need 13 thank you, 90 days, 13 Milliliter, Refills 1. 3. N ontoxic multinodular goiter I maging: Ultrasound thyroid 4. O thers Notes: Assessment and Plan: Papillary Microcarcinoma (Right Thyroid [...] regimen Monitor iron levels and consult with curriculum supervisor regarding heavy menstrual bleeding and potential hysterectomy Heavy Menstrual Bleeding and Tranexamic Acid Use Continue tranexamic acid as prescribed during menstrual periods Follow up with curriculum supervisor about the possibility of a hysterectomy for [...] procedures, referring and communicating with other health healthcare management, documenting clinical information in the electronic or [...] were discussed and all questions were answered. ? * Follow Up: 2 Months (Reason: labwork/u/sfollowup) * Billing Information: * Visit Code: 01817 Office Visit, Est Pt., Level 4. Modifiers: 95 * Procedure Codes: * L INSTALLER Sign off status: Completed true * Provider: Bjorn Enriquez MD Date: 0 09/03/2024 Generated for Jamesi danish/Lorie/eTransmitting on: 0 12/13/2024 05:39 PM CDT History and Physical Notes * HPI (History of Present Illness) Category Sub-Category Detail Notes Category Not es Interval Hx 38 yo female calls in to initiate telehealth visit to discuss progress and management of multinodular goiter. Found to have vitamin D def / COLEMAN and B12 def. Verbal consent provided by patient to proceed with this visit. This visit was performed in office via provider and patient located in primary care office with real time audio with video. Visit was switched to telehealth due to treacherous roads and icy conditions and allowing patient to get care in setting of poor weather conditions. Patient consulted with Dr. 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 Rama, who underwent a right hemithyroidectomy on August 10 for a thyroid nodule, was found to have papillary microcarcinoma. She reports severe postoperative nausea, prolonged recovery, and persistent fatigue. She also experiences heavy menstrual bleeding, neuropathy, and poor iron absorption despite supplementation. Current management includes monitoring thyroid nodules, addressing vitamin D and B12 deficiencies, and managing iron deficiency and heavy menstrual bleeding. Follow-up plans include thyroid ultrasound, lab tests, and potential gynecological consultation. Patient underwent right hemithyroidectomy on August 10 for a thyroid nodule. Pathology revealed papillary microcarcinoma. Patient reports severe postoperative nausea and prolonged recovery, sleeping for five days post-surgery. She has remaining nodules on the left thyroid lobe, which were not biopsied. Patient experiences fatigue and neuropathy, describing pins and needles sensation in her lower extremities. Patient reports heavy menstrual bleeding, sometimes leading to syncope. She passes an ultra tampon and overnight pad in 30 minutes during menses. She is currently taking tranexamic acid three times daily during her period to manage the bleeding. Patient notes poor iron absorption despite supplementation. She follows a vegetarian diet. Recent weight is 202 lbs, with some weight gain attributed to poor diet and inactivity following surgery. Medical History - Partial thyroidectomy (right lobe removed on August 10) - Papillary microcarcinoma - Vitamin D deficiency - Vitamin B12 deficiency - Iron deficiency anemia - Menorrhagia - Peripheral neuropathy Current and Past Medications and Supplements - Vitamin D (unspecified dose) - B12 (unspecified dose) - Iron supplement (unspecified dose) - Tranexamic acid (taken three times a day during menstrual period) Social History - Diet: Does not eat meat - Family structure: Has children - Substance use: No tobacco, alcohol, or recreational drug use mentioned Review of Systems - General: Fatigue (implied by energy levels affected by B12) - Gastrointestinal: Gets very sick from anesthesia - Neurological: Lower half feels like pins and needles (neuropathy) - Hematologic: Heavy menstrual bleeding, sometimes passing out during periods - Endocrine: Feels difference in energy with B12 supplementation Examination Category Sub-Category Detail Notes Category Not es General Examination Neck, thyroid : supple General normal, NAD, well no urished and hydrated, pleasant overweight female
== END 2024-12-13 15:50 | disposition home or self-care (01) ==
LOC: ANHLAB 15:52
PROVIDERS: PCP Family Medicine; Visit Provider Physician Assistant Medical
DX: D64.9 Anemia, unspecified (principal); E53.8 Deficiency of other specified B group vitamins; M25.50 Pain in unspecified joint
CPT/HCPCS: 36415; 80053; 82607; 82728; 83540; 83550; 85025

== ENCOUNTER 2024-12-22 15:21 | Outpatient (CLI) | payer OTHER, SELFPAY ==
--- NOTE | ~2024-12-22 | MR_ITS ---
MRI of the cervical spine Clinical History: Cervicalgia Technique: Axial T2-weighted and gradient images, and sagittal T1-weighted, T2-weighted, and STIR jeanna ges were acquired. Findings: There is straightening of the normal cervical lordosis. There is 2.5 mm retrolisthesis of C 5 over C6. No suspicious bone marrow signal abnormality seen. No fracture seen. At C2-C3 and C3-C4, there is no disc bulge or herniation. No spinal canal stenosis, cord compression, or neural foraminal narrowing at these levels. At C4-C5, there is minimal disc bulge. No spinal canal stenosis, cord compression, or neural foramina l narrowing. At C5-C6, there is disc osteophyte complex with superimposed disc extrusion extending inferiorly behi nd the C6 vertebral body, resulting in moderate canal stenosis and mild to moderate ventral cord comp ression. There is right neural foraminal narrowing. Probable minimal left neural foraminal narrowing. At C6-C7, there is minimal disc bulge. There is mild canal stenosis without carola cord compression. N eural foramina are preserved. No abnormal signal seen in the spinal cord. Paravertebral soft tissues are unremarkable. 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 Reviewed, dictated and finalized at [facility]. 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
== END 2024-12-22 15:22 | disposition home or self-care (01) ==
LOC: GOSHIMG 15:22
PROVIDERS: PCP Nurse Practitioner Family; Visit Provider Neurological Surgery
DX: R25.1 Tremor, unspecified (principal); M50.20 Other cervical disc displacement, unspecified cervical region
CPT/HCPCS: 72141

== ENCOUNTER 2025-01-20 13:13 | Outpatient (CLI) | payer OTHER, SELFPAY ==
--- OUTSIDE RECORDS SUMMARY | 2025-01-20 13:26 | XMS_ITS ---
Author Organization [facility] Address [address] [place] [address] Care Team Providers Care Machinist General Name Role Phone Maki Enriquez Primary Care Provider Encounters Encounter Location Date Provider Diagnosis [facility] [address] [facility] [place] [address] 09/03/2024 Maki Enriquez Plan Of Treatment No Information Progress Notes * Gretchen HUYNHB:1985 (38 yo F)Acc No.[id number]:09/03/2024 Patient: Rama CHRISTINE :1985 A ge:38 Y S ex:Female [address] , [address] * true * Date: Generated for Beckie peng/Lorie/eTransmitting on: 0 01/20/2025 01:26 PM CDT
--- OUTSIDE RECORDS SUMMARY | 2025-01-20 13:26 | XMS_ITS | Clinical Summary ---
Author Organization [employer] [address] [place] [address] Phone Care Team Providers Care Supervisor Printing Shop Name Role Phone Delio Joy MD Primary Care Provider [phone] Allergies Active Allergy Reactions Criticality Noted Date Comments Ondansetron Anxiety Low 07/30/2024 IV only Medications Levothyroxine 75 mcg Oral Cap Take 1 Cap by mouth daily. Active ferrous sulfate (FEOSOL) 325 mg (65 mg iron) Oral tablet Take 1 Tab by mouth 2 times daily. Active cyanocobalamin (VITAMIN B-12) 1,000 mcg/mL Solution Inject 1,000 mcg by subcutaneous injection. Active cyclobenzaprin e (FLEXERIL) 5 mg Tablet Take 5 mg by mouth. 4 Active hydroxychloroq uine (PLAQUENIL) 200 mg tablet Take 1 Tablet by mouth 2 times daily. 5 Active lisinopriL (PRINIVIL) 20 mg tablet Take 20 mg by mouth daily. 4 Active metoprolol succinate (TOPROL XL) 25 mg Extended Release 24 hour tablet Take 1 Tablet by mouth daily. 5 Active predniSONE (DELTASONE) 5 mg tablet Take 5 mg by mouth. 4 Active Zepbound 5 mg/0.5 mL Pen Injector INJECT 5 MG (0.5 ML) SUBCUTANEOUSLY WEEKLY FOR 4 WEEKS. 5 Active tranexamic acid (LYSTEDA) 650 mg Tablet tablet TAKE TWO TABLETS BY MOUTH THREE TIMES DAILY FOR 5 DAYS WITH CYCLE Active folic acid (FOLVITE) 1 mg tablet Take 1 mg by mouth daily. Active Active Problems No known active problems Encounters Date Type Department Care Team Description 01/18/2025 External Device Data [facility]CTION Provider, Abstract 01/12/2025 External Device Data [facility] ABSTRACTION Provider, Abstract 01/12/2025 External Device Data [facility]CTION Provider, Abstract 12/28/2024 External Device Data [facility]CTION Provider, Abstract 12/28/2024 External Device Data [facility]STRACTION Provider, Abstract 12/28/2024 External Device Data [facility] ABSTRACTION Provider, Abstract 12/23/2024 3:00 PM CDT Office Visit [facility] Oncology and Hematology - [place] [address] [address] Jimmie Mooney MD Acute blood loss anemia (Primary Dx) from Last 3 Months Family History Medical History Relation Name Comments No Known Problems Brother No Known Problems Child 1 No Known Problems Child 2 Heart Disease Child 3 No Known Problems Child 4 No Known Problems Father No Known Problems Mother No Known Problems Sister Relation Name Status Comments Brother Alive Child 1 Alive Child 2 Alive Child 3 Alive Child 4 Alive Father Alive Mother Alive Sister Alive Social History Tobacco Use Types Packs/Day Years Used Date Smoking Tobacco: Never Smokeless Tobacco: Never Alcohol Use Standard Drinks/Week Comments Yes 0 (1 standard drink = 0.6 oz pur e alcohol) Socially Comments No Sex and Gender Information Value Date Recorded Sex Assigned at Not on file 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 Gender Identity Not on file Sexual Orientation Not on file Occupation Industry Job Start Date Job End Date Not on file Not on file Not on file Not on file Last Filed Vital Signs Vital Sign Reading Time Taken Comments Blood Pressure 123/87 12/23/2024 3:01 PM CDT Pulse 74 12/23/2024 3:01 PM CDT Temperature 36.8 C (98.2 F) 12/23/2024 3:01 PM CDT Respiratory Rate 16 12/23/2024 3:01 PM CDT Oxygen Saturation 98% 12/23/2024 3:01 PM CDT Inhaled Oxygen Concentration - - Weight 96.5 kg (212 lb 12.8 oz) 12/23/2024 3:01 PM CDT Height 152.4 cm (5') 12/23/2024 3:01 PM CDT Body Mass Index 41.56 12/23/2024 3:01 PM CDT Plan of Treatment Upcoming Encounters Date Type Department Care Team (Late st Contact Info) Description 05/10/2025 3:45 PM CDT Office Visit [facility] Oncology and Hematology - [place] [address] [facility] [address] [place] [address] Jimmie Mooney MD [address] [facility] [address] [place] [address] Health Maintenance Due Date Last Done Comments Pre-Diabetes and Diabetes Screening 1985 DTAP/TDAP/TD VACCINES (1 - Tdap) 12/28/2006 HEPATITIS B VACCINES (1 of 3 - 19+ 3-dose series) 12/28/2006 HPV/Cotest (21-29) 12/28/2008 CERVICAL CANCER SCREENING 12/28/2017 HPV/Cotest (30-65) 12/28/2017 PAP SMEAR 12/28/2017 INFLUENZA VACCINE (#1) 2024 HPV VACCINES Aged Out No longer eligi ble based on patient's age to complete [place] [address] [facility] CHOICE [id number] [place] [address] Care Teams Supervisor Printing Shop Relationship Specialty Start Date End Date Delio Joy MD [address] [place] [address] PCP - General Family Practice 03/28/11
--- OUTSIDE RECORDS SUMMARY | 2025-01-20 13:26 | XMS_ITS | Encounter Summary ---
Author Organization [facility] Address [address] [place] [address] Care Team Providers Care Milk Tester Name Role Phone Delio Joy MD Primary Care Provider [phone] Encounter Details Date Type Department Care Team (Late Contact Info) Description 01/18/2025 External Device Data [facility] Provider, Abstract NO ADDRESS ON FILE Social History Tobacco Use Types Packs/Day Years Used Date Smoking Tobacco: Never Smokeless Tobacco: Never Alcohol Use Standard Drinks/Week Comments Yes 0 (1 standard drink = 0.6 oz pur e alcohol) Socially Comments No Sex and Gender Information Value Date Recorded Sex Assigned at Not on file 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 Gender Identity Not on file Sexual Orientation Not on file Occupation Industry Job Start Date Job End Date Not on file Not on file Not on file Not on file documented as of this encounter Plan of Treatment Upcoming Encounters Date Type Department Care Team (Late Contact Info) Description 05/10/2025 3:45 PM CDT Office Visit [facility] Oncology and Hematology - [place] [address] [facility] [address] [place] [address] Jimmie Mooney MD [address] [facility] [address] [place] [address] documented as of this encounter Visit Diagnoses Not on filedocumented in this encounter Care Teams Milk Tester Relationship Specialty Start Date End Date Delio Joy MD [address] [place] [phone] PCP - General Family Practice 03/28/11 documented as of this encounter
--- OUTSIDE RECORDS SUMMARY | 2025-01-20 13:26 | XMS_ITS | Patient Health Record ---
Author Organization [facility] Address [address] [address] Care Team Providers Care Creche Attendant Name Role Phone Maki Enriquez Primary Care Provider [phone] Migration, Provider Unavailable Unavailable Allergies No Known Allergies Results Component Value Reference Range Notes COMPREHENSIVE METABOLIC PANE L Reviewed date:07/11/2024 03:15:19 PM Interpretation: Performing Lab:[facility], [address] [place], [address] Gen Huff MD Notes/Report: FASTING:YES FASTING: YES VITAMIN D, 25-HYDROXY, LC/MS /MS Reviewed date:07/11/2024 03:31:23 PM Interpretation: Performing Lab:[facility], [address] [place], [address] Gen Huff MD Notes/Report: FASTING:YES FASTING: YES ACTH, PLASMA Reviewed date:07/14/2024 08:55:50 PM Interpretation: Performing Lab:[facility]José Miguel [facility], [address] [facility] , [place], [address] Rodney Flores M.D.,PhD Notes/Report: FASTING:YES FASTING: YES T3, FREE Reviewed date:07/11/2024 03:12:52 PM Interpretation: Performing Lab:[facility], [address], [place], [address] Gen Huff MD Notes/Report: FASTING:YES FASTING: YES DHEA SULFATE Reviewed date:07/11/2024 03:15:26 PM Interpretation: Performing Lab:[facility], [address], [place], [address] Gen Huff MD Notes/Report: FASTING:YES FASTING: YES ESTRADIOL Reviewed date:07/11/2024 03:20:18 PM Interpretation: Performing Lab:[facility], [address], [place], [address] Gen Huff MD Notes/Report: FASTING:YES FASTING: YES FSH Reviewed date:07/11/2024 03:13:26 PM Interpretation: Performing Lab:[facility], [address], [place], [address] Gen Huff MD Notes/Report: FASTING:YES FASTING: YES HEMOGLOBIN A1c Reviewed date:07/11/2024 03:31:16 PM Interpretation: Performing Lab:[facility], [address], [place], [address] Gen Huff Notes/Report: FASTING:YES FASTING: YES INSULIN Reviewed date:07/11/2024 03:19:59 PM Interpretation: Performing Lab:[facility], [address], [place], [address] Gen Huff MD Notes/Report: FASTING:YES FASTING: YES LH Reviewed date:07/11/2024 03:15:05 PM Interpretation: Performing Lab:[facility], [address], [place], [address] Gen Huff MD Notes/Report: FASTING:YES FASTING: YES MAGNESIUM Reviewed date:07/11/2024 03:13:12 PM Interpretation: Performing Lab:[facility], [address], [place], [address] Gen Huff MD Notes/Report: FASTING:YES FASTING: YES CBC (INCLUDES DIFF/PLT) Reviewed date:07/13/2024 06:24:54 AM Interpretation: Performing Lab:[facility], [address], [place], [address] Gen Huff MD Notes/Report: FASTING:YES FASTING: YES VITAMIN B12/FOLATE, SERUM PA BRADLEY Reviewed date:07/11/2024 03:20:25 PM Interpretation: Performing Lab:[facility], [address], [place], [address] Gen Huff MD Notes/Report: FASTING:YES FASTING: YES PROGESTERONE Reviewed date:07/11/2024 03:20:05 PM Interpretation: Performing Lab:[facility], [address], [place], [address] Gen Huff MD Notes/Report: FASTING:YES FASTING: YES IRON AND TOTAL IRON BINDING CAPACITY Reviewed date:07/11/2024 03:13:54 PM Interpretation: Performing Lab:[facility], [address], [place], [address] Gen Huff MD Notes/Report: FASTING:YES FASTING: YES T4, FREE Reviewed date:07/11/2024 03:13:19 PM Interpretation: Performing Lab:[facility], [address], [place], [address] Gen Huff MD Notes/Report: FASTING:YES FASTING: YES TSH Reviewed date:07/11/2024 03:20:11 PM Interpretation: Performing Lab:[facility], [address], [place], [address] Gen Huff MD Notes/Report: FASTING:YES FASTING: YES TESTOSTERONE, FREE (DIALYSIS ) AND TOTAL,MS Reviewed date:07/15/2024 09:23:56 PM Interpretation: Performing Lab:[facility], [address] [address], [address], [place], [address] Chandler Plaza MD,PhD Notes/Report: FASTING:YES FASTING: YES TESTOSTERONE, TOTAL, MS 12 2-45 ng/dL For additional information, please refer to https://education.[employer].com/faq/CLL749 (This link is being provided for informational/educational purposes only.) (Note) This test was developed and its analytical performance characteristics have been determined by [facility]. It has not been cleared or approved by the FDA. This assay has been validated pursuant to the CLIA regulations and is used for clinical purposes. TESTOSTERONE, FREE 0.9 0.1-6.4 pg/mL (Note) This test was developed and its analytical performance characteristics have been determined by [facility]. It has not been cleared or approved by the FDA. This assay has been validated pursuant to the CLIA regulations and is used for clinical purposes. [facility] [address] [address],[address] [facility] [id number] Chandler Plaza MD, PhD Reason For Referral Reason 4 cm right dominant thyroid nodule/ biopsy this summer benign- however patient with compressive symptoms, short of breath if laying on right side Referral Organization [employer] Referring Provider First Name Maki Referring Provider Last Name [place] Referring Provider Speciality Internal edicine Referred Provider Specialty Surgical Onc ology Referral Priority Urgent Reason holosystolic murmur, new in onset, lower ext edema, increased shortness of breath, ACUTE referral thank you Referral Organization [employer] [facility] Referring Provider First Name Maki Referring Provider Last Name [place] Referring Provider Speciality Internal edicine Referred Provider [...] once a week Not-Taking Ergocalciferol 1.25 MG (73541 UT) 1 capsule Orally weekly for 84 days 09/03/2024 Active Problems Problem Type SNOMED Code ICD Code Onset Dates Problem Status W/U Status Risk Notes Problem Vitamin D deficiency (27658411) Vitamin D deficiency, unspecified (E55.9) Active confirmed Problem Hypothyroidism (37382513) Hypothyroidism, unspecified (E03.9) Active confirmed Problem Nontoxic single thyroid nodule (E04.1) Active confirmed Problem Non-toxic multinodular goiter (46870643) Nontoxic multinodular goiter (E04.2) Active confirmed Problem Autoimmune thyroiditis (73734031) Autoimmune thyroiditis (E06.3) Active confirmed Problem Irregular menstruation (96727457) Irregular menstruation, unspecified (N92.6) Active confirmed Vital Signs Heart Rate 72 /min 09/03/2024 Blood pressure diastolic 82 mm Hg 09/03/2024 Height 61 in 09/03/2024 Blood pressure systolic 132 mm Hg 09/03/2024 Weight 202 lbs 09/03/2024 BMI 38.16 kg/m2 09/03/2024 Encounters Encounter Location Date Provider Diagnosis [address] [address] 07/10/2024 Provider Migration [employer] [facility] - [facility] [address] [place] [address] 07/08/2024 Maki Enriquez Nontoxic single thyroid nodule E04.1 ; Other fatigue R53.83 ; Vitamin D deficiency, unspecified E55.9 ; Irregular menstruation, unspecified N92.6 ; Vitamin B12 deficiency anemia, unspecified D51.9 and Cardiac murmur, unspecified R01.1 [facility], [facility] - M[facility] [address] [place] [address] 07/07/2024 Maki Enriquez [facility], [facility] - [facility] [address] [place] [address] 07/14/2024 Maki Enriquez [facility] [facility] [address] [place] [address] 09/03/2024 Maki Enriquez [facility] [address] [place] [address] 09/10/2024 Maki Enriquez Hypothyroidism, unspecified E03.9 [facility], [facility] - Maki Enriquez [address] [place] [address] 09/03/2024 Maki Enriquez Vitamin D deficiency , [...] blood pressure issues- Previous evaluation by a itinerant teacher assistant with no significant findingsPlan: - Refer to [...] procedures, referring and communicating with other health adult caregiver, documenting clinical information in the electronic or [...] regimen Monitor iron levels and consult with general duty nurse regarding heavy menstrual bleeding and potential hysterectomy Heavy Menstrual Bleeding and Tranexamic Acid Use Continue tranexamic acid as prescribed during menstrual periods Follow up with general duty nurse about the possibility of a hysterectomy for [...] procedures, referring and communicating with other health adult caregiver, documenting clinical information in the electronic or [...] Insured Coverage Start Date Coverage End Date [facility] [address] [place] [address] [id number] Rama Nair Self - patient is the insured Medical (General) History Medical History History ICD Code hypertension nodules Surgical History Surgery Date(Month/Year) tonsils removed 2007 cyst removal on foot 2013 two wrist surgeries 2007 2011 2015 2017
--- OUTSIDE RECORDS SUMMARY | 2025-01-20 13:26 | XMS_ITS | Clinical Summary ---
Author Organization [facility] Address [address] [facility] [place] [address] Care Team Providers Care Tc Operator Name Role Phone Delio Joy MD Primary Care Provider [phone] Source Comments [facility],non-owned Affiliates and Associated Physician Practices is amultiple site organization consisting of ambulatory clinics and hospital sitesin [place], [place], [place] and [place]. This disclosure is being madepursuant to the Care Everywhere program and may not contain all information available regarding this patient. 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 Gender Identity Not on file Sexual Orientation [...] patient's age to complete this topic Insurance [facility] SELF PAY NO INSURANCE Member Subscriber Plan / Payer (Ef fective for All Dates) Name:Esme Huynh Member ID:Not on file Relation to Subscriber:Not on file Name:ESME HUYNH Subscriber ID:Not on file (Home) Address: [address] [place] [address] Payer ID:Not on file Group ID:Not on file Type:Self Pay Address: [place], [place] [facility] * Guarantor: Esme Huynh Account Type Relation to Patient Date of Phone Billing Address Personal/Family Spouse Care Teams Tc Operator Relationship Specialty Start Date End Date Delio Joy MD [address] [place] [address] PCP - General 06/02/18
--- OUTSIDE RECORDS SUMMARY | 2025-01-20 13:26 | XMS_ITS ---
Author Organization [employer] [facility] Address [address] [address] Care Team Providers Care Administrative Services Assistant Name Role Phone Maki Enriquez Primary Care [...] thank you 09/03/2024 Active Ergocalciferol 1.25 MG (86910 UT) 1 capsule Orally weekly for 84 days 09/03/2024 Active Problems Problem Type SNOMED Code ICD Code Onset Dates Problem Status W/U Status Risk Notes Problem Autoimmune thyroiditis (41059389) Autoimmune thyroiditis (E06.3) Active confirmed Problem Non-toxic multinodular goiter (16916853) Nontoxic multinodular goiter (E04.2) Active confirmed Vital Signs Blood pressure systolic 132 mm Hg 09/03/19 25 Blood pressure diastolic 82 mm Hg 025 Heart Rate 72 /min 09/03/2024 Height 61 in 09/03/2024 Weight 202 lbs 09/03/2024 BMI 38.16 kg/m2 09/03/2024 Encounters Encounter Location Date Provider Diagnosis [facility], [facility] - Maki Enriquez [address] [place] [address] 09/03/2024 Maki Enriquez Vitamin D deficiency , [...] regimen Monitor iron levels and consult with manager of broadcast content regarding heavy menstrual bleeding and potential hysterectomy Heavy Menstrual Bleeding and Tranexamic Acid Use Continue tranexamic acid as prescribed during menstrual periods Follow up with manager of broadcast content about the possibility of a hysterectomy for [...] procedures, referring and communicating with other health vocational childcare teacher, documenting clinical information in the electronic or [...] regimen Monitor iron levels and consult with manager of broadcast content regarding heavy menstrual bleeding and potential hysterectomy Heavy Menstrual Bleeding and Tranexamic Acid Use Continue tranexamic acid as prescribed during menstrual periods Follow up with manager of broadcast content about the possibility of a hysterectomy for [...] procedures, referring and communicating with other health vocational childcare teacher, documenting clinical information in the electronic or [...] Notes * Gretchen HUYNHB:1985 (38 yo F)Acc No.[id number]:09/03/2024 Progress Notes Patient: Rama CHRISTINE Provider: Bjorn Enriquez MD :1985 A ge:38 Y S ex:Female Date:09/03/2024 Address:[address] [place] [address] [facility] Subjective: * Chief Complaints: * 1 . [...] FOLATE, SERUM 6.1 - ng/mL VITAMIN B12 900 204-3276 - pg/mL L ab:TESTOSTERONE, FREE (DIALYSIS) AND [...] NEUTROPHILS 67.3 - % ABSOLUTE NEUTROPHILS [phone] - cells/u L LYMPHOCYTES 22.2 - % ABSOLUTE LYMPHOCYTES [phone] - cells/uL MONOCYTES 8.1 - % ABSOLUTE [...] regimen Monitor iron levels and consult with manager of broadcast content regarding heavy menstrual bleeding and potential hysterectomy Heavy Menstrual Bleeding and Tranexamic Acid Use Continue tranexamic acid as prescribed during menstrual periods Follow up with manager of broadcast content about the possibility of a hysterectomy for [...] procedures, referring and communicating with other health vocational childcare teacher, documenting clinical information in the electronic or [...] labwork/u/sfollowup) * Billing Information: * Visit Code: 13177 Office Visit, Est Pt., Level 4. Modifiers: 95 * Procedure Codes: * KMASON SUPERVISOR Sign off status: Completed true * Provider: Bjorn Enriquez MD Date: 0 09/03/2024 Generated for Jamesi danish/Lorie/eTransmitting on: 0 01/20/2025 01:26 PM CDT History and Physical Notes * [...]
--- OUTSIDE RECORDS SUMMARY | 2025-01-20 13:26 | XMS_ITS ---
Author Organization [facility] Address [address] [place] [address] Care Team Providers Care Helper Teacher Name Role Phone Maki Enriquez Primary Care Provider Medications Medication SIG (Take, Route, Fr equency, Duration) Notes Start Date End Date Status Unithroid 50 MCG 1 tablet in the morn ing on an empty stomach Orally Once a day for 30 days 09/10/2024 Active Problems Problem Type SNOMED Code ICD Code Onset Dates Problem Status W/U Status Risk Notes Problem Hypothyroidism (27586054) Hypothyroidism, unspecified (E03.9) Active confirmed Encounters Encounter Location Date Provider Diagnosis [facility] [address] [place] [address] 09/10/2024 Maki Enriquez Hypothyroidism, unspecified E03.9 Assessments [...] Notes * Gretchen HUYNHB:1985 (38 yo F)Acc No.[id number]:09/10/2024 Patient: Rama CHRISTINE :1985 A ge:38 Y S ex:Female [address] [place] , [address] * Refills Start Unithroid Tablet, 50 MCG, [...] Codes: * true * Date: Generated for Bekcie peng/Lorie/Nishi on: 0 01/20/2025 01:26 PM CDT
[2025-01-20 16:41] LABS: Add Urine Microscopic? YES; Appearance Urine Clear (Clear); Bacteria Urine Rare /hpf; Bilirubin Urine Negative (Negative); Blood Urine Negative (Negative); Color Urine Dark Yellow (Yellow); Glucose Urine UA Negative (Negative); Ketones Urine Negative (Negative); Leukocyte Esterase Ur Trace LEU/UL (Negative); Nitrate Urine Negative (Negative); Non Pathogenic Casts 0-2; Protein Urine Negative (Negative); RBC Urine 0-2 /hpf (0-2); Specific Grav Ur 1.023 (1.001-1.035); Squamous Epithelial Cell Urine None Seen /hpf (Few); WBC Urine 0-5 /hpf (0-3)
[2025-01-20 16:48] LABS: Partial Thromboplastin Time 31.4 Seconds (22.3-36.8); Prothrombin Time 13.4 Seconds (11.1-14.7)
== END 2025-01-20 13:14 | disposition home or self-care (01) ==
LOC: ANHLAB 13:24
PROVIDERS: PCP Family Medicine; Visit Provider Neurological Surgery
DX: M54.2 Cervicalgia (principal)
CPT/HCPCS: 36415; 81001; 85610; 85730; 86850; 86900; 86901

== ENCOUNTER 2025-01-25 01:44 | Day surgery (SDC) | payer OTHER, SELFPAY ==
[2025-01-19 10:54] VITALS: BMI 38.6
--- NOTE | 2025-01-19 10:56 | PC.NURSE ---
Report to the Outpatient Waiting Room, entrance under the green pavilion located off [facility], at time _1000_ on date _[id number]_. Planned Procedure Time: _1200_.? Time changes happen often and if your time is changed the preop area will call you the afternoon before. - You and your visitor will be asked to self-screen and do not enter if you have any COVID symptoms. Please call surgeon if you need to reschedule. - A mask is optional within the hospital at this time. Patients may have clear liquids (water, carbonated beverages, clear teas, apple juice) until 3 hours prior to surgery with a maximum of 20 ounces. - No food from midnight until time of surgery and no smoking, or chewing tobacco (or any form of nicotine). No chewing gum, candy or mints. Take only the following medications with a SIP of water on the morning of surgery: __Prednisone, Levothyroxine___ DO NOT STOP ANY OF YOUR OTHER PRESCRIPTION MEDICATIONS PRIOR TO SURGERY EXCEPT THE FOLLOWING Hold all vitamins and supplements for 3 days per anesthesiologist. Medications to discontinue per physician ___Hold this friday's dose of Zepbound.___ Date to take last dose Please no make-up, nail english, hairspray, perfume, deodorant, or body powder the day of surgery.? No jewelry (including any body piercings) or valuables the day of surgery, leave them at home.? Please take a shower or bath the night before, or the morning of, surgery with an antibacterial soap.? Wear comfortable, loose fitting clothing. - Jewelry must be removed prior to entering the operating room.? Rings and piercings that are not removed may be cut off. - The hospital will not accept responsibility for valuables.? - Please leave all valuables, including medications, at home the day of surgery. If you are going home after surgery, a licensed dairy truck driver must drive you home.? - NO public transportation without another adult if you receive anesthesia. - We recommend that an adult stay with you for 24 hours following discharge. - We also recommend that you do not drive, make important decision, drink alcoholic beverages, or take any drugs that were not prescribed by your health care provider for at least 24 hours after your discharge time. Follow any additional instructions given to you from your surgeon. Telephone instructions given to __Alissa___and asked if any additional questions and then verbalized understanding. Patient advised to call surgeon office or pre surgery nurse liaison [phone] if any additional questions.
[2025-01-25] VITALS (15 sets, daily range): BP systolic 124–151; BP diastolic 71–99; PULSE 68–84; RESP 12–20; TEMP 35.9–37.1; O2SAT 95–100; BMI 39.9
--- NOTE | ~2025-01-25 | XR_ITS ---
XR fluoroscopy no charge Indication: C5-6 and C6-7 cervical discectomy and fusion TECHNIQUE: Fluoroscopy used during C5-6 and C6-7 cervical discectomy and fusion performed by [Osmin Christiansen MD] on 01/25/2025. Fluoroscopy time is 8 seconds with 3 fluoroscopic images captured . FINDINGS: Correlate with procedure note. IMPRESSION: Fluoroscopy used during C5-6 and C6-7 cervical discectomy and fusion. Reviewed, dictated and finalized at location A. IMPRESSION: Fluoroscopy used during C5-6 and C6-7 cervical discectomy and fusio n.
--- OUTSIDE RECORDS SUMMARY | 2025-01-25 01:47 | XMS_ITS | Continuity of Care Document ---
Author Organization [facility] Address [address] [place] [address] Phone Care Team Providers Care Maintenance Trainer Name Role Phone Unavailable Unavailable Unavailable Advance Directives Directive Yes / No Effective Date File Name No Information Encounters Encounter Description Practice Location Reason(s) For Visit Diagnoses Date Provider Providers Copied on Encounter [facility], [address] [facility], [place], [place], [id number], [place] tel:[phone] [facility] No Information 201 6 No Information Referring Provider: BEVERLY Bowie, [address], [place], [address]. tel:[phone] Family History Family Member Type Diagnosis Age At Onset No Information Payers Payer name Insurance type Covered alliance party ID Authoriza tion(s) No Information Social History Type Description Quantity Date Captured Comments Sex Female Smoking Status No Information Chief Complaint And Reason For Visit No Information History Of Present Illness Encounter Date Complaint History Of Prese nt Illness No Information Instructions Date Instruction Additional Infor mation No Information Assessments Type Assessment Date No Information
--- OUTSIDE RECORDS SUMMARY | 2025-01-25 01:47 | XMS_ITS ---
Author Organization [employer] [facility] Address [address] [address] Care Team Providers Care Architectural Renderer Name Role Phone Maki Enriquez Primary Care [...] thank you 09/03/2024 Active Ergocalciferol 1.25 MG (55450 UT) 1 capsule Orally weekly for 84 days 09/03/2024 Active Problems Problem Type SNOMED Code ICD Code Onset Dates Problem Status W/U Status Risk Notes Problem Autoimmune thyroiditis (52325113) Autoimmune thyroiditis (E06.3) Active confirmed Problem Non-toxic multinodular goiter (43331480) Nontoxic multinodular goiter (E04.2) Active confirmed Vital Signs Blood pressure systolic 132 mm Hg 09/03/19 25 Blood pressure diastolic 82 mm Hg 025 Heart Rate 72 /min 09/03/2024 Height 61 in 09/03/2024 Weight 202 lbs 09/03/2024 BMI 38.16 kg/m2 09/03/2024 Encounters Encounter Location Date Provider Diagnosis [facility] - Maki Enriquez [address] [place] [address] 09/03/2024 Maki Enriquez Vitamin D deficiency , [...] regimen Monitor iron levels and consult with water pollution scientist regarding heavy menstrual bleeding and potential hysterectomy Heavy Menstrual Bleeding and Tranexamic Acid Use Continue tranexamic acid as prescribed during menstrual periods Follow up with water pollution scientist about the possibility of a hysterectomy for [...] procedures, referring and communicating with other health career information specialist, documenting clinical information in the electronic or [...] regimen Monitor iron levels and consult with water pollution scientist regarding heavy menstrual bleeding and potential hysterectomy Heavy Menstrual Bleeding and Tranexamic Acid Use Continue tranexamic acid as prescribed during menstrual periods Follow up with water pollution scientist about the possibility of a hysterectomy for [...] procedures, referring and communicating with other health career information specialist, documenting clinical information in the electronic or [...] Notes * Gretchen HUYNHB:1985 (38 yo F)Acc No.[id number]:09/03/2024 Progress Notes Patient: Rama CHRISTINE Provider: Bjorn Enriquez MD :1985 A ge:38 Y S ex:Female Date:09/03/2024 Address:[address] [place] [address] [facility] Subjective: * Chief Complaints: * 1 . [...] FOLATE, SERUM 6.1 - ng/mL VITAMIN B12 180 611-6394 - pg/mL L ab:TESTOSTERONE, FREE (DIALYSIS) AND [...] NEUTROPHILS 67.3 - % ABSOLUTE NEUTROPHILS 5317 3595-3615 - cells/u L LYMPHOCYTES 22.2 - % ABSOLUTE LYMPHOCYTES 6817 157-9914 - cells/uL MONOCYTES 8.1 - % ABSOLUTE [...] regimen Monitor iron levels and consult with water pollution scientist regarding heavy menstrual bleeding and potential hysterectomy Heavy Menstrual Bleeding and Tranexamic Acid Use Continue tranexamic acid as prescribed during menstrual periods Follow up with water pollution scientist about the possibility of a hysterectomy for [...] procedures, referring and communicating with other health career information specialist, documenting clinical information in the electronic or [...] labwork/u/sfollowup) * Billing Information: * Visit Code: 35274 Office Visit, Est Pt., Level 4. Modifiers: 95 * Procedure Codes: * WALL INSTALLER Sign off status: Completed true * Provider: Bjorn Enriquez MD Date: 0 09/03/2024 Generated for Jamesi danish/Lorie/eTransmitting on: 0 01/25/2025 01:47 AM CDT History and Physical Notes * [...]
--- OUTSIDE RECORDS SUMMARY | 2025-01-25 01:47 | XMS_ITS | Clinical Summary ---
Author Organization [employer] [address] [facility] [address] Address [address] [place] [address] Phone Care Team Providers Care Corrugator Name Role Phone Delio Joy MD Primary Care Provider [phone] Allergies Active Allergy Reactions Criticality Noted Date [...] Abstract 12/23/2024 3:00 PM CDT Office Visit [facility] [place] [address] [address] Jimmie Mooney MD Acute blood [...] on file Legal Sex Female 3:47 AM CIVIL DEFENSE DIRECTOR Gender Identity Not on file Sexual Orientation [...] Description 05/10/2025 3:45 PM CDT Office Visit [facility] [place] [address] [facility] [address] [place] [address] Jimmie Mooney MD [address] [facility] [address] [place] [address] Health Maintenance Due Date Last [...] age to complete this [place] [address] [facility] CHOICE [id number] Care Teams Corrugator Relationship Specialty Start Date End Date Delio Joy MD [address] [place] [address] PCP - General Family Practice 03/28/11
--- OUTSIDE RECORDS SUMMARY | 2025-01-25 01:47 | XMS_ITS ---
Author Organization [facility] Address [address] [place] [address] Care Team Providers Care Glove Machine Operator Name Role Phone Maki Enriquez Primary Care Provider Medications Medication SIG (Take, Route, Fr equency, Duration) Notes Start Date End Date Status Unithroid 50 MCG 1 tablet in the morn ing on an empty stomach Orally Once a day for 30 days 09/10/2024 Active Problems Problem Type SNOMED Code ICD Code Onset Dates Problem Status W/U Status Risk Notes Problem Hypothyroidism (76443083) Hypothyroidism, unspecified (E03.9) Active confirmed Encounters Encounter Location Date Provider Diagnosis [facility] [address] [place] [address] 09/10/2024 Maki Enriquez Hypothyroidism, unspecified E03.9 Assessments [...] Notes * Gretchen HUYNHB:1985 (38 yo F)Acc No.[id number]:09/10/2024 Patient: Rama CHRISTINE :1985 A ge:38 Y S ex:Female Address:[address] [place] , [address] * Refills Start Unithroid Tablet, 50 MCG, [...] * Date: Generated for Beckie peng/Lorie/Nishi on: 01/25/2025 01:47 AM CDT
--- OUTSIDE RECORDS SUMMARY | 2025-01-25 01:47 | XMS_ITS | Patient Health Record ---
Author Organization [facility] Address [address] [address] Care Team Providers Care Dialer Name Role Phone Maki Enriquez Primary Care Provider [phone] Migration, Provider Unavailable Unavailable Allergies No Known Allergies Results Component Value Reference Range Notes COMPREHENSIVE METABOLIC PANE L Reviewed date:07/11/2024 03:15:19 PM Interpretation: Performing Lab:[facility], [address] [place], [address] Gen Huff MD Notes/Report: FASTING:YES FASTING: YES VITAMIN D, 25-HYDROXY, LC/MS /MS Reviewed date:07/11/2024 03:31:23 PM Interpretation: Performing Lab:[facility], [address] [place], [address] Gen Huff MD Notes/Report: FASTING:YES FASTING: YES ACTH, PLASMA Reviewed date:07/14/2024 08:55:50 PM Interpretation: Performing Lab:[facility], [address] [facility] , [place], [address] Rodney Flores M.D.,PhD Notes/Report: FASTING:YES FASTING: YES T3, FREE Reviewed date:07/11/2024 03:12:52 PM Interpretation: Performing Lab:[facility], [address], [place], [address] Gen Huff MD Notes/Report: FASTING:YES FASTING: YES DHEA SULFATE Reviewed date:07/11/2024 03:15:26 PM Interpretation: Performing Lab:[facility], [address], [place], [address] Gen Huff MD Notes/Report: FASTING:YES FASTING: YES ESTRADIOL Reviewed date:07/11/2024 03:20:18 PM Interpretation: Performing Lab:[facility], [address], [place], [address] Gen Huff MD Notes/Report: FASTING:YES FASTING: YES FSH Reviewed date:07/11/2024 03:13:26 PM Interpretation: Performing Lab:[facility], [address], [place], [address] Gen Huff MD Notes/Report: FASTING:YES FASTING: YES HEMOGLOBIN A1c Reviewed date:07/11/2024 03:31:16 PM Interpretation: Performing Lab:[facility] [place], [address], [place], [address] Gen Huff Notes/Report: FASTING:YES FASTING: YES INSULIN Reviewed date:07/11/2024 03:19:59 PM Interpretation: Performing Lab:[facility], [address], [place], [address] Gen Huff MD Notes/Report: FASTING:YES FASTING: YES LH Reviewed date:07/11/2024 03:15:05 PM Interpretation: Performing Lab:[facility], [address], [place], [address] Gen Huff MD Notes/Report: FASTING:YES FASTING: YES MAGNESIUM Reviewed date:07/11/2024 03:13:12 PM Interpretation: Performing Lab:[facility], [address], [place], [address] Gen Huff MD Notes/Report: FASTING:YES FASTING: YES CBC (INCLUDES DIFF/PLT) Reviewed date:07/13/2024 06:24:54 AM Interpretation: Performing Lab:[facility], [address], [place], [address] Gen Huff MD Notes/Report: FASTING:YES FASTING: YES VITAMIN B12/FOLATE, SERUM PA BRADLEY Reviewed date:07/11/2024 03:20:25 PM Interpretation: Performing Lab:[facility], [address], [place], [address] Gen Huff MD Notes/Report: FASTING:YES FASTING: YES PROGESTERONE Reviewed date:07/11/2024 03:20:05 PM Interpretation: Performing Lab:[facility], [address], [place], [address] Gen Huff MD Notes/Report: FASTING:YES FASTING: YES IRON AND TOTAL IRON BINDING CAPACITY Reviewed date:07/11/2024 03:13:54 PM Interpretation: Performing Lab:[facility], [address], [place], [address] Gen Huff MD Notes/Report: FASTING:YES FASTING: YES T4, FREE Reviewed date:07/11/2024 03:13:19 PM Interpretation: Performing Lab:[facility], [address], [place], [address] Gen Huff MD Notes/Report: FASTING:YES FASTING: YES TSH Reviewed date:07/11/2024 03:20:11 PM Interpretation: Performing Lab:[facility], [address], [place], [address] Gen Huff MD Notes/Report: FASTING:YES FASTING: YES TESTOSTERONE, FREE (DIALYSIS ) AND TOTAL,MS Reviewed date:07/15/2024 09:23:56 PM Interpretation: Performing Lab:[facility], [address] [address], [address], [place], [address] Chandler Plaza MD,PhD Notes/Report: FASTING:YES FASTING: YES TESTOSTERONE, TOTAL, MS 12 2-45 ng/dL For additional information, please refer to https://education.[employer].com/faq/WWR350 (This link is being provided for informational/educational purposes only.) (Note) This test was developed and its analytical performance characteristics have been determined by [employer]. It has not been cleared or approved by the FDA. This assay has been validated pursuant to the CLIA regulations and is used for clinical purposes. TESTOSTERONE, FREE 0.9 0.1-6.4 pg/mL (Note) This test was developed and its analytical performance characteristics have been determined by [employer]. It has not been cleared or approved by the FDA. This assay has been validated pursuant to the CLIA regulations and is used for clinical purposes. [facility] [address] [address],[address] [facility] [id number] Chandler Plaza MD, PhD Reason For Referral Reason 4 cm right dominant thyroid nodule/ biopsy this summer benign- however patient with compressive symptoms, short of breath if laying on right side Referral Organization [facility] Maki Aura X[facility] Referring Provider First Name Maki Referring Provider Last Name Bagdad Referring Provider Speciality Internal edicine Referred Provider Specialty Surgical Onc ology Referral Priority Urgent Reason holosystolic murmur, new in onset, lower ext edema, increased shortness of breath, ACUTE referral thank you Referral Organization [facility] [facility] Referring Provider First Name Maki Referring Provider Last Name Bagdad Referring Provider Speciality Internal edicine Referred Provider [...] once a week Not-Taking Ergocalciferol 1.25 MG (78088 UT) 1 capsule Orally weekly for 84 days 09/03/2024 Active Problems Problem Type SNOMED Code ICD Code Onset Dates Problem Status W/U Status Risk Notes Problem Vitamin D deficiency (74100537) Vitamin D deficiency, unspecified (E55.9) Active confirmed Problem Hypothyroidism (03739454) Hypothyroidism, unspecified (E03.9) Active confirmed Problem Non-toxic single thyroid nodule (051687038) Nontoxic single thyroid nodule (E04.1) Active confirmed Problem Non-toxic multinodular goiter (88215713) Nontoxic multinodular goiter (E04.2) Active confirmed Problem Autoimmune thyroiditis (35268934) Autoimmune thyroiditis (E06.3) Active confirmed Problem Irregular menstruation (18061129) Irregular menstruation, unspecified (N92.6) Active confirmed Vital Signs Heart Rate 72 /min 09/03/2024 Blood pressure diastolic 82 mm Hg 09/03/2024 Height 61 in 09/03/2024 Blood pressure systolic 132 mm Hg 09/03/2024 Weight 202 lbs 09/03/2024 BMI 38.16 kg/m2 09/03/2024 Encounters Encounter Location Date Provider Diagnosis [address] [address] 07/10/2024 Provider Migration [facility] - Maki Aura XM [address] [place] [address] 07/08/2024 Maki Enriquez Nontoxic single thyroid nodule E04.1 ; Other fatigue R53.83 ; Vitamin D deficiency, unspecified E55.9 ; Irregular menstruation, unspecified N92.6 ; Vitamin B12 deficiency anemia, unspecified D51.9 and Cardiac murmur, unspecified R01.1 [facility] - [place]aki [place] [address] [place] [address] 07/07/2024 Maki Enriquez [facility] - Maki Aura X[place] [address] [place] [address] 07/14/2024 Maki Enriquez [facility] [address] [place] [address] 09/03/2024 Maki Enriquez [facility] [address] [place] [address] 09/10/2024 Maki Enriquez Hypothyroidism, unspecified E03.9 [facility] - Maki Enriquez [address] [place] [address] 09/03/2024 Maki Enriquez Vitamin D deficiency , [...] blood pressure issues- Previous evaluation by a semiconductor bonder with no significant findingsPlan: - Refer to [...] procedures, referring and communicating with other health laboratory animal caretaker, documenting clinical information in the electronic or [...] regimen Monitor iron levels and consult with fish tender regarding heavy menstrual bleeding and potential hysterectomy Heavy Menstrual Bleeding and Tranexamic Acid Use Continue tranexamic acid as prescribed during menstrual periods Follow up with fish tender about the possibility of a hysterectomy for [...] procedures, referring and communicating with other health laboratory animal caretaker, documenting clinical information in the electronic or [...] Insured Coverage Start Date Coverage End Date [facility] [address] [place] [phone] [id number] Rama Nair Self - patient is the insured Medical (General) History Medical History History ICD Code hypertension nodules Surgical History Surgery Date(Month/Year) tonsils removed 2007 cyst removal on foot 2013 two wrist surgeries 2007 2011 2015 2017
--- OUTSIDE RECORDS SUMMARY | 2025-01-25 01:47 | XMS_ITS | Clinical Summary ---
Author Organization [facility] Address [address] [facility] [place] [address] Care Team Providers Care Commissary Manager Name Role Phone Delio Joy MD Primary Care Provider [phone] Source Comments [facility],non-owned Affiliates and Associated Physician Practices is amultiple site organization consisting of ambulatory clinics and hospital sitesin [place], [place], [place] and [place]. This disclosure is being madepursuant to the Care Everywhere program and may not contain all information available regarding this patient. Last updated 18.[facility] Social History Tobacco Use Types Packs/Day Years Used Date Smoking Tobacco: Never Assessed Comments Unknown Sex and Gender Information Value Date Recorded Sex Assigned at Not on file Legal Sex Female 12:06 PM DIRECTOR GLOBAL INTELLIGENCE Gender Identity Not on file Sexual Orientation [...] patient's age to complete this topic Insurance SELF PAY NO INSURANCE Member Subscriber Plan / Payer (Ef fective for All Dates) Name:Esme Huynh Member ID:Not on file Relation to Subscriber:Not on file Name:ESME HUYNH Subscriber ID:Not on file (Home) Address: [address] [place] [address] Payer ID:Not on file Group ID:Not on file Type:Self Pay Address: [facility] * Guarantor: Esme Huynh Account Type Relation to Patient Date of Phone Billing Address Personal/Family Spouse Care Teams Commissary Manager Relationship Specialty Start Date End Date Delio Joy MD [address] [place] [address] PCP - General 06/02/18
--- OUTSIDE RECORDS SUMMARY | 2025-01-25 01:47 | XMS_ITS | Referral Summary ---
Author Organization [facility] Address [address] [place] [address] Care Team Providers Care Vocational Technical Education Teacher Name Role Phone Delio Joy MD Unavailable [phone] Delio Joy MD Primary Care Provider [phone] Allergies Active Allergy Reactions Criticality Noted Date [...] ORAL)Indication s:supplement Take 1 tablet by mouth labor economics professor before breakfast OTC Active cyclobenzaprine (FLEXERIL) 5 [...] 1 tablet (20 mg total) by mouth labor economics professor before breakfast 4 Active meloxicam (MOBIC) 7.5 mg tabletIndicatio ns:Osteoarthrit is Take 1 tablet (7.5 mg total) by mouth labor economics professor before breakfast 4 Active omeprazole (PriLOSEC) 40 mg capsuleIndicati ons:Treatment of Non-Bleeding Gastric Disorder Take 1 capsule (40 mg total) by mouth labor economics professor before breakfast 4 Active predniSONE (DELTASONE) 5 mg tabletIndicatio ns:autoimmune disease Take 1 tablet (5 mg) by mouth labor economics professor before breakfast 4 Active Zepbound 2.5 mg/0.5 [...] of her heart. We will place a Preventlyo XT continuous ECG monitor on today. Social [...] on file Legal Sex Female 3:27 AM CLEANER HOUSEKEEPING Gender Identity Not on file Sexual Orientation Not on file Last Filed Vital Signs Vital Sign Reading Time Taken Comments Blood Pressure 146/91 08/10/2024 4:30 PM CLEANER HOUSEKEEPING Pulse 72 08/10/2024 4:30 PM CLEANER HOUSEKEEPING Temperature 36.2 C (97.2 F) 08/10/2024 11:40 AM CLEANER HOUSEKEEPING Respiratory Rate 18 08/10/2024 4:30 PM CLEANER HOUSEKEEPING Oxygen Saturation 99% 08/10/2024 4:30 PM CLEANER HOUSEKEEPING Inhaled Oxygen Concentration - - Weight 92.7 kg (204 lb 6.4 oz) 08/26/2024 9:03 A M CLEANER HOUSEKEEPING Height 154.9 cm (5' 1) 08/10/2024 11:48 AM CLEANER HOUSEKEEPING Body Mass Index 38.62 08/10/2024 11:48 AM CLEANER HOUSEKEEPING Plan of Treatment [place] [address] [facility] H[facility]/PPO Address: [facility] [address] [place] [address] [facility] HMO/PPO Address: [address] [address] [place] [address] Care Teams Vocational Technical Education Teacher Relationship Specialty Start Date End Date Delio Joy MD PCP - General Family Medicine 04/27/21 Delio Joy MD 06/06/17
--- OUTSIDE RECORDS SUMMARY | 2025-01-25 01:47 | XMS_ITS | Clinical Summary ---
Author Organization [facility] Address [address] [place] [address] Care Team Providers Care Accounting Representative Name Role Phone Delio Joy MD Unavailable [phone] Delio Joy MD Primary Care Provider [phone] Allergies Active Allergy Reactions Criticality Noted Date [...] ORAL)Indication s:supplement Take 1 tablet by mouth chiropractic doctor before breakfast OTC Active cyclobenzaprine (FLEXERIL) 5 [...] 1 tablet (20 mg total) by mouth chiropractic doctor before breakfast 4 Active meloxicam (MOBIC) 7.5 mg tabletIndicatio ns:Osteoarthrit is Take 1 tablet (7.5 mg total) by mouth chiropractic doctor before breakfast 4 Active omeprazole (PriLOSEC) 40 mg capsuleIndicati ons:Treatment of Non-Bleeding Gastric Disorder Take 1 capsule (40 mg total) by mouth chiropractic doctor before breakfast 4 Active predniSONE (DELTASONE) 5 mg tabletIndicatio ns:autoimmune disease Take 1 tablet (5 mg) by mouth chiropractic doctor before breakfast 4 Active Zepbound 2.5 mg/0.5 [...] of her heart. We will place a [employer] continuous ECG monitor on today. Surgical History Surgery Date Site/Laterality Comments TONSILLECTOMY 08/25/2008 - 08/24/2009 Tonsillectomy SECTION 4 WRIST SURGERY 08/25/2011 - 08/24/2012 Bilateral Tendonitis CYST REMOVAL 08/25/2008 - 08/24/2009 Right foot-big toe OTHER SURGICAL HISTORY 08/25/2023 - 08/24/2024 ROLLER GOLD LEAF-fibroid scope Medical History Medical History Date Comments [...] on file Legal Sex Female 3:27 AM MAITRE D' Gender Identity Not on file Sexual Orientation Not on file Obstetrics History Last Filed Vital Signs Vital Sign Reading Time Taken Comments Blood Pressure 146/91 08/10/2024 4:30 PM MAITRE D' Pulse 72 08/10/2024 4:30 PM MAITRE D' Temperature 36.2 C (97.2 F) 08/10/2024 11:40 AM MAITRE D' Respiratory Rate 18 08/10/2024 4:30 PM MAITRE D' Oxygen Saturation 99% 08/10/2024 4:30 PM MAITRE D' Inhaled Oxygen Concentration - - Weight 92.7 kg (204 lb 6.4 oz) 08/26/2024 9:03 A M MAITRE D' Height 154.9 cm (5' 1) 08/10/2024 11:48 AM MAITRE D' Body Mass Index 38.62 08/10/2024 11:48 AM MAITRE D' Plan of Treatment Health Maintenance Due Date [...] patient's age to complete this topic Insurance [facility] OPEN ACCESS [facility] Care Teams Accounting Representative Relationship Specialty Start Date End Date Delio Joy MD PCP - General Family Medicine 04/27/21 Delio Joy MD 06/06/17
--- OUTSIDE RECORDS SUMMARY | 2025-01-25 01:48 | XMS_ITS ---
Author Organization [facility] Address [address] [place] [address] Care Team Providers Care Motor Winder Name Role Phone Maki Enriquez Primary Care Provider Encounters Encounter Location Date Provider Diagnosis [facility] [address] [facility] [place] [address] 09/03/2024 Maki Enriquez Plan Of Treatment No Information Progress Notes * Gretchen HUYNHB:1985 (38 yo F)Acc No.[id number]:09/03/2024 Patient: Rama CHRISTINE :1985 A ge:38 Y S ex:Female [address] [place] , [address] * true * Date: Generated for Beckie peng/Lorie/eTransmitting on: 0 01/25/2025 01:47 AM CDT
[2025-01-25 10:58] LABS: BEDSIDEPREGUCG Negative (Negative)
--- NOTE | 2025-01-25 11:34 | PM.IMHP ---
H&P: HPI History of Present Illness Date/Time: 01/25/25 11:34 Chief Complaint: Neck and arm pain Narrative: Ms. Nair is a 39-year-old female with neck and arm pain related to pathology at C5-6 and C6-7 presents for anterior cervical diskectomy and fusion at those levels. She has not changed appreciably since we last saw her. She does not have specific muscle group weakness or dermatomal numbness. She is not having bowel or bladder difficulty. She has balance issues and shooting pain in her arms. There is generalized dysfunction in the upper extremities especially in the hands. Review of Systems Review of Systems: Patient denies shortness of breath, cough, fever, chills, nausea, vomiting, weight loss, weight gain, chest pain, dysuria. She has neck issues and imbalance as detailed above. Review of systems otherwise negative on 12 systems except as noted elsewhere. [facility] Past Medical History Medical History Thyroid nodule Breast mass in female Tachycardia Weight loss Thyroid mass depression Fibromyalgia Interstitial cystitis Anxiety Hypothyroid Paresthesia Surgical History Surgical History History of surgery on wrist bilateral History of tonsillectomy History of bilateral tubal ligation 2018 with last section History of x4 Family History Family History Father Hypertension Alcoholism Asthma Mother Hypertension Sibling Thyroid activity decreased Asthma Grandparent Cancer Heart disease Grandparent Diabetes mellitus Cancer Other Family history of coronary artery disease Social History Social History Years smoked: 4 Smoking status: Never smoker Tobacco type: cigarettes Second hand tobacco smoke exposure: No Smoking end date: 01/20/08 Alcohol intake: current Alcohol use details: VERY RARE Substance use: never Substance use type: does not use Other substance usage details: CBD oil for joint pain Do You Feel Safe in your Home?: Yes Lack of Transportation: No Lack of Food: Never True Current Housing: I Have Housing Concerned About Future Housing: No Difficulty Paying Gas/Electric Bills: No Difficulty Paying for Meds: No Currently Unemployed: No Education: Trade/Vocational Certificate Difficulty w/ Childcare or Family Care: No Living arrangements: with family Occupation/Education: occupation 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 Gender identity (if verbalized by the patient): Female Spiritual care concerns: No Meds Home Medications and Allergies Home Medications ?Medication ?Instructions ?Recorded ?Confirmed ?Type tranexamic acid 650 mg tablet 650 mg PO DAILY PRN Menstrul cycle 03/10/24 01/19/25 History omeprazole 40 mg capsule,delayed 40 mg PO DAILY laryngopharyngeal 05/03/24 01/25/25 Rx release reflux #30 caps cyclobenzaprine 5 mg tablet 5 mg PO TID PRN muscle spasm 09/07/24 01/25/25 History prednisolone 5 mg tablet 5 mg PO DAILY 09/07/24 01/25/25 History cyanocobalamin (vitamin B-12) 1,000 mcg IM WEEKLY 09/17/24 01/25/25 History 1,000 mcg/mL injection solution ferrous sulfate 325 mg (65 mg 325 mg PO DAILY 09/17/24 01/25/25 History iron) tablet (iron) levothyroxine 50 mcg tablet 50 mcg PO DAILY 09/17/24 01/25/25 History (Unithroid) metoprolol succinate 25 mg 25 mg PO HS 09/17/24 01/25/25 History tablet,extended release 24 hr hydroxychloroquine 200 mg tablet 200 mg PO BID 10/28/24 01/25/25 History (Plaquenil) tirzepatide (weight loss) 7.5 7.5 mg (0.5 mL) subcut WEEKLY #2 mL 12/06/24 01/19/25 Rx mg/0.5 mL subcutaneous pen injector (Zepbound) lisinopril 20 mg tablet 20 mg PO DAILY #30 tabs 12/20/24 01/25/25 Rx etanercept 25 mg/0.5 mL 25 mg subcut WEEKLY 01/19/25 01/25/25 History subcutaneous solution (Enbrel) Allergies Allergy/AdvReac Type Severity Reaction Status Date / Time ondansetron (From Zofran) AdvReac Intermediate Panic Verified 01/25/25 10:49 attack Vital Signs Vital Signs - 24 hr 01/25/25 10:20 Temperature 98.5 F Pulse Rate 81 Respiratory Rate 18 Blood Pressure 136/92 H Pulse Oximetry 100 Oxygen Delivery Room Air Exam Narrative: Strength is normal the bilateral upper extremities with some weakness in the metal bed assembler bilaterally. Sensation is intact to light touch in the upper extremities. Breathing is nonlabored Regular rate and rhythm Assessment and Plan Assessment and plan (1) Cervical stenosis of spinal canal: Code(s): M48.02 - Spinal stenosis, cervical region Status: Acute Plan Ms. Nair is a 39-year-old female who presents for C5-6 and C6-7 anterior cervical diskectomy and fusion for stenosis. I described to her again that operation, its risks, potential benefits, the operative and postoperative course in detail answered all her questions personally. She indicates understanding and elects to proceed with that operation. We discussed risks including but not limited to permanent neurological functional deficit related injury of the trachea, esophagus, carotid artery, jugular vein, recurrent laryngeal nerve causing hoarseness or aspiration, spinal cord or nerve roots causing permanent neurologic deficit, need for reoperation secondary to infection, bleeding, CSF leak, adjacent level disease, recurrent residual pathology or instability, failure of the procedure to relieve her pain or symptoms, persistent pain, medical complications related anesthesia or surgery, etc..
--- NOTE | 2025-01-25 11:36 | WPDANESEPPF ---
Anes - Initial Pre Proc Eval Procedure: Operation Date: 01/25/25 12:00 Proposed Procedures p C5-6, C6-7 Anterior Cervical Discectomy and Fusion - José Miguel Christiansen MD Date/Time: 01/25/25 11:36 Surgeon: José Miguel Christiansen MD Pre Op Diagnosis: cervicalgia Patient Data Age: 39 Gender: F Height: 1.55 m Weight: 96 kg Last Vital Signs Temp 36.9 C 01/25/25 10:20 Pulse 81 01/25/25 10:20 Resp 18 01/25/25 10:20 BP 136/92 H 01/25/25 10:20 Pulse Ox 100 01/25/25 10:20 O2 Del Method Room Air 01/25/25 10:20 Allergies Allergy/AdvReac Type Severity Reaction Status Date / Time ondansetron (From Zofran) AdvReac Intermediate Panic Verified 01/25/25 10:49 attack Home Medications ?Medication ?Instructions ?Recorded ?Confirmed ?Type tranexamic acid 650 mg tablet 650 mg PO DAILY PRN Menstrul cycle 03/10/24 01/19/25 History omeprazole 40 mg capsule,delayed 40 mg PO DAILY laryngopharyngeal 05/03/24 01/25/25 Rx release reflux #30 caps cyclobenzaprine 5 mg tablet 5 mg PO TID PRN muscle spasm 09/07/24 01/25/25 History prednisolone 5 mg tablet 5 mg PO DAILY 09/07/24 01/25/25 History cyanocobalamin (vitamin B-12) 1,000 mcg IM WEEKLY 09/17/24 01/25/25 History 1,000 mcg/mL injection solution ferrous sulfate 325 mg (65 mg 325 mg PO DAILY 09/17/24 01/25/25 History iron) tablet (iron) levothyroxine 50 mcg tablet 50 mcg PO DAILY 09/17/24 01/25/25 History (Unithroid) metoprolol succinate 25 mg 25 mg PO HS 09/17/24 01/25/25 History tablet,extended release 24 hr hydroxychloroquine 200 mg tablet 200 mg PO BID 10/28/24 01/25/25 History (Plaquenil) tirzepatide (weight loss) 7.5 7.5 mg (0.5 mL) subcut WEEKLY #2 mL 12/06/24 01/19/25 Rx mg/0.5 mL subcutaneous pen injector (Zepbound) lisinopril 20 mg tablet 20 mg PO DAILY #30 tabs 12/20/24 01/25/25 Rx etanercept 25 mg/0.5 mL 25 mg subcut WEEKLY 01/19/25 01/25/25 History subcutaneous solution (Enbrel) Laboratory Tests 01/25/25 10:29 POC Urine HCG, Qual Negative (Negative) Patient hx anesthesia problems: post op nausea/vomiting Family hx anesthesia problems: none Results Review: All pre-operative results and documents have been reviewed as part of the pre-operative evaluation. [facility] Past Medical History Medical History Thyroid nodule Breast mass in female Tachycardia Weight loss Thyroid mass depression Fibromyalgia Interstitial cystitis Anxiety Hypothyroid Paresthesia Surgical History Surgical History History of surgery on wrist bilateral History of tonsillectomy History of bilateral tubal ligation 2018 with last section History of x4 Family History Family History Father Hypertension Alcoholism Asthma Mother Hypertension Sibling Thyroid activity decreased Asthma Grandparent Cancer Heart disease Grandparent Diabetes mellitus Cancer Other Family history of coronary artery disease Social History Social History Years smoked: 4 Smoking status: Never smoker Tobacco type: cigarettes Second hand tobacco smoke exposure: No Smoking end date: 01/20/08 Alcohol intake: current Alcohol use details: VERY RARE Substance use: never Substance use type: does not use Other substance usage details: CBD oil for joint pain Do You Feel Safe in your Home?: Yes Lack of Transportation: No Lack of Food: Never True Current Housing: I Have Housing Concerned About Future Housing: No Difficulty Paying Gas/Electric Bills: No Difficulty Paying for Meds: No Currently Unemployed: No Education: Trade/Vocational Certificate Difficulty w/ Childcare or Family Care: No Living arrangements: with family Occupation/Education: occupation 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 Gender identity (if verbalized by the patient): Female Spiritual care concerns: No Anes - Eval Final PreProcedure Day of Procedure 01/25/25 11:36 Patient weight: morbidly obese Heart: regular rate and rhythm Lungs: clear to auscultation Airway: Mallampati scale class II Neurological: alert and oriented Last oral intake: >/= 8 hours ASA classification: III Emergent: no Anesthetic plan: proceed Anesthesia type and monitoring: general ETT and standard monitoring Results Review: All pre-operative results and documents have been reviewed as part of the pre-operative evaluation. Informed Consent: The patient's anesthetic plan and its attendant risks and benefits were discussed with the patient/family/POA. Questions were solicited and answers provided to the satisfaction of the patient/family/POA.
--- NOTE | 2025-01-25 11:40 | WPDHPUPDATE1 ---
History and Physical Update Update Date/Time: 01/25/25 11:40 History and Physical has been reviewed, including an updated exam of the patient. There are NO changes in the patient's condition. Risks, benefits, and alternatives have been discussed and questions answered. Patient agrees to proceed with procedure.
[2025-01-25] MEDS: LACTATED RINGERS 1,000 ML 30 ML IV CONT ×2 (11:42→14:51)
[2025-01-25] MEDS: SCOPOLAMINE 1 MG PATCH 1 PATCH TRANSDERM (11:57)
[2025-01-25] MEDS: ceFAZolin 2 GM/D5W 50 ML 2 GM/50 ML BAG IVPB (12:44)
[2025-01-25] MEDS: LIDO 1%/EPINEPHRINE 1:100,000 20 ML VIAL 10 ML INFILTRATE (13:27)
--- NOTE | 2025-01-25 14:46 | W.PM.PROC2 ---
Procedure Note - Detailed Date of Procedure 01/25/25 Pre-op Diagnosis cervicalgia Post-op Diagnosis Same Procedure Performed C5-6 and C6-7 complete diskectomy and bilateral neural foraminotomy, C5-6 and C6-7 interbody arthrodesis utilizing peek interbody devices, local autograft and magnetos, C5-7 anterior cervical plating Surgeon José Miguel Christiansen MD Anesthesia General Description of Procedure The patient was brought to the operating room in the supine position, was sedated, intubated placed under general anesthesia in routine fashion. There of operation on the right side of the neck was examined, marked for incision, prepped and draped in routine sterile fashion. Incision was marked from the midline to the medial aspect of sternocleidomastoid muscle and curvilinear transverse fashion 2 fingerbreadths above the sternal notch. This area was injected with 0.5% lidocaine with [id number] epinephrine. Intravenous antibiotics given prior to incision. Incision was made with a 10 blade scalpel down to the platysma muscle. The skin was undermined the platysma muscle was divided longitudinally with its fibers using Metzenbaum scissors. A plane was then dissected medial to the sternocleidomastoid muscle down to the anterior aspect of spine using the finger Metzenbaum scissors. A verifying x-rays obtained to verify the level of operation. At C5-6 and C6-7 the longus colli muscle was dissected free of the anterior aspect of the spine using Bovie cautery. Shadow Line retractor system was placed. Millwood pins were placed in the C5 and C7 and distraction placed over both disc spaces simultaneously. Diskectomy and arthrodesis procedures were performed identically at each level. This was performed by cutting into the disc space using a 15 blade scalpel along the margin of the bone above and below. Curved curette and pituitary rongeur were used to remove as much cartilaginous endplate and disc material as possible down to the annulus and ligament posteriorly. Midas-Brent drill was used to bur down the endplates to bleeding cortical flat surfaces as well as to begin a bony foraminotomy bilaterally. Under microscopy a 4-0 curved curette was used to come through the annulus and ligament. 2. Kerrison punch was then used to remove annulus, ligament, posterior osteophyte and to complete a bony foraminotomy bilaterally. Significant disc herniation was removed, more at C5-6 and C6-7 bilaterally. The disc space was then sized appropriately sized interbody devices were chosen and filled with local autograft bone. A 7 mm device was chosen for C6-7 and a 6 mm device for C5-6. These were filled with localo autograft bone and magnetos. These were then tamped into the interspace to 1-2 mm countersink. Midas-Brent drill was used to bur down the osteophyte anteriorly at each level. A 30 mm anterior plate was chosen placed in position and secured using 614 x 4 mm anterior screws advanced into the locking mechanism the plate to hand tightness. Locking mechanism was engaged at each screw. A verifying x-rays obtained to verify good position of the instrumentation which was confirmed. The wound was then copiously irrigated with bacitracin irrigation all bleeding stopped with bipolar Bovie cautery and Gelfoam thrombin powder. The wound was then closed in layered fashion with 3-0 Vicryl interrupted sutures in the lumbodorsal fascia and Dee's layer. 3-0 Vicryl buried interrupted sutures were placed in the dermis and skin was closed with a running 4-0 Monocryl subcuticular stitch and dressed with Dermabond. The patient was allowed to wake up in the operating room and was taken to the recovery room in stable condition. There were no immediate complications of this operation. All counts reported correct at the end the case. Blood loss was 25 cc. The patient was neurologically at her baseline postoperatively. CPT codes: 71933, 90503, 94570, 07998 x 2, 45191 x 2 Estimated Blood Loss 25 Complications None Condition Stable Disposition PACU [facility] Billing Surgery - Charge Forward: Surgery Billing
[2025-01-25] MEDS: fentaNYL CITRATE INJ (*CRX) 100 MCG/2 ML VIAL 25 MCG IV PUSH ×4 (15:11→18:00)
[2025-01-25] MEDS: ONDANSETRON INJ 4 MG/2 ML VIAL IV PUSH ×2 (15:56→18:33)
[2025-01-25] MEDS: diphenhydrAMINE HCl INJ 50 MG/ML VIAL 25 MG IV PUSH (16:18)
--- NOTE | 2025-01-25 16:53 | SUR.PHASEI ---
1630: Patient meets PACU discharge criteria, unit bed unavailable at this time. Patient placed in extended recovery status.
[2025-01-25] MEDS: MORPHINE SULFATE (*CRX) 2 MG/ML INJ IV PUSH ×3 (18:32→23:00)
[2025-01-25] MEDS: KCL 20 MEQ/D5/0.45% SOD CHL 1,000 ML 100 ML IV CONT (20:28)
[2025-01-26 00:05] VITALS: BP 119/75; PULSE 103; RESP 20; TEMP 36; O2SAT 96
[2025-01-26] MEDS: MORPHINE SULFATE (*CRX) 2 MG/ML INJ IV PUSH ×3 (01:24→08:04)
[2025-01-26 04:35] VITALS: BP 139/87; PULSE 82; RESP 20; TEMP 36.3; O2SAT 98
[2025-01-26] MEDS: LEVOTHYROXINE SODIUM 50 MCG TABLET PO (06:15)
[2025-01-26] MEDS: KCL 20 MEQ/D5/0.45% SOD CHL 1,000 ML 100 ML IV CONT (06:17)
[2025-01-26] MEDS: HYDROcodone/acetaminophen (*CRX) 10-325 MG TABLET 1 TAB PO ×3 (06:23→16:23)
[2025-01-26] MEDS: CYCLOBENZAPRINE HCL 10 MG TABLET PO (06:25)
[2025-01-26 08:00] VITALS: O2SAT 98
[2025-01-26] MEDS: lisinopriL 20 MG TABLET PO (08:42)
[2025-01-26] MEDS: HYDROXYCHLOROQUINE SULFATE 200 MG TABLET PO ×2 (08:42→16:22)
[2025-01-26] MEDS: DOCUSATE SODIUM 100 MG CAPSULE PO (08:42)
[2025-01-26] MEDS: PANTOPRAZOLE 40 MG TABLET PO (08:42)
[2025-01-26 09:09] VITALS: BP 136/86; PULSE 73; RESP 18; TEMP 36.4; O2SAT 97
[2025-01-26] MEDS: FERROUS SULFATE 325 MG TABLET DR BY MOUTH (12:07)
[2025-01-26 13:09] VITALS: BP 114/75; PULSE 72; RESP 18; TEMP 36.1; O2SAT 98
[2025-01-26 14:00] VITALS: BP 114/75; PULSE 72; RESP 18; TEMP 36.1; O2SAT 98
--- NOTE | 2025-01-26 15:23 | WPDNEUROSGPN ---
Progress Note: A&P Assessment and Plan (1) Status post cervical arthrodesis: Code(s): Z98.1 - Arthrodesis status Status: Acute Plan -Discharge home today -Activity and wound care instructions reviewed at bedside -Follow up with Dr. Christiansen in clinic in about 6 weeks Subjective Date/time seen: 01/26/25 15:23 Interval history: Doing well with adequate pain control. The paresthesias in her hands have improved compared to before surgery. She notes some dysphagia which she states was also present before surgery. She would like to go home Review of Systems Review of Systems: All systems reviewed & are unremarkable except as noted in HPI and below Exam Narrative: AOx4 Incision c/d/i Moving all extremities with good strength Objective Data Vital Signs Vital Signs: Vital Signs - 24 hr 01/25/25 15:35 01/25/25 15:50 01/25/25 16:05 Temperature Pulse Rate 82 76 74 Respiratory Rate 12 16 12 Blood Pressure 137/82 138/77 132/71 Pulse Oximetry 96 95 95 Oxygen Delivery Room Air Room Air Room Air 01/25/25 16:20 01/25/25 16:50 01/25/25 17:30 Temperature Pulse Rate 74 68 75 Respiratory Rate 12 12 12 Blood Pressure 137/81 143/83 H 137/83 Pulse Oximetry 100 100 97 Oxygen Delivery Room Air Room Air Room Air 01/25/25 17:58 01/25/25 18:55 01/25/25 19:20 Temperature 97.0 F L 98.7 F Pulse Rate 81 78 78 Respiratory Rate 14 16 20 Blood Pressure 135/84 139/82 140/81 Pulse Oximetry 98 97 97 Oxygen Delivery Room Air 01/25/25 19:50 01/25/25 20:00 01/25/25 20:50 Temperature 97.8 F 96.7 F L Pulse Rate 78 70 Respiratory Rate 18 18 Blood Pressure 151/97 H 148/99 H Pulse Oximetry 97 97 Oxygen Delivery Room Air 01/26/25 00:05 01/26/25 04:35 01/26/25 08:00 Temperature 96.8 F L 97.3 F L Pulse Rate 103 H 82 Respiratory Rate 20 20 Blood Pressure 119/75 139/87 Pulse Oximetry 96 98 98 Oxygen Delivery Room Air 01/26/25 08:33 01/26/25 09:09 01/26/25 11:11 Temperature 97.6 F Pulse Rate 73 Respiratory Rate 18 Blood Pressure 136/86 Pulse Oximetry 97 Oxygen Delivery Room Air Room Air 01/26/25 13:09 01/26/25 14:00 Temperature 97.0 F L 97.0 F L Pulse Rate 72 72 Respiratory Rate 18 18 Blood Pressure 114/75 114/75 Pulse Oximetry 98 98 Oxygen Delivery Intake/Output Intake/Output: Intake & Output 01/23/25 01/24/25 01/25/25 01/26/25 23:59 23:59 23:59 23:59 Intake Total 800 1797.7 Balance 800 1797.7 Meds/Results Medications: Active Medications Generic Name Dose Route Start Last Admin Trade Name Freq PRN Reason Stop Dose Admin Hydrocodone Bitart/Acetaminophen 1 tab 01/25/25 18:09 Hydrocodone/Acetaminophen (*Crx) 5-325 Mg Tablet PO Q4H PRN Mild Pain (1-3) Hydrocodone Bitart/Acetaminophen 1 tab 01/25/25 18:09 01/26/25 12:07 Hydrocodone/Acetaminophen (*Crx) 10-325 Mg Tablet PO 1 tab Q4H PRN Administration Moderate Pain (4-6) Al Hydrox/Mg Hydrox/Simethicone 20 ml 01/25/25 18:09 Mag Hydrox/Al Hydrox/Simeth 30 Ml Udc PO Q4H PRN Indigestion/Heartburn Bisacodyl 10 mg 01/25/25 18:09 Bisacodyl 10 Mg Suppository RECTAL DAILY PRN Constipation Cyanocobalamin 1,000 mcg 02/01/25 09:00 Cyanocobalamin Inj 1,000 Mcg/Ml Vial IM WEEKLY [facility] Cyclobenzaprine HCl 10 mg 01/25/25 18:09 01/26/25 06:25 Cyclobenzaprine Hcl 10 Mg Tablet PO 10 mg TID PRN Administration Muscle Spasms Docusate Sodium 100 mg 01/25/25 21:00 01/26/25 08:42 Docusate Sodium 100 Mg Capsule PO 100 mg Q12HR [facility] Administration Ferrous Sulfate 325 mg 01/26/25 12:00 01/26/25 12:07 Ferrous Sulfate [address] BY MOUTH 325 mg DAILY@1200 [facility] Administration Hydroxychloroquine Sulfate 200 mg 01/25/25 18:09 01/26/25 08:42 Hydroxychloroquine Sulfate 200 Mg Tablet PO 200 mg BID RENETTA Administration Potassium Chloride/Dextrose/Sod Cl 1,000 mls @ 100 mls/hr 01/25/25 18:09 01/26/25 06:17 Kcl 20 Meq/D5/0.45% Sod Chl IV CONT 100 mls/hr .Q10H RENETTA Administration Levothyroxine Sodium 50 mcg 01/26/25 06:30 01/26/25 06:15 Levothyroxine Sodium 50 Mcg Tablet PO 50 mcg DAILY@0630 RENETTA Administration Lisinopril 20 mg 01/26/25 09:00 01/26/25 08:42 Lisinopril 20 Mg Tablet PO 20 mg DAILY RENETTA Administration Metoprolol Succinate 25 mg 01/25/25 21:00 01/25/25 21:50 Metoprolol Succinate Ext Rel 25 Mg Tabcr PO Not Given HS RENETTA Miscellaneous Information 0 each 01/25/25 00:01 Yanocobalamin Weekly What Day Given? XX 02/24/25 00:00 CLARIFY RENETTA Miscellaneous Information 0 each 01/25/25 00:01 Yanocobalamin Weekly What Day Given? XX 02/24/25 00:00 CLARIFY [place] Miscellaneous Information 0 each 01/25/25 00:01 Enbrel Nonform Can Pt Bring In Or Hold While Here? XX 02/24/25 00:00 CLARIFY [facility] Miscellaneous Information 0 each 01/25/25 00:01 Tranexamic Acid Tablets Nonform Can Pt Bring In Or Hold While Here? XX 02/24/25 00:00 CLARIFY [facility] Morphine Sulfate 2 mg 01/25/25 18:09 01/26/25 08:04 Morphine Sulfate (*Crx) 2 Mg/Ml Inj IV PUSH 2 mg Q2H PRN Administration Pain Rated 7-10 Non-Formulary Medication 25 mg 02/01/25 09:00 Etanercept [Enbrel] SUB-Q 03/03/25 08:59 WEEKLY [facility] Non-Formulary Medication 7.5 mg 02/01/25 09:00 Tirzepatide (Weight Loss) [Zepbound] SUB-Q 03/03/25 08:59 WEEKLY [facility] Non-Formulary Medication 650 mg 01/25/25 18:09 Tranexamic Acid PO DAILY PRN Menstrul cycle Ondansetron HCl 4 mg 01/25/25 18:09 Ondansetron Inj 4 Mg/2 Ml Vial IV PUSH Q8H PRN Nausea And Vomiting Pantoprazole Sodium 40 mg 01/25/25 21:00 01/26/25 08:42 Pantoprazole 40 Mg Tablet PO 40 mg Q12HR RENETTA Administration Senna/Docusate Sodium 1 tab 01/25/25 18:09 Senna/Docusate Sodium Tablet PO HS PRN Constipation Radiology Results: ITS Impressions Fluoroscopy 01/26/25 08:46 IMPRESSION: Fluoroscopy used during C5-6 and C6-7 cervical discectomy and fusion.
--- NOTE | 2025-01-26 18:19 | PC.NURSE ---
On 01/26/25, the LEAD FURNACE OPERATOR, Heydi Pickard], provided care and completed [employer] documentation on this patient. I have reviewed the LEAD FURNACE OPERATOR's documentation and agree with the findings.
== END 2025-01-26 16:45 | disposition home or self-care (01) ==
LOC: ANHSURGERY 17:59 → ANH3MEDSUR 01-26 09:11
PROVIDERS: PCP Family Medicine; Visit Provider Neurological Surgery
PROC: (CPT 63030; principal; 2025-01-25 12:00)
DX: M48.02 Spinal stenosis, cervical region (principal); E03.9 Hypothyroidism, unspecified; F41.9 Anxiety disorder, unspecified; M79.7 Fibromyalgia; R00.0 Tachycardia, unspecified; F12.90 Cannabis use, unspecified, uncomplicated; Z79.52 Long term (current) use of systemic steroids; Z79.85 Long-term (current) use of injectable non-insulin antidiabetic drugs; E66.01 Morbid (severe) obesity due to excess calories; Z68.41 Body mass index [BMI] 40.0-44.9, adult; Z98.890 Other specified postprocedural states; Z98.51 Tubal ligation status; Z80.9 Family history of malignant neoplasm, unspecified; Z82.49 Family history of ischemic heart disease and other diseases of the circulatory system
CPT/HCPCS: 22551; 22552; 22853 ×2; 20936; 97161; 97166; 99199; A9270; C1713; J0690; J1100; J1171; J1200; J2003; J2004; J2250; J2270; J2405; J2704; J3010; J3480; J7120

== ENCOUNTER 2025-03-08 08:27 | Outpatient (CLI) | payer OTHER, SELFPAY ==
--- NOTE | ~2025-03-08 | XR_ITS ---
XR_CERV2-3V_CR Ordering provider: José Miguel Christiansen MD History: . Cervicalgia; POST OP CERVICAL SPINE SURGERY xJUNE 6TH . Comparison: January 29, 2012 FINDINGS: VERTEBRAL BODIES: Normal height and alignment. No visible fracture or subluxation. The dens is intact . Postoperative changes at the level of C4, C5 and C6. DISK SPACES: Disc spacers are seen at the levels of C5-C6 and C6-C7 Well maintained. PARASPINOUS SOFT TISSUES: No prevertebral soft tissue swelling. IMPRESSION: No acute osseous abnormality cervical spine. Postoperative changes in the lower cervical area. Reviewed, dictated and finalized at location A.
--- OUTSIDE RECORDS SUMMARY | 2025-03-08 08:39 | XMS_ITS | Referral Summary ---
Author Organization [facility] Address [address] [place] [address] Care Team Providers Care Roofer Applicator Name Role Phone Delio Joy MD Unavailable [phone] Delio Joy MD Primary Care Provider [phone] Allergies Active Allergy Reactions Criticality Noted Date [...] ORAL)Indication s:supplement Take 1 tablet by mouth medical asst before breakfast OTC Active cyclobenzaprine (FLEXERIL) 5 [...] 1 tablet (20 mg total) by mouth medical asst before breakfast 4 Active meloxicam (MOBIC) 7.5 mg tabletIndicatio ns:Osteoarthrit is Take 1 tablet (7.5 mg total) by mouth medical asst before breakfast 4 Active omeprazole (PriLOSEC) 40 mg capsuleIndicati ons:Treatment of Non-Bleeding Gastric Disorder Take 1 capsule (40 mg total) by mouth medical asst before breakfast 4 Active predniSONE (DELTASONE) 5 mg tabletIndicatio ns:autoimmune disease Take 1 tablet (5 mg) by mouth medical asst before breakfast 4 Active Zepbound 2.5 mg/0.5 [...] of her heart. We will place a [employer] XT continuous ECG monitor on today. 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 Gender Identity Not on file Sexual Orientation Not on file Last Filed Vital Signs Vital Sign Reading Time Taken Comments Blood Pressure 146/91 08/10/2024 4:30 PM GLASS BEVELER Pulse 72 08/10/2024 4:30 PM GLASS BEVELER Temperature 36.2 C (97.2 F) 08/10/2024 11:40 AM GLASS BEVELER Respiratory Rate 18 08/10/2024 4:30 PM GLASS BEVELER Oxygen Saturation 99% 08/10/2024 4:30 PM GLASS BEVELER Inhaled Oxygen Concentration - - Weight 92.7 kg (204 lb 6.4 oz) 08/26/2024 9:03 A M GLASS BEVELER Height 154.9 cm (5' 1) 08/10/2024 11:48 AM GLASS BEVELER Body Mass Index 38.62 08/10/2024 11:48 AM GLASS BEVELER Plan of Treatment Not on [place] [address] [facility]PPO Address: [facility] [id number] [place] [phone] [facility] H[facility]/PP[facility] Address: [address] [address] [place] [address] Care Teams Roofer Applicator Relationship Specialty Start Date End Date Delio Joy MD PCP - General Family Medicine 04/27/21 Delio Joy MD 06/06/17
--- OUTSIDE RECORDS SUMMARY | 2025-03-08 08:39 | XMS_ITS | Clinical Summary ---
Author Organization [facility] Address [address] [place] [address] Care Team Providers Care Yard Manager Name Role Phone Delio Joy MD Unavailable [phone] Delio Joy MD Primary Care Provider [phone] Allergies Active Allergy Reactions Criticality Noted Date [...] ORAL)Indication s:supplement Take 1 tablet by mouth supervising law enforcement analyst before breakfast OTC Active cyclobenzaprine (FLEXERIL) 5 [...] 1 tablet (20 mg total) by mouth supervising law enforcement analyst before breakfast 4 Active meloxicam (MOBIC) 7.5 mg tabletIndicatio ns:Osteoarthrit is Take 1 tablet (7.5 mg total) by mouth supervising law enforcement analyst before breakfast 4 Active omeprazole (PriLOSEC) 40 mg capsuleIndicati ons:Treatment of Non-Bleeding Gastric Disorder Take 1 capsule (40 mg total) by mouth supervising law enforcement analyst before breakfast 4 Active predniSONE (DELTASONE) 5 mg tabletIndicatio ns:autoimmune disease Take 1 tablet (5 mg) by mouth supervising law enforcement analyst before breakfast 4 Active Zepbound 2.5 mg/0.5 [...] of her heart. We will place a [employer] continuous ECG monitor on today. Surgical History Surgery Date Site/Laterality Comments TONSILLECTOMY 08/25/2008 - 08/24/2009 Tonsillectomy SECTION 4 WRIST SURGERY 08/25/2011 - 08/24/2012 Bilateral Tendonitis CYST REMOVAL 08/25/2008 - 08/24/2009 Right foot-big toe OTHER SURGICAL HISTORY 08/25/2023 - 08/24/2024 ARMHOLE RAISER LOCKSTITCH-fibroid scope Medical History Medical History Date Comments [...] on file Legal Sex Female 3:27 AM BOX NAILER Gender Identity Not on file Sexual Orientation Not on file Obstetrics History Last Filed Vital Signs Vital Sign Reading Time Taken Comments Blood Pressure 146/91 08/10/2024 4:30 PM BOX NAILER Pulse 72 08/10/2024 4:30 PM BOX NAILER Temperature 36.2 C (97.2 F) 08/10/2024 11:40 AM BOX NAILER Respiratory Rate 18 08/10/2024 4:30 PM BOX NAILER Oxygen Saturation 99% 08/10/2024 4:30 PM BOX NAILER Inhaled Oxygen Concentration - - Weight 92.7 kg (204 lb 6.4 oz) 08/26/2024 9:03 A M BOX NAILER Height 154.9 cm (5' 1) 08/10/2024 11:48 AM BOX NAILER Body Mass Index 38.62 08/10/2024 11:48 AM BOX NAILER Plan of Treatment Health Maintenance Due Date Last Done Comments Cervical Cancer Screening 1987 Hepatitis C Screening 1987 DTaP/Tdap/Td Vaccine (1 - Tdap) 12/28/1998 Varicella Vaccines (1 of 2 - 13+ 2-dose series) 12/28/2000 Hepatitis B Screening 12/28/2005 Regular Well Visit/Exam 18-64 12/28/2005 Depression Screening 01/01/2020 12/31/2018 Covid-19 Vaccine (2 - 2023-2 5 season) 2024 05/28/2021 Influenza Vaccine (#1) 2025 HPV Vaccines Aged Out No longer eligi ble based on patient's age to complete this topic Pneumococcal vaccine <65 Aged Out No longer eligible based on patient's age to complete this topic Insurance [facility]/PPO Address: [facility] [address] [place] [address] [facility] OPEN ACCESS [facility] H[facility]/PPO Address: [address] [address] [place] [address] Care Teams Yard Manager Relationship Specialty Start Date End Date Delio Joy MD PCP - General Family Medicine 04/27/21 Delio Joy MD 06/06/17
--- OUTSIDE RECORDS SUMMARY | 2025-03-08 08:39 | XMS_ITS | Clinical Summary ---
Author Organization [facility] Address [address] [place] [address] Care Team Providers Care Entry Level Electrical Engineer Name Role Phone Delio Joy MD Primary Care Provider Source Comments [facility],non-owned Affiliates and Associated Physician Practices is amultiple site organization consisting of ambulatory clinics and hospital sitesin [place], [place], [place] and [place]. This disclosure is being madepursuant to the Care Everywhere program and may not contain all information available regarding this patient. 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 Gender Identity Not on file Sexual Orientation Not on file Plan of Treatment Health Maintenance Due Date Last Done Comments HIV SCREENING 12/28/2002 HEPATITIS C SCREENING 12/24/2005 DTAP/TDAP/TD VACCINES (1 - Tdap) 12/28/2006 HEPATITIS B VACCINE (1 of 3 - 19+ 3-dose series) 12/28/2006 PAP SMEAR 12/28/2008 HPV VACCINE (1 - 3-dose SCDM series) 12/28/2014 COVID-19 VACCINE ( - 2023-2 5 season) 2024 DEPRESSION SCREENING 08/25/2024 INFLUENZA VACCINE (#1) 2025 ZOSTER VACCINE (1 of 2) 12/28/2037 [...] Subscriber ID:Not on file (Home) Address: [address] [place] [address] Payer ID:Not on file Group ID:Not on file Type:Self Pay Address: [facility] * Guarantor: Esme Huynh Account Type Relation to Patient Date of Phone Billing Address Personal/Family Spouse Care Teams Entry Level Electrical Engineer Relationship Specialty Start Date End Date Delio Joy MD [address] [place] [address] PCP - General 06/02/18
--- OUTSIDE RECORDS SUMMARY | 2025-03-08 08:39 | XMS_ITS | Patient Health Record ---
Author Organization [facility] Address [address] [address] Care Team Providers Care Flex O Writer Operator Name Role Phone Maki Enriquez Primary Care Provider [phone] Migration, Provider Unavailable Unavailable Allergies No Known Allergies Results Component Value Reference Range Notes COMPREHENSIVE METABOLIC PANE L Reviewed date:07/11/2024 03:15:19 PM Interpretation: Performing Lab:[facility], [address] [place], [address] Gen Huff MD Notes/Report: FASTING:YES FASTING: YES VITAMIN D, 25-HYDROXY, LC/MS /MS Reviewed date:07/11/2024 03:31:23 PM Interpretation: Performing Lab:[facility], [address] [place], [address] Gen Huff MD Notes/Report: FASTING:YES FASTING: YES ACTH, PLASMA Reviewed date:07/14/2024 08:55:50 PM Interpretation: Performing Lab:[facility]José Miguel [facility], [address] [facility] , [place], [address] Rodney Flores M.D.,PhD Notes/Report: FASTING:YES FASTING: YES T3, FREE Reviewed date:07/11/2024 03:12:52 PM Interpretation: Performing Lab:[facility], [address], [place], [address] Gen Huff MD Notes/Report: FASTING:YES FASTING: YES DHEA SULFATE Reviewed date:07/11/2024 03:15:26 PM Interpretation: Performing Lab:[facility], [address], [place], [address] Gen Huff MD Notes/Report: FASTING:YES FASTING: YES ESTRADIOL Reviewed date:07/11/2024 03:20:18 PM Interpretation: Performing Lab:[facility], [address], [place], [address] Gen Huff MD Notes/Report: FASTING:YES FASTING: YES FSH Reviewed date:07/11/2024 03:13:26 PM Interpretation: Performing Lab:[facility], [address], [place], [address] Gen Huff MD Notes/Report: FASTING:YES FASTING: YES HEMOGLOBIN A1c Reviewed date:07/11/2024 03:31:16 PM Interpretation: Performing Lab[facility], [address], [place], [address] Gen Huff Notes/Report: FASTING:YES FASTING: YES INSULIN Reviewed date:07/11/2024 03:19:59 PM Interpretation: Performing Lab:[facility], [address], [place], [address] Gen Huff MD Notes/Report: FASTING:YES FASTING: YES LH Reviewed date:07/11/2024 03:15:05 PM Interpretation: Performing Lab:[facility], [address], [place], [address] Gen Huff MD Notes/Report: FASTING:YES FASTING: YES MAGNESIUM Reviewed date:07/11/2024 03:13:12 PM Interpretation: Performing Lab:[facility], [address], [place], [address] Gen Huff MD Notes/Report: FASTING:YES FASTING: YES CBC (INCLUDES DIFF/PLT) Reviewed date:07/13/2024 06:24:54 AM Interpretation: Performing Lab:[facility], [address], [place], [address] Gen Huff MD Notes/Report: FASTING:YES FASTING: YES VITAMIN B12/FOLATE, SERUM PA BRADLEY Reviewed date:07/11/2024 03:20:25 PM Interpretation: Performing Lab:[facility], [address], [place], [address] Gen Huff MD Notes/Report: FASTING:YES FASTING: YES PROGESTERONE Reviewed date:07/11/2024 03:20:05 PM Interpretation: Performing Lab:[facility], [address], [place], [address] Gen Huff MD Notes/Report: FASTING:YES FASTING: YES IRON AND TOTAL IRON BINDING CAPACITY Reviewed date:07/11/2024 03:13:54 PM Interpretation: Performing Lab:[facility], [address], [place], [address] Gen Huff MD Notes/Report: FASTING:YES FASTING: YES T4, FREE Reviewed date:07/11/2024 03:13:19 PM Interpretation: Performing Lab:[facility], [address], [place], [address] Gen Huff MD Notes/Report: FASTING:YES FASTING: YES TSH Reviewed date:07/11/2024 03:20:11 PM Interpretation: Performing Lab:[facility], [address], [place], [address] Gen Huff MD Notes/Report: FASTING:YES FASTING: YES TESTOSTERONE, FREE (DIALYSIS ) AND TOTAL,MS Reviewed date:07/15/2024 09:23:56 PM Interpretation: Performing Lab:[facility], [address] [address], [address], [place], [address] Chandler Plaza MD,PhD Notes/Report: FASTING:YES FASTING: YES TESTOSTERONE, TOTAL, MS 12 2-45 ng/dL For additional information, please refer to https://education.[employer].com/faq/FBQ522 (This link is being provided for informational/educational purposes only.) (Note) This test was developed and its analytical performance characteristics have been determined by [employer]. It has not been cleared or approved by the FDA. This assay has been validated pursuant to the CLIA regulations and is used for clinical purposes. TESTOSTERONE, FREE 0.9 0.1-6.4 pg/mL (Note) This test was developed and its analytical performance characteristics have been determined by [employer]. It has not been cleared or approved by the FDA. This assay has been validated pursuant to the CLIA regulations and is used for clinical purposes. [facility] [address] [address],[address] [facility] [id number] Chandler Plaza MD, PhD Reason For Referral Reason 4 cm right dominant thyroid nodule/ biopsy this summer benign- however patient with compressive symptoms, short of breath if laying on right side Referral Organization [employer] [facility] [employer] Referring Provider First Name Maki Referring Provider Last Name [place] Referring Provider Speciality Internal edicine Referred Provider Specialty Surgical Onc ology Referral Priority Urgent Reason holosystolic murmur, new in onset, lower ext edema, increased shortness of breath, ACUTE referral thank you Referral Organization [employer] [employer] Referring Provider First Name Maki Referring Provider Last Name [place] Referring Provider Speciality Internal edicine Referred Provider [...] once a week Not-Taking Ergocalciferol 1.25 MG (52251 UT) 1 capsule Orally weekly for 84 days 09/03/2024 Active Problems Problem Type SNOMED Code ICD Code Onset Dates Problem Status W/U Status Risk Notes Problem Vitamin D deficiency (99131021) Vitamin D deficiency, unspecified (E55.9) Active confirmed Problem Hypothyroidism (84073024) Hypothyroidism, unspecified (E03.9) Active confirmed Problem Non-toxic single thyroid nodule (893165769) Nontoxic single thyroid nodule (E04.1) Active confirmed Problem Non-toxic multinodular goiter (54099428) Nontoxic multinodular goiter (E04.2) Active confirmed Problem Autoimmune thyroiditis (40059454) Autoimmune thyroiditis (E06.3) Active confirmed Problem Irregular menstruation, unspecified (N92.6) Active confirmed Vital Signs Heart Rate 72 /min 09/03/2024 Blood pressure diastolic 82 mm Hg 09/03/2024 Height 61 in 09/03/2024 Blood pressure systolic 132 mm Hg 09/03/2024 Weight 202 lbs 09/03/2024 BMI 38.16 kg/m2 09/03/2024 Encounters Encounter Location Date Provider Diagnosis [address] [address] 07/10/2024 Provider Migration [facility], [facility] - [facility] [address] [place] [address] 07/08/2024 Maki Enriquez Nontoxic single thyroid nodule E04.1 ; Other fatigue R53.83 ; Vitamin D deficiency, unspecified E55.9 ; Irregular menstruation, unspecified N92.6 ; Vitamin B12 deficiency anemia, unspecified D51.9 and Cardiac murmur, unspecified R01.1 [employer] [facility], [facility] - [facility] [address] [place] [address] 07/07/2024 Maki Enriquez [facility], [facility] - [facility] [address] [place] [address] 07/14/2024 Maki Enriquez [facility] [address] [place] [address] 09/03/2024 Maki Enriquez [facility] [address] [place] [address] 09/10/2024 Maki Enriquez Hypothyroidism, unspecified E03.9 [employer] [facility], [facility] - [facility] [address] [place] [address] 09/03/2024 Maki Enriquez Vitamin D deficiency , [...] blood pressure issues- Previous evaluation by a therapist rrt with no significant findingsPlan: - Refer to [...] procedures, referring and communicating with other health direct care staffer, documenting clinical information in the electronic or [...] regimen Monitor iron levels and consult with geothermal plant manager regarding heavy menstrual bleeding and potential hysterectomy Heavy Menstrual Bleeding and Tranexamic Acid Use Continue tranexamic acid as prescribed during menstrual periods Follow up with geothermal plant manager about the possibility of a hysterectomy for [...] procedures, referring and communicating with other health direct care staffer, documenting clinical information in the electronic or [...] Insured Coverage Start Date Coverage End Date [facility] [address] [place] [address] [phone] [id number] Rama Nair Self - patient is the insured Medical (General) History Medical History History ICD Code hypertension nodules Surgical History Surgery Date(Month/Year) tonsils removed 2007 cyst removal on foot 2013 two wrist surgeries 2007 2011 2015 2017
--- OUTSIDE RECORDS SUMMARY | 2025-03-08 08:39 | XMS_ITS ---
Author Organization [facility] Address [address] [place] [address] Care Team Providers Care Lead Handler Name Role Phone Maki Enriquez Primary Care [...] Unknown Encounters Encounter Location Date Provider Diagnosis [facility] - Maki Enriquez [address] [place] [address] 08/03/2024 Maki Enriquez Plan Of Treatment No Information Progress Notes * Bao HUYNHaDOB:1985 (39 yo F)Acc No.[id number]:08/03/2024 Progress Notes Patient: Rama CHRISTINE Provider: Bjorn Enriquez MD :1985 A ge:38 Y S ex:Female Date:08/03/2024 Address: [address] [place] [address] Subjective: * Chief Complaints: * 1 . [...] FOLATE, SERUM 6.1 - ng/mL VITAMIN B12 [phone] - pg/mL L ab:TSH (Order Date 07/09/2024) [...] NEUTROPHILS 67.3 - % ABSOLUTE NEUTROPHILS 5317 [phone] - cells/u L LYMPHOCYTES 22.2 - % ABSOLUTE LYMPHOCYTES [phone] - cells/uL MONOCYTES 8.1 - % ABSOLUTE [...] Electronic signature of Steve Enriquez MD on 03/08/2025 at 08:38 AM CDT Sign off status: Pending * Provider: Bjorn Enriquez MD Date: 1 10/04/2023 Generated for Beckie peng/Lorie/eTransmitting on: 0 03/08/2025 08:38 AM CDT History and Physical Notes * HPI (History of Present Illness) Category Sub-Category Detail Notes Category Not es Interval Hx 38 yo female co mes in for follow up in management of obesity/weight management found to have COLEMAN and vit D def.
--- OUTSIDE RECORDS SUMMARY | 2025-03-08 08:39 | XMS_ITS | Clinical Summary ---
Author Organization [facility] [address] - [address] Address [address] [place] [address] Phone Care Team Providers Care Thermometer Maker Name Role Phone Delio Joy MD Primary Care Provider [phone] Allergies Active Allergy Reactions Criticality Noted Date [...] Encounters Date Type Department Care Team Description 02/22/2025 External Device Data STL ABSTRACTION Provider, Abstract 02/15/2025 External Device Data STL ABSTRACTION Provider, Abstract 02/08/2025 External Device Data STL ABSTRACTION Provider, Abstract 01/18/2025 External Device Data STL ABSTRACTION Provider, Abstract 01/12/2025 External Device Data STL ABSTRACTION Provider, Abstract 01/12/2025 External Device Data STL ABSTRACTION Provider, Abstract 12/28/2024 External Device Data STL ABSTRACTION Provider, Abstract 12/28/2024 External Device Data STL ABSTRACTION Provider, Abstract 12/28/2024 External Device Data STL ABSTRACTION Provider, Abstract 12/23/2024 3:00 PM CDT Office Visit [facility] Oncology and Hematology - [place] [facility] [address] [place] [address] Jimmie Mooney MD Acute blood loss anemia [...] on file Legal Sex Female 3:47 AM GLOBAL PRESIDENT Gender Identity Not on file Sexual Orientation [...] Description 05/10/2025 3:45 PM CDT Office Visit [facility] Oncology and Hematology - [place] [address] [facility] [address] [place] [address] Jimmie Mooney MD [address] [facility] [address] [place] [address] Health Maintenance Due Date Last Done Comments Pre-Diabetes and Diabetes Screening 1987 DTAP/TDAP/TD VACCINES (1 - Tdap) 12/28/2006 HEPATITIS B VACCINES (1 of 3 - 19+ 3-dose series) 12/28/2006 HPV/Cotest (21-29) 12/28/2008 CERVICAL CANCER SCREENING 12/28/2017 HPV/Cotest (30-65) 12/28/2017 PAP SMEAR 12/28/2017 INFLUENZA VACCINE (#1) 2025 HPV VACCINES Aged Out No longer eligi ble based on patient's age to complete this topic Insurance [facility] CHOICE [id number] Care Teams Thermometer Maker Relationship Specialty Start Date End Date Delio Joy MD [address] [place] [address] PCP - General Family Practice 03/28/11
== END 2025-03-08 08:28 | disposition home or self-care (01) ==
PROVIDERS: PCP Family Medicine; Visit Provider Neurological Surgery
DX: M54.2 Cervicalgia (principal); Z98.890 Other specified postprocedural states
CPT/HCPCS: 72040

== ENCOUNTER 2025-03-11 10:27 | Outpatient (CLI) | payer OTHER, SELFPAY ==
--- NOTE | ~2025-03-11 | MMUS_ITS ---
EXAMINATION: US breast RT limited, MM diagnostic reggie BI w neetu HISTORY: History of right lumpectomy TECHNIQUE: Additional 3-D tomosynthesis images of the breasts were performed and synthetic 2-D images were generated. CAD analysis was submitted and interpreted. High resolution right breast ultrasound was performed. COMPARISON: Comparison to multiple prior studies sequentially, with oldest reviewed study dated 03/12. BREAST PARENCHYMAL COMPOSITION: Not dense: There are scattered areas of fibroglandular density. FINDINGS: MAMMOGRAPHIC FINDINGS: The breasts are stable. No new masses, calcifications or architectural distortion to suggest malignan cy. ULTRASOUND: Limited right breast ultrasound: In the area of previous lumpectomy at 12:00, 8 cm from the nipple th ere is a heterogeneous area of soft tissue, consistent with scarring/fibrosis. No discrete mass ident ified. IMPRESSION: 1. No evidence for malignancy in the right breast. Postoperative changes present in the lumpectomy be d. 2. Routine yearly screening mammogram and regular clinical breast examination are recommended. BI-RADS Category 2: Benign finding(s). Reviewed, dictated and finalized at location B. IMPRESSION: 1. No evidence for malignancy in the right breast. Postoperative changes presen t in the lumpectomy bed. 2. Routine yearly screening mammogram and regular clinical breast examination a re recommended. BI-RADS Category 2: Benign finding(s).
--- OUTSIDE RECORDS SUMMARY | 2025-03-11 10:31 | XMS_ITS ---
Author Organization [employer] [facility] Address [address] [place] [address] Care Team Providers Care Geoscientist Name Role Phone Maki Enriquez Primary Care [...] Unknown Encounters Encounter Location Date Provider Diagnosis [facility] - Maki Enriquez [address] [place] [address] 08/03/2024 Maki Enriquez Plan Of Treatment No Information Progress Notes * Bao HUYNHaDOB:1985 (39 yo F)Acc No.[id number]:08/03/2024 Progress Notes Patient: Rama CHRISTINE Provider: Bjorn Enriquez MD :1985 A ge:38 Y S ex:Female Date:08/03/2024 Address:[address] [place] [address] Subjective: * Chief Complaints: * 1 . [...] FOLATE, SERUM 6.1 - ng/mL VITAMIN B12 [phone] - pg/mL L ab:TSH (Order Date 07/09/2024) [...] NEUTROPHILS 67.3 - % ABSOLUTE NEUTROPHILS 5317 [phone] - cells/u L LYMPHOCYTES 22.2 - % ABSOLUTE LYMPHOCYTES [phone] - cells/uL MONOCYTES 8.1 - % ABSOLUTE [...] Electronic signature of Steve Enriquez MD on 03/11/2025 at 10:31 AM CDT Sign off status: Pending * Provider: Bjorn Enriquez MD Date: 1 10/04/2023 Generated for Beckie peng/Lorie/eTransmitting on: 0 03/11/2025 10:31 AM CDT History and Physical Notes * HPI (History of Present Illness) Category Sub-Category Detail Notes Category Not es Interval Hx 38 yo female co mes in for follow up in management of obesity/weight management found to have COLEMAN and vit D def.
--- OUTSIDE RECORDS SUMMARY | 2025-03-11 10:31 | XMS_ITS | Clinical Summary ---
Author Organization [facility] Address [address] [place] [address] Care Team Providers Care Bag Machine Tender Name Role Phone Delio Joy MD Unavailable [phone] Delio Joy MD Primary Care Provider [phone] Allergies Active Allergy Reactions Criticality Noted Date [...] ORAL)Indication s:supplement Take 1 tablet by mouth manager educational before breakfast OTC Active cyclobenzaprine (FLEXERIL) 5 [...] 1 tablet (20 mg total) by mouth manager educational before breakfast 4 Active meloxicam (MOBIC) 7.5 mg tabletIndicatio ns:Osteoarthrit is Take 1 tablet (7.5 mg total) by mouth manager educational before breakfast 4 Active omeprazole (PriLOSEC) 40 mg capsuleIndicati ons:Treatment of Non-Bleeding Gastric Disorder Take 1 capsule (40 mg total) by mouth manager educational before breakfast 4 Active predniSONE (DELTASONE) 5 mg tabletIndicatio ns:autoimmune disease Take 1 tablet (5 mg) by mouth manager educational before breakfast 4 Active Zepbound 2.5 mg/0.5 [...] of her heart. We will place a [employer] renal continuous ECG monitor on today. Surgical History Surgery Date Site/Laterality Comments TONSILLECTOMY 08/25/2008 - 08/24/2009 Tonsillectomy SECTION 4 WRIST SURGERY 08/25/2011 - 08/24/2012 Bilateral Tendonitis CYST REMOVAL 08/25/2008 - 08/24/2009 Right foot-big toe OTHER SURGICAL HISTORY 08/25/2023 - 08/24/2024 PORTFOLIO MGR-fibroid scope Medical History Medical History Date Comments [...] on file Legal Sex Female 3:27 AM ICU NURSE Gender Identity Not on file Sexual Orientation Not on file Obstetrics History Last Filed Vital Signs Vital Sign Reading Time Taken Comments Blood Pressure 146/91 08/10/2024 4:30 PM ICU NURSE Pulse 72 08/10/2024 4:30 PM ICU NURSE Temperature 36.2 C (97.2 F) 08/10/2024 11:40 AM ICU NURSE Respiratory Rate 18 08/10/2024 4:30 PM ICU NURSE Oxygen Saturation 99% 08/10/2024 4:30 PM ICU NURSE Inhaled Oxygen Concentration - - Weight 92.7 kg (204 lb 6.4 oz) 08/26/2024 9:03 A M ICU NURSE Height 154.9 cm (5' 1) 08/10/2024 11:48 AM ICU NURSE Body Mass Index 38.62 08/10/2024 11:48 AM ICU NURSE Plan of Treatment Health Maintenance Due Date [...] patient's age to complete this topic Insurance [facility] HMO/PPO Address: [facility] [address] [place] [address] [facility] OPEN ACCESS [facility] HMO/PPO Address: [address] [address] [place] [address] Care Teams Bag Machine Tender Relationship Specialty Start Date End Date Delio Joy MD PCP - General Family Medicine 04/27/21 Delio Joy MD 06/06/17
--- OUTSIDE RECORDS SUMMARY | 2025-03-11 10:31 | XMS_ITS | Encounter Summary ---
Author Organization [facility] Address [address] [place] [address] Care Team Providers Care Engineering Test Mechanic Name Role Phone Delio Joy MD Primary Care Provider [phone] Encounter Details Date Type Department Care Team (Late Contact Info) Description 03/09/2025 External Device Data STL ABSTRACTION Provider, Abstract NO ADDRESS ON FILE Social History Tobacco Use Types Packs/Day Years Used Date Smoking Tobacco: Never Smokeless Tobacco: Never Alcohol Use Standard Drinks/Week Comments Yes 0 (1 standard drink = 0.6 oz pur e alcohol) Socially Comments No Sex and Gender Information Value Date Recorded Sex Assigned at Not on file Legal Sex Female 3:47 AM LIBRARY ACQUISITIONS TECHNICIAN Gender Identity Not on file Sexual Orientation Not on file Occupation Industry Job Start Date Job End Date Not on file Not on file Not on file Not on file documented as of this encounter Plan of Treatment Upcoming Encounters Date Type Department Care Team (Late Contact Info) Description 05/10/2025 3:45 PM CDT Office Visit [facility] Oncology and Hematology - [place] [address] [place] [address] Jimmie Mooney MD [address] [facility] [address] [place] [address] documented as of this encounter Visit Diagnoses Not on filedocumented in this encounter Care Teams Engineering Test Mechanic Relationship Specialty Start Date End Date Delio Joy MD [address] [place] [address] PCP - General Family Practice 03/28/11 documented as of this encounter
--- OUTSIDE RECORDS SUMMARY | 2025-03-11 10:31 | XMS_ITS | Patient Health Record ---
Author Organization [facility] Address [address] [address] Care Team Providers Care Other Sales Support Worker Name Role Phone Maki Enriquez Primary Care Provider [phone] Migration, Provider Unavailable Unavailable Allergies No Known Allergies Results Component Value Reference Range Notes COMPREHENSIVE METABOLIC PANE L Reviewed date:07/11/2024 03:15:19 PM Interpretation: Performing Lab:[facility], [address] [place], [address] Gen Huff MD Notes/Report: FASTING:YES FASTING: YES VITAMIN D, 25-HYDROXY, LC/MS /MS Reviewed date:07/11/2024 03:31:23 PM Interpretation: Performing Lab:[facility], [address] [place], [address] Gen Huff MD Notes/Report: FASTING:YES FASTING: YES ACTH, PLASMA Reviewed date:07/14/2024 08:55:50 PM Interpretation: Performing Lab:[facility]José Miguel [facility], [address] [facility] , [place], [address] Rodney Flores M.D.,PhD Notes/Report: FASTING:YES FASTING: YES T3, FREE Reviewed date:07/11/2024 03:12:52 PM Interpretation: Performing Lab:[facility], [address], [place], [address] Gen Huff MD Notes/Report: FASTING:YES FASTING: YES DHEA SULFATE Reviewed date:07/11/2024 03:15:26 PM Interpretation: Performing Lab:[facility], [address], [place], [address] Gen Huff MD Notes/Report: FASTING:YES FASTING: YES ESTRADIOL Reviewed date:07/11/2024 03:20:18 PM Interpretation: Performing Lab:[facility], [address], [place], [address] Gen Huff MD Notes/Report: FASTING:YES FASTING: YES FSH Reviewed date:07/11/2024 03:13:26 PM Interpretation: Performing Lab:[facility], [address], [place], [address] Gen Huff MD Notes/Report: FASTING:YES FASTING: YES HEMOGLOBIN A1c Reviewed date:07/11/2024 03:31:16 PM Interpretation: Performing Lab:[facility], [address], [place], [address] Gen Huff Notes/Report: FASTING:YES FASTING: YES INSULIN Reviewed date:07/11/2024 03:19:59 PM Interpretation: Performing Lab:[facility], [address], [place], [address] Gen Huff MD Notes/Report: FASTING:YES FASTING: YES LH Reviewed date:07/11/2024 03:15:05 PM Interpretation: Performing Lab:[facility], [address], [place], [address] Gen Huff MD Notes/Report: FASTING:YES FASTING: YES MAGNESIUM Reviewed date:07/11/2024 03:13:12 PM Interpretation: Performing Lab:[facility], [address], [place], [address] Gen Huff MD Notes/Report: FASTING:YES FASTING: YES CBC (INCLUDES DIFF/PLT) Reviewed date:07/13/2024 06:24:54 AM Interpretation: Performing Lab:[facility], [address], [place], [address] Gen Huff MD Notes/Report: FASTING:YES FASTING: YES VITAMIN B12/FOLATE, SERUM PA BRADLEY Reviewed date:07/11/2024 03:20:25 PM Interpretation: Performing Lab:[facility], [address], [place], [address] Gen Huff MD Notes/Report: FASTING:YES FASTING: YES PROGESTERONE Reviewed date:07/11/2024 03:20:05 PM Interpretation: Performing Lab:[facility], [address], [place], [address] Gen Huff MD Notes/Report: FASTING:YES FASTING: YES IRON AND TOTAL IRON BINDING CAPACITY Reviewed date:07/11/2024 03:13:54 PM Interpretation: Performing Lab:[facility], [address], [place], [address] Gen Huff MD Notes/Report: FASTING:YES FASTING: YES T4, FREE Reviewed date:07/11/2024 03:13:19 PM Interpretation: Performing Lab:[facility], [address], [place], [address] Gen Huff MD Notes/Report: FASTING:YES FASTING: YES TSH Reviewed date:07/11/2024 03:20:11 PM Interpretation: Performing Lab:[facility], [address], [place], [address] Gen Huff MD Notes/Report: FASTING:YES FASTING: YES TESTOSTERONE, FREE (DIALYSIS ) AND TOTAL,MS Reviewed date:07/15/2024 09:23:56 PM Interpretation: Performing Lab:[facility], [address] [address], [address], [place], [address] Chandler Plaza MD,PhD Notes/Report: FASTING:YES FASTING: YES TESTOSTERONE, TOTAL, MS 12 2-45 ng/dL For additional information, please refer to https://[email or web address]/faq/[email or web address] (This link is being provided for informational/educational purposes only.) (Note) This test was developed and its analytical performance characteristics have been determined by [employer]. It has not been cleared or approved by the FDA. This assay has been validated pursuant to the CLIA regulations and is used for clinical purposes. TESTOSTERONE, FREE 0.9 0.1-6.4 pg/mL (Note) This test was developed and its analytical performance characteristics have been determined by [employer]. It has not been cleared or approved by the FDA. This assay has been validated pursuant to the CLIA regulations and is used for clinical purposes. [facility] [address] [address],[address] [facility] [id number] Chandler Plaza MD, PhD Reason For Referral Reason 4 cm right dominant thyroid nodule/ biopsy this summer benign- however patient with compressive symptoms, short of breath if laying on right side Referral Organization [facility] Referring Provider First Name Maki Referring Provider Last Name Bolivar Referring Provider Speciality Internal edicine Referred Provider Specialty Surgical Onc ology Referral Priority Urgent Reason holosystolic murmur, new in onset, lower ext edema, increased shortness of breath, ACUTE referral thank you Referral Organization [facility] Referring Provider First Name Maki Referring Provider Last Name Bolivar Referring Provider Speciality Internal edicine Referred Provider [...] once a week Not-Taking Ergocalciferol 1.25 MG (21871 UT) 1 capsule Orally weekly for 84 days 09/03/2024 Active Problems Problem Type SNOMED Code ICD Code Onset Dates Problem Status W/U Status Risk Notes Problem Vitamin D deficiency (54672262) Vitamin D deficiency, unspecified (E55.9) Active confirmed Problem Hypothyroidism (89596822) Hypothyroidism, unspecified (E03.9) Active confirmed Problem Non-toxic single thyroid nodule (533089515) Nontoxic single thyroid nodule (E04.1) Active confirmed Problem Non-toxic multinodular goiter (53491557) Nontoxic multinodular goiter (E04.2) Active confirmed Problem Autoimmune thyroiditis (67706269) Autoimmune thyroiditis (E06.3) Active confirmed Problem Irregular menstruation, unspecified (N92.6) Active confirmed Vital Signs Heart Rate 72 /min 09/03/2024 Blood pressure diastolic 82 mm Hg 09/03/2024 Height 61 in 09/03/2024 Blood pressure systolic 132 mm Hg 09/03/2024 Weight 202 lbs 09/03/2024 BMI 38.16 kg/m2 09/03/2024 Encounters Encounter Location Date Provider Diagnosis [address] [address] 07/10/2024 Provider Migration [email or web address] [address] [place] [address] 07/08/2024 Maki Enriquez Nontoxic single thyroid nodule E04.1 ; Other fatigue R53.83 ; Vitamin D deficiency, unspecified E55.9 ; Irregular menstruation, unspecified N92.6 ; Vitamin B12 deficiency anemia, unspecified D51.9 and Cardiac murmur, unspecified R01.1 [facility] - [facility] [address] [place] [address] 07/07/2024 Maki Enriquez [facility] - [facility] [address] [place] [address] 07/14/2024 Maki Enriquez [facility] [address] [place] [address] 09/03/2024 Maki Enriquez [facility] [address] [place] [address] 09/10/2024 Maki Enriquez Hypothyroidism, unspecified E03.9 [facility] - [facility] [address] [place] [address] 09/03/2024 Maki Enriquez Vitamin D deficiency , [...] blood pressure issues- Previous evaluation by a workforce development vice president with no significant findingsPlan: - Refer to [...] procedures, referring and communicating with other health clinical care coordinator, documenting clinical information in the electronic or [...] regimen Monitor iron levels and consult with manpower development specialist manager regarding heavy menstrual bleeding and potential hysterectomy Heavy Menstrual Bleeding and Tranexamic Acid Use Continue tranexamic acid as prescribed during menstrual periods Follow up with manpower development specialist manager about the possibility of a hysterectomy [...] procedures, referring and communicating with other health clinical care coordinator, documenting clinical information in the electronic or [...] Insured Coverage Start Date Coverage End Date [facility] [address] [place] [address] [phone] [id number] Rama Nair Self - patient is the insured Medical (General) History Medical History History ICD Code hypertension nodules Surgical History Surgery Date(Month/Year) tonsils removed 2007 cyst removal on foot 2013 two wrist surgeries 2007 2011 2015 2017
--- OUTSIDE RECORDS SUMMARY | 2025-03-11 10:31 | XMS_ITS | Clinical Summary ---
Author Organization [facility] Address [facility] [place] [address] Care Team Providers Care Compressor Station Operator Name Role Phone Unavailable Primary Care Provider [...]
--- OUTSIDE RECORDS SUMMARY | 2025-03-11 10:31 | XMS_ITS | Referral Summary ---
Author Organization [facility] Address [address] [place] [address] Care Team Providers Care Pediatric Dermatologist Name Role Phone Delio Joy MD Unavailable [phone] Delio Joy MD Primary Care Provider [phone] Allergies Active Allergy Reactions Criticality Noted Date [...] ORAL)Indication s:supplement Take 1 tablet by mouth food porter before breakfast OTC Active cyclobenzaprine (FLEXERIL) 5 [...] 1 tablet (20 mg total) by mouth food porter before breakfast 4 Active meloxicam (MOBIC) 7.5 mg tabletIndicatio ns:Osteoarthrit is Take 1 tablet (7.5 mg total) by mouth food porter before breakfast 4 Active omeprazole (PriLOSEC) 40 mg capsuleIndicati ons:Treatment of Non-Bleeding Gastric Disorder Take 1 capsule (40 mg total) by mouth food porter before breakfast 4 Active predniSONE (DELTASONE) 5 mg tabletIndicatio ns:autoimmune disease Take 1 tablet (5 mg) by mouth food porter before breakfast 4 Active Zepbound 2.5 mg/0.5 [...] of her heart. We will place a [employer] XT continuous ECG monitor on today. Social [...] on file Legal Sex Female 3:27 AM UNIT NURSE Gender Identity Not on file Sexual Orientation Not on file Last Filed Vital Signs Vital Sign Reading Time Taken Comments Blood Pressure 146/91 08/10/2024 4:30 PM UNIT NURSE Pulse 72 08/10/2024 4:30 PM UNIT NURSE Temperature 36.2 C (97.2 F) 08/10/2024 11:40 AM UNIT NURSE Respiratory Rate 18 08/10/2024 4:30 PM UNIT NURSE Oxygen Saturation 99% 08/10/2024 4:30 PM UNIT NURSE Inhaled Oxygen Concentration - - Weight 92.7 kg (204 lb 6.4 oz) 08/26/2024 9:03 A M UNIT NURSE Height 154.9 cm (5' 1) 08/10/2024 11:48 AM UNIT NURSE Body Mass Index 38.62 08/10/2024 11:48 AM UNIT NURSE Plan of Treatment [place] [address] [facility] Care Teams Pediatric Dermatologist Relationship Specialty Start Date End Date Delio Joy MD PCP - General Family Medicine 04/27/21 Delio Joy MD 06/06/17
--- OUTSIDE RECORDS SUMMARY | 2025-03-11 10:31 | XMS_ITS | Clinical Summary ---
Author Organization [facility] [address] - [address] Address [address] [place] [address] Phone Care Team Providers Care Sheep Farmer Name Role Phone Delio Joy MD Primary Care Provider [phone] Allergies Active Allergy Reactions Criticality Noted Date [...] Encounters Date Type Department Care Team Description 03/09/2025 External Device Data STL ABSTRACTION Provider, Abstract 02/22/2025 External Device Data STL ABSTRACTION Provider, [...] Abstract 12/23/2024 3:00 PM CDT Office Visit [facility] Oncology and Hematology - [place] [address] [address] [address] Jimmie Mooney MD Acute blood [...] on file Legal Sex Female 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 Gender Identity Not on file Sexual Orientation [...] Description 05/10/2025 3:45 PM CDT Office Visit [facility] Oncology and Hematology - [place] [address] [facility] [address] [place] [address] Jimmie Mooney MD [address] [facility] [address] [place] [address] Health Maintenance Due Date Last Done Comments Pre-Diabetes and Diabetes Screening 1987 HPV VACCINES (1 - 3-dose series) 12/28/2002 DTAP/TDAP/TD VACCINES (1 - Tdap) 12/28/2006 HEPATITIS B VACCINES (1 of 3 - 19+ 3-dose series) 01/2007 HPV/Cotest (21-29) 12/28/2008 CERVICAL CANCER SCREENING 12/28/2017 HPV/Cotest (30-65) 12/28/2017 PAP SMEAR 12/28/2017 INFLUENZA VACCINE (#1) 2025 Insurance [facility] [id number] Care Teams Sheep Farmer Relationship Specialty Start Date End Date Delio Joy MD [address] [place] [address] PCP - General Family Practice 03/28/11
--- OUTSIDE RECORDS SUMMARY | 2025-03-11 10:31 | XMS_ITS | Clinical Summary ---
Author Organization [facility] Address [address] [address] Care Team Providers Care Braided Rug Maker Name Role Phone Delio Joy MD Primary Care Provider [phone] Source Comments [facility],non-owned Affiliates and Associated Physician Practices is amultiple site organization consisting of ambulatory clinics and hospital sitesin [place], [place], [place] and [place]. This disclosure is being madepursuant to the Care Everywhere program and may not contain all information available regarding this patient. 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 Gender Identity Not on file Sexual Orientation [...] Subscriber ID:Not on file (Home) Address: [address] [place] [address] Payer ID:Not on file Group ID:Not on file Type:Self Pay Address: [facility] Address: [facility] [address] [place] [address] [facility] * Guarantor: Esme Huynh Account Type Relation to Patient Date of Phone Billing Address Personal/Family Spouse Care Teams Braided Rug Maker Relationship Specialty Start Date End Date Delio Joy MD [address] [place] [address] PCP - General 06/02/18
== END 2025-03-11 10:28 | disposition home or self-care (01) ==
LOC: ANHIMG 10:29
PROVIDERS: PCP Family Medicine; Visit Provider Surgery
DX: D24.1 Benign neoplasm of right breast (principal); N64.52 Nipple discharge; Z98.890 Other specified postprocedural states
CPT/HCPCS: 76642; 77062; 77066; G0279

== ENCOUNTER 2025-04-13 08:18 | Emergency (ER) | payer OTHER, SELFPAY ==
--- OUTSIDE RECORDS SUMMARY | 2024-07-10 16:00 | XMS_ITS ---
Author Organization [facility] [employer] Address [address] [place] [address] Care Team Providers Care Mercerizer Name Role Phone Maki Enriquez Primary Care Provider [phone] Migration, Provider Unavailable Unavailable REASON FOR VISIT [...] Active Encounters Encounter Location Date Provider Diagnosis [address] [id number] 07/10/2024 Provider Migration Plan Of Treatment No Information Progress Notes * Bao HUYNHaDOB:1985 (39 yo F)Acc No.[id number]:07/10/2024 Patient: Rama Hermosillo Provider: Zaire daniels Migration :1985 A ge:38 Y S ex:Female Date:07/10/2024 Address:[address] [place] [address] Pcp:Maki Enriquez Subjective: * Chief Complaints: * M [...] Electronic signature of Prov ider Migration on 04/13/2025 at 08:25 AM CDT Sign off status: Pending * Provider: Zaire daniels Migration Date: 09/09/2023 Generated for Beckie peng/Lorie/Nishi on: 0 04/13/2025 08:25 AM CDT
--- OUTSIDE RECORDS SUMMARY | 2024-08-03 10:50 | XMS_ITS ---
Author Organization [facility] Address [address] [place] [address] Care Team Providers Care Direct Mail Manager Name Role Phone Maki Enriquez Primary Care Provider [phone] REASON FOR VISIT follow up Medications Medication [...] Unknown Encounters Encounter Location Date Provider Diagnosis [facility], [facility] - Maki Enriquez [address] [place] [address] 08/03/2024 Maki Enriquez Plan Of Treatment No Information Progress Notes * Bao HUYNHaDOB:1985 (39 yo F)Acc No.[id number]:08/03/2024 Progress Notes Patient: Rama CHRISTINE Provider: Bjorn Enriquez MD :1985 A ge:38 Y S ex:Female Date:08/03/2024 Address:[address] [place] [id number] Subjective: * Chief Complaints: * 1 . [...] FOLATE, SERUM 6.1 - ng/mL VITAMIN B12 314 571-2271 - pg/mL L ab:TSH (Order Date 07/09/2024) [...] NEUTROPHILS 67.3 - % ABSOLUTE NEUTROPHILS 5317 7990-6278 - cells/u L LYMPHOCYTES 22.2 - % ABSOLUTE LYMPHOCYTES [phone] - cells/uL MONOCYTES 8.1 - % ABSOLUTE [...] Electronic signature of Steve Enriquez MD on 04/13/2025 at 08:25 AM CDT Sign off status: Pending * Provider: Bjorn Enriquez MD Date: 1 10/04/2023 Generated for Beckie peng/Lorie/eTrantammyitting on: 0 04/13/2025 08:25 AM CDT History and Physical Notes * HPI (History of Present Illness) Category Sub-Category Detail Notes Category Not es Interval Hx 38 yo female co mes in for follow up in management of obesity/weight management found to have COLEMAN and vit D def.
--- NOTE | ~2025-04-13 | CT_ITS ---
EXAMINATION: CT brain wo con DATE: 04/13/2025 09:23 INDICATION: Headache TECHNIQUE: Computed tomography (CT) of the head was performed without intravenous contrast. The dose-length product was 605.33 mGy-cm. COMPARISON: None FINDINGS: No acute intracranial hemorrhage. No mass effect. No midline shift. No hydrocephalus. No skull fracture. Visualized paranasal sinuses and mastoid air cells are clear. IMPRESSION: 1. No acute intracranial process identified. Reviewed, dictated and finalized at location A.
[2025-04-13 08:22] VITALS: BP 169/108; PULSE 90; RESP 16; TEMP 36.6; O2SAT 98
--- OUTSIDE RECORDS SUMMARY | 2025-04-13 08:25 | XMS_ITS | Patient Health Record ---
Author Organization [employer] [facility] [employer]. Address [address] [facility] [address] [place] [address] Care Team Providers Care Baling Press Operator Name Role Phone Maki Enriquez Primary Care Provider Migration, Provider Unavailable Unavailable Allergies No Known Allergies Results Component Value Reference Range Flag Notes COMPREHENSIVE METABOLIC PANE L Reviewed date:07/11/2024 03:15:19 PM Interpretation: Performing Lab:[place], [facility], [address], [place], [address] Gen Huff MD Notes/Report: FASTING: YES reference range. Fasting reference interval FASTING:YES Not Reported: BUN and Creatinine are within GLUCOSE 84 65-99 mg/dL N UREA NITROGEN (BUN) 12 7-25 mg/dL N CREATININE 0.56 0.50-0.97 mg/dL N EGFR 121 > OR = 60 mL/min/1.73m2 N BUN/CREATININE RATIO SEE NOTE: 6-22 (calc) SODIUM 139 135-146 mmol/L N POTASSIUM 4.1 3.5-5.3 mmol/L N CHLORIDE 106 98-110 mmol/L N CARBON DIOXIDE 26 20-32 mmol/L N CALCIUM 8.9 8.6-10.2 mg/dL N PROTEIN, TOTAL 6.6 6.1-8.1 g/dL N ALBUMIN 4.2 3.6-5.1 g/dL N GLOBULIN 2.4 1.9-3.7 g/dL (calc) N ALBUMIN/GLOBULIN RATIO 1.8 1.0-2.5 (calc) N BILIRUBIN, TOTAL 0.3 0.2-1.2 mg/dL N ALKALINE PHOSPHATASE 44 31-125 U/L N AST 11 10-30 U/L N ALT 8 6-29 U/L N VITAMIN D, 25-HYDROXY, LC/MS /MS Reviewed date:07/11/2024 03:31:23 PM Interpretation: Performing Lab:[facility], [address] [place], [address] Gen Huff MD Notes/Report: educational purposes only.) (This link is being provided for informational/ http://education.SecondMarket/faq/GQY139 For additional information, please refer to Note 1 See Note 1 code 38521 (patients >2yrs). 25-OH VIT D, (D2,D3), LC/MS/MS is recommended: order of D2 and D3 fractions is required, the QuestAssureD(TM) D2-supplementation and patients for whom quantitation For 25-OH Vitamin D testing on patients on Optimal: > or = 30 ng/mL Insufficiency: 20 - 29 ng/mL FASTING: YES Deficiency: <20 ng/mL FASTING:YES Vitamin D Status 25-OH Vitamin D: VITAMIN D,25-OH,TOTAL,IA 18 30-100 ng/mL L ACTH, PLASMA Reviewed date:07/14/2024 08:55:50 PM Interpretation: Performing Lab:[facility], [address], [place], [address] Rodney Flores M.D.,PhD Notes/Report: FASTING:YES Reference range applies only to specimens collected between 7am-10am. FASTING: YES ACTH, PLASMA 16 6-50 pg/mL T3, FREE Reviewed date:07/11/2024 03:12:52 PM Interpretation: Performing Lab:[facility], [address] [place], [address] Gen Hfuf MD Notes/Report: FASTING:YES FASTING: YES T3, FREE 2.8 2.3-4.2 pg/mL N DHEA SULFATE Reviewed date:07/11/2024 03:15:26 PM Interpretation: Performing Lab:[facility], [address] [place], [address] Gen Huff MD Notes/Report: FASTING:YES FASTING: YES DHEA SULFATE 94 19-237 mcg/dL N ESTRADIOL Reviewed date:07/11/2024 03:20:18 PM Interpretation: Performing Lab:[facility], [address] [place], [address] Gen Huff MD Notes/Report: Reference Range FASTING:YES Follicular Phase: 19-144 Mid-Cycle: 64-357 FASTING: YES Luteal Phase: 56-214 Postmenopausal: < or = 31 Reference range established on post-pubertal patient population. No pre-pubertal reference range established using this assay. For any patients for whom low Estradiol levels are anticipated (e.g. males, pre-pubertal children and hypogonadal/post-menopausal females), the [facility] Estradiol, Ultrasensitive, LCMSMS assay is recommended (order code 85049). Please note: patients being treated with the drug fulvestrant (Faslodex(R)) have demonstrated significant interference in immunoassay methods for estradiol measurement. The cross reactivity could lead to falsely elevated estradiol test results leading to an inappropriate clinical assessment of estrogen status. [facility] [employer] order code [id number], Ultrasensitive LC/MS/MS demonstrates negligible cross reactivity with fulvestrant. ESTRADIOL 77 N FSH Reviewed date:07/11/2024 03:13:26 PM Interpretation: Performing Lab:[facility], [address] [place], [address] Gen Huff MD Notes/Report: Reference Range FASTING:YES Follicular Phase 2.5-10.2 FASTING: YES Mid-cycle Peak 3.1-17.7 Luteal Phase 1.5- 9.1 Postmenopausal 23.0-116.3 FSH 4.2 N HEMOGLOBIN A1c Reviewed date:07/11/2024 03:31:16 PM Interpretation: Performing Lab:[facility], [address], [place], [address] Gen Huff Notes/Report: For the purpose of screening for the presence of FASTING:YES diabetes: FASTING: YES <5.7% Consistent with the absence of diabetes 5.7-6.4% Consistent with increased risk for diabetes (prediabetes) > or =6.5% Consistent with diabetes This assay result is consistent with a decreased risk of diabetes. Currently, no consensus exists regarding use of hemoglobin A1c for diagnosis of diabetes in children. According to [place] [employer] (ADA) guidelines, hemoglobin A1c <7.0% represents optimal control in non- diabetic patients. Different metrics may apply to specific patient populations. Standards of Medical Care in Diabetes(ADA). HEMOGLOBIN A1c 5.5 <5.7 % of total Hgb N INSULIN Reviewed date:07/11/2024 03:19:59 PM Interpretation: Performing Lab:[facility], [address] [place], [address] Gen Huff MD Notes/Report: Reference Range < or = 18.4 FASTING:YES Risk: FASTING: YES Optimal < or = 18.4 Moderate NA High >18.4 Adult cardiovascular event risk category cut points (optimal, moderate, high) are based on Insulin Reference Interval studies performed at [facility] in 2021. INSULIN 14.1 N LH Reviewed date:07/11/2024 03:15:05 PM Interpretation: Performing Lab:[facility], [address] [place], [address] Gen Huff MD Notes/Report: Reference Range FASTING:YES Follicular Phase 1.9-12.5 Mid-Cycle Peak 8.7-76.3 FASTING: YES Luteal Phase 0.5-16.9 Postmenopausal 10.0-54.7 LH 4.5 N MAGNESIUM Reviewed date:07/11/2024 03:13:12 PM Interpretation: Performing Lab:[facility], [address] [place], [address] Gen Huff MD Notes/Report: FASTING:YES FASTING: YES MAGNESIUM 2.1 1.5-2.5 mg/dL N CBC (INCLUDES DIFF/PLT) Reviewed date:07/13/2024 06:24:54 AM Interpretation: Performing Lab:[facility] [address], [place], [address] Gen Huff MD Notes/Report: For adults, a slight decrease in the calculated MCHC FASTING:YES value (in the range of 30 to 32 g/dL) is most likely not clinically significant; however, it should be FASTING: YES interpreted with caution in correlation with other red cell parameters and the patient's clinical condition. WHITE BLOOD CELL COUNT 7.9 3.8-10.8 Thousand/uL N RED BLOOD CELL COUNT 4.60 3.80-5.10 Million/uL N HEMOGLOBIN 10.5 11.7-15.5 g/dL L HEMATOCRIT 35.5 35.0-45.0 % N MCV 77.2 80.0-100.0 fL L MCH 22.8 27.0-33.0 pg L MCHC 29.6 32.0-36.0 g/dL L RDW 15.1 11.0-15.0 % H PLATELET COUNT 295 140-400 Thousand/uL N MPV 12.6 7.5-12.5 fL H ABSOLUTE NEUTROPHILS 5317 8125-3580 cells/uL N ABSOLUTE LYMPHOCYTES 9657 589-9096 cells/uL N ABSOLUTE MONOCYTES 640 200-950 cells/uL N ABSOLUTE EOSINOPHILS 119 15-500 cells/uL N ABSOLUTE BASOPHILS 71 0-200 cells/uL N NEUTROPHILS 67.3 N LYMPHOCYTES 22.2 N MONOCYTES 8.1 N EOSINOPHILS 1.5 N BASOPHILS 0.9 N VITAMIN B12/FOLATE, SERUM PA BRADLEY Reviewed date:07/11/2024 03:20:25 PM Interpretation: Performing Lab:[facility], [address] [place], [address] Gen Huff MD Notes/Report: Reference Range FASTING:YES Please Note: Although the reference range for vitamin Low: <3.4 B12 is 200-1100 pg/mL, it has been reported that between Borderline: 3.4-5.4 FASTING: YES 5 and 10% of patients with values between 200 and 400 Normal: >5.4 pg/mL may experience neuropsychiatric and hematologic abnormalities due to occult B12 deficiency; less than 1% of patients with values above 400 pg/mL will have symptoms. VITAMIN B12 964 383-0658 pg/mL N FOLATE, SERUM 6.1 N PROGESTERONE Reviewed date:07/11/2024 03:20:05 PM Interpretation: Performing Lab:[facility], [address] [place], [address] Gen Huff MD Notes/Report: Reference Ranges FASTING:YES Female Follicular Phase < 1.0 FASTING: YES Luteal Phase 2.6-21.5 Post menopausal < 0.5 1st Trimester 4.1-34.0 2nd Trimester 24.0-76.0 3rd Trimester 52.0-302.0 PROGESTERONE 8.3 N IRON AND TOTAL IRON BINDING CAPACITY Reviewed date:07/11/2024 03:13:54 PM Interpretation: Performing Lab:[facility], [address], [place], [address] Gen Huff MD Notes/Report: FASTING:YES FASTING: YES IRON, TOTAL 12 40-190 mcg/dL L IRON BINDING CAPACITY 424 250-450 mcg/dL (calc) N % SATURATION 3 16-45 % (calc) L T4, FREE Reviewed date:07/11/2024 03:13:19 PM Interpretation: Performing Lab:[facility], [address], [place], [address] Gen Huff MD Notes/Report: FASTING:YES FASTING: YES T4, FREE 0.9 0.8-1.8 ng/dL N TSH Reviewed date:07/11/2024 03:20:11 PM Interpretation: Performing Lab:[facility], [address], [place], [address] Gen Huff MD Notes/Report: Reference Range FASTING:YES > or = 20 Years 0.40-4.50 FASTING: YES Ranges First trimester 0.26-2.66 Second trimester 0.55-2.73 Third trimester 0.43-2.91 TSH 1.78 N TESTOSTERONE, FREE (DIALYSIS ) AND TOTAL,MS Reviewed date:07/15/2024 09:23:56 PM Interpretation: Performing Lab:[facility], [address] [address], [address], [place], [address] Chandler Plaza MD,PhD Notes/Report: (Note) FASTING:YES For additional information, please refer to This test was developed and its analytical performance https://education.OmnyPay/faq/BEN687 characteristics have been determined by [facility]. It has FASTING: YES (This link is being provided for informational/educational purposes only.) not been cleared or approved by the FDA. This assay has (Note) been validated pursuant to the CLIA regulations and is used for clinical purposes. This test was developed and its analytical performance characteristics have been determined by [employer]. It has MDF not been cleared or approved by the FDA. This assay has [facility] been validated pursuant to the CLIA regulations and is [address] [address],[address] used for clinical purposes. [facility] [id number] Chandler Plaza MD, PhD TESTOSTERONE, TOTAL, MS 12 2-45 ng/dL TESTOSTERONE, FREE 0.9 0.1-6.4 pg/mL Reason For Referral Reason 4 cm right dominant thyroid nodule/ biopsy this summer benign- however patient with compressive symptoms, short of breath if laying on right side Referral Organization [facility] Dr. Enriquez Referring Provider First Name Maki Referring Provider Last Name Mina Referring Provider Speciality Endocrinol ogkirit Referred Provider Specialty Surgical Onc ology Referral Priority Urgent Reason holosystolic murmur, new in onset, lower ext edema, increased shortness of breath, ACUTE referral thank you Referral Organization [facility] Dr. Enriquez Referring Provider First Name Maki Referring Provider Last Name Mina Referring Provider Speciality Endocrinol roel Referred Provider Specialty Cardiovascul ar Disease Referral Priority Urgent Medications Medication SIG (Take, Route, Frequency, Duration) Notes Start Date End Date Status Omeprazole 40 MG Capsule Delayed Release 1 cap(s) orally once a day Active Tranexamic Acid 650 MG Tablet 2 tab(s) orally 3 times a day Active Zepbound 2.5 MG/0.5ML Solution as directed subcutaneously once a week Not-Taking Unithroid 50 MCG Tablet TAKE 1 TABLET BY MOUTH ONCE DAILY IN THE MORNING ON AN EMPTY STOMACH; Duration: 30 Active BD Luer-Johnnie Syringe 25G X 5/8 3 ML Miscellaneous USE FOR SUBCUTANEOUS INJECTION WEEKLY.; Duration: 90 Active Cyanocobalamin 1000 MCG/ML Solution 1 mL Injection weekly; Duration: 90 days 09/03/2024 Active Ergocalciferol 1.25 MG (25112 UT) Capsule 1 capsule Orally weekly; Duration: 84 days 09/03/2024 Active Vitamin D (Ergocalciferol) 1.25 MG (24807 UT) Capsule Take 1 capsule by mouth once a week; Duration: 84 Active Lisinopril 20 MG Tablet 1 tab(s) orally once a day Active Meloxicam 7.5 MG Tablet 1 tab(s) orally once a day Active Social History Social History Additional Details Category Social Info Options Details Migrated Social History Migrated Social History (Alcohol:):no (Recreational drug use:):no (Smoking:):no Section Notes: caffeine:rarely Problems Problem Type SNOMED Code ICD Code Onset Dates Problem Status W/U Status Risk Notes Problem Hypothyroidism (69524935) Hypothyroidism, unspecified (E03.9) Active confirmed Problem Non-toxic single thyroid nodule (878105758) Nontoxic single thyroid nodule (E04.1) Active confirmed Problem Non-toxic multinodular goiter (50148257) Nontoxic multinodular goiter (E04.2) Active confirmed Problem Autoimmune thyroiditis (19593890) Autoimmune thyroiditis (E06.3) Active confirmed Problem Vitamin D deficiency (08234570) Vitamin D deficiency, unspecified (E55.9) Active confirmed Problem Irregular menstruation (15986101) Irregular menstruation, unspecified (N92.6) Active confirmed Vital Signs Heart Rate 72 /min 09/03/2024 Blood pressure diastolic 82 mm Hg 09/03/2024 Height 61 in 09/03/2024 Blood pressure systolic 132 mm Hg 09/03/2024 Weight 202 lbs 09/03/2024 BMI 38.16 kg/m2 09/03/2024 Encounters Encounter Location Date Provider Diagnosis [address] [phone] 07/10/[address] Enriquez [address] [place] [phone] 07/08/2024 Maki Enriquez Nontoxic single thyroid nodule E04.1 ; Other fatigue R53.83 ; Vitamin D deficiency, unspecified E55.9 ; Irregular menstruation, unspecified N92.6 ; Vitamin B12 deficiency anemia, unspecified D51.9 and Cardiac murmur, unspecified R01.[address] Enriquez [id number] [place] [phone] 09/03/2024 Maki Enriquez Vitamin B12 deficiency anemia, unspecified D51.9 ; Vitamin D deficiency, unspecified E55.9 ; Autoimmune thyroiditis E06.3 and Nontoxic multinodular goiter E04.[address] Enriquez [id number] [place] [phone] 07/07/2024 Maki Enriquez [address] [place] [phone] 07/14/2024 Maki KENNEY [facility] [address] [place] [phone] 09/03/2024 Maki KENNEY [address] [address] 09/10/2024 Maki Enriquez Hypothyroidism, unspecified E03.9 Assessments Encounter Date Diagnosis (ICD Code) Assessment Notes Treatment Notes Treatment Clinical Notes Section Notes 07/08/2024 Nontoxic single thyroid nodule (ICD-10 - E04.1) 07/08/2024 Other fatigue (ICD-10 - R53.83) 09/03/2024 Vitamin B12 deficiency anemia, unspecified (ICD-10 - D51.9) 09/03/2024 Vitamin D deficiency, unspecified (ICD-10 - E55.9) 09/10/2024 Hypothyroidism, unspecified (ICD-10 - E03.9) 09/03/2024 Autoimmune thyroiditis (ICD-10 - E06.3) 07/08/2024 Vitamin D deficiency, unspecified (ICD-10 - E55.9) 07/08/2024 Irregular menstruation, unspecified (ICD-10 - N92.6) [...] blood pressure issues- Previous evaluation by a electrical tester with no significant findingsPlan: - Refer to [...] procedures, referring and communicating with other health memory care director, documenting clinical information in the electronic or [...] regimen Monitor iron levels and consult with alcohol and drug counselor regarding heavy menstrual bleeding and potential hysterectomy Heavy Menstrual Bleeding and Tranexamic Acid Use Continue tranexamic acid as prescribed during menstrual periods Follow up with alcohol and drug counselor about the possibility of a hysterectomy for [...] procedures, referring and communicating with other health memory care director, documenting clinical information in the electronic or [...] Test Name Order Date Ultrasound thyroid 09/03/2024 Medical (General) History Medical History History ICD Code hypertension nodules Surgical History Surgery Date(Month/Year) 2017 2015 2011 2007 two wrist surgeries cyst removal on foot 2012 tonsils removed 2007
--- OUTSIDE RECORDS SUMMARY | 2025-04-13 08:25 | XMS_ITS | Patient Health Record ---
Author Organization [facility] Address [address] [address] Care Team Providers Care Livestock Yard Supervisor Name Role Phone Maki Enriquez Primary Care Provider Migration, Provider Unavailable Unavailable Allergies No Known Allergies Results Component Value Reference Range Notes COMPREHENSIVE METABOLIC PANE L Reviewed date:07/11/2024 03:15:19 PM Interpretation: Performing Lab:[facility], [address] [place], [address] Gen Huff MD Notes/Report: FASTING:YES FASTING: YES VITAMIN D, 25-HYDROXY, LC/MS /MS Reviewed date:07/11/2024 03:31:23 PM Interpretation: Performing Lab:[facility], [address] [place], [address] Gen Huff MD Notes/Report: FASTING:YES FASTING: YES ACTH, PLASMA Reviewed date:07/14/2024 08:55:50 PM Interpretation: Performing Lab:[facility], [address] [facility] , [place], [address] Rodney Flores M.D.,PhD Notes/Report: FASTING:YES FASTING: YES T3, FREE Reviewed date:07/11/2024 03:12:52 PM Interpretation: Performing Lab:[facility], [address], [place], [address] Gen Huff MD Notes/Report: FASTING:YES FASTING: YES DHEA SULFATE Reviewed date:07/11/2024 03:15:26 PM Interpretation: Performing Lab:[facility], [address], [place], [address] Gen Huff MD Notes/Report: FASTING:YES FASTING: YES ESTRADIOL Reviewed date:07/11/2024 03:20:18 PM Interpretation: Performing Lab:[facility], [address], [place], [address] Gen Huff MD Notes/Report: FASTING:YES FASTING: YES FSH Reviewed date:07/11/2024 03:13:26 PM Interpretation: Performing Lab:[facility], [address], [place], [address] Gen Huff MD Notes/Report: FASTING:YES FASTING: YES HEMOGLOBIN A1c Reviewed date:07/11/2024 03:31:16 PM Interpretation: Performing Lab:[facility], [address], [place], [address] Gen Huff Notes/Report: FASTING:YES FASTING: YES INSULIN Reviewed date:07/11/2024 03:19:59 PM Interpretation: Performing Lab:[facility], [address], [place], [address] Gen Huff MD Notes/Report: FASTING:YES FASTING: YES LH Reviewed date:07/11/2024 03:15:05 PM Interpretation: Performing Lab:[facility], [address], [place], [address] Gen Huff MD Notes/Report: FASTING:YES FASTING: YES MAGNESIUM Reviewed date:07/11/2024 03:13:12 PM Interpretation: Performing Lab:[facility], [address], [place], [address] Gen Huff MD Notes/Report: FASTING:YES FASTING: YES CBC (INCLUDES DIFF/PLT) Reviewed date:07/13/2024 06:24:54 AM Interpretation: Performing Lab:[facility], [address], [place], [address] Gne Huff MD Notes/Report: FASTING:YES FASTING: YES VITAMIN B12/FOLATE, SERUM PA BRADLEY Reviewed date:07/11/2024 03:20:25 PM Interpretation: Performing Lab:[facility], [address], [place], [address] Gen Huff MD Notes/Report: FASTING:YES FASTING: YES PROGESTERONE Reviewed date:07/11/2024 03:20:05 PM Interpretation: Performing Lab:[facility], [address], [place], [address] Gen Huff MD Notes/Report: FASTING:YES FASTING: YES IRON AND TOTAL IRON BINDING CAPACITY Reviewed date:07/11/2024 03:13:54 PM Interpretation: Performing Lab:[facility], [address], [place], [address] Gen Huff MD Notes/Report: FASTING:YES FASTING: YES T4, FREE Reviewed date:07/11/2024 03:13:19 PM Interpretation: Performing Lab:[facility], [address], [place], [address] Gen Huff MD Notes/Report: FASTING:YES FASTING: YES TSH Reviewed date:07/11/2024 03:20:11 PM Interpretation: Performing Lab:[facility], [address], [place], [address] Gen Huff MD Notes/Report: FASTING:YES FASTING: YES TESTOSTERONE, FREE (DIALYSIS ) AND TOTAL,MS Reviewed date:07/15/2024 09:23:56 PM Interpretation: Performing Lab:[facility], [address] [address], [address], [place], [address] Chandler Plaza MD,PhD Notes/Report: FASTING:YES FASTING: YES TESTOSTERONE, TOTAL, MS 12 2-45 ng/dL For additional information, please refer to https://education.ibeatyou.com/faq/BQO397 (This link is being provided for informational/educational purposes only.) (Note) This test was developed and its analytical performance characteristics have been determined by [employer]. It has not been cleared or approved by the FDA. This assay has been validated pursuant to the CLIA regulations and is used for clinical purposes. TESTOSTERONE, FREE 0.9 0.1-6.4 pg/mL (Note) This test was developed and its analytical performance characteristics have been determined by [employer]. It has not been cleared or approved by the FDA. This assay has been validated pursuant to the CLIA regulations and is used for clinical purposes. [facility] [address] [address],[address] [facility] [id number] Chandler Plaza MD, PhD Reason For Referral Reason 4 cm right dominant thyroid nodule/ biopsy this summer benign- however patient with compressive symptoms, short of breath if laying on right side Referral Organization [facility] Referring Provider First Name Maki Referring Provider Last Name [place] Referring Provider Speciality Internal edicine Referred Provider Specialty Surgical Onc ology Referral Priority Urgent Reason holosystolic murmur, new in onset, lower ext edema, increased shortness of breath, ACUTE referral thank you Referral Organization [facility] Referring Provider First Name Maki Referring Provider Last Name [place] Referring Provider Speciality Internal edicine Referred Provider [...] once a week Not-Taking Ergocalciferol 1.25 MG (79597 UT) 1 capsule Orally weekly for 84 days 09/03/2024 Active Problems Problem Type SNOMED Code ICD Code Onset Dates Problem Status W/U Status Risk Notes Problem Vitamin D deficiency (81474781) Vitamin D deficiency, unspecified (E55.9) Active confirmed Problem Hypothyroidism, unspecified (E03.9) Active confirmed Problem Non-toxic single thyroid nodule (329552587) Nontoxic single thyroid nodule (E04.1) Active confirmed Problem Non-toxic multinodular goiter (64806367) Nontoxic multinodular goiter (E04.2) Active confirmed Problem Autoimmune thyroiditis (91367210) Autoimmune thyroiditis (E06.3) Active confirmed Problem Irregular menstruation (00747054) Irregular menstruation, unspecified (N92.6) Active confirmed Vital Signs Heart Rate 72 /min 09/03/2024 Blood pressure diastolic 82 mm Hg 09/03/2024 Height 61 in 09/03/2024 Blood pressure systolic 132 mm Hg 09/03/2024 Weight 202 lbs 09/03/2024 BMI 38.16 kg/m2 09/03/2024 Encounters Encounter Location Date Provider Diagnosis [address] [address] 07/10/2024 Provider Migration [facility], [facility] [address] [place] [address] 07/08/2024 Maki Enriquez Nontoxic single thyroid nodule E04.1 ; Other fatigue R53.83 ; Vitamin D deficiency, unspecified E55.9 ; Irregular menstruation, unspecified N92.6 ; Vitamin B12 deficiency anemia, unspecified D51.9 and Cardiac murmur, unspecified R01.1 [facility], [facility] [address] [place] [address] 07/07/2024 Maki Enriquez [facility], [facility] [address] [place] [address] 07/14/2024 Maki Enriquez [facility] [address] [place] [address] 09/03/2024 Maki Enriquez [facility] [address] [place] [address] 09/10/2024 Maki Enriquez Hypothyroidism, unspecified E03.9 [facility], [facility] - [facility] [address] [place] [address] 09/03/2024 Maki Enriquez Vitamin D deficiency , [...] blood pressure issues- Previous evaluation by a instructor correspondence school with no significant findingsPlan: - Refer to [...] referring and communicating with other health direct support professional caregiver, documenting clinical information in the electronic [...] regimen Monitor iron levels and consult with chief catalyst operator regarding heavy menstrual bleeding and potential hysterectomy Heavy Menstrual Bleeding and Tranexamic Acid Use Continue tranexamic acid as prescribed during menstrual periods Follow up with chief catalyst operator about the possibility of a hysterectomy for [...] referring and communicating with other health direct support professional caregiver, documenting clinical information in the electronic [...] Insured Coverage Start Date Coverage End Date [facility] [address] [place] [address] [phone] [id number] Rama Nair Self - patient is the insured Medical (General) History Medical History History ICD Code hypertension nodules Surgical History Surgery Date(Month/Year) tonsils removed 2007 cyst removal on foot 2013 two wrist surgeries 2007 2011 2015 2017
--- OUTSIDE RECORDS SUMMARY | 2025-04-13 08:25 | XMS_ITS | Clinical Summary ---
Author Organization [facility] Address [address] [facility] [place] [address] Care Team Providers Care Mental Health Case Manager Name Role Phone Delio Joy MD Primary Care Provider [phone] Source Comments [facility],non-owned Affiliates and Associated Physician Practices is amultiple site organization consisting of ambulatory clinics and hospital sitesin [place], [place], [place] and [place]. This disclosure is being madepursuant to the Care Everywhere program and may not contain all information available regarding this patient. Last updated 18.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
--- OUTSIDE RECORDS SUMMARY | 2025-04-13 08:25 | XMS_ITS | Clinical Summary ---
Author Organization [facility] [facility] Address [address] [place] [address] Phone Care Team Providers Care Regulatory Analyst Name Role Phone Delio Joy MD Primary Care Provider [phone] Allergies Active Allergy Reactions Criticality Noted Date [...] Encounters Date Type Department Care Team Description 04/12/2025 External Device Data [facility] Provider, Abstract 03/30/2025 External Device Data [facility] Provider, Abstract 03/29/2025 External Device Data [facility] Provider, Abstract 03/16/2025 Telephone [facility] [place] [address] [place] [address] [address] Jimmie Mooney MD Lab Results 03/09/2025 External Device Data [facility] Provider, Abstract 03/09/2025 External Device Data [facility] Provider, Abstract 02/22/2025 External Device Data [facility] Provider, Abstract 02/15/2025 External Device Data [facility] Provider, Abstract 02/08/2025 External Device Data [facility] Provider, Abstract 01/18/2025 External Device Data [facility] Provider, Abstract 01/12/2025 External Device Data [facility] Provider, Abstract 01/12/2025 External Device Data [facility] Provider, Abstract from Last 3 Months Family History Medical [...] on file 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 Gender Identity Not on file Sexual Orientation [...] Description 05/10/2025 3:45 PM CDT Office Visit [facility] - [place] [address] [facility] [address] [place] [address] Jimmie Mooney MD [address] [facility] [address] [place] [address] Health Maintenance Due Date Last Done Comments Pre-Diabetes and Diabetes Screening 1987 HPV VACCINES (1 - 3-dose series) 12/28/2002 DTAP/TDAP/TD VACCINES (1 - Tdap) 12/28/2006 HEPATITIS B VACCINES (1 of 3 - 19+ 3-dose series) 01/2007 HPV/Cotest (21-29) 12/28/2008 CERVICAL CANCER SCREENING 12/28/2017 HPV/Cotest (30-65) 12/28/2017 PAP SMEAR 12/28/2017 INFLUENZA VACCINE (#1) 2025 Insurance [facility] CHOICE [id number] Care Teams Regulatory Analyst Relationship Specialty Start Date End Date Delio Joy MD [address] [place] [address] PCP - General Family Practice 03/28/11
--- OUTSIDE RECORDS SUMMARY | 2025-04-13 08:25 | XMS_ITS | Encounter Summary ---
Author Organization [facility] Address 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 Gender Identity Not on file Sexual Orientation Not on file Occupation Industry Job Start Date Job End Date Not on file Not on file Not on file Not on file documented as of this encounter Plan of Treatment Upcoming Encounters Date Type Department Care Team (Late Contact Info) Description 05/10/2025 3:45 PM CDT Office Visit [facility] Oncology and Hematology - [place] [address] [facility] [address] [address] [place] [address] Jimmie Mooney MD [address] [facility] [address] [place] [address] documented as of this encounter Visit Diagnoses Not on filedocumented in this encounter Care Teams Performing Arts Road Manager Relationship Specialty Start Date End Date Delio Joy MD [address] [place] [address] PCP - General Family Practice 03/28/11 documented as of this encounter
--- OUTSIDE RECORDS SUMMARY | 2025-04-13 08:25 | XMS_ITS | Clinical Summary ---
Author Organization [facility] Address [address] [place] [address] Care Team Providers Care Grinder Machine Setter Name Role Phone Delio Joy MD Unavailable [phone] Delio Joy MD Primary Care Provider [phone] Allergies Active Allergy Reactions Criticality Noted Date [...] ORAL)Indication s:supplement Take 1 tablet by mouth flexible shaft winder before breakfast OTC Active cyclobenzaprine (FLEXERIL) 5 [...] 1 tablet (20 mg total) by mouth flexible shaft winder before breakfast 4 Active meloxicam (MOBIC) 7.5 mg tabletIndicatio ns:Osteoarthrit is Take 1 tablet (7.5 mg total) by mouth flexible shaft winder before breakfast 4 Active omeprazole (PriLOSEC) 40 mg capsuleIndicati ons:Treatment of Non-Bleeding Gastric Disorder Take 1 capsule (40 mg total) by mouth flexible shaft winder before breakfast 4 Active predniSONE (DELTASONE) 5 mg tabletIndicatio ns:autoimmune disease Take 1 tablet (5 mg) by mouth flexible shaft winder before breakfast 4 Active Zepbound 2.5 mg/0.5 [...] of her heart. We will place a [employer] continuous ECG monitor on today. 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 Gender Identity Not on file Sexual Orientation Not on file Obstetrics History Last Filed Vital Signs Vital Sign Reading Time Taken Comments Blood Pressure 146/91 08/10/2024 4:30 PM MERCHANT MARINER Pulse 72 08/10/2024 4:30 PM MERCHANT MARINER Temperature 36.2 C (97.2 F) 08/10/2024 11:40 AM MERCHANT MARINER Respiratory Rate 18 08/10/2024 4:30 PM MERCHANT MARINER Oxygen Saturation 99% 08/10/2024 4:30 PM MERCHANT MARINER Inhaled Oxygen Concentration - - Weight 92.7 kg (204 lb 6.4 oz) 08/26/2024 9:03 A M MERCHANT MARINER Height 154.9 cm (5' 1) 08/10/2024 11:48 AM MERCHANT MARINER Body Mass Index 38.62 08/10/2024 11:48 AM MERCHANT MARINER Plan of Treatment Health Maintenance Due Date Last Done Comments Cervical Cancer Screening 1987 Hepatitis C Screening 1987 DTaP/Tdap/Td Vaccine (1 - Tdap) 12/28/1998 Varicella Vaccines (1 of 2 - 13+ 2-dose series) 12/28/2000 Hepatitis B Screening 12/28/2005 Regular Well Visit/Exam 18-64 12/28/2005 HPV Vaccines (1 - 3-dose SCD M series) 12/28/2014 Depression Screening 01/01/2020 12/31/2018 Covid-19 Vaccine (2 - 2023-2 5 season) 2024 05/28/2021 Influenza Vaccine (#1) 2025 Pneumococcal vaccine <65 Aged Out No longer eligible based on patient's age to complete this topic Insurance [facility] H[facility]PPO Address: [facility] [address] [place] [address] [facility] OPEN ACCESS [facility] H[facility]/PPO Address: [address] [address] [place] [address] Care Teams Grinder Machine Setter Relationship Specialty Start Date End Date Delio Joy MD PCP - General Family Medicine 04/27/21 Delio Joy MD 06/06/17
[2025-04-13 08:35] VITALS: BP 137/79; PULSE 78; RESP 16; O2SAT 98
[2025-04-13 08:36] VITALS: BP 137/79; PULSE 93; RESP 16; O2SAT 99
[2025-04-13 09:28] VITALS: BP 135/107; PULSE 80; RESP 16; TEMP 36.6; O2SAT 99
--- NOTE | 2025-04-13 09:39 | ED.HA ---
HPI - Headache General Chief Complaint: Headache Stated Complaint: L SIDED FACIAL PAIN Time Seen by Provider: 04/13/25 09:11 Source: patient Mode of arrival: ambulatory Limitations: no limitations History of Present Illness HPI Narrative: This is a 39 year old female that presents to the ER for headache, left sided facial pain. Ongoing since yesterday. Reports associated nausea. Reports she felt like she was having an autoimmune flare. Reports history of RA, psoriatic arthritis, ankylosing spondylitis, fibromyalgia. Denies fever, vision changes, vomiting, focal numbness, weakness. Related Data Home Medications ?Medication ?Instructions ?Recorded ?Confirmed ?Last Taken ?Type tranexamic acid 650 mg tablet 650 mg PO DAILY PRN Menstrul cycle 03/10/24 02/20/25 09/15/24 History prednisolone 5 mg tablet 5 mg PO DAILY 09/07/24 02/20/25 01/25/25 History cyanocobalamin (vitamin B-12) 1,000 mcg IM WEEKLY 09/17/24 02/20/25 01/11/25 History 1,000 mcg/mL injection solution ferrous sulfate 325 mg (65 mg 325 mg PO DAILY 09/17/24 02/20/25 01/24/25 History iron) tablet (iron) levothyroxine 50 mcg tablet 50 mcg PO DAILY 09/17/24 02/20/25 01/25/25 History (Unithroid) metoprolol succinate 25 mg 25 mg PO HS 09/17/24 02/20/25 01/24/25 History tablet,extended release 24 hr hydroxychloroquine 200 mg tablet 200 mg PO BID 10/28/24 02/20/25 01/21/25 History (Plaquenil) golimumab 12.5 mg/mL intravenous IV 03/08/25 Unknown History solution (Simponi ARIA) Allergies Allergy/AdvReac Type Severity Reaction Status Date / Time ondansetron (From Zofran) AdvReac Intermediate Panic Verified 04/13/25 08:19 attack Review of Systems Review of Systems: All systems reviewed & are unremarkable except as noted in HPI and below PMFSH Past Medical History Medical History Thyroid nodule Breast mass in female Tachycardia Weight loss Thyroid mass depression Fibromyalgia Interstitial cystitis Anxiety Hypothyroid Paresthesia Surgical History Surgical History History of cervical discectomy History of fusion of cervical spine History of surgery on wrist bilateral History of tonsillectomy History of bilateral tubal ligation 2018 with last section History of x4 Family History Family History Father Hypertension Alcoholism Asthma Mother Hypertension Sibling Thyroid activity decreased Asthma Grandparent Cancer Heart disease Grandparent Diabetes mellitus Cancer Other Family history of coronary artery disease Social History Social History (Updated 03/08/25 @ 09:30 by Kristina Garcia [facility]) Smoking status: Never smoker Second hand tobacco smoke exposure: No Alcohol intake: current Alcohol use details: VERY RARE Substance use: never Substance use type: does not use Other substance usage details: CBD oil for joint pain Do You Feel Safe in your Home?: Yes Lack of Transportation: No Lack of Food: Never True Current Housing: I Have Housing Concerned About Future Housing: No Difficulty Paying Gas/Electric Bills: No Difficulty Paying for Meds: No Currently Unemployed: No Education: Trade/Vocational Certificate Difficulty w/ Childcare or Family Care: No Living arrangements: with family Occupation/Education: occupation 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 Gender identity (if verbalized by the patient): Female Spiritual care concerns: No Exam Narrative: GENERAL: Well-appearing, well-nourished, and in no acute distress. HEAD: Normocephalic, atraumatic. EYES: PERRLA and EOMI. ENT: Nares clear, no rhinorrhea or epistaxis. Mucous membranes moist. Oropharynx without tonsillar hypertrophy exudate or other lesions. Bilateral TMs pearly shirley non-bulging NECK: Supple. No adenopathy or masses. CHEST: Clear to auscultation. No respiratory distress. No wheezes rales or rhonchi HEART: Regular rate and rhythm. No murmur heard. Normal peripheral pulses. EXTREMITIES: Normal range of motion. No edema. Strength equal in bilateral upper and lower extremities (5/5) SKIN: Warm, dry, no rash. NEURO: No focal deficits. Alert and oriented x3. Cranial nerves 2-12 grossly intact PSYCH: Normal mood and affect Course Course Emergency Course: Patient updated on her workup and agrees with plan of care Vital Signs Vital signs: Vital Signs Temperature 97.9 F 04/13/25 08:22 Pulse Rate 90 04/13/25 08:22 Respiratory Rate 16 04/13/25 08:22 Blood Pressure 169/108 H 04/13/25 08:22 Pulse Oximetry 98 04/13/25 08:22 Oxygen Delivery Room Air 04/13/25 08:22 Temperature 97.9 F 04/13/25 10:45 Pulse Rate 80 04/13/25 10:45 Respiratory Rate 16 04/13/25 10:45 Blood Pressure 147/95 H 04/13/25 10:45 Pulse Oximetry 100 04/13/25 10:45 Oxygen Delivery Room Air 04/13/25 08:22 MDM - Headache MDM Narrative Medical decision making narrative: Patient presents emergency department for headache, facial pain. She is afebrile and nontoxic appearing. Her vitals are stable. She is neurologically intact. Cbc without leukocytosis. Metabolic panel without concerning findings. test is negative. Influenza, RSV and COVID screens are negative. CT brain without acute findings. Patient was updated on her workup and agrees with plan of care. Instructed to have close follow-up primary provider. She was given warnings to return to the ER Differential Diagnosis Differential diagnosis: Likely migraine, tension headache, subarachnoid hemorrhage, headache, sinusitis and other (Viral syndrome) Lab Data Attestation: I reviewed the patient's lab results. 04/13/25 09:59 04/13/25 09:59 Labs: Lab Results 04/13/25 04/13/25 Range/Units 09:39 09:59 WBC 8.9 (4.5-10.0) K/mm3 RBC 5.12 (4.2-5.4) M/mm3 Hgb 13.1 (12.0-15.0) g/dL Hct 42.1 (37.0-47.0) % MCV 82.2 (80-100) fl MCH 25.6 L (26-34) pg MCHC 31.1 L (32-36) g/dl RDW 15.3 H (11.5-14.5) % Plt Count 367 (150-375) k/mm3 MPV 11.7 H (7.4-10.4) fl Immature Gran % (Auto) 0.4 (0-0.5) % Neut % (Auto) 71.9 (45.5-73.1) % Lymph % (Auto) 19.6 (18.3-44.2) % Overton % (Auto) 6.5 (2.6-8.5) % Eos % (Auto) 0.9 (0-4.4) % Baso % (Auto) 0.7 (0.2-1.2) % Lymph # (Auto) 1.75 (0.9-3.2) K/mm3 Overton # (Auto) 0.6 (0.1-0.6) K/mm3 Eos # (Auto) 0.1 (0-0.3) K/mm3 Baso # (Auto) 0.1 (0.0-0.1) K/mm3 Abs Immat Gran (auto) 0.04 H (0.00-0.031) K/mm3 Absolute Neuts (auto) 6.4 (1.3-6.7) K/mm3 Absolute Nucleated RBC 0.000 (0.0-0.012) K/mm3 Nucleated RBC % 0.0 (0.0-0.2) % Sodium 139 (137-145) mmol/L Potassium 5.0 (3.4-5.0) mmol/L Chloride 105 (98-107) mmol/L Carbon Dioxide 23 (22-30) mmol/L Anion Gap 11 (4-12) mmol/L BUN 12 (7-17) mg/dL Creatinine 0.57 L (0.7-1.0) mg/dL Estim Creat Clear Calc 120 ml/min Estimated GFR > 60 (59 - ) Glucose 89 (65-110) mg/dL Calcium 9.9 (8.4-10.2) mg/dL Total Bilirubin 0.3 (0.2-1.3) mg/dL AST 19 (14-36) U/L ALT 13 (6-35) U/L Alkaline Phosphatase 40 (38-126) U/L Total Protein 7.6 (6.3-8.2) g/dL Albumin 4.8 (3.5-5.1) g/dL POC Urine HCG, Qual Negative (Negative) Influenza A (RT-PCR) Negative (Negative) Influenza B (RT-PCR) Negative (Negative) RSV (RT-PCR) Negative (Negative) SARS-CoV-2 RNA (RT-PCR) Negative (Negative) Group A Strep (PCR) Not detected (Negative) Imaging Data Radiologist's impression: ITS Impressions Head CT 04/13/25 09:23 IMPRESSION: 1. No acute intracranial process identified. Critical Care Time Critical Care Time Critical Care Time: No Discharge Plan Discharge Clinical Impression: Acute facial pain Headache Qualifiers: Headache type: unspecified Headache chronicity pattern: acute headache Intractability: not intractable Qualified Code(s): R51.9 - Headache, unspecified Patient Disposition: Home Condition: Stable Instructions: Acute Headache (ED) Additional Instructions: Return to the emergency department if you experience fever >101, stiff neck, recurrent vomiting, weakness, numbness, redness of your face/a rash, or any other symptoms that are concerning to you. Tylenol or ibuprofen as needed for discomfort. Follow up with your primary care doctor Patient Language: Belgian Prescriptions: No Action omeprazole 40 mg capsule,delayed release(DR/EC) 40 mg PO DAILY Qty: 30 3RF Rx Instructions: take 1 capsule q.a.m. on empty stomach and do not eat or drink for 15 minutes Zepbound 7.5 mg/0.5 mL pen injector 7.5 mg subcut WEEKLY Qty: 2 3RF Patient Comments: Says takes on sundays. hydroxychloroquine [Plaquenil] 200 mg tablet 200 mg PO BID tranexamic acid 650 mg tablet 650 mg PO DAILY PRN (Reason: Menstrul cycle) Rx Instructions: Patient only takes during menstrual cycle. prednisolone 5 mg tablet 5 mg PO DAILY Simponi ARIA 12.5 mg/mL solution IV cyanocobalamin (vitamin B-12) 1,000 mcg/mL solution 1,000 mcg IM WEEKLY metoprolol succinate 25 mg tablet extended release 24 hr 25 mg PO HS Patient Comments: Patient has not picked up prescription yet levothyroxine [Unithroid] 50 mcg tablet 50 mcg PO DAILY ferrous sulfate [iron] 325 mg (65 mg iron) tablet 325 mg PO DAILY cyclobenzaprine 10 mg Tablet 10 mg PO TID PRN (Reason: Muscle Spasms) 10 Days Qty: 30 0RF sennosides-docusate sodium [Senokot-S] 8.6-50 mg Tablet 1 tab-cap PO BID Qty: 14 0RF hydrocodone-acetaminophen 5-325 mg Tablet 1 tablet PO Q4H PRN (Reason: Mild Pain (1-3)) 7 Days Qty: 42 0RF lisinopril 20 mg tablet 20 mg PO DAILY Qty: 30 4RF Follow-up/Referrals: Delio Joy MD [Primary Care Provider, Family Practice]
[2025-04-13 09:40] LABS: BEDSIDEPREGUCG Negative (Negative)
[2025-04-13] MEDS: SODIUM CHLORIDE 0.9% IV 1,000 ML 999 ML IV CONT (09:42)
[2025-04-13] MEDS: METOCLOPRAMIDE HCL INJ 10 MG/2 ML VIAL IV PUSH (09:43)
[2025-04-13] MEDS: KETOROLAC 15 MG/ML VIAL (*BKC) IV PUSH (09:43)
--- OUTSIDE RECORDS SUMMARY | 2025-04-13 09:47 | XMS_ITS | Encounter Summary ---
Author Organization [facility] Address 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 Gender Identity Not on file Sexual Orientation Not on file Occupation Industry Job Start Date Job End Date Not on file Not on file Not on file Not on file documented as of this encounter Plan of Treatment Upcoming Encounters Date Type Department Care Team (Late Contact Info) Description 05/10/2025 3:45 PM CDT Office Visit [facility] Oncology and Hematology - [place] [address] [place] [address] Jimmie Mooney MD [address] [place] [address] documented as of this encounter Visit Diagnoses Not on filedocumented in this encounter Care Teams Director Clinical Applications Relationship Specialty Start Date End Date Delio Joy MD [address] [place] [id number] PCP - General Family Practice 03/28/11 documented as of this encounter
--- OUTSIDE RECORDS SUMMARY | 2025-04-13 09:47 | XMS_ITS | Clinical Summary ---
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 Gender Identity Not on file Sexual Orientation [...] Description 05/10/2025 3:45 PM CDT Office Visit [facility] [place] Oncology and Hematology - [place] [address] [facility] [address] [place] [address] Jimmie Mooney MD [address] [facility] [address] [facility] [address] [place] [address] Health Maintenance Due Date Last Done Comments Pre-Diabetes and Diabetes Screening 1987 HPV VACCINES (1 - 3-dose series) 12/28/2002 DTAP/TDAP/TD VACCINES (1 - Tdap) 12/28/2006 HEPATITIS B VACCINES (1 of 3 - 19+ 3-dose series) 01/2007 HPV/Cotest (21-29) 12/28/2008 CERVICAL CANCER SCREENING 12/28/2017 HPV/Cotest (30-65) 12/28/2017 PAP SMEAR 12/28/2017 INFLUENZA VACCINE (#1) 2025 Insurance [facility] [id number] Care Teams Supervisor Mattress And Boxsprings Relationship Specialty Start Date End Date Delio Joy MD [address] [place] [address] PCP - General Family Practice 03/28/11
--- OUTSIDE RECORDS SUMMARY | 2025-04-13 09:47 | XMS_ITS | Clinical Summary ---
Author Organization [facility] Address [address] [place] [address] Care Team Providers Care Soc Analyst Name Role Phone Delio Joy MD Unavailable [phone] Delio Joy MD Primary Care Provider [phone] Allergies Active Allergy Reactions Criticality Noted Date [...] ORAL)Indication s:supplement Take 1 tablet by mouth embedded software test engineer before breakfast OTC Active cyclobenzaprine (FLEXERIL) [...] 1 tablet (20 mg total) by mouth embedded software test engineer before breakfast 4 Active meloxicam (MOBIC) 7.5 mg tabletIndicatio ns:Osteoarthrit is Take 1 tablet (7.5 mg total) by mouth embedded software test engineer before breakfast 4 Active omeprazole (PriLOSEC) 40 mg capsuleIndicati ons:Treatment of Non-Bleeding Gastric Disorder Take 1 capsule (40 mg total) by mouth embedded software test engineer before breakfast 4 Active predniSONE (DELTASONE) 5 mg tabletIndicatio ns:autoimmune disease Take 1 tablet (5 mg) by mouth embedded software test engineer before breakfast 4 Active Zepbound 2.5 [...] of her heart. We will place a [employer] continuous ECG monitor on today. 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 Gender Identity Not on file Sexual Orientation Not on file Obstetrics History Last Filed Vital Signs Vital Sign Reading Time Taken Comments Blood Pressure 146/91 08/10/2024 4:30 PM DIRECTOR GLOBAL MARKET RESEARCH Pulse 72 08/10/2024 4:30 PM DIRECTOR GLOBAL MARKET RESEARCH Temperature 36.2 C (97.2 F) 08/10/2024 11:40 AM DIRECTOR GLOBAL MARKET RESEARCH Respiratory Rate 18 08/10/2024 4:30 PM DIRECTOR GLOBAL MARKET RESEARCH Oxygen Saturation 99% 08/10/2024 4:30 PM DIRECTOR GLOBAL MARKET RESEARCH Inhaled Oxygen Concentration - - Weight 92.7 kg (204 lb 6.4 oz) 08/26/2024 9:03 A M DIRECTOR GLOBAL MARKET RESEARCH Height 154.9 cm (5' 1) 08/10/2024 11:48 AM DIRECTOR GLOBAL MARKET RESEARCH Body Mass Index 38.62 08/10/2024 11:48 AM DIRECTOR GLOBAL MARKET RESEARCH Plan of Treatment Health Maintenance Due Date [...] patient's age to complete this topic Insurance [facility] H[facility]/PPO Address: [facility] [address] [place] [address] [facility] HMO/PPO Address: [address] [address] [place] [address] Care Teams Soc Analyst Relationship Specialty Start Date End Date Delio Joy MD PCP - General Family Medicine 04/27/21 Delio Joy MD 06/06/17
--- OUTSIDE RECORDS SUMMARY | 2025-04-13 09:47 | XMS_ITS | Clinical Summary ---
Author Organization [facility] Address [address] [place] [address] Care Team Providers Care Sales Executive Name Role Phone Delio Joy MD Primary Care Provider [phone] Source Comments [facility],non-owned Affiliates and Associated Physician Practices is amultiple site organization consisting of ambulatory clinics and hospital sitesin [place], [place], [place] and [place]. This disclosure is being madepursuant to the Care Everywhere program and may not contain all information available regarding this patient. 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
--- OUTSIDE RECORDS SUMMARY | 2025-04-13 09:47 | XMS_ITS | Clinical Summary ---
Author Organization [facility] Address [facility] [place] [address] Care Team Providers Care Fleet Service Clerk Name Role Phone Unavailable Primary Care Provider [...] of 3 - 19+ 3-dose series) 12/28/2006 HPV Vaccines (1 - 3-dose SCD M series) 12/28/2014 Cervical Cancer Screening Pa p with HPV Testing (Age 30 to 64) Every 5 Years 12/28/2017 Cervical Cancer Screening with HPV 12/28/2017 COVID-19 Vaccine (2023-2 5 season) 2024 Meningococcal B Vaccine Aged Out No l [...]
[2025-04-13 10:13] LABS: Hematocrit 42.1 % (37.0-47.0); Hemoglobin 13.1 g/dL (12.0-15.0); Immature Granulocyte Percent A 0.4 % (0-0.5); Lymphocytes Absolute Auto 1.75 K/mm3 (0.9-3.2); Mean Corpuscular HGB Conc 31.1 g/dl (32-36); Mean Corpuscular Hemoglobin 25.6 pg (26-34); Mean Corpuscular Volume 82.2 fl (80-100); Nucleated Red Blood Cells Absolute Auto 0.000 K/mm3 (0.0-0.012); Nucleated Red Blood Cells Perc 0.0 % (0.0-0.2); Platelet Count Result 367 k/mm3 (150-375); Red Blood Count 5.12 M/mm3 (4.2-5.4); White Blood Count 8.9 K/mm3 (4.5-10.0)
[2025-04-13 10:24] LABS: Alanine Aminotransferase 13 U/L (6-35); Albumin Level 4.8 g/dL (3.5-5.1); Alkaline Phosphatase 40 U/L (38-126); Anion Gap 11 mmol/L (4-12); Aspartate Amino Transferase 19 U/L (14-36); Bilirubin,Total 0.3 mg/dL (0.2-1.3); Blood Urea Nitrogen 12 mg/dL (7-17); Calcium 9.9 mg/dL (8.4-10.2); Carbon Dioxide 23 mmol/L (22-30); Chloride 105 mmol/L (98-107); Estimated CRCL calculation 120 ml/min; Estimated Glomerular Filt Rate > 60; Glucose 89 mg/dL (65-110); Potassium 5.0 mmol/L (3.4-5.0); Sodium 139 mmol/L (137-145); Total Protein 7.6 g/dL (6.3-8.2)
[2025-04-13 10:37] LABS: Strep Group A RT-PCR NOT DETECTED (Negative)
[2025-04-13 10:45] VITALS: BP 147/95; PULSE 80; RESP 16; TEMP 36.6; O2SAT 100
[2025-04-13 10:49] LABS: Influenza A QL RT-PCR Negative (Negative); Influenza B QL RT-PCR Negative (Negative); RSV RNA, RT-PCR Negative (Negative); SARS-CoV-2 RNA PCR Negative (Negative)
== END 2025-04-13 12:00 | disposition home or self-care (01) ==
PROVIDERS: Emergency Provider Physician Assistant; PCP Family Medicine
DX: R51.9 Headache, unspecified (principal); Z20.822 Contact with and (suspected) exposure to COVID-19; E03.9 Hypothyroidism, unspecified; F41.9 Anxiety disorder, unspecified
CPT/HCPCS: 36415; 70450; 80053; 81025; 85025; 87637; 87651; 96361; 96374; 96375; 99284; J1200; J1885; J2765; J7030

== ENCOUNTER 2025-05-06 15:23 | Outpatient (CLI) | payer OTHER, SELFPAY ==
[2025-05-06 15:52] LABS: Hematocrit 38.0 % (37.0-47.0); Hemoglobin 12.0 g/dL (12.0-15.0); Immature Granulocyte Percent A 0.5 % (0-0.5); Lymphocytes Absolute Auto 3.22 K/mm3 (0.9-3.2); Mean Corpuscular HGB Conc 31.6 g/dl (32-36); Mean Corpuscular Hemoglobin 26.0 pg (26-34); Mean Corpuscular Volume 82.3 fl (80-100); Nucleated Red Blood Cells Absolute Auto 0.000 K/mm3 (0.0-0.012); Nucleated Red Blood Cells Perc 0.0 % (0.0-0.2); Platelet Count Result 328 k/mm3 (150-375); Red Blood Count 4.62 M/mm3 (4.2-5.4); White Blood Count 10.4 K/mm3 (4.5-10.0)
[2025-05-06 16:31] LABS: Anion Gap 7 mmol/L (4-12); Blood Urea Nitrogen 14 mg/dL (7-17); Calcium 9.0 mg/dL (8.4-10.2); Carbon Dioxide 27 mmol/L (22-30); Chloride 102 mmol/L (98-107); Estimated Glomerular Filt Rate > 60; Glucose 96 mg/dL (65-110); Iron 37 ug/dL (37-170); Potassium 4.8 mmol/L (3.4-5.0); Sodium 136 mmol/L (137-145)
[2025-05-06 16:41] LABS: Percent Iron Saturation 9 % (20-50)
[2025-05-06 17:13] LABS: Ferritin 5.38 ng/mL (6.24-137)
[2025-05-06 17:42] LABS: Vitamin B12 388.0 pg/mL (239-931)
== END 2025-05-06 15:24 | disposition home or self-care (01) ==
LOC: ANHLAB 15:24
PROVIDERS: PCP Family Medicine; Visit Provider Internal Medicine Hematology & Oncology
DX: D62 Acute posthemorrhagic anemia (principal)
CPT/HCPCS: 36415; 80048; 82607; 82728; 82746; 83540; 83550; 85025

== ENCOUNTER 2025-05-09 01:35 | Day surgery (SDC) | payer OTHER, SELFPAY ==
--- OUTSIDE RECORDS SUMMARY | 2015-11-01 18:00 | XMS_ITS | Continuity of Care Document ---
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 tel:[phone] Family History Family Member Type Diagnosis Age At Onset No Information Payers Payer name Insurance type Covered green party ID Authoriza tion(s) No Information Social History Type Description Quantity Date Captured Comments Sex Female Smoking Status No Information Chief Complaint And Reason For Visit No Information History Of Present Illness Encounter Date Complaint History Of Prese nt Illness No Information Instructions Date Instruction Additional Infor mation No Information Assessments Type Assessment Date No Information
--- OUTSIDE RECORDS SUMMARY | 2024-07-10 16:00 | XMS_ITS ---
Author Organization [facility] Address [address] [place], [place] [address] [id number] Care Team Providers Care Director Of Human Resources Name Role Phone Maki Enriquez Primary Care Provider Migration, Provider Unavailable Unavailable REASON FOR VISIT [...] Encounters Encounter Location Date Provider Diagnosis [address] [place] [id number] 07/10/2024 Provider Migration Plan Of Treatment No Information Progress Notes * Bao HUYNHaDOB:1985 (39 yo F)Acc No.[id number]:07/10/2024 Patient: Rama Hermosillo Provider: Zaire daniels Migration :1985 A ge:38 Y S ex:Female Date:07/10/2024 Address[address] [id number] Pcp:Mkai Enriquez Subjective: * Chief Complaints: * M ultum [...] Electronic signature of Prov ider Migration on 05/09/2025 at 01:39 AM CDT Sign off status: Pending * Provider: Zaire daniels Migration Date: 09/09/2023 Generated for Beckie peng/Lorie/Nishi on: 0 05/09/2025 01:39 AM CDT
--- OUTSIDE RECORDS SUMMARY | 2024-07-10 16:00 | XMS_ITS ---
Author Organization [facility] Address [address] [place] [address] Care Team Providers Care Wind Turbine Engineer Name Role Phone Maki Enriquez Primary Care Provider Migration, Provider Unavailable Unavailable REASON FOR VISIT Multum To Medispan Conversion Encounter Medications Medication SIG (Take, Route, Fr equency, Duration) Notes Start Date End Date Status Zepbound 2.5 MG/0.5ML as directed subcut aneously once a week Active Tranexamic Acid 650 MG 2 tab(s) orally 3 times a day Active Omeprazole 40 MG 1 cap(s) orally once a day Active Meloxicam 7.5 MG 1 tab(s) orally once a day Active Lisinopril 20 MG 1 tab(s) orally once a day Active Encounters Encounter Location Date Provider Diagnosis [facility] [address] [place] [address] 07/10/2024 Provider Migration Plan Of Treatment No Information Progress Notes * Bao HUYNHaDOB:1985 (39 yo F)Acc No.[id number]:07/10/2024 Patient: Rama CHRISTINE Provider: Zaire daniels Migration :1985 A ge:38 Y S ex:Female Date:07/10/2024 [facility] [facility] Pcp:Maki Enriquez Subjective: * Chief Complaints: * 1 . Multum To Medispan Conversion Encounter. * Medical History: * Medications: T aking Zepbound(Tirzepatide-Weight Management) 2.5 MG/0.5ML Solution as directed subcutaneously once a week , Taking Tranexamic Acid 650 MG Tablet 2 tab(s) orally 3 times a day , Taking Omeprazole 40 MG Capsule Delayed Release 1 cap(s) orally once a day , Taking Meloxicam 7.5 MG Tablet 1 tab(s) orally once a day , Taking Lisinopril 20 MG Tablet 1 tab(s) orally once a day Objective: * Vitals: Assessment: Plan: * Treatment: * Billing Information: * Visit Code: * Procedure Codes: * Electronic signature of Vincenzo ferraro Migration on 05/09/2025 at 01:38 AM CDT Sign off status: Pending * Provider: Zaire daniels Migration Date: 09/09/2023 Generated for Beckie peng/Lorie/Nishi on: 05/09/2025 01:38 AM CDT
--- OUTSIDE RECORDS SUMMARY | 2024-08-03 10:50 | XMS_ITS ---
Author Organization [facility] Address [address] [place] [address] Care Team Providers Care Die Sinker Name Role Phone Maki Enriquez Primary Care Provider REASON FOR VISIT follow up Medications Medication SIG (Take, Route, Fr equency, Duration) Notes Start Date End Date Status Zepbound 2.5 MG/0.5ML as directed subcut aneously once a week Unknown Omeprazole 40 MG 1 cap(s) orally once a day Unknown Tranexamic Acid 650 MG 2 tab(s) orally 3 times a day Unknown Lisinopril 20 MG 1 tab(s) orally once a day Unknown Meloxicam 7.5 MG 1 tab(s) orally once a day Unknown Encounters Encounter Location Date Provider Diagnosis [facility], [facility] - Maki Enriquez [address] [place] [address] 08/03/2024 Maki Enriquez Plan Of Treatment No Information Progress Notes * Bao HUYNHaDOB:1985 (39 yo F)Acc No.[id number]:08/03/2024 Progress Notes Patient: Rama CHRISTINE Provider: Bjorn Enriquez MD :1985 A ge:38 Y S ex:Female Date:08/03/2024 Address:[address] [place] [id number] Subjective: * Chief Complaints: * 1 . Follow up. * HPI: I nterval Hx: 38 yo female comes in for follow up in management of obesity/weight management found to have COLEMAN and vit D def. * Medical History: * Medications: U nknown Zepbound(Tirzepatide-Weight Management) 2.5 MG/0.5ML Solution as directed subcutaneously once a week , Unknown Tranexamic Acid 650 MG Tablet 2 tab(s) orally 3 times a day , Unknown Omeprazole 40 MG Capsule Delayed Release 1 cap(s) orally once a day , Unknown Meloxicam 7.5 MG Tablet 1 tab(s) orally once a day , Unknown Lisinopril 20 MG Tablet 1 tab(s) orally once a day Objective: * Vitals: * P ast Orders: L ab:IRON AND TOTAL IRON BINDING CAPACITY (Order Date - 07/09/2024) (Collection Date & Time - 07/09/2024 08:14 AM) Value Reference Range IRON, TOTAL 12 L 40-190 - mcg/dL IRON BINDING CAPACITY 424 250-450 - mcg/dL ( calc) % SATURATION 3 L 16-45 - % (calc) L ab:T3, FREE (Order Date - 07/09/2024) (Collection Date & Time - 07/09/2024 08:14 AM) Value Reference Range T3, FREE 2.8 2.3-4.2 - pg/mL L ab:ACTH, PLASMA (Order Date - 07/09/2024) (Collection Date & Time - 07/09/2024 08:14 AM) Value Reference Range ACTH, PLASMA 16 6-50 - pg/mL L ab:INSULIN (Order Date - 07/09/2024) (Collection Date & Time - 07/09/2024 08:14 AM) Value Reference Range INSULIN 14.1 - uIU/mL L ab:HEMOGLOBIN A1c (Order Date - 07/09/2024) (Collection Date & Time - 07/09/2024 08:14 AM) Value Reference Range HEMOGLOBIN A1c 5.5 <5.7 - % of total Hg b L ab:PROGESTERONE (Order Date - 07/09/2024) (Collection Date & Time - 07/09/2024 08:14 AM) Value Reference Range PROGESTERONE 8.3 - ng/mL L ab:VITAMIN B12/FOLATE, SERUM PANEL (Order Date - 07/09/2024) (Collection Date & Time - 07/09/2024 08:14 AM) Value Reference Range FOLATE, SERUM 6.1 - ng/mL VITAMIN B12 [phone] - pg/mL L ab:TSH (Order Date 07/09/2024) (Collection Date & Time - 07/09/2024 08:14 AM) Value Reference Range TSH 1.78 - mIU/L L ab:MAGNESIUM (Order Date 07/09/2024) (Collection Date & Time - 07/09/2024 08:14 AM) Value Reference Range MAGNESIUM 2.1 1.5-2.5 - mg/dL L ab:TESTOSTERONE, FREE (DIALYSIS) AND TOTAL,MS (Order Date 07/09/2024) (Collection Date & Time - 07/09/2024 08:14 AM) Value Reference Range TESTOSTERONE, TOTAL, MS 12 2-45 - ng/dL TESTOSTERONE, FREE 0.9 0.1-6.4 - pg/mL L ab:VITAMIN D, 25-HYDROXY, LC/MS/MS (Order Date 07/09/2024) (Collection Date & Time - 07/09/2024 08:14 AM) Value Reference Range VITAMIN D, 25-OH, TOTAL 18 L 30-100 - ng/mL L ab:T4, FREE (Order Date 07/09/2024) (Collection Date & Time - 07/09/2024 08:14 AM) Value Reference Range T4, FREE 0.9 0.8-1.8 - ng/dL L ab:FSH (Order Date 07/09/2024) (Collection Date & Time - 07/09/2024 08:14 AM) Value Reference Range FSH 4.2 - mIU/mL L ab:ESTRADIOL (Order 07/09/2024) (Collection Date & Time - 07/09/2024 08:14 AM) Value Reference Range ESTRADIOL 77 - pg/mL L ab:CBC (INCLUDES DIFF/PLT) (Order Date 07/09/2024) (Collection Date & Time - 07/09/2024 08:14 AM) Value Reference Range WHITE BLOOD CELL COUNT 7.9 3.8-10.8 - [place] nd/uL RED BLOOD CELL COUNT 4.60 3.80-5.10 - Million /uL HEMOGLOBIN 10.5 L 11.7-15.5 - g/dL HEMATOCRIT 35.5 35.0-45.0 - % MCV 77.2 L 80.0-100.0 - fL MCH 22.8 L 27.0-33.0 - pg MCHC 29.6 L 32.0-36.0 - g/dL RDW 15.1 H 11.0-15.0 - % PLATELET COUNT 295 140-400 - Thousand/u L NEUTROPHILS 67.3 - % ABSOLUTE NEUTROPHILS 5317 7507-2118 - cells/u L LYMPHOCYTES 22.2 - % ABSOLUTE LYMPHOCYTES 6811 560-9049 - cells/uL MONOCYTES 8.1 - % ABSOLUTE MONOCYTES 640 200-950 - cells/uL EOSINOPHILS 1.5 - % ABSOLUTE EOSINOPHILS 119 15-500 - cells/uL BASOPHILS 0.9 - % ABSOLUTE BASOPHILS 71 0-200 - cells/uL MPV 12.6 H 7.5-12.5 - fL L ab:LH (Order Date - 07/09/2024) (Collection Date & Time - 07/09/2024 08:14 AM) Value Reference Range LH 4.5 - mIU/mL L ab:DHEA SULFATE (Order Date - 07/09/2024) (Collection Date & Time - 07/09/2024 08:14 AM) Value Reference Range DHEA SULFATE 94 19-237 - mcg/dL L ab:COMPREHENSIVE METABOLIC PANEL (Order Date - 07/09/2024) (Collection Date & Time - 07/09/2024 08:14 AM) Value Reference Range GLUCOSE 84 65-99 - mg/dL UREA NITROGEN (BUN) 12 7-25 - mg/dL CREATININE 0.56 0.50-0.97 - mg/dL BUN/CREATININE RATIO SEE NOTE: 02-13 - (calc) SODIUM 139 135-146 - mmol/L POTASSIUM 4.1 3.5-5.3 - mmol/L CHLORIDE 106 98-110 - mmol/L CARBON DIOXIDE 26 20-32 - mmol/L CALCIUM 8.9 8.6-10.2 - mg/dL PROTEIN, TOTAL 6.6 6.1-8.1 - g/dL ALBUMIN 4.2 3.6-5.1 - g/dL GLOBULIN 2.4 1.9-3.7 - g/dL (calc ) ALBUMIN/GLOBULIN RATIO 1.8 1.0-2.5 - (calc) BILIRUBIN, TOTAL 0.3 0.2-1.2 - mg/dL ALKALINE PHOSPHATASE 44 31-125 - U/L AST 11 10-30 - U/L ALT 8 6-29 - U/L EGFR 121 > OR = 60 - mL/min/1 .73m2 Assessment: Plan: * Treatment: * Billing Information: * Visit Code: * Procedure Codes: * Electronic signature of Steve Enriquez MD on 05/09/2025 at 01:38 AM CDT Sign off status: Pending * Provider: Bjorn Enriquez MD Date: 1 10/04/2023 Generated for Beckie peng/Lorie/eTransmitting on: 0 05/09/2025 01:38 AM CDT History and Physical Notes * HPI (History of Present Illness) Category Sub-Category Detail Notes Category Not es Interval Hx 38 yo female co mes in for follow up in management of obesity/weight management found to have COLEMAN and vit D def.
[2025-05-03 13:01] VITALS: BMI 38.0
--- NOTE | 2025-05-03 13:26 | PC.NURSE ---
Report to the Outpatient Waiting Room, entrance under the green pavilion located off [facility], at time _1115 on date __05/09/2025 . Planned Procedure Time: __1315 .? Time changes happen often and if your time is changed the preop area will call you the afternoon before. - You and your visitor will be asked to self-screen and do not enter if you have any COVID symptoms. Please call surgeon if you need to reschedule. - A mask is optional within the hospital at this time. Patients may have clear liquids (water, carbonated beverages, clear teas, apple juice) until 3 hours prior to surgery with a maximum of 20 ounces. - No food from midnight until time of surgery and no smoking, or chewing tobacco (or any form of nicotine). No chewing gum, candy or mints. - Infants may have breast milk until 4 hours before surgery, formula 6 hours prior to surgery. - Children will be allowed to drink immediately following surgery.? If applicable, please bring a bottle or sippy cup to assist with drinking. Juice, water, soda, and popsicles are readily available.? For infants on formula, please bring formula the day of surgery.? Pacifiers are allowed. Take only the following medications with a SIP of water on the morning of surgery: _Metoprolol, prednisolone DO NOT STOP ANY OF YOUR OTHER PRESCRIPTION MEDICATIONS PRIOR TO SURGERY EXCEPT THE FOLLOWING Hold all vitamins and supplements for 3 days per anesthesiologist. Medications to discontinue per physician __Terzepatide 10 day hold Date to take last dose Please no make-up, nail kiswahili, hairspray, perfume, deodorant, or body powder the day of surgery.? No jewelry (including any body piercings) or valuables the day of surgery, leave them at home.? Please take a shower or bath the night before, or the morning of, surgery with an antibacterial soap.? Wear comfortable, loose fitting clothing.? Children are encouraged to wear pajamas. - Jewelry must be removed prior to entering the operating room.? Rings and piercings that are not removed may be cut off. - The hospital will not accept responsibility for valuables.? - Please leave all valuables, including medications, at home the day of surgery. If you are going home after surgery, a licensed lift driver must drive you home.? - NO public transportation without another adult if you receive anesthesia. - We recommend that an adult stay with you for 24 hours following discharge. - We also recommend that you do not drive, make important decision, drink alcoholic beverages, or take any drugs that were not prescribed by your health care provider for at least 24 hours after your discharge time. For Pediatric surgeries, we recommend two adults accompany the child home. Follow any additional instructions given to you from your surgeon. Telephone instructions given to _Rama and asked if any additional questions and then verbalized understanding. Patient advised to call surgeon office or pre surgery nurse liaison [phone] if any additional questions.
--- OUTSIDE RECORDS SUMMARY | 2025-05-09 01:38 | XMS_ITS | Patient Health Record ---
Author Organization [facility] Address [address] [place] [id number] Care Team Providers Care Drilling And Production Superintendent Name Role Phone Maki Enriquez Primary Care Provider Migration, Provider Unavailable Unavailable Allergies No Known Allergies Results Component Value Reference Range Flag Notes COMPREHENSIVE METABOLIC PANE L Reviewed date:07/11/2024 03:15:19 PM Interpretation: Performing Lab:CT, [facility], [address], [place], [address] PrettyAmber Huff MD Notes/Report: FASTING:YES FASTING: YES Fasting reference interval Not Reported: BUN and Creatinine are within reference range. GLUCOSE 84 65-99 mg/dL N UREA NITROGEN [...] date:07/11/2024 03:31:23 PM Interpretation: Performing Lab:[facility], [address] [place], [phone] Gen Huff MD Notes/Report: FASTING:YES FASTING: YES Vitamin D Status 25-OH Vitamin D: Deficiency: <20 ng/mL Insufficiency: 20 - 29 ng/mL Optimal: > or = 30 ng/mL For 25-OH Vitamin D testing on patients on D2-supplementation and patients for whom quantitation of D2 and D3 fractions is required, the QuestAssureD(TM) 25-OH VIT D, (D2,D3), LC/MS/MS is recommended: order code 53498 (patients >2yrs). See Note 1 Note 1 For additional information, please refer to http://education.[employer]/faq/GRV955 (This link is being provided for informational/ educational purposes only.) VITAMIN D,25-OH,TOTAL,IA 18 30-100 ng/mL L ACTH, PLASMA Reviewed date:07/14/2024 08:55:50 PM Interpretation: Performing Lab:[facility], [facility], [address], [place], [address] Rodney Flores M.D.,PhD Notes/Report: FASTING:YES FASTING: YES Reference range applies only to specimens collected between 7am-10am. ACTH, PLASMA 16 6-50 pg/mL T3, FREE Reviewed date:07/11/2024 03:12:52 PM Interpretation: Performing Lab:[facility], [address] [place], [address] Gen Huff MD Notes/Report: FASTING:YES FASTING: YES T3, FREE 2.8 2.3-4.2 pg/mL N DHEA SULFATE Reviewed date:07/11/2024 03:15:26 PM Interpretation: Performing Lab:[facility], [address] [place], [address] Gen Huff MD Notes/Report: FASTING:YES FASTING: YES DHEA SULFATE 94 19-237 mcg/dL N ESTRADIOL Reviewed date:07/11/2024 03:20:18 PM Interpretation: Performing Lab:[facility], [address] [place], [address] Gen Huff MD Notes/Report: FASTING:YES FASTING: YES Reference Range Follicular Phase: 19-144 Mid-Cycle: 64-357 Luteal Phase: 56-214 Postmenopausal: < or = 31 Reference range established on post-pubertal patient population. No pre-pubertal reference range established using this assay. For any patients for whom low Estradiol levels are anticipated (e.g. males, pre-pubertal children and hypogonadal/post-menopausal females), the [facility] Estradiol, Ultrasensitive, LCMSMS assay is recommended (order code 84423). Please note: patients being treated with the drug fulvestrant (Faslodex(R)) have demonstrated significant interference in immunoassay methods for estradiol measurement. The cross reactivity could lead to falsely elevated estradiol test results leading to an inappropriate clinical assessment of estrogen status. [facility] order code [id number], Ultrasensitive LC/MS/MS demonstrates negligible cross reactivity with fulvestrant. ESTRADIOL 77 N FSH Reviewed date:07/11/2024 03:13:26 PM Interpretation: Performing Lab:[facility], [address] [place], [address] Gen Huff MD Notes/Report: FASTING:YES FASTING: YES Reference Range Follicular Phase 2.5-10.2 Mid-cycle Peak 3.1-17.7 Luteal Phase 1.5- 9.1 Postmenopausal 23.0-116.3 FSH 4.2 N HEMOGLOBIN A1c Reviewed date:07/11/2024 03:31:16 PM Interpretation: Performing Lab:[facility], [address], [place], [address] Gen Huff Notes/Report: FASTING:YES FASTING: YES For the purpose of screening for the presence of diabetes: <5.7% Consistent with the absence of diabetes 5.7-6.4% Consistent with increased risk for diabetes (prediabetes) > or =6.5% Consistent with diabetes This assay result is consistent with a decreased risk of diabetes. Currently, no consensus exists regarding use of hemoglobin A1c for diagnosis of diabetes in children. According to [place] Diabetes Association (ADA) guidelines, hemoglobin A1c <7.0% represents optimal control in non- diabetic patients. Different metrics may apply to specific patient populations. Standards of Medical Care in Diabetes(ADA). HEMOGLOBIN A1c 5.5 <5.7 % of total Hgb N INSULIN Reviewed date:07/11/2024 03:19:59 PM Interpretation: Performing Lab:[facility], [place], [address] Gen Huff MD Notes/Report: FASTING:YES FASTING: YES Reference Range < or = 18.4 Risk: Optimal < or = 18.4 Moderate NA High >18.4 Adult cardiovascular event risk category cut points (optimal, moderate, high) are based on Insulin Reference Interval studies performed at [facility] in 2021. INSULIN 14.1 N LH Reviewed date:07/11/2024 03:15:05 PM Interpretation: Performing Lab:[facility], [address] [place], [address] Gen Huff MD Notes/Report: FASTING:YES FASTING: YES Reference Range Follicular Phase 1.9-12.5 Mid-Cycle Peak 8.7-76.3 Luteal Phase 0.5-16.9 Postmenopausal 10.0-54.7 LH 4.5 N MAGNESIUM Reviewed date:07/11/2024 03:13:12 PM Interpretation: Performing Lab:[facility], [address] [place], [address] Gen Huff MD Notes/Report: FASTING:YES FASTING: YES MAGNESIUM 2.1 1.5-2.5 mg/dL N CBC (INCLUDES DIFF/PLT) Reviewed date:07/13/2024 06:24:54 AM Interpretation: Performing Lab:[facility] [address] [place], [address] Gen Huff MD Notes/Report: FASTING:YES FASTING: YES For adults, a slight decrease in the calculated MCHC value (in the range of 30 to 32 g/dL) is most likely not clinically significant; however, it should be interpreted with caution in correlation with other [...] 12.6 7.5-12.5 fL H ABSOLUTE NEUTROPHILS [phone] cells/uL N ABSOLUTE LYMPHOCYTES 0367 317-4159 cells/uL N ABSOLUTE MONOCYTES 640 200-950 cells/uL N ABSOLUTE EOSINOPHILS 119 15-500 cells/uL N ABSOLUTE BASOPHILS 71 0-200 cells/uL N NEUTROPHILS 67.3 N LYMPHOCYTES 22.2 N MONOCYTES 8.1 N EOSINOPHILS 1.5 N BASOPHILS 0.9 N VITAMIN B12/FOLATE, SERUM PA BRADLEY Reviewed date:07/11/2024 03:20:25 PM Interpretation: Performing Lab:[facility], [address] [place], [address] Gen Huff MD Notes/Report: FASTING:YES FASTING: YES Reference Range Low: <3.4 Borderline: 3.4-5.4 Normal: >5.4 Please Note: Although the reference range for vitamin B12 is 200-1100 pg/mL, it has been reported that between 5 and 10% of patients with values between 200 and 400 pg/mL may experience neuropsychiatric and hematologic abnormalities due to occult B12 deficiency; less than 1% of patients with values above 400 pg/mL will have symptoms. VITAMIN B12 078 748-2861 pg/mL N FOLATE, SERUM 6.1 N PROGESTERONE Reviewed date:07/11/2024 03:20:05 PM Interpretation: Performing Lab:[facility], [address] [place], [address] Gen Huff MD Notes/Report: FASTING:YES FASTING: YES Reference Ranges Female Follicular Phase < 1.0 Luteal Phase 2.6-21.5 Post menopausal < 0.5 1st Trimester 4.1-34.0 2nd Trimester 24.0-76.0 3rd Trimester 52.0-302.0 PROGESTERONE 8.3 N IRON AND TOTAL IRON BINDING CAPACITY Reviewed date:07/11/2024 03:13:54 PM Interpretation: Performing Lab:[facility], [address], [place], [address] Gen Huff MD Notes/Report: FASTING:YES FASTING: YES IRON, TOTAL 12 40-190 mcg/dL L IRON BINDING CAPACITY 424 250-450 mcg/dL (calc) N % SATURATION 3 16-45 % (calc) L T4, FREE Reviewed date:07/11/2024 03:13:19 PM Interpretation: Performing Lab:[facility], [facility], [address], [place], [address] Gen Huff MD Notes/Report: FASTING:YES FASTING: YES T4, FREE 0.9 0.8-1.8 ng/dL N TSH Reviewed date:07/11/2024 03:20:11 PM Interpretation: Performing Lab:[facility], [address] [place], [address] Gen Huff MD Notes/Report: FASTING:YES FASTING: YES Reference Range > or = 20 Years 0.40-4.50 Ranges First trimester 0.26-2.66 Second trimester 0.55-2.73 Third trimester 0.43-2.91 TSH 1.78 N TESTOSTERONE, FREE (DIALYSIS ) AND TOTAL,MS Reviewed date:07/15/2024 09:23:56 PM Interpretation: Performing Lab:[facility], [facility], [facility] [address], [address], [place], [address] Chandler Plaza MD,PhD Notes/Report: FASTING:YES FASTING: YES For additional information, please refer to https://education.[employer]/faq/LCG903 (This link is being provided for informational/educational purposes only.) (Note) This test was developed and its analytical performance characteristics have been determined by [employer]. It has not been cleared or approved by the FDA. This assay has been validated pursuant to the CLIA regulations and is used for clinical purposes. (Note) This test was developed and its analytical performance characteristics have been determined by [employer]. It has not been cleared or approved by the FDA. This assay has been validated pursuant to the CLIA regulations and is used for clinical purposes. MD [facility] [address] [address],[address] [place] [id number] Chandler Plaza MD, PhD TESTOSTERONE, TOTAL, MS 12 2-45 ng/dL TESTOSTERONE, FREE 0.9 0.1-6.4 pg/mL Reason For Referral Reason 4 cm right dominant thyroid nodule/ biopsy this summer benign- however patient with compressive symptoms, short of breath if laying on right side Referral Organization [facility] Dr[facility] Enriquez Referring Provider First Name Maki Referring Provider Last Name Mina Referring Provider Speciality Endocrinol ogkirit Referred Provider Specialty Surgical Onc ology Referral Priority Urgent Reason holosystolic murmur, new in onset, lower ext edema, increased shortness of breath, ACUTE referral thank you Referral Organization [facility] En[facility] Referring Provider First Name Maki Referring Provider Last Name Mina Referring Provider Speciality Endocrinol ogkirit Referred Provider Specialty Cardiovascul ar Disease Referral [...] 90 days 09/03/2024 Active Ergocalciferol 1.25 MG (28197 UT) Capsule 1 capsule Orally weekly; Duration: 84 days 09/03/2024 Active Vitamin D (Ergocalciferol) 1.25 MG (88568 UT) Capsule Take 1 capsule by mouth [...] Status W/U Status Risk Notes Problem Hypothyroidism (76332048) Hypothyroidism, unspecified (E03.9) Active confirmed Problem Non-toxic single thyroid nodule (647809269) Nontoxic single thyroid nodule (E04.1) Active confirmed Problem Non-toxic multinodular goiter (00811974) Nontoxic multinodular goiter (E04.2) Active confirmed Problem Autoimmune thyroiditis (10335394) Autoimmune thyroiditis (E06.3) Active confirmed Problem Vitamin D deficiency (76772687) Vitamin D deficiency, unspecified (E55.9) Active confirmed Problem Irregular menstruation (57533602) Irregular menstruation, unspecified (N92.6) Active confirmed Vital Signs Heart Rate 72 /min 09/03/2024 Blood pressure diastolic 82 mm Hg 09/03/2024 Height 61 in 09/03/2024 Blood pressure systolic 132 mm Hg 09/03/2024 Weight 202 lbs 09/03/2024 BMI 38.16 kg/m2 09/03/2024 Encounters Encounter Location Date Provider Diagnosis [address] [id number] 07/10/[address] Enriquez [address] [place] [phone] 07/08/2024 Maki Enriquez Nontoxic single thyroid nodule E04.1 ; Other fatigue R53.83 ; Vitamin D deficiency, unspecified E55.9 ; Irregular menstruation, unspecified N92.6 ; Vitamin B12 deficiency anemia, unspecified D51.9 and Cardiac murmur, unspecified R01.[address] Enriquez [address] [place] [phone] 09/03/2024 Maki Enriquez Vitamin B12 deficiency anemia, unspecified D51.9 ; Vitamin D deficiency, unspecified E55.9 ; Autoimmune thyroiditis E06.3 and Nontoxic multinodular goiter E04.[address] Enriquez [id number] [place] [phone] 07/07/2024 Maki Enriquez [address] [place] [phone] 07/14/2024 Maki [address]EN[address] [phone] 09/03/2024 Maki KENNEY [address] [phone] 09/10/2024 Maki Enriquez Hypothyroidism, unspecified E03.9 Assessments Encounter Date Diagnosis (ICD Code) Assessment Notes Treatment Notes Treatment Clinical Notes Section Notes 07/08/2024 Nontoxic single thyroid nodule (ICD-10 - E04.1) 07/08/2024 Other fatigue (ICD-10 - R53.83) 09/10/2024 Hypothyroidism, unspecified (ICD-10 - E03.9) 09/03/2024 Vitamin B12 deficiency anemia, unspecified (ICD-10 [...] blood pressure issues- Previous evaluation by a cream beater with no significant findingsPlan: - Refer to [...] referring and communicating with other health career discovery teacher, documenting clinical information in the electronic [...] regimen Monitor iron levels and consult with integration engineer regarding heavy menstrual bleeding and potential hysterectomy Heavy Menstrual Bleeding and Tranexamic Acid Use Continue tranexamic acid as prescribed during menstrual periods Follow up with integration engineer about the possibility of a hysterectomy for [...] referring and communicating with other health career discovery teacher, documenting clinical information in the electronic [...] Code hypertension nodules Surgical History Surgery Date(Month/Year) 2018 2015 2011 2007 two wrist surgeries cyst removal on foot 2012 tonsils removed 2007
--- OUTSIDE RECORDS SUMMARY | 2025-05-09 01:38 | XMS_ITS | Clinical Summary ---
Author Organization [facility] Address [address] [place] [address] Care Team Providers Care Food Service Coordinator Name Role Phone Delio Joy MD Primary Care Provider Source Comments [facility],non-owned Affiliates and Associated Physician Practices is amultiple site organization consisting of ambulatory clinics and hospital sitesin [place], [place], [place] and [place]. This disclosure is being madepursuant to the Care Everywhere program and may not contain all information available regarding this patient. 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 Gender Identity Not on file Sexual Orientation Not on file Plan of Treatment Health Maintenance Due Date Last Done Comments HIV SCREENING 12/28/2002 HEPATITIS C SCREENING 12/24/2005 DTAP/TDAP/TD VACCINES (1 - Tdap) 12/28/2006 HEPATITIS B VACCINE (1 of 3 - 19+ 3-dose series) 12/28/2006 PAP SMEAR 12/28/2008 HPV VACCINE (1 - 3-dose SCDM series) 12/28/2014 DEPRESSION SCREENING 08/25/2024 COVID-19 VACCINE ( - 2023-2 5 season) 2025 INFLUENZA VACCINE (#1) 2025 ZOSTER VACCINE (1 [...] on file Relation to Subscriber:Not on file Name:EMSE HUYNH Subscriber ID:Not on file (Home) Address: [address] [place] [address] Payer ID:Not on file Group ID:Not on file Type:Self Pay Address: [facility] * Guarantor: Esme Huynh Account Type Relation to Patient Date of Phone Billing Address Personal/Family Spouse Care Teams Food Service Coordinator Relationship Specialty Start Date End Date Delio Joy MD [address] [place] [address] PCP - General 06/02/18
--- OUTSIDE RECORDS SUMMARY | 2025-05-09 01:38 | XMS_ITS | Patient Health Record ---
Author Organization [facility] Address [address] [address] Care Team Providers Care Anti Tank Missileman Name Role Phone Maki Enriquez Primary Care Provider Migration, Provider Unavailable Unavailable Allergies No Known Allergies Results Component Value Reference Range Notes COMPREHENSIVE METABOLIC PANE L Reviewed date:07/11/2024 03:15:19 PM Interpretation: Performing Lab:[facility], [address] [place], [address] Gen Huff MD Notes/Report: FASTING:YES FASTING: YES VITAMIN D, 25-HYDROXY, LC/MS /MS Reviewed date:07/11/2024 03:31:23 PM Interpretation: Performing Lab:[facility], [address] [place], [address] Gen Huff MD Notes/Report: FASTING:YES FASTING: YES ACTH, PLASMA Reviewed date:07/14/2024 08:55:50 PM Interpretation: Performing Lab:[facility]José Miguel [facility], [address] [facility] , [place], [address] Rodney Flores M.D.,PhD Notes/Report: FASTING:YES FASTING: YES T3, FREE Reviewed date:07/11/2024 03:12:52 PM Interpretation: Performing Lab:[facility], [address], [place], [address] Gen Huff MD Notes/Report: FASTING:YES FASTING: YES DHEA SULFATE Reviewed date:07/11/2024 03:15:26 PM Interpretation: Performing Lab:[facility], [address], [place], [address] Gen Huff MD Notes/Report: FASTING:YES FASTING: YES ESTRADIOL Reviewed date:07/11/2024 03:20:18 PM Interpretation: Performing Lab:[facility], [address], [place], [address] Gen Huff MD Notes/Report: FASTING:YES FASTING: YES FSH Reviewed date:07/11/2024 03:13:26 PM Interpretation: Performing Lab:[facility], [address], [place], [address] Gen Huff MD Notes/Report: FASTING:YES FASTING: YES HEMOGLOBIN A1c Reviewed date:07/11/2024 03:31:16 PM Interpretation: Performing [facility], [address], [place], [address] Gen Huff Notes/Report: FASTING:YES FASTING: YES INSULIN Reviewed date:07/11/2024 03:19:59 PM Interpretation: Performing Lab:[facility], [address], [place], [address] Gen Huff MD Notes/Report: FASTING:YES FASTING: YES LH Reviewed date:07/11/2024 03:15:05 PM Interpretation: Performing Lab:[facility], [address], [place], [address] Gen Huff MD Notes/Report: FASTING:YES FASTING: YES MAGNESIUM Reviewed date:07/11/2024 03:13:12 PM Interpretation: Performing Lab:[facility], [address], [place], [address] Gen Huff MD Notes/Report: FASTING:YES FASTING: YES CBC (INCLUDES DIFF/PLT) Reviewed date:07/13/2024 06:24:54 AM Interpretation: Performing Lab:[facility], [address], [place], [address] Gen Huff MD Notes/Report: FASTING:YES FASTING: YES VITAMIN B12/FOLATE, SERUM PA BRADLEY Reviewed date:07/11/2024 03:20:25 PM Interpretation: Performing Lab:[facility], [address], [place], [address] Gen Huff MD Notes/Report: FASTING:YES FASTING: YES PROGESTERONE Reviewed date:07/11/2024 03:20:05 PM Interpretation: Performing Lab:[facility], [address], [place], [address] Gen Huff MD Notes/Report: FASTING:YES FASTING: YES IRON AND TOTAL IRON BINDING CAPACITY Reviewed date:07/11/2024 03:13:54 PM Interpretation: Performing Lab:[facility], [address], [place], [address] Gen Huff MD Notes/Report: FASTING:YES FASTING: YES T4, FREE Reviewed date:07/11/2024 03:13:19 PM Interpretation: Performing Lab:[facility], [address], [place], [address] Gen Huff MD Notes/Report: FASTING:YES FASTING: YES TSH Reviewed date:07/11/2024 03:20:11 PM Interpretation: Performing Lab:[facility], [address], [place], [address] Gen Huff MD Notes/Report: FASTING:YES FASTING: YES TESTOSTERONE, FREE (DIALYSIS ) AND TOTAL,MS Reviewed date:07/15/2024 09:23:56 PM Interpretation: Performing Lab:[facility], [address] [address], [address], [place], [address] Chandler Plaza MD,PhD Notes/Report: FASTING:YES FASTING: YES TESTOSTERONE, TOTAL, MS 12 2-45 ng/dL For additional information, please refer to https://education.E Ink.com/faq/WVO806 (This link is being provided for informational/educational purposes only.) (Note) This test was developed and its analytical performance characteristics have been determined by [employer]. It has not been cleared or approved by the FDA. This assay has been validated pursuant to the CLIA regulations and is used for clinical purposes. TESTOSTERONE, FREE 0.9 0.1-6.4 pg/mL (Note) This test was developed and its analytical performance characteristics have been determined by [employer]. It has not been cleared or approved by the FDA. This assay has been validated pursuant to the CLIA regulations and is used for clinical purposes. [facility] [address] [address],[address] [facility] [id number] Chandler Plaza MD, PhD Reason For Referral Reason 4 cm right dominant thyroid nodule/ biopsy this summer benign- however patient with compressive symptoms, short of breath if laying on right side Referral Organization [facility] Referring Provider First Name Maki Referring Provider Last Name [place] Referring Provider Speciality Internal edicine Referred Provider Specialty Surgical Onc ology Referral Priority Urgent Reason holosystolic murmur, new in onset, lower ext edema, increased shortness of breath, ACUTE referral thank you Referral Organization [facility] Referring Provider First Name Maki Referring Provider Last Name [place] Referring Provider Speciality Internal edicine Referred Provider [...] once a week Not-Taking Ergocalciferol 1.25 MG (37518 UT) 1 capsule Orally weekly for 84 days 09/03/2024 Active Problems Problem Type SNOMED Code ICD Code Onset Dates Problem Status W/U Status Risk Notes Problem Vitamin D deficiency (62054021) Vitamin D deficiency, unspecified (E55.9) Active confirmed Problem Hypothyroidism (00056287) Hypothyroidism, unspecified (E03.9) Active confirmed Problem Non-toxic single thyroid nodule (069276876) Nontoxic single thyroid nodule (E04.1) Active confirmed Problem Non-toxic multinodular goiter (63188823) Nontoxic multinodular goiter (E04.2) Active confirmed Problem Autoimmune thyroiditis (29768894) Autoimmune thyroiditis (E06.3) Active confirmed Problem Irregular menstruation (96853399) Irregular menstruation, unspecified (N92.6) Active confirmed Vital Signs Heart Rate 72 /min 09/03/2024 Blood pressure diastolic 82 mm Hg 09/03/2024 Height 61 in 09/03/2024 Blood pressure systolic 132 mm Hg 09/03/2024 Weight 202 lbs 09/03/2024 BMI 38.16 kg/m2 09/03/2024 Encounters Encounter Location Date Provider Diagnosis [address] [address] 07/10/2024 Provider Migration [facility] [address] [place] [address] 07/08/2024 Maki Enriquez Nontoxic single thyroid nodule E04.1 ; Other fatigue R53.83 ; Vitamin D deficiency, unspecified E55.9 ; Irregular menstruation, unspecified N92.6 ; Vitamin B12 deficiency anemia, unspecified D51.9 and Cardiac murmur, unspecified R01.1 [facility] - Maki [place] [address] [place] [address] 07/07/2024 Maki Enriquez [facility] - [facility] [place] [address] [place] [address] 07/14/2024 Maki Enriquez [facility] [address] [place] [address] 09/03/2024 Maki Enriquez [facility] [address] [place] [address] 09/10/2024 Maki Enriquez Hypothyroidism, unspecified E03.9 [facility] - Maki Enriquez [address] [place] [address] 09/03/2024 Maki Enriquez Vitamin D deficiency , [...] blood pressure issues- Previous evaluation by a president + publisher with no significant findingsPlan: - Refer to [...] procedures, referring and communicating with other health urgent care technician, documenting clinical information in the electronic or [...] regimen Monitor iron levels and consult with language pathologist regarding heavy menstrual bleeding and potential hysterectomy Heavy Menstrual Bleeding and Tranexamic Acid Use Continue tranexamic acid as prescribed during menstrual periods Follow up with language pathologist about the possibility of a hysterectomy for [...] procedures, referring and communicating with other health urgent care technician, documenting clinical information in the electronic or [...] Insured Coverage Start Date Coverage End Date [facility] [address] [place] [phone] [id number] Rmaa Nair Self - patient is the insured Medical (General) History Medical History History ICD Code hypertension nodules Surgical History Surgery Date(Month/Year) tonsils removed 2007 cyst removal on foot 2013 two wrist surgeries 2007 2011 2015 2017
--- OUTSIDE RECORDS SUMMARY | 2025-05-09 01:38 | XMS_ITS | Clinical Summary ---
Author Organization [employer] [address] Address [address] [place] [address] Phone Care Team Providers Care Exec. Creative Director Name Role Phone Delio Joy MD Primary Care Provider [phone] Allergies Active Allergy Reactions Criticality Noted Date [...] Encounters Date Type Department Care Team Description 04/13/2025 External Device Data [facility] Provider, Abstract 04/12/2025 External Device Data [facility] Provider, Abstract 03/30/2025 External Device Data [facility] Provider, Abstract 03/29/2025 External Device Data [facility] Provider, Abstract 03/16/2025 Telephone [facility]ology - [place] [address] [place] [address] Jimmie Mooney MD Lab Results 03/09/2025 [...] on file Legal Sex Female 3:47 AM 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 BINDER Gender Identity Not on file Sexual Orientation [...] Care Team (Late st Contact Info) Description 05/09/2025 3:30 PM CDT Office Visit [facility] On[facility] and Hematology - [place] [address] [facility] [address] [place] [address] Jimmie Mooney MD [address] [facility] [place] [address] Health Maintenance Due Date Last Done Comments Pre-Diabetes and Diabetes Screening 1987 DTAP/TDAP/TD VACCINES (1 - Tdap) 12/28/2006 HEPATITIS B VACCINES (1 of 3 - 19+ 3-dose series) 01/2007 HPV/Cotest (21-29) 12/28/2008 HPV VACCINES (1 - 3-dose SCDM series) 12/28/2014 CERVICAL CANCER SCREENING 12/28/2017 HPV/Cotest (30-65) 12/28/2017 PAP SMEAR 12/28/2017 INFLUENZA VACCINE (#1) 2025 Insurance [facility]ICE [id number] Care Teams Exec. Creative Director Relationship Specialty Start Date End Date Delio Joy MD [address] [place] [address] PCP - General Family Practice 03/28/11
--- OUTSIDE RECORDS SUMMARY | 2025-05-09 01:38 | XMS_ITS | Clinical Summary ---
Author Organization [facility] Address [address] [place] [address] Care Team Providers Care Linderman Operator Name Role Phone Unavailable Primary Care [...] HPV 12/28/2017 COVID-19 Vaccine (2023-2 5 season) 2025 Meningococcal B Vaccine Aged Out No l [...]
--- OUTSIDE RECORDS SUMMARY | 2025-05-09 01:38 | XMS_ITS | Clinical Summary ---
Author Organization [facility] Address [address] [place] [address] Care Team Providers Care Yarding And Folding Machine Operator Name Role Phone Delio Joy MD Unavailable [phone] Delio Joy MD Primary Care Provider [phone] Allergies Active Allergy Reactions Criticality Noted Date [...] ORAL)Indication s:supplement Take 1 tablet by mouth cycle liaison before breakfast OTC Active cyclobenzaprine (FLEXERIL) 5 [...] 1 tablet (20 mg total) by mouth cycle liaison before breakfast 4 Active meloxicam (MOBIC) 7.5 mg tabletIndicatio ns:Osteoarthrit is Take 1 tablet (7.5 mg total) by mouth cycle liaison before breakfast 4 Active omeprazole (PriLOSEC) 40 mg capsuleIndicati ons:Treatment of Non-Bleeding Gastric Disorder Take 1 capsule (40 mg total) by mouth cycle liaison before breakfast 4 Active predniSONE (DELTASONE) 5 mg tabletIndicatio ns:autoimmune disease Take 1 tablet (5 mg) by mouth cycle liaison before breakfast 4 Active Zepbound 2.5 mg/0.5 [...] of her heart. We will place a [employer] continuous ECG monitor on today. Surgical History Surgery Date Site/Laterality Comments TONSILLECTOMY 08/25/2008 - 08/24/2009 Tonsillectomy SECTION 4 WRIST SURGERY 08/25/2011 - 08/24/2012 Bilateral Tendonitis CYST REMOVAL 08/25/2008 - 08/24/2009 Right foot-big toe OTHER SURGICAL HISTORY 08/25/2023 - 08/24/2024 INVESTIGATOR INTERNAL REVENUE-fibroid scope Medical History Medical History Date Comments [...] file Legal Sex Female 3:27 AM DIRECTOR SECURITY RISK MANAGEMENT Gender Identity Not on file Sexual Orientation Not on file Obstetrics History Last Filed Vital Signs Vital Sign Reading Time Taken Comments Blood Pressure 146/91 08/10/2024 4:30 PM DIRECTOR SECURITY RISK MANAGEMENT Pulse 72 08/10/2024 4:30 PM DIRECTOR SECURITY RISK MANAGEMENT Temperature 36.2 C (97.2 F) 08/10/2024 11:40 AM DIRECTOR SECURITY RISK MANAGEMENT Respiratory Rate 18 08/10/2024 4:30 PM DIRECTOR SECURITY RISK MANAGEMENT Oxygen Saturation 99% 08/10/2024 4:30 PM DIRECTOR SECURITY RISK MANAGEMENT Inhaled Oxygen Concentration - - Weight 92.7 kg (204 lb 6.4 oz) 08/26/2024 9:03 A M DIRECTOR SECURITY RISK MANAGEMENT Height 154.9 cm (5' 1) 08/10/2024 11:48 AM DIRECTOR SECURITY RISK MANAGEMENT Body Mass Index 38.62 08/10/2024 11:48 AM DIRECTOR SECURITY RISK MANAGEMENT Plan of Treatment Health Maintenance Due Date Last Done Comments Cervical Cancer Screening 1987 Hepatitis C Screening 1987 DTaP/Tdap/Td Vaccine (1 - Tdap) 12/28/1998 Varicella Vaccines (1 of 2 - 13+ 2-dose series) 12/28/2000 Hepatitis B Screening 12/28/2005 Regular Well Visit/Exam 18-64 12/28/2005 HPV Vaccines (1 - 3-dose SCD M series) 12/28/2014 Depression Screening 01/01/2020 12/31/2018 Covid-19 Vaccine (2 - 2024-2 6 season) 2025 05/28/2021 Influenza Vaccine (#1) 2025 Pneumococcal vaccine <65 Aged Out No longer eligible based on patient's age to complete this topic Insurance [facility] [place] [address] [facility] OPEN ACCESS [facility] Care Teams Yarding And Folding Machine Operator Relationship Specialty Start Date End Date Delio Joy MD PCP - General Family Medicine 04/27/21 Delio Joy MD 06/06/17
--- NOTE | 2025-05-09 07:29 | WPDHPUPDATE1 ---
History and Physical Update Update Date/Time: 05/09/25 07:29 History and Physical has been reviewed, including an updated exam of the patient. There are NO changes in the patient's condition. Risks, benefits, and alternatives have been discussed and questions answered. Patient agrees to proceed with procedure.
--- NOTE | 2025-05-09 07:30 | PM.HPGS ---
History of Present Illness History of Present Illness Consent: Risks, benefits, and alternatives have been discussed and questions answered. Patient agrees to proceed with procedure. Chief complaint: menorrhagia Narrative: Rama Nair is a 39 year old female with heavy cycles despite Lysteda use. It was recommended to undergo D&C hysteroscopy for further evaluation. Risks of infection, bleeding, perforation, and possible pathology are reviewed. Patient voices understanding and agrees to proceed. Review of Systems Review of Systems: not repeated day of surgery; patient states no changes in status PMFSH Past Medical History Medical History (Updated 05/09/25 @ 07:32 by Kait Oneal MD) Thyroid nodule Breast mass in female Tachycardia Weight loss depression Fibromyalgia Interstitial cystitis Anxiety Hypothyroid Surgical History Surgical History History of cervical discectomy History of fusion of cervical spine History of surgery on wrist bilateral History of tonsillectomy History of bilateral tubal ligation 2018 with last section History of x4 Family History Family History Father Hypertension Alcoholism Asthma Mother Hypertension Sibling Thyroid activity decreased Asthma Grandparent Cancer Heart disease Grandparent Diabetes mellitus Cancer Other Family history of coronary artery disease Social History Social History (Updated 03/08/25 @ 09:30 by Kristina Garcia [facility]) Years smoked: 5 Smoking status: Former smoker Second hand tobacco smoke exposure: No Smoking end date: 08/25/06 Alcohol intake: current Alcohol use details: VERY RARE Substance use: never Substance use type: does not use Do You Feel Safe in your Home?: Yes Lack of Transportation: No Lack of Food: Never True Current Housing: I Have Housing Concerned About Future Housing: No Difficulty Paying Gas/Electric Bills: No Difficulty Paying for Meds: No Currently Unemployed: No Education: Trade/Vocational Certificate Difficulty w/ Childcare or Family Care: No Living arrangements: with family Occupation/Education: occupation 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 Gender identity (if verbalized by the patient): Female Spiritual care concerns: No Meds Home Medications and Allergies Home Medications ?Medication ?Instructions ?Recorded ?Confirmed ?Type tranexamic acid 650 mg tablet 650 mg PO DAILY PRN Menstrul cycle 03/10/24 05/03/25 History omeprazole 40 mg capsule,delayed 40 mg PO DAILY laryngopharyngeal 05/03/24 05/03/25 Rx release reflux #30 caps prednisolone 5 mg tablet 5 mg PO DAILY 09/07/24 05/03/25 History cyanocobalamin (vitamin B-12) 1,000 mcg IM WEEKLY 09/17/24 05/03/25 History 1,000 mcg/mL injection solution ferrous sulfate 325 mg (65 mg 325 mg PO DAILY 09/17/24 05/03/25 History iron) tablet (iron) levothyroxine 50 mcg tablet 50 mcg PO DAILY 09/17/24 05/03/25 History (Unithroid) metoprolol succinate 25 mg 25 mg PO DAILY 09/17/24 05/03/25 History tablet,extended release 24 hr hydroxychloroquine 200 mg tablet 200 mg PO BID 10/28/24 05/03/25 History (Plaquenil) cyclobenzaprine 10 mg tablet 10 mg PO TID PRN Muscle Spasms 10 01/26/25 05/03/25 Rx days #30 tabs golimumab 12.5 mg/mL intravenous IV 03/08/25 History solution (Simponi ARIA) lisinopril 20 mg tablet 20 mg PO DAILY #30 tabs 04/03/25 05/03/25 Rx tirzepatide (weight loss) 7.5 7.5 mg (0.5 mL) subcut WEEKLY #2 mL 04/26/25 05/03/25 Rx mg/0.5 mL subcutaneous pen injector (Zepbound) diclofenac sodium 75 mg 75 mg PO BID 05/03/25 05/03/25 History tablet,delayed release meloxicam 7.5 mg tablet 7.5 mg PO DAILY 05/03/25 05/03/25 History Allergies Allergy/AdvReac Type Severity Reaction Status Date / Time ondansetron (From Zofran) AdvReac Intermediate Panic Verified 05/03/25 12:57 attack Exam Const: General: healthy appearing and alert Orientation/consciousness: patient oriented x3 Resp: Effort & Inspection: normal respiratory effort : External Female Exam: normal external appearance Speculum Exam - Vagina: normal appearance of the vagina and normal vaginal discharge Speculum Exam - Cervix: normal appearance of the cervix Bimanual exam- vagina & uterus: uterine size normal and consistency normal Bimanual Exam- Adnexa, other: normal adnexae and No adnexal tenderness Neuro: General: patient oriented x3 Assessment and Plan Assessment and plan (1) Menorrhagia: Code(s): N92.0 - Excessive and frequent menstruation with regular cycle Status: Acute Assessment and Plan: Plan to proceed with D&C hysteroscopy
--- NOTE | 2025-05-09 12:14 | WPDANESEPPF ---
Anes - Initial Pre Proc Eval Procedure: Operation Date: 05/09/25 13:15 Proposed Procedures p Hysteroscopy Dilation and Curettage - Kait Oneal MD Date/Time: 05/09/25 12:14 Surgeon: Kait Oneal MD Pre Op Diagnosis: menorrhagia Patient Data Age: 39 Gender: F Height: 1.55 m Weight: 91.17 kg Allergies Allergy/AdvReac Type Severity Reaction Status Date / Time ondansetron (From Zofran) AdvReac Intermediate Panic Verified 05/03/25 12:57 attack Home Medications ?Medication ?Instructions ?Recorded ?Confirmed ?Type tranexamic acid 650 mg tablet 650 mg PO DAILY PRN Menstrul cycle 03/10/24 05/03/25 History omeprazole 40 mg capsule,delayed 40 mg PO DAILY laryngopharyngeal 05/03/24 05/03/25 Rx release reflux #30 caps prednisolone 5 mg tablet 5 mg PO DAILY 09/07/24 05/03/25 History cyanocobalamin (vitamin B-12) 1,000 mcg IM WEEKLY 09/17/24 05/03/25 History 1,000 mcg/mL injection solution ferrous sulfate 325 mg (65 mg 325 mg PO DAILY 09/17/24 05/03/25 History iron) tablet (iron) levothyroxine 50 mcg tablet 50 mcg PO DAILY 09/17/24 05/03/25 History (Unithroid) metoprolol succinate 25 mg 25 mg PO DAILY 09/17/24 05/03/25 History tablet,extended release 24 hr hydroxychloroquine 200 mg tablet 200 mg PO BID 10/28/24 05/03/25 History (Plaquenil) cyclobenzaprine 10 mg tablet 10 mg PO TID PRN Muscle Spasms 10 01/26/25 05/03/25 Rx days #30 tabs golimumab 12.5 mg/mL intravenous IV 03/08/25 History solution (Simponi ARIA) lisinopril 20 mg tablet 20 mg PO DAILY #30 tabs 04/03/25 05/03/25 Rx tirzepatide (weight loss) 7.5 7.5 mg (0.5 mL) subcut WEEKLY #2 mL 04/26/25 05/03/25 Rx mg/0.5 mL subcutaneous pen injector (Zepbound) diclofenac sodium 75 mg 75 mg PO BID 05/03/25 05/03/25 History tablet,delayed release meloxicam 7.5 mg tablet 7.5 mg PO DAILY 05/03/25 05/03/25 History Patient hx anesthesia problems: none Family hx anesthesia problems: none Results Review: All pre-operative results and documents have been reviewed as part of the pre-operative evaluation. [facility] Past Medical History Medical History Thyroid nodule Breast mass in female Tachycardia Weight loss depression Fibromyalgia Interstitial cystitis Anxiety Hypothyroid Surgical History Surgical History History of cervical discectomy History of fusion of cervical spine History of surgery on wrist bilateral History of tonsillectomy History of bilateral tubal ligation 2018 with last section History of x4 Family History Family History Father Hypertension Alcoholism Asthma Mother Hypertension Sibling Thyroid activity decreased Asthma Grandparent Cancer Heart disease Grandparent Diabetes mellitus Cancer Other Family history of coronary artery disease Social History Social History Years smoked: 5 Smoking status: Former smoker Second hand tobacco smoke exposure: No Smoking end date: 08/25/06 Alcohol intake: current Alcohol use details: VERY RARE Substance use: never Substance use type: does not use Do You Feel Safe in your Home?: Yes Lack of Transportation: No Lack of Food: Never True Current Housing: I Have Housing Concerned About Future Housing: No Difficulty Paying Gas/Electric Bills: No Difficulty Paying for Meds: No Currently Unemployed: No Education: Trade/Vocational Certificate Difficulty w/ Childcare or Family Care: No Living arrangements: with family Occupation/Education: occupation 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 Gender identity (if verbalized by the patient): Female Spiritual care concerns: No Anes - Eval Final PreProcedure Day of Procedure 05/09/25 12:14 Patient weight: obese Heart: regular rate and rhythm Lungs: clear to auscultation Airway: Mallampati scale class II and special considerations poor extension Neurological: alert and oriented Last oral intake: >/= 8 hours ASA classification: III Emergent: no Anesthetic plan: proceed Anesthesia type and monitoring: general GIVS and standard monitoring Results Review: All pre-operative results and documents have been reviewed as part of the pre-operative evaluation. Informed Consent: The patient's anesthetic plan and its attendant risks and benefits were discussed with the patient/family/POA. Questions were solicited and answers provided to the satisfaction of the patient/family/POA.
[2025-05-09] MEDS: ACETAMINOPHEN 500 MG TABLET 1000 MG PO (12:40)
[2025-05-09] MEDS: LACTATED RINGERS 1,000 ML 30 ML IV CONT (12:49)
[2025-05-09 12:52] VITALS: BP 125/85; PULSE 75; RESP 16; TEMP 36.9; O2SAT 100
[2025-05-09 13:01] LABS: BEDSIDEPREGUCG Negative (Negative)
[2025-05-09] MEDS: KETOROLAC 30 MG/ML VIAL (*BKC) IV PUSH (13:14)
--- NOTE | 2025-05-09 13:19 | W.PM.PROC2 ---
Procedure Note - Detailed Date of Procedure 05/09/25 Pre-op Diagnosis menorrhagia Post-op Diagnosis Same Procedure Performed D&C hysteroscopy Surgeon Kait Oneal MD Anesthesia MAC Findings The cervix is very anterior. Uterus is anteverted sounds to 10cm. Endometrium appears grossly normal. Description of Procedure The patient is taken to the operating room and placed under anesthesia dorsal lithotomy position. She was prepped and draped in the usual sterile fashion. [place] speculum was placed in the vagina and the cervix is not visible. The cervix was pulled very anterior. The posterior tip the cervix was visible after much manipulation in this was grasped with tenaculum. The cervix was then able to be pulled down into cervix and the anterior lip of the cervix grasped with tenaculum. The uterus is sounded aiming anterior the angles approximately 75?. The uterus sounds to 10cm. The hysteroscope was then placed and following the same angle and hydro dissection the endometrial cavity is entered. No gross abnormalities were noted. The hysteroscope was removed. The sharp curette was used to curette the endometrium until a good uterine cry was noted in all areas. All instruments were then removed. The sponge, needle, and instrument counts are correct per the OR staff. The patient was awakened from anesthesia and taken to recovery in stable condition. Estimated Blood Loss 5 Drains No Packing No Pathology Yes (Endometrial curettings) Complications No immediate complications Condition Stable Disposition PACU
[2025-05-09 13:23] VITALS: BP 118/69; PULSE 73; RESP 14; O2SAT 100
[2025-05-09 13:50] VITALS: BP 115/69; PULSE 74
[2025-05-09 14:15] VITALS: BP 116/74; PULSE 65
--- NOTE | 2025-05-09 14:23 | S_PTH ---
PATIENT: Rama Nair LOC: [facility] U#:[id number] AGE/SX: 39/F ROOM: RE05/09/[address]: Kait Oneal MD : 1985 BED: DIS: 05/09/2025 SPEC #: [id number] RECD: 05/09/25 14:25 STATUS: ELLIS RE #: [id number] SANTANA: 05/09/25 14:[address]: Kait Oneal DEPT: [facility] Surgical RECD BY: Nidia Rodas ENTERED: 05/09/25 14:25 SP TYPE: Surgical OTHR DR: Delio Joy MD Tissues: A - Endometrial Curettings Procedures: Hematoxylin and Eosin Stain Gross and Microscopic Level 4
== END 2025-05-09 14:25 | disposition home or self-care (01) ==
PROVIDERS: PCP Family Medicine; Visit Provider Obstetrics & Gynecology Gynecology
PROC: 0U5B8ZZ Destruction of Endometrium, Via Natural or Artificial Opening Endoscopic (ICD-10-PCS; CPT 58563; principal; 2025-05-09 13:15)
DX: N85.8 Other specified noninflammatory disorders of uterus (principal); E03.9 Hypothyroidism, unspecified; F41.9 Anxiety disorder, unspecified; M79.7 Fibromyalgia; R00.0 Tachycardia, unspecified; E66.9 Obesity, unspecified; Z68.39 Body mass index [BMI] 39.0-39.9, adult; Z79.52 Long term (current) use of systemic steroids; Z79.620 Long term (current) use of immunosuppressive biologic; Z79.85 Long-term (current) use of injectable non-insulin antidiabetic drugs; Z98.890 Other specified postprocedural states; Z98.1 Arthrodesis status; Z98.51 Tubal ligation status; Z87.891 Personal history of nicotine dependence; Z80.9 Family history of malignant neoplasm, unspecified; Z82.49 Family history of ischemic heart disease and other diseases of the circulatory system
CPT/HCPCS: 58558; 88305; A9270; J1100; J1885; J2003; J2250; J2704; J3010; J7120

== ENCOUNTER 2025-05-26 15:45 | Outpatient (RCR) | payer OTHER, SELFPAY ==
--- NOTE | 2025-03-30 16:50 | OPREHPOC ---
Outpatient Therapy Plan of Care This is a Multidisciplinary Plan of Care that may contain components documented by all disciplines (PT, OT, and ST.) PT Problem 1 PT Problem #1 Knowledge Deficit PT Goal 1 Goal / Goal Update Patient to demonstrate independence with HEP for improved self-reliance of symptom management. Target Visit 4 PT Problem 2 PT Problem #2 Pain PT Goal 1 Goal / Goal Update 1. Patient to decrease subjective reports of neck pain to <4/10 for improved ADL tolerance. 2. Patient to report 50% improvement in quantity and quality of sleep with minimal pain disruptions . 3. Patient to report an improvement in KO symptoms by 50% to increase ability to perform ADLs. Target Visit 8 PT Problem 3 PT Problem #3 Impaired Strength PT Goal 1 Goal / Goal Update Patient to demonstrate Akira shoulder flexion and abduction strength >=4+/5 for improved stabilization and posture. Target Visit 8 PT Problem 4 PT Problem #4 Impaired Range of Motion PT Goal 1 Goal / Goal Update Patient to demonstrate an increase of cervical ext AROM with minimal c/o pain to improve the ability to drink from a cup.
--- NOTE | 2025-03-30 16:50 | PTOPEVAL1 ---
Assessment and note entered by Jaclyn Otoole, PT Evaluation Information Assessment Status Evaluation ICD-10 Condition Codes (PT) Cervicalgia M54.2,Encounter for other orthopedic aftercare Z47.89 Onset 01/25/25 Subjective Information Pt presents s/p C5-6 and C6-7 complete discectomy and bilateral neural foraminotomy an fusion on 01/25. Pt reports no complications with surgery. Pt had surgery due to neck and upper body discomfort. She reports her UE symptoms have gotten better and her neck was doing well. However, she had an incident post op that her child jolted her and now her neck is hurting more. She is very eager to get back to ADLS and IADLS. She did go back to work last week and this has been increasing her pain. Pt is currently sleeping in bed with sleep disrupted by 50% due to the neck. 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 She has also been experiencing vertigo since her surgery as well. Reported Pain Level Pain Score 2: Self Report Assessment PT Clinical Summary Pt is a 39 year old female who presents to physical therapy s/p C5-6 and C6-7 discectomy and foraminotomy and fusion on 01/25/25. Pt demonstrates weakness, pain, decreased mobility, abnormal posture, and decreased flexibility that limit their ability to perform ADLs. Pt is also reporting episodes of vertigo with onset after her neck surgery. Pt may benefit form vestibular evaluation. Pt will benefit from skilled physical therapy to address the above listed deficits and return to PLOF. HEP instructed and written handout provided, EX tolerated well with no adverse effects to note post-session. Pt was educated on importance of adherence to HEP. Pt was also educated on anatomy, prognosis, home modalities, and PT POC. Plan of Care Interventions Hot Pack/Cold Pack,Manual Therapy,Neuro Re- education,Patient/Caregiver Education,Therapeutic Activities,Therapeutic Exercise,Self-Care/Home Management PT Services Indicated Yes Treatment Frequency and 1-2x/wk for 8 sessions Duration These treatments will address the objective and functional deficits as defined above. The patient will be advanced safely and appropriately in order for the patient to progress towards his/her prior level of function. Additional exercises will be introduced and as well as a comprehensive home exercise program upon discharge, if needed, ?to ensure carryover of functional gains achieved in the clinic. This treatment plan has been reviewed and agreement upon by the patient.
--- NOTE | 2025-04-13 17:17 | PCPTNOTE ---
Patient called & cancelled scheduled appointment this date due to being sick.
--- NOTE | 2025-04-27 16:04 | PCPTNOTE ---
pt used online system to cancel session at appt time, no reason provided
--- NOTE | 2025-05-02 16:42 | PCPTNOTE ---
attempted to contact MD office, office was closed and no VM option. Will attempt at a later date. Holding PT, see progress note.
--- NOTE | 2025-05-02 16:43 | PTOPPROG ---
Assessment and note entered by Jaclyn Otoole, PT Evaluation Information Assessment Status Progress ICD-10 Condition Codes (PT) Cervicalgia M54.2,Encounter for other orthopedic aftercare Z47.89 Onset 01/25/25 Subjective Information Pt reports vertigo symptoms persist after her surgery, she is going to see her neurosurgeon in May and will mention this. She reports her sleep is still disrupted by at least 50%, can't get comfortable to fall asleep. She is having a hard time rolling side<>side and can only lay down for about an hour. She reports her KO's are still more frequent after surgery but might not be as severe. She gets nauseous easy and will have instances of this due to the HAs. She thinks her sitting tolerance at her desk has improved slightly since starting PT. She feels restricted with driving and has to turn her whole upper body still. She feels comfortable with her current exercises. Assessment PT Clinical Summary Pt presents to her re-evaluation this date with evolving signs and symptoms following her cervical fusion. She has continued complaints of HAs, worsening sleep tolerance, persisting vertigo symptoms, progressing L UE numbness, decreased UE strength, and minimal changes in cervical ROM. Due to evolving presentation this date, holding PT until pt is evaluated by neurosurgeon. Plan of Care Interventions Hot Pack/Cold Pack,Manual Therapy,Neuro Re- education,Patient/Caregiver Education,Therapeutic Activities,Therapeutic Exercise,Self-Care/Home Management PT Services Indicated Yes Treatment Frequency and hold Duration These treatments will address the objective and functional deficits as defined above. The patient will be advanced safely and appropriately in order for the patient to progress towards his/her prior level of function. Additional exercises will be introduced and as well as a comprehensive home exercise program upon discharge, if needed, ?to ensure carryover of functional gains achieved in the clinic. This treatment plan has been reviewed and agreement upon by the patient.
--- NOTE | 2025-05-02 16:44 | OPREHPOC ---
Outpatient Therapy Plan of Care This is a Multidisciplinary Plan of Care that may contain components documented by all disciplines (PT, OT, and ST.) PT Problem 1 PT Problem #1 Knowledge Deficit PT Goal 1 Goal / Goal Update Patient to demonstrate independence with HEP for improved self-reliance of symptom management. Target Visit 4 Progress Met PT Problem 2 PT Problem #2 Pain PT Goal 1 Goal / Goal Update 1. Patient to decrease subjective reports of neck pain to <4/10 for improved ADL tolerance. 2. Patient to report 50% improvement in quantity and quality of sleep with minimal pain disruptions . 3. Patient to report an improvement in KO symptoms by 50% to increase ability to perform ADLs. 05/02/25 1. pain 8/10 at worst 2. worsening tolerance 3. same frequency, slight improvement in severity Target Visit 8 Progress Partially Met PT Problem 3 PT Problem #3 Impaired Strength PT Goal 1 Goal / Goal Update Patient to demonstrate Akira shoulder flexion and abduction strength >=4+/5 for improved stabilization and posture. 05/02/25 1. Flexion; R: 4+/5 (pain at EOP) L: 4-/5 (pain at EOP) Abduction; R: 4+/5 L: 4/5 Target Visit 8 Progress Not Met PT Problem 4 PT Problem #4 Impaired Range of Motion PT Goal 1 Goal / Goal Update Patient to demonstrate an increase of cervical ext AROM with minimal c/o pain to improve the ability to drink from a cup. 05/02/25 decreased form 35 deg to 32 deg with pain Target Visit 8 Progress Not Met
--- NOTE | 2025-05-03 08:24 | PCPTNOTE ---
left VM asking to speak with Dr. Christiansen about pt presentation during progress note
--- NOTE | 2025-05-04 10:05 | PCPTNOTE ---
received message back from Dr. Christiansen office that he does not believe the pt's current sxs are related to her surgery and to continue PT
--- NOTE | 2025-05-04 12:51 | PCPTNOTE ---
Informed pt via phone call about message from Dr. Christiansen instructing he thinks her current sxs are not related to her surgery and to continue PT. Pt expressed concern but is willing to continue therapy until she can contact the MD office herself or be seen for her scheduled appt on 05/31.
--- NOTE | 2025-05-26 16:35 | PCPTNOTE ---
pt has not been here since May 02; dr gave verbal consent to continue therapy; plan of care updated.
--- NOTE | 2025-05-26 16:37 | OPREHPOC ---
Outpatient Therapy Plan of Care This is a Multidisciplinary Plan of Care that may contain components documented by all disciplines (PT, OT, and ST.) PT Problem 1 PT Problem #1 Knowledge Deficit PT Goal 1 Goal / Goal Update Patient to demonstrate independence with HEP for improved self-reliance of symptom management. -------- 05-26-25 continue towards goals Target Visit 14 Progress Met PT Problem 2 PT Problem #2 Pain PT Goal 1 Goal / Goal Update 1. Patient to decrease subjective reports of neck pain to <4/10 for improved ADL tolerance. 2. Patient to report 50% improvement in quantity and quality of sleep with minimal pain disruptions . 3. Patient to report an improvement in KO symptoms by 50% to increase ability to perform ADLs. 05/02/25 1. pain 8/10 at worst 2. worsening tolerance 3. same frequency, slight improvement in severity ------- 05-26-25 continue towards goals Target Visit 14 Progress Partially Met PT Problem 3 PT Problem #3 Impaired Strength PT Goal 1 Goal / Goal Update Patient to demonstrate Akira shoulder flexion and abduction strength >=4+/5 for improved stabilization and posture. 05/02/25 1. Flexion; R: 4+/5 (pain at EOP) L: 4-/5 (pain at EOP) Abduction; R: 4+/5 L: 4/5 05-26-25 --------- continue towards goals Target Visit 14 Progress Not Met PT Problem 4 PT Problem #4 Impaired Range of Motion PT Goal 1 Goal / Goal Update Patient to demonstrate an increase of cervical ext AROM with minimal c/o pain to improve the ability to drink from a cup. 05/02/25 decreased form 35 deg to 32 deg with pain 05-26-25 continue towards goals Target Visit 14 Progress Not Met
--- NOTE | 2025-06-02 17:14 | PCPTNOTE ---
Pt no call/no showed her appointment today.
--- NOTE | 2025-07-27 16:03 | PTOPDC ---
Assessment and note entered by Phuong Denise DPT Evaluation Information Assessment Status Discharge - Pt Not Present ICD-10 Condition Codes (PT) Cervicalgia M54.2,Encounter for other orthopedic aftercare Z47.89 Onset 01/25/25 Subjective Information - Assessment PT Clinical Summary The patient has not attended therapy since 05/02/25. Her case will be discharged. Plan of Care PT Services Indicated No
== END 2025-06-28 23:59 | disposition home or self-care (01) ==
LOC: ANHPT 15:45
PROVIDERS: PCP Family Medicine; Visit Provider Neurological Surgery
DX: Z98.1 Arthrodesis status (principal)
CPT/HCPCS: 97014; 97110; 97140; 97161; 97530; G0283

== ENCOUNTER 2025-06-09 15:51 | Outpatient (CLI) | payer OTHER, SELFPAY ==
--- NOTE | ~2025-06-09 | CT_ITS ---
CT cervical spine wo con HISTORY: Arthrodesis status, bilateral neck pain COMPARISON: None TECHNIQUE: Axial images of the cervical spine were obtained. Multiplanar reconstruction in the coronal, sagittal and axial reformats to evaluate for cervical fracture. FINDINGS: The images demonstrate no acute fracture or paravertebral soft tissue swelling. Anterior cervical disc fusion spanning C5-C7. Components are well seated. No recurrent disc seen. Is mild disc bulging and C4-C5. The visualized aspect of the upper lungs are clear. IMPRESSION: ACDF spanning C5 C7 with no recurrent disc seen. Components are well seated. All CT scans at this facility are performed using low dose modulation techniques as appropriate to perform exam including the following: automated exposure control; adjustment of the mA and/or kV according to patient size (this includes techniques or standardized protocols for targeted exams where does is matched to indication/reason for exam; i.e. extremities or head); use of iterative reconstruction technique). Reviewed, dictated and finalized at location S. IMPRESSION: ACDF spanning C5 C7 with no recurrent disc seen. Components are well seated. All CT scans at this facility are performed using low dose modulation techniqu es as appropriate to perform exam including the following: automated exposure c ontrol; adjustment of the mA and/or kV according to patient size (this includes techniques or standardized protocols for targeted exams where does is matched to indication/reason for exam; i.e. extremities or head); use of iterative johnny nstruction technique).
== END 2025-06-09 15:52 | disposition home or self-care (01) ==
LOC: MICIMG 15:52
PROVIDERS: PCP Family Medicine; Visit Provider Neurological Surgery
DX: M50.20 Other cervical disc displacement, unspecified cervical region (principal); Z98.1 Arthrodesis status
CPT/HCPCS: 72125

== ENCOUNTER 2025-06-22 07:05 | Outpatient (CLI) | payer OTHER, SELFPAY ==
--- NOTE | ~2025-06-22 | MR_ITS ---
EXAMINATION: MR lumbar spine wo con DATE: 06/22/2025 07:36 INDICATION: Intervertebral disc disorders with radiculopathy. Chronic low back pain. TECHNIQUE: Magnetic resonance imaging (MRI) of the lumbar spine was performed without intravenous contrast. Sequences included sagittal T2-weighted FSE, sagittal T2-weighted FS FSE, sagittal T1-weighted FSE, and axial T2-weighted FSE. COMPARISON: Lumbar spine MRI 01/27/2024 FINDINGS: Alignment is normal. There is mild chronic anterior wedging of T12 vertebral body. Intervertebral disc heights are normal. The distal spinal cord signal intensity is normal. The conus medullaris is at L1-L2. The following disc levels are specifically discussed: L1-L2: The disc does not extend beyond the endplate margin. There is mild bilateral facet joint osteoarthritis. There is no neural foraminal stenosis. There is no central canal stenosis. L2-L3: The disc does not extend beyond the endplate margin. There is mild bilateral facet joint osteoarthritis. There is no neural foraminal stenosis. There is no central canal stenosis. L3-L4: The disc does not extend beyond the endplate margin. There is mild bilateral facet joint osteoarthritis. There is no neural foraminal stenosis. There is no central canal stenosis. L4-L5: The disc does not extend beyond the endplate margin. There is mild bilateral facet joint osteoarthritis. There is no neural foraminal stenosis. There is no central canal stenosis. L5-S1: There is a central protrusion with annular fissure. There is moderate bilateral facet joint osteoarthritis. There is no neural foraminal stenosis. There is mild central canal stenosis. IMPRESSION: 1. Mild lumbar spondylosis, stable from 01/27/2024. Reviewed, dictated and finalized at location E.
== END 2025-06-22 07:06 | disposition home or self-care (01) ==
LOC: MICIMG 07:06
PROVIDERS: PCP Family Medicine; Visit Provider Neurological Surgery
DX: M51.16 Intervertebral disc disorders with radiculopathy, lumbar region (principal); M47.896 Other spondylosis, lumbar region
CPT/HCPCS: 72148

== ENCOUNTER 2025-07-26 14:09 | Outpatient (CLI) | payer OTHER, SELFPAY ==
--- NOTE | ~2025-07-26 | CT_ITS ---
EXAMINATION: CT abdomen wo con DATE: 07/26/2025 14:24 INDICATION: Disorder of adrenal gland. TECHNIQUE: Computed tomography (CT) of the abdomen was performed without intravenous contrast. Automated exposure control and iterative reconstruction technique were employed. The dose-length product was 666.13 mGy-cm. COMPARISON: Lumbar spine MRI 01/27/2024. FINDINGS: The visualized portions of the lung bases demonstrate minimal atelectasis. No pleural effusion. The heart size is normal. No pericardial effusion. The liver is normal. There are gallstones in the gallbladder, which is contracted. The spleen, pancreas, and left adrenal gland are normal. There is a 10 mm mass in right adrenal gland measuring soft tissue attenuation. The kidneys are normal. There is no urolithiasis. There are no dilated loops of bowel. There are no pathologically enlarged lymph nodes. There is no free intraperitoneal fluid. There is an umbilical hernia containing fat. There is moderate thoracic spondylosis. IMPRESSION: 1. 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 Reviewed, dictated and finalized at location E. EN CENTER MANAGER
--- NOTE | ~2025-07-26 | US_ITS ---
US thyroid INDICATION: Nontoxic thyroid nodule TECHNIQUE: Real-time sonographic images of the thyroid gland were obtained. COMPARISON: Ultrasound dated 09/06/2024 FINDINGS: The right thyroid lobe is surgically absent. The left thyroid lobe measures 4.5 x 1.5 x 1.6 cm. There is heterogeneous echotexture and echogenicity throughout the left thyroid gland. No discrete nodules identified. Normal vascular flow is present. IMPRESSION: 1. Heterogeneous left thyroid gland without discrete mass. Status post right thyroidectomy. Reviewed, dictated and finalized at location I. HANDISING REPRESENTATIVE IMPRESSION: 1. Heterogeneous left thyroid gland without discrete mass. Status post right t hyroidectomy.
== END 2025-07-26 14:10 | disposition home or self-care (01) ==
PROVIDERS: PCP Family Medicine; Visit Provider Internal Medicine Endocrinology, Diabetes & Metabolism
DX: E27.9 Disorder of adrenal gland, unspecified (principal); E04.1 Nontoxic single thyroid nodule; D35.01 Benign neoplasm of right adrenal gland
CPT/HCPCS: 74150; 76536

== ENCOUNTER 2025-08-08 16:04 | Outpatient (CLI) | payer OTHER, SELFPAY ==
--- OUTSIDE RECORDS SUMMARY | 2024-07-10 15:00 | XMS_ITS ---
Author Organization [facility] Address [address], [place] [id number] Care Team Providers Care Public Health Inspector Name Role Phone Maki Enriquez Unavailable [phone] Migration, Provider Unavailable Unavailable REASON FOR VISIT Multum To Medispan Conversion Encounter Medications Medication SIG (Take, Route, Fr equency, Duration) Notes Start Date End Date Status Zepbound 2.5 MG/0.5ML Solution as directed subcutaneously once a week Active Tranexamic Acid 650 MG Tablet 2 tab(s) orally 3 times a day Active Omeprazole 40 MG Capsule Delayed Release 1 cap(s) orally once a day Active Meloxicam 7.5 MG Tablet 1 tab(s) orally once a day Active Lisinopril 20 MG Tablet 1 tab(s) orally once a day Active Encounters Encounter Location Date Provider Diagnosis [address] [id number] 07/10/2024 Provider Migration Plan Of Treatment Next Appt Details Provider Name:Maki Enriquez, 08:20:00 AM, [address] , [place], [address], Progress Notes * Bao HUYNHaDOB:1985 (39 yo F)Acc No.[id number]:07/10/2024 Patient: Rama Hermosillo Provider: Zaire daniels Migration :1985 A ge:38 Y S ex:Female Date:07/10/2024 Address: [place] [address] Subjective: * Chief Complaints: * M ultum To Medispan Conversion Encounter * Medications: T akingZepbound 2.5 MG/0.5ML Solution as directed subcutaneously once a week Tranexamic Acid 650 MG Tablet 2 tab(s) orally 3 times a day Omeprazole 40 MG Capsule Delayed Release 1 cap(s) orally once a day Meloxicam 7.5 MG Tablet 1 tab(s) orally once a day Lisinopril 20 MG Tablet 1 tab(s) orally once a day Taking Zepbound 2.5 MG/0.5ML Solution as directed subcutaneously once a week Taking Tranexamic Acid 650 MG Tablet 2 tab(s) orally 3 times a day Taking Omeprazole 40 MG Capsule Delayed Release 1 cap(s) orally once a day Taking Meloxicam 7.5 MG Tablet 1 tab(s) orally once a day Taking Lisinopril 20 MG Tablet 1 tab(s) orally once a day * Electronic signature of Prov ider Migration on 08/08/2025 at 06:09 PM TELEPHONE ANSWERER Sign off status: Pending * Provider: Zaire daniels Migration Date: 09/09/2023 Generated for Beckie peng/Lorie/Nishi on: 10/09/2024 06:09 PM TELEPHONE ANSWERER
[2025-08-08 16:51] LABS: Hematocrit 40.0 % (37.0-47.0); Hemoglobin 12.8 g/dL (12.0-15.0); Mean Corpuscular HGB Conc 32.0 g/dl (32-36); Mean Corpuscular Hemoglobin 26.9 pg (26-34); Mean Corpuscular Volume 84.2 fl (80-100); Platelet Count Result 368 k/mm3 (150-375); Red Blood Count 4.75 M/mm3 (4.2-5.4); White Blood Count 11.4 K/mm3 (4.5-10.0)
[2025-08-08 17:13] LABS: Iron 54 ug/dL (37-170)
[2025-08-08 17:22] LABS: Percent Iron Saturation 16 % (20-50)
[2025-08-08 17:54] LABS: Ferritin 37.00 ng/mL (6.24-137)
--- OUTSIDE RECORDS SUMMARY | 2025-08-08 18:09 | XMS_ITS | Clinical Summary ---
Author Organization [facility] Address [facility] [place] [address] Care Team Providers Care Recreation Aide Name Role Phone Unavailable Primary Care Provider [...] Cancer Screening with HPV 12/28/2017 COVID-19 Vaccine (2024-2 6 season) 2025 Influenza Adult (#1) 2025 Hepatitis A Vaccines Aged Out No long er eligible based [...]
--- OUTSIDE RECORDS SUMMARY | 2025-08-08 18:09 | XMS_ITS | Clinical Summary ---
Author Organization [facility] Address [address] [place] [address] Care Team Providers Care Logistics Management Specialist Name Role Phone Delio Joy MD Unavailable [phone] Delio Joy MD Primary Care Provider [phone] Allergies Active Allergy Reactions Criticality Noted Date [...] ORAL)Indication s:supplement Take 1 tablet by mouth brine room laborer before breakfast OTC Active cyclobenzaprine (FLEXERIL) 5 [...] 1 tablet (20 mg total) by mouth brine room laborer before breakfast 4 Active meloxicam (MOBIC) 7.5 mg tabletIndicatio ns:Osteoarthrit is Take 1 tablet (7.5 mg total) by mouth brine room laborer before breakfast 4 Active omeprazole (PriLOSEC) 40 mg capsuleIndicati ons:Treatment of Non-Bleeding Gastric Disorder Take 1 capsule (40 mg total) by mouth brine room laborer before breakfast 4 Active predniSONE (DELTASONE) 5 mg tabletIndicatio ns:autoimmune disease Take 1 tablet (5 mg) by mouth brine room laborer before breakfast 4 Active Zepbound 2.5 mg/0.5 [...] of her heart. We will place a [employer] continuous ECG monitor on today. 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 Medical History Medical History Date Comments Hx Other Medical chronic interst itial cystitis Depression Depression Hx Other Medical gestational adelfo betes Heart murmur Chest pain Hypertension Pre-Eclampsia du ring all 4 pregnancies and after last BP did not come down has stayed elevated Diabetes mellitus Gestational Shortness of breath Paroxysmal supraventricular tachycardia 04/27/20 [...] on file Legal Sex 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 Gender Identity Not on file Sexual Orientation Not on file Last Filed Vital Signs Vital Sign Reading Time Taken Comments Blood Pressure 146/91 08/10/2024 4:30 PM WOOD BLOCK ARTIST Pulse 72 08/10/2024 4:30 PM WOOD BLOCK ARTIST Temperature 36.2 C (97.2 F) 08/10/2024 11:40 AM WOOD BLOCK ARTIST Respiratory Rate 18 08/10/2024 4:30 PM WOOD BLOCK ARTIST Oxygen Saturation 99% 08/10/2024 4:30 PM WOOD BLOCK ARTIST Inhaled Oxygen Concentration - - Weight 92.7 kg (204 lb 6.4 oz) 08/26/2024 9:03 A M WOOD BLOCK ARTIST Height 154.9 cm (5' 1) 08/10/2024 11:48 AM WOOD BLOCK ARTIST Body Mass Index 38.62 08/10/2024 11:48 AM WOOD BLOCK ARTIST Plan of Treatment Health Maintenance Due Date [...] patient's age to complete this topic Insurance [facility] OPEN ACCESS [facility] Care Teams Logistics Management Specialist Relationship Specialty Start Date End Date Delio Joy MD PCP - General Family Medicine 04/27/21 Delio Joy MD 06/06/17
--- OUTSIDE RECORDS SUMMARY | 2025-08-08 18:09 | XMS_ITS | Patient Health Record ---
Author Organization [facility] Address [address] [place], [place] [id number] Care Team Providers Care Pulp Operator Name Role Phone Maki Enriquez [phone] Allergies No Known Allergies Results Component Value Reference Range Flag Notes .COMPREHENSIVE METABOLIC IFGUEROA EL (22781) CMP Reviewed date:06/22/2025 01:12:44 PM Interpretation: Performing Lab:[place], [facility]-[id number] Sara Joseph, LuyutcFI[address] PrettyAmber Huff MD Notes/Report: GLUCOSE 72 65-99 mg/dL N Fasting reference interval UREA NITROGEN (BUN) 9 7-25 mg/dL N CREATININE 0.54 0.50-0.97 mg/dL N EGFR 122 > OR = 60 mL/min/1.73m2 N BUN/CREATININE RATIO SEE NOTE: 6-22 (calc) Not Reported: BUN and Creatinine are within reference range. SODIUM 139 135-146 mmol/L N POTASSIUM 4.2 3.5-5.3 mmol/L N CHLORIDE 103 98-110 mmol/L N CARBON DIOXIDE 31 20-32 mmol/L N CALCIUM 9.2 8.6-10.2 mg/dL N PROTEIN, TOTAL 6.7 6.1-8.1 g/dL N ALBUMIN 4.5 3.6-5.1 g/dL N GLOBULIN 2.2 1.9-3.7 g/dL (calc) N ALBUMIN/GLOBULIN RATIO 2.0 1.0-2.5 (calc) N BILIRUBIN, TOTAL 0.4 0.2-1.2 mg/dL N ALKALINE PHOSPHATASE 41 31-125 U/L N AST 13 10-30 U/L N ALT 12 6-29 U/L N ACTH, PLASMA (211) Reviewed date:06/26/2025 11:08:33 AM Interpretation: Performing Lab:[facility]any DE LA ROSA/José Miguel [facility] [id number] Aminata Flores, FxrjuavmmKF[address] Rodney Flores M.D.,PhD Notes/Report: ACTH, PLASMA 8 6-50 pg/mL Reference range applies only to specimens collected between 7am-10am. CORTISOL, TOTAL (367) Reviewed date:06/26/2025 11:08:33 AM Interpretation: Performing Lab:Bethany WAGNER-Lpdzem04771 Sara Thompson, IcrhqwHV[address] Gen Huff MD Notes/Report: CORTISOL, TOTAL 1.1 L The Cortisol result may be decreased on average 10-20% relative to results previously obtained with this method due to a recent quality improvement made in March 2025 by the reagent production technician. Reference Range: For 8 a.m.(7-9 a.m.) Specimen: 4.0-22.0 Reference Range: For 4 p.m.(3-5 p.m.) Specimen: 3.0-17.0 * Please interpret above results accordingly * DEXAMETHASONE ([id number]) Reviewed date:07/09/2025 02:43:05 PM Interpretation: Performing Lab:Bethany GONZALEZ/José Miguel [facility],[address] [facility] HospitalCA[address] Tracy Escalante MD,PhD,LADONNA Notes/Report: DEXAMETHASONE 375 Reference Ranges for Dexamethasone: Baseline: Less than 20 ng/dL 1 mg dexamethasone overnight: 180-550 ng/dL (8:00-10:00 AM) This test was developed and its analytical performance characteristics have been determined by [facility] [employer] [facility]. It has not been cleared or approved by the FDA. This assay has been validated pursuant to the CLIA regulations and is used for clinical purposes. .CBC (INCLUDES DIFF/PLT) (63 99) Reviewed date:06/22/2025 01:12:44 PM Interpretation: Performing Lab:[facility] WAGNER-Zsyolv26686 Sara Thompson, EzbwawBS[address] Gen Huff MD Notes/Report: WHITE BLOOD CELL COUNT 8.1 3.8-10.8 Thousand/uL N RED BLOOD CELL COUNT 4.62 3.80-5.10 Million/uL N HEMOGLOBIN 12.0 11.7-15.5 g/dL N HEMATOCRIT 39.0 35.0-45.0 % N MCV 84.4 80.0-100.0 fL N MCH 26.0 27.0-33.0 pg L MCHC 30.8 32.0-36.0 g/dL L For adults, a slight decrease in the calculated MCHC value (in the range of 30 to 32 g/dL) is most likely not clinically significant; however, it should be interpreted with caution in correlation with other red cell parameters and the patient's clinical condition. RDW 15.3 11.0-15.0 % H PLATELET COUNT 325 140-400 Thousand/uL N MPV 12.0 7.5-12.5 fL N ABSOLUTE NEUTROPHILS 4560 5368-7115 cells/uL N ABSOLUTE LYMPHOCYTES 2730 850-3900 cells/uL N ABSOLUTE MONOCYTES 599 200-950 cells/uL N ABSOLUTE EOSINOPHILS 130 15-500 cells/uL N ABSOLUTE BASOPHILS 81 0-200 cells/uL N NEUTROPHILS 56.3 N LYMPHOCYTES 33.7 N MONOCYTES 7.4 N EOSINOPHILS 1.6 N BASOPHILS 1.0 N .HEMOGLOBIN A1c (496) Reviewed date:06/22/2025 01:12:44 PM Interpretation: Performing Lab:CINDY [facility] [id number] ZexvkltQX[address] [facility] Notes/Report: HEMOGLOBIN A1c 5.0 <5.7 % of total Hgb N For the purpose of screening for the presence of diabetes: <5.7% Consistent with the absence of diabetes 5.7-6.4% Consistent with increased risk for diabetes (prediabetes) > or =6.5% Consistent with diabetes This assay result is consistent with a decreased risk of diabetes. Currently, no consensus exists regarding use of hemoglobin A1c for diagnosis of diabetes in children. According to [place] Diabetes Association (ADA) guidelines, hemoglobin A1c <7.0% represents optimal control in non- diabetic patients. Different metrics may apply to specific patient populations. Standards of Medical Care in Diabetes(ADA). INSULIN (561) Reviewed date:06/22/2025 01:12:44 PM Interpretation: Performing Lab:BERNARD [facility]! Bel[facility]-Tenpir52646 Viv KeeneaKS[address] Gen Huff MD Notes/Report: INSULIN 6.6 N Reference Range < or = 18.4 Risk: Optimal < or = 18.4 Moderate NA High >18.4 Adult cardiovascular event risk category cut points (optimal, moderate, high) are based on Insulin Reference Interval studies performed at [facility] [facility] in 2021. PROGESTERONE (745) Reviewed date:06/22/2025 01:12:44 PM Interpretation: Performing Lab:Bethany WAGNER LenexaKS[address] Gen Huff MD Notes/Report: PROGESTERONE <0.5 N Reference Ranges Female Follicular Phase < 1.0 Luteal Phase 2.6-21.5 Post menopausal < 0.5 1st Trimester 4.1-34.0 2nd Trimester 24.0-76.0 3rd Trimester 52.0-302.0 DHEA SULFATE (402) Reviewed date:06/22/2025 01:12:44 PM Interpretation: Performing Lab:Bethany WAGNER LenexaKS[address] Gen Huff MD Notes/Report: DHEA SULFATE 58 19-237 mcg/dL N FSH (470) Reviewed date:06/22/2025 01:12:44 PM Interpretation: Performing Lab:Bethany WAGNER LenexaKS[address] Gen Huff MD Notes/Report: FSH 8.9 N Reference Range Follicular Phase 2.5-10.2 Mid-cycle Peak 3.1-17.7 Luteal Phase 1.5- 9.1 Postmenopausal 23.0-116.3 LH (615) Reviewed date:06/22/2025 01:12:44 PM Interpretation: Performing Lab:Bethany WAGNER LenexaKS[address] Gen Huff MD Notes/Report: LH 4.1 N Reference Range Follicular Phase 1.9-12.5 Mid-Cycle Peak 8.7-76.3 Luteal Phase 0.5-16.9 Postmenopausal 10.0-54.7 FERRITIN (457) Reviewed date:06/22/2025 01:12:44 PM Interpretation: Performing Lab:Bethany WAGNERadolph, PogsqoQP[address] Gen Huff MD Notes/Report: FERRITIN 129 16-154 ng/mL N .VITAMIN D,25-OH,TOTAL,IA (1 7306) Reviewed date:06/22/2025 01:12:44 PM Interpretation: Performing Lab:[place], [facility]-Shruxb41902 Sara Thompson, FcabgiXW[address] Gen Huff MD Notes/Report: VITAMIN D,25-OH,TOTAL,IA 27 30-100 ng/mL L Vitamin D Status 25-OH Vitamin D: Deficiency: <20 ng/mL Insufficiency: 20 - 29 ng/mL Optimal: > or = 30 ng/mL For 25-OH Vitamin D testing on patients on D2-supplementation and patients for whom quantitation of D2 and D3 fractions is required, the QuestAssureD(TM) 25-OH VIT D, (D2,D3), LC/MS/MS is recommended: order code 50368 (patients >2yrs). See Note 1 Note 1 For additional information, please refer to http://Ariagora/faq/JLW670 (This link is being provided for informational/ educational purposes only.) TESTOSTERONE, FREE (DIALYSIS ) AND TOTAL,MS (13583) Reviewed date:06/26/2025 11:08:33 AM Interpretation: Performing Lab:[facility]-[address]ne[address] [address], [address], BzgvmsisqwDO[address] Chandler Plaza MD,PhD Notes/Report: TESTOSTERONE, TOTAL, MS 18 2-45 ng/dL For additional information, please refer to https://GroundedPower.Indian Energy/faq/QKU706 (This link is being provided for informational/educational purposes only.) (Note) This test was developed and its analytical performance characteristics have been determined by [facility]. It has not been cleared or approved by the FDA. This assay has been validated pursuant to the CLIA regulations and is used for clinical purposes. TESTOSTERONE, FREE 1.3 0.1-6.4 pg/mL (Note) This test was developed and its analytical performance characteristics have been determined by [facility]. It has not been cleared or approved by the FDA. This assay has been validated pursuant to the CLIA regulations and is used for clinical purposes. [facility] med fusion [address] [address],[address] [place] [address] Chandler Plaza MD, PhD .LIPID PANEL, STANDARD (7600 ) Reviewed date:06/22/2025 01:12:44 PM Interpretation: Performing Lab:[facility]-Erqlhj50515 Sara Thompson, YiwuqhJS[address] Gen Huff MD Notes/Report: CHOLESTEROL, TOTAL 236 <200 mg/dL H HDL CHOLESTEROL 64 > OR = 50 mg/dL N TRIGLYCERIDES 176 <150 mg/dL H LDL-CHOLESTEROL 141 H Reference range: <100 Desirable range <100 mg/dL for primary prevention; <70 mg/dL for patients with CHD or diabetic patients with > or = 2 CHD risk factors. LDL-C is now calculated using the Cy-Charles calculation, which is a validated novel method providing better accuracy than the Friedewald equation in the estimation of LDL-C. Cy SS et al. SILVANO. 2013;310(19): 8382-8490 (http://education.PingTune/faq/IUQ795) CHOL/HDLC RATIO 3.7 <5.0 (calc) N NON HDL CHOLESTEROL 172 <130 mg/dL (calc) H For patients with diabetes plus 1 major ASCVD risk factor, treating to a non-HDL-C goal of <100 mg/dL (LDL-C of <70 mg/dL) is considered a therapeutic option. ESTRADIOL (4021) Reviewed date:06/22/2025 01:12:44 PM Interpretation: Performing Lab:[facility] Belen-Tnatja19339 Sara Thompson, VekrawMW[address] Gen Huff MD Notes/Report: ESTRADIOL 61 N Reference Range Female: Follicular Phase: 30-144 Mid-Cycle: 64-357 Luteal Phase: 56-214 Postmenopausal: < or = 31 Reference range established on post-pubertal patient population. No pre-pubertal reference range established using this assay. For any patients for whom low Estradiol levels are anticipated (e.g. males, pre-pubertal children and hypogonadal/post-menopausa l females), the [facility] [facility] Estradiol, Ultrasensitive, LCMSMS assay is recommended (order code 42042). Please note: patients being treated with the drug fulvestrant (Faslodex(R)) have demonstrated significant interference in immunoassay methods for estradiol measurement. The cross reactivity could lead to falsely elevated estradiol test results leading to an inappropriate clinical assessment of estrogen status. [facility] [employer] [facility] order code [id number]-Lxhessjyz, Ultrasensitive LC/MS/MS demonstrates negligible cross reactivity with fulvestrant. VITAMIN B12/FOLATE, SERUM PA BRADLEY (7762) Reviewed date:06/22/2025 01:12:44 PM Interpretation: Performing Lab:[facility]ARD [facility] Bel[facility]-Hzobwo46037 Sara Thompson, RyoehkMM[address] Gen Huff MD Notes/Report: VITAMIN B12 185 265-4742 pg/mL N Please Note: Although the reference range for vitamin B12 is 200-1100 pg/mL, it has been reported that between 5 and 10% of patients with values between 200 and 400 pg/mL may experience neuropsychiatric and hematologic abnormalities due to occult B12 deficiency; less than 1% of patients with values above 400 pg/mL will have symptoms. FOLATE, SERUM 10.4 N Reference Range Low: <3.4 Borderline: 3.4-5.4 Normal: >5.4 T4, FREE (866) Reviewed date:06/22/2025 01:12:44 PM Interpretation: Performing Lab:Bethany WAGNER-Ywsjkr57388 Sara Thompson, OrhjmfYB[address] Gen Huff MD Notes/Report: T4, FREE 1.1 0.8-1.8 ng/dL N TSH (899) Reviewed date:06/22/2025 01:12:44 PM Interpretation: Performing Lab:[facility]-Pxgydh30664 Sara Thompson, MgbjxrYN[address] Gen Huff MD Notes/Report: TSH 2.70 N Reference Range > or = 20 Years 0.40-4.50 Ranges First trimester 0.26-2.66 Second trimester 0.55-2.73 Third trimester 0.43-2.91 T3, FREE (98246) Reviewed date:06/22/2025 01:12:44 PM Interpretation: Performing Lab:BERNARD [facility]! Bel[facility]-Gynqir58016 Viv KeeneaKS[address] Gen Huff MD Notes/Report: T3, FREE 2.5 2.3-4.2 pg/mL N MAGNESIUM (622) Reviewed date:06/22/2025 01:12:44 PM Interpretation: Performing Lab:Bethany WAGNER-Qikalt67084 Dorcas Keene[address] Gen Huff MD Notes/Report: MAGNESIUM 2.1 1.5-2.5 mg/dL N IRON AND TOTAL IRON BINDING CAPACITY (7573) Reviewed date:06/22/2025 01:12:44 PM Interpretation: Performing Lab:Bethany WAGNER-Kwxozd62497 Dorcas Keene[address] Gen Huff MD Notes/Report: IRON, TOTAL 80 40-190 mcg/dL N IRON BINDING CAPACITY 345 250-450 mc g/dL (calc) N % SATURATION 23 16-45 % (calc) N Reason For Referral No Information Medications Medication SIG (Take, Route, Frequency, Duration) Notes Start Date End Date Status Unithroid 75 MCG Tablet 1 tablet in the morning on an empty stomach Orally Once a day; Duration: days 07/18/2025 Active Unithroid 75 MCG Tablet 1 tablet in the morning on an empty stomach Orally Once a day Active Vitamin D (Ergocalciferol) 1.25 MG (71836 UT) Capsule Take 1 capsule by mouth once a week; Duration: 84 Active BD Luer-Johnnie Syringe 25G X 5/8 3 ML Miscellaneous USE FOR SUBCUTANEOUS INJECTION WEEKLY.; Duration: 90 Active Liothyronine Sodium 5 MCG Tablet 1 tablet on an empty stomach Orally Once a day around noon; Duration: 90 days 07/18/2025 Active dexAMETHasone 1 MG Tablet 1 tablet Orall y at 10 pm night before 8 am cortisol; Duration: 06/20/2025 Active Lisinopril 20 MG Tablet 1 tab(s) orally once a day Active Norethindrone 0.35 MG Tablet 1 tablet Orally Once a day; Duration: days 07/18/2025 Active dexAMETHasone 1 MG Tablet 1 tablet Orall y at 10 pm night before 8 am cortisol; Duration: 07/18/2025 Active Omeprazole 40 MG Capsule Delayed Release 1 cap(s) orally once a day Active Meloxicam 7.5 MG Tablet 1 tab(s) orally once a day Active Ergocalciferol 1.25 MG (78753 UT) Capsule 1 capsule Orally weekly; Duration: 84 days 09/03/2024 Active Cyanocobalamin 1000 MCG/ML Solution 1 mL Injection weekly; Duration: 90 days 09/03/2024 Active Tranexamic Acid 650 MG Tablet 2 tab(s) orally 3 times a day Active Social History Social History Additional Details Category Social Info Options Details Migrated Social History Migrated Social History (Alcohol:):no (Recreational drug use:):no (Smoking:):no Section Notes: caffeine:rarely caffeine:rarely caffeine:rarely Problems Problem Type SNOMED Code ICD Code Onset Dates Problem Status W/U Status Risk Notes Problem Hypothyroidism (04141551) Hypothyroidism, unspecified (E03.9) Active confirmed Problem Non-toxic single thyroid nodule (214463156) Nontoxic single thyroid nodule (E04.1) Active confirmed Problem Non-toxic multinodular goiter (04897140) Nontoxic multinodular goiter (E04.2) Active confirmed Problem Autoimmune thyroiditis (52784239) Autoimmune thyroiditis (E06.3) Active confirmed Problem 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, 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 Problem Vitamin D deficiency (70689502) Vitamin D deficiency, unspecified (E55.9) Active confirmed Problem Irregular menstruation (45708324) Irregular menstruation, unspecified (N92.6) Active confirmed Problem Irregular menstrual cycle (75615106) Irregular menstrual cycle (N92.6) Active confirmed Problem Goiter (9237167) Goiter (E04.9) Active confirme d Vital Signs Heart Rate 75 /min 07/18/2025 Oximetry 97 % 07/18/2025 Height-cm 154.94 cm 07/18/2025 Blood pressure diastolic 82 mm Hg 07/18/2025 Weight-kg 95.44 kg 07/18/2025 Height 61 in 07/18/2025 Blood pressure systolic 120 mm Hg 07/18/2025 Weight 210.4 lbs 07/18/2025 BMI 39.75 kg/m2 07/18/2025 Encounters Encounter Location Date Provider Diagnosis [facility] [address] Enriquez [address] [place] [address] 09/03/2024 Maki Enriquez Vitamin B12 deficien cy anemia, unspecified D51.9 ; Vitamin D deficiency, unspecified E55.9 ; Autoimmune thyroiditis E06.3 and Nontoxic multinodular goiter E04.[address] 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 Enriquez [address] [place] [address] 07/18/2025 Maki Enriquez Hypothyroidism, unspecified E03.9 ; Nontoxic single thyroid nodule E04.1 ; Vitamin D deficiency, unspecified E55.9 ; Irregular menstrual cycle N92.6 ; Disorder of adrenal gland, unspecified E27.9 and Dietary counseling and surveillance Z71.[address] [place] [address] [address] 09/03/2024 Maki Mina [address] [address] 09/10/2024 Maki Enriquez Hypothyroidism, unspecified E03.9 Assessments Encounter Date Diagnosis (ICD Code) Assessment Notes Treatment Notes Treatment Clinical Notes Section Notes 09/03/2024 Vitamin B12 deficiency anemia, unspecified (ICD-10 - D51.9) 09/03/2024 Vitamin D deficiency, unspecified (ICD-10 - E55.9) 09/10/2024 Hypothyroidism, unspecified (ICD-10 - E03.9) 06/20/2025 Hypothyroidism, unspecified (ICD-10 - E03.9) 06/20/2025 Vitamin D deficiency, unspecified (ICD-10 - E55.9) 07/18/2025 Hypothyroidism, unspecified (ICD-10 - E03.9) I 07/18/2025 Nontoxic single thyroid nodule (ICD-10 - E04.1) I 07/18/2025 Vitamin D deficiency, unspecified (ICD-10 - E55.9) I 06/20/2025 Iron deficiency (ICD-10 - E61.1) 09/03/2024 Autoimmune thyroiditis (ICD-10 - E06.3) 09/03/2024 Nontoxic multinodular goiter (ICD-10 - E04.2) 06/20/2025 Other fatigue (ICD-10 - R53.83) 07/18/2025 Irregular menstrual cycle (ICD-10 - N92.6) I 07/18/2025 Disorder of adrenal gland, unspecified (ICD-10 - E27.9) I 06/20/2025 Impaired fasting glucose (ICD-10 - R73.01) 06/20/2025 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 I 06/20/2025 Dietary counseling and surveillance (ICD-10 - Z71.3) Spent 15 minutes preventative counseling patient on dietary recommendations and changes in setting of hyperglycemia- need to restrict refined sugars and processed foods and incorporate up to 150 minutes of moderate level activity weekly. 09/03/2024 Other Assessment and Plan: Papillary Microcarcinoma [...] regimen Monitor iron levels and consult with bending shed worker regarding heavy menstrual bleeding and potential hysterectomy Heavy Menstrual Bleeding and Tranexamic Acid Use Continue tranexamic acid as prescribed during menstrual periods Follow up with bending shed worker about the possibility of a hysterectomy for [...] examination and/or evaluation, counseling and educating the patient/family/caregiver , ordering medications, tests, or procedures, referring and [...] were discussed and all questions were answered. 06/20/2025 Other Rama presents with worsening menstrual cycles despite control patch, recent iron deficiency requiring multiple infusions, and thyroid dysfunction following partial thyroidectomy. Iron deficiency anemiaAssessment: Patient has severe iron deficiency anemia requiring multiple rounds of iron infusions. Completed three infusions in January, but iron levels dropped again by April, necessitating another series of infusions with two completed the week prior and one completed Friday last week. The rapid recurrence suggests ongoing blood loss, likely related to heavy menstrual bleeding. Patient reports feeling dizzy, off balance, and experienced syncope following recent infusions. Sleep quality has improved somewhat since starting infusions, though insomnia persists.Plan:- Continue monitoring iron levels and response to recent infusion series- Patient will have blood drawn for laboratory studies today if possible Hypothyroidism post thyroidectomyAssessment: Patient underwent partial thyroidectomy in July of last year and is currently on levothyroxine 50 mcg. Has been off medication for approximately 2-4 weeks. Current dose appears inadequate given patient's continued symptoms including difficulty with weight loss despite efforts. Patient reports uncertainty about need for completion thyroidectomy and follow-up ultrasound.Plan:- Increase levothyroxine to 75 mcg- Order thyroid ultrasound- Obtain thyroid function tests MenorrhagiaAssessment: Patient experiencing worsening menstrual cycles despite control patch use. Previously benefited from tranexamic acid (Lysteda) but current provider discontinued this medication. Heavy bleeding is likely contributing to recurrent iron deficiency anemia. control patch has been discontinued for one week.Plan:- Discontinue control patch to allow for better assessment- Consider pelvic ultrasound to evaluate for underlying causes Possible PCOSAssessment: Patient reports uncertainty about PCOS diagnosis and describes difficulty finding consistent medical care. Symptoms may be consistent with PCOS including menstrual irregularities and difficulty with weight loss.Plan:- Order pelvic ultrasound to evaluate ovarian morphology- Obtain metabolic studies including glucose and insulin levels (last checked over 9 months ago) Possible hypercortisolismAssessme nt: Clinician suspects possible elevated cortisol levels which could contribute to difficulty with weight loss and other symptoms. Patient reports high stress levels and difficulty with sleep, which could be related to cortisol dysregulation.Plan:- Order dexamethasone suppression test to evaluate for hypercortisolism InsomniaAssessment: Patient reports chronic insomnia with frequent awakening throughout the night. Sleep quality has improved somewhat since iron infusions, now waking only a couple times per night rather than hourly. Falls asleep quickly due to exhaustion but experiences restless sleep with tossing and turning.Plan:- Monitor sleep patterns as other medical conditions are addressed Spent 25 minutes preparing to see the patient (ex review of tests/chart), obtaining and / or reviewing separately obtained history, performing a medically appropriate examination and/or evaluation, counseling and educating the patient/family/caregiver , ordering medications, tests, or procedures, referring and communicating with other health adult caregiver, documenting clinical information in the electronic or other health record, independently interpreting results and communicating results to the patient/family/caregiver and care coordinating patient plan. Patient alert and oriented x 4 and aware of discussion noted above and in agreeance to plan in management of postoperative hypothyroidism/setting of microcarcinoma/papillary subtype, COLEMAN, fatigue, abnormal menses, and weight gain/concern for hypercortisolism/stress. 07/18/2025 Other Patient alu with multiple endocrine issues including postoperative hypothyroidism, hormonal imbalances, elevated cortisol, and metabolic concerns presenting for follow-up and management optimization. Hormonal imbalance with low progesteroneAssessment: Hormones demonstrate low progesterone relative to estrogen levels, which is contributing to sleep disturbances and mood issues including irritability, particularly in relation to menstrual cycle timing.Plan:- Consider progesterone therapy, either daily or from days 14 through 28 of menstrual cycle Elevated cortisolAssessment: Cortisol levels are elevated, which is contributing to sleep difficulties and anxiety symptoms. Patient reports having received multiple treatments for high cortisol previously.Plan:- Cortisol testing with urine and saliva sample collection over a weekend- Ensure samples are refrigerated- Consider imaging of adrenal glands Thyroid dysfunctionAssessment: Thyroid function appears stable on current therapy, though patient experiences afternoon fatigue which may indicate need for T3 supplementation.Plan:- Continue Unithroid 75 micrograms- Thyroid ultrasound needed- Consider adding T3 if afternoon fatigue persists DyslipidemiaAssessment: Cholesterol levels are elevated with triglycerides at 170, LDL at 141, and HDL at 64. Overall cholesterol ratio is 3.7, which is within acceptable range.Plan:- Dietary modifications- Consider fish oil supplementation Borderline low vitamin DAssessment: Vitamin D levels are borderline low requiring adjustment in supplementation.Plan:- Adjust vitamin D intake TachycardiaAssessment: Patient experiences heart racing symptoms, currently managed with metoprolol, though further evaluation may be warranted.Plan:- Continue metoprolol for heart racing symptoms- Further cardiac work-up may be needed Spent 25 minutes preparing to see the patient (ex review of tests/chart), obtaining and / or reviewing separately obtained history, performing a medically appropriate examination and/or evaluation, counseling and educating the patient/family/caregiver , ordering medications, tests, or procedures, referring and communicating with other health adult caregiver, documenting clinical information in the electronic or other health record, independently interpreting results and communicating results to the patient/family/caregiver and care coordinating patient plan. Patient alert and oriented x 4 and aware of discussion noted above and in agreeance to plan in management of hypothyroidism, vit D def, irregular cycles, concern for high cortisol and need to r/o adrenal pathology. I Plan Of Treatment Pending Test Test Name Order Date *CT ABDOMEN W/O CONTRAST 34292 5 *US HEAD AND NECK/THYROID 76002 06/20/20 25 *US HEAD AND NECK/THYROID [id number] 07/18/20 25 Ultrasound thyroid 09/03/2024 Next Appt Details Provider Name:Maki Enriquez, 08:20:00 AM, [address] , [place], [address], Insurance Providers Payer Name Payer Address Payer Phone Subscriber Number Group Number Insured Name Patient Relationship to Insured Coverage Start Date Coverage End Date [employer] [address] [address] [place] [address] [id number] Rama Nair Self - patient is the insured Medical (General) History Medical History History ICD Code hypertension nodules Surgical History Surgery Date(Month/Year) 2017 2015 2012 2007 two wrist surgeries cyst removal on foot 2013 tonsils removed 2007
--- OUTSIDE RECORDS SUMMARY | 2025-08-08 18:09 | XMS_ITS | Clinical Summary ---
Author Organization [facility] Address [address] [place] [address] Care Team Providers Care Software Asset Management Analyst Name Role Phone Delio Joy MD Primary Care Provider [phone] Source Comments [facility],non-owned Affiliates and Associated Physician Practices is amultiple site organization consisting of ambulatory clinics and hospital sitesin [place], [place], [place] and [place]. This disclosure is being madepursuant to the Care Everywhere program and may not contain all information available regarding this patient. 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 Gender Identity Not on file Sexual Orientation Not on file Plan of Treatment Health Maintenance Due Date Last Done Comments HIV SCREENING 12/28/2002 HEPATITIS C SCREENING 12/24/2005 DTAP/TDAP/TD VACCINES (1 - Tdap) 12/28/2006 HEPATITIS B VACCINE (1 of 3 - 19+ 3-dose series) 12/28/2006 PAP SMEAR 12/28/2008 HPV VACCINE (1 - 3-dose SCDM series) 12/28/2014 DEPRESSION SCREENING 08/25/2024 COVID-19 VACCINE (1 - 2024-2 6 season) 2025 INFLUENZA VACCINE (#1) 2025 ZOSTER [...] patient's age to complete this topic Insurance [facility] Address: [address] [address] SELF PAY NO INSURANCE Member Subscriber Plan / Payer (Ef fective for All Dates) Name:Esme Huynh Member ID:Not on file Relation to Subscriber:Not on file Name:ESME HUYNH Subscriber ID:Not on file (Home) Address: [address] [place] [address] Payer ID:Not on file Group ID:Not on file Type:Self Pay Address: [facility] * Guarantor: Esme Huynh Account Type Relation to Patient Date of Phone Billing Address Personal/Family Spouse Care Teams Software Asset Management Analyst Relationship Specialty Start Date End Date Delio Joy MD [address] [place] [address] PCP - General 06/02/18
--- OUTSIDE RECORDS SUMMARY | 2025-08-08 18:09 | XMS_ITS | Clinical Summary ---
Author Organization [facility] [address] [place] [address] Phone Care Team Providers Care Director Of Anesthesia Services Name Role Phone Delio Joy MD Primary Care Provider [phone] Allergies Active Allergy Reactions Criticality Noted Date [...] Encounters Date Type Department Care Team Description 07/26/2025 External Device Data [facility] ABSTRACTION Provider, Abstract 06/14/2025 External Device Data [facility] ABSTRACTION Provider, Abstract 05/11/2025 External Device Data [facility] ABSTRACTION Provider, Abstract 05/09/2025 3:30 PM CDT Office Visit [facility] Oncology and Hematology [facility] [address] [place] [address] Jimmie Mooney MD Acute blood loss anemia (Primary Dx); Chronic anemia 05/09/2025 Orders Only [facility] Oncology and Hematology [facility] [address] [place] [id number] Jimmie Mooney MD from Last 3 Months Family History Medical [...] on file 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 Gender Identity Not on file Sexual Orientation Not on file Occupation Industry Job Start Date Job End Date Not on file Not on file Not on file Not on file Last Filed Vital Signs Vital Sign Reading Time Taken Comments Blood Pressure 139/93 05/09/2025 3:13 PM CDT Pulse 77 05/09/2025 3:10 PM CDT Temperature 36.2 C (97.1 F) 05/09/2025 3:10 PM CDT Respiratory Rate 15 05/09/2025 3:10 PM CDT Oxygen Saturation 98% 05/09/2025 3:10 PM CDT Inhaled Oxygen Concentration - - Weight 95.2 kg (209 lb 12.8 oz) 05/09/2025 3:10 PM CDT Height 152.4 cm (5') 12/23/2024 3:01 PM CDT Body Mass Index 40.97 12/23/2024 3:01 PM CDT Plan of Treatment Upcoming Encounters Date Type Department Care Team (Late st Contact Info) Description 08/09/2025 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 Office Visit [facility] Oncology and Hematology - [place] [address] [facility] [address] [place] [address] Jimmie Mooney MD [address] [facility] [address] [place] [address] Health Maintenance Due Date Last Done Comments Pre-Diabetes and Diabetes Screening 1987 DTAP/TDAP/TD VACCINES (1 - Tdap) 12/28/2006 HEPATITIS B VACCINES (1 of 3 - 19+ 3-dose series) 01/2007 HPV/Cotest (21-29) 12/28/2008 CERVICAL CANCER SCREENING 12/28/2017 HPV/Cotest (30-65) 12/28/2017 PAP SMEAR 12/28/2017 Preventative Visit- Commercial 08/25/2024 INFLUENZA VACCINE (#1) 2025 06/04/2024 HPV VACCINES (No Doses Required) Completed Insurance [facility] CHOICE [id number] Care Teams Director Of Anesthesia Services Relationship Specialty Start Date End Date Delio Joy MD [address] [place] [address] PCP - General Family Practice 03/28/11
[2025-08-08 18:20] LABS: Vitamin B12 566.0 pg/mL (239-931)
== END 2025-08-08 16:05 | disposition home or self-care (01) ==
LOC: ANHLAB 16:07
PROVIDERS: PCP Family Medicine; Visit Provider Internal Medicine Hematology & Oncology
DX: D64.9 Anemia, unspecified (principal)
CPT/HCPCS: 36415; 82607; 82728; 82746; 83540; 83550; 85027